=== PATIENT | male | born 1975 | race Caucasian/White ===

== ENCOUNTER 2024-12-16 21:16 | Emergency (ER) | payer OTHER, SELFPAY ==
[2024-12-16 21:24] VITALS: BP 136/80; PULSE 105; RESP 18; TEMP 37.1; O2SAT 100; BMI 23.5
--- NOTE | 2024-12-16 21:34 | ED_ITS ---
<Statement entered by Sera Xiong MD - 12/16/24 23:34> I was consulted by the SHAHNAZ, and we discussed the complexity of the problems being addressed. I approved the treatment and management plan for this patient's care in the emergency department, thus performing a substantive portion of the medical decision making. Sera Xiong MD, KRISTAL, FACEP Discharge Plan Disposition Patient Disposition: Home, Self-Care Condition: Good Prescriptions Prescriptions: New sulfamethoxazole-trimethoprim [Bactrim DS] 800-160 mg tablet 1 tab PO BID 10 Days Qty: 20 0RF Referrals Follow up/Referrals: Cesar Aguilar MD [Staff Physician, General Surgery] - See instructions Provider,Gerogiana, [Primary Care Provider, Medical] - See instructions Activity Restrictions/Add. Instructions Additional Instructions/Restrictions: I sent a prescription into your pharmacy. Please take until its gone. Have also referred you to general surgery for ongoing follow-up and management. Please call tomorrow to make your appointment. If you have any new or worsening signs or symptoms return to the ER as needed. Clinical Impressions Clinical Impression: Pilonidal abscess of cleft Instructions Patient Instructions: Pilonidal Cyst Print Language Print Language: Slovak Discharge ED Provider: Sera Xiong General Adult HPI General Chief complaint: Wound/Laceration Stated complaint: Boil near Tailbone Severe Pain Time Seen by Provider: 12/16/24 21:34 Mode of Arrival: Ambulatory Source of Information: Patient Description of Symptoms (Recalled from ER Triage Doc. by RN): Pt presents for evaluation of boil to his buttocks that started on History of Present Illness HPI narrative: Patient presents for evaluation of a boil in the cleft. Patient states the symptoms been there since Saturday. Is gotten worse and more painful. Has never had this before. He denies any fever chills hemoptysis hematochezia melena nausea vomiting diarrhea. Patient reports that it hurts to sit or lie flat. Related Data Previous Rx's ?Medication ?Instructions ?Recorded sulfamethoxazole 800 1 tab PO BID 10 days #20 tab s 12/16/24 mg-trimethoprim 160 mg tablet (Bactrim DS) Allergies Allergy/AdvReac Type Severity Reaction Status Date / Time No Known Allergies Allergy Verified 12/16/24 21:36 [facility] Disclaimer: The information contained in this section may have been updated after the patient was seen, as this information can be updated by other users. Social History Smoking Status: Current every day smoker alcohol intake: never current occupational status: employed Travel in the last 8 weeks?: None ROS Obtained: Yes Systems reviewed as appropriate & no additional complaints except as documented Physical Exam General General appearance: alert and in no apparent distress Respiratory Respiratory exam: Present normal lung sounds bilaterally Cardiovascular Cardiovascular exam: Present regular rate Neurological Exam Neurological exam: Present alert Medical Decision Making Medical Records Screening: Per USPSTF and CDC recommendations, given the prevalence of disease in our region, it is our hospital?s policy to screen for HIV and viral Hepatitis for all patients aged 18 and over and those with ongoing risk factors. Carlos Inquiry Pt receiving controlled substance: No Vital Signs: 12/16/24 21:24 Temperature 98.7 F Temperature Source Oral Pulse Rate [Right] 105 H Respiratory Rate 18 Blood Pressure [Right Arm] 136/80 Blood Pressure Mean [Right Arm] 98 Blood Pressure Source [Right Arm] Automatic Cuff Blood Pressure Position [Right Arm] Sitting 02 Sat by Pulse Oximetry 100 Oxygen Delivery Method Room Air Orders (Tests/Meds): ED MEDICATIONS Discontinued Medications Generic Name Dose Route Start Last Admin Trade Name Freq PRN Reason Stop Dose Admin Lidocaine/Epinephrine 10 ml 12/16/24 21:39 12/16/24 21:50 Lidocaine 1% W/Epi 1:100,000 20ml Vial SQ 12/16/24 21:40 10 ml ONCE ONE Administration Trimethoprim/Sulfamethoxazole 1 each 12/16/24 21:39 12/16/24 21:50 Sulfa/Trimethoprim 1 Tablet PO 12/16/24 21:40 1 each ONCE ONE Administration ORDERS Category Date Time Status Wound Culture and Gram Stain Stat Micro 12/16/24 21:52 Ordered Medical Decision Narrative: In summary patient is a 49-year-old male who presents to the emergency department for evaluation of pilonidal abscess. Patient is normotensive tachycardic on arrival with a heart rate of 105 but breathing 18 times a minute satting at 100% on room air upon arrival, afebrile at 98.7. Physical exam is remarkable for very hard indurated area at the top of the maria m cleft with e rythema that extends laterally. It is exquisitely painful to touch.. Differential diagnosis includes pilonidal abscess versus phlegmon. Initial workup will be conducted with wound culture and Gram stain. Initial interventions include p.o. Bactrim. After the area was adequately anesthetized with lidocaine with epinephrine an incision was made with a #11 blade. An immediate return of purulent material occurred. Pocket was approximately a centimeter and half deep and 3 cm and length. Wound was packed with quarter inch gauze and dry dressing was applied. Patient given wound care instructions referral to general surgery for ongoing management and care and referral to wound care as patient has no one to help him change his packing. Patient was given a prescription for Bactrim with first dose given here and prescription sent to his pharmacy. Procedures Abscess I/D Site: other ( cleft) Side (if applicable): left Local Anesthetic: lidocaine 1% and with epi Amount of anesthesia used (mL): 10 Technique: incised with #11 blade Amount of fluid expressed (mL): 5 Irrigation: No Packing used?: iodoform Critical Care Critical Care Time Critical Care Time: No
[2024-12-16] MEDS: LIDOCAINE 1% W/EPI 1:100,000 20ML VIAL 10 ML SQ (21:50)
[2024-12-16] MEDS: SULFA/TRIMETHOPRIM 1 TABLET 1 EACH PO (21:50)
--- OUTSIDE RECORDS SUMMARY | 2024-12-16 21:53 | XMS_ITS | Data Portability ---
Author Organization [facility] Address [address] [place] [id number] Care Team Providers Care Field Supervisor Seed Production Name Role Phone MILAGROS CANNON Primary Care Provider [phone] Assessment No assessment recorded. Plan of Treatment Reminders Order Date Submit Date Provider Last Modified By Organization Details Last Modified Time Details Appointments None recorded. Lab HbA1c (hemoglobin A1c), blood 2022 023 [email or web address] 2 [facility], [address] [place] [address] [address], [place], [address], 3 08:51:25 HbA1c (hemoglobin A1c), blood 2022 023 [email or web address] 2 [facility], [facility], [place], [address], 3 14:16:57 CBC w/ auto diff 2022 023 EDUIN Lynch, [address], [address], [place], [address], 3 07:14:04 CMP, serum or plasma 2022 023 EDUIN Lynch, [address], [address], [place], [address], 3 07:14:05 magnesium, serum or plasma 2022 023 EDUIN Lynch, [address], [address], [place], [address], 3 07:14:08 vitamin D, 25-hydroxy, total, serum 2022 023 [facility], [address], [address], [place], [address], 3 07:14:08 lipid panel, serum 2022 023 [facility], [address], [address], [place], [address], 3 07:14:06 glucose, fingerstick , blood 2022 023 [email or web address] 2 [facility], [address], [place], [address], 3 15:05:53 HbA1c (hemoglobin A1c), blood 2022 023 [email or web address] 2 [facility], [address], [place], [address], 3 11:53:47 CMP, serum or plasma 2022 023 [facility], [address], [address], [place], [address], 3 11:12:21 CBC w/ auto diff 2022 023 [facility], [address], [address], [place], [address], 3 11:12:19 magnesium, serum or plasma 2022 023 [facility], [address], [address], [place], [address], 3 11:12:28 microalbumi n, urine 2022 023 [facility], [address], [place], [address], 3 12:57:57 urinalysis, dipstick 2022 023 [facility], [address], [place], [address], 3 12:01:03 thyroid panel, serum 2022 023 [place] [facility], [address], [address], [place], [address], 3 11:12:23 vitamin D, 25-hydroxy, total, serum 2022 023 [place] [facility], [address], [address], [place], [address], 3 11:12:27 vitamin B12 + folate, serum or blood 2022 023 [place] [facility], [address], [address], [place], [address], 3 11:12:25 lipid panel, serum 2022 023 [place] [facility], [address], [address], [place], [address], 3 11:12:22 Referral physical therapist referral - Coccyx pain. 2022 023 [email or web address] 3 [facility], [address], [place], [address], 3 11:43:02 Procedures colonoscopy screening (PROC) 2022 023 [email or web address] 5 Jose Grove MD, [address], [address], [place], [address], 3 12:38:14 Surgeries None recorded. Imaging US, abdomen, complete - possible umbilical hernia/righ t sided abdominal pain 2022 023 [facility] ([facility] Sched[facility]), [address], [place], [address], 3 16:35:11 XR, sacrum + coccyx, 2 or more view 2022 023 [facility] ([facility]), [address], [place], [address], 3 09:30:08 Medication Orders Ozempic 0.25 mg or 0.5 mg (2 mg/1.5 mL) subcutaneou s pen injector 2022 023 [facility], [address] [place] [address], [address], 3 08:47:06 Chantix Starting Month Box 0.5 mg (11)-1 mg (42) tablets in dose pack 2022 023 [email or web address] 2 [facility], [address] [place] [address], [address], 3 11:14:37 metformin 1,000 mg tablet 2022 023 [email or web address] 2 [facility], [address] [place] [address], [address], 3 11:53:48 Ozempic 0.25 mg or 0.5 mg (2 mg/1.5 mL) subcutaneou s pen injector 2022 023 [facility], [address] [place], [address], 11:14:44 rosuvastati n 10 mg tablet 2022 023 EDUIN [facility], [address] [place], [address], 11:54:37 Patient TargetsNo targets recorded. Patient Instructions Encounter Date Encounter Id Patient Instructions Last Modified By Organization Details Last Modified Time 10/10/2022 [id number] smoking cessatio n counseling, greater than 3 minutes up to 10 minutes* Not available 10/17/2022 08:34:36 Patient needs to follow up in 1 month. Advised patient that I would call with lab results. Counseled patient on monitoring blood glucose at home. Bring log of blood sugars to next appt. [email or web address] Not available 10/10/2022 11:55:22 Reason for Referral Physical Therapist Referral for Pain in coccyx Coccyx pain. Referring Physician: Milagros Cannon, Infectious Disease, Encounter Date: 11/08/2022 Results Created Date Observation Date Name Description Value Unit Range Abnormal Flag Note LastModifiedBy Organization Detail LastModifiedTime 10/11/1910/11/2022 ALBUM IN/CR EATIN INE RATIO ,URIN E creatinine, urine 312.5 mg/dL not estab. Not Available [facility] ([facility]) [address] [place], [address], 10/11/2022 09:14:45 10/11/19 23 10/11/2022 ALBUM IN/CR EATIN INE RATIO ,URIN E albumin, urine 133.8 ug/mL not estab. Not Available [facility] ([facility]) [address] [facility], [place], [address], 10/11/2022 09:14:45 10/11/19 23 10/11/2022 ALBUM IN/CR EATIN INE RATIO ,URIN E alb/creat ratio 43 mg/g_ creat 0-29 above high normal Ana M l: 0 - 29 Moder ately incre ased: 30 - 300 Sever savanah incre ased: >300 Not Available [facility] ([facility]) [address] [place], [address], 10/11/2022 09:14:45 10/11/19 23 10/11/2022 CBC WITH DIFFE RENTI AL/PL ATELE T WBC 8.3 x10e3 /uL 3.4-10 .8 Not Available [facility] ([facility]) [address] [place], [address], 10/11/2022 11:12:19 10/11/1910/11/2022 CBC WITH DIFFE RENTI AL/PL ATELE T RBC 5.38 x10e6 /uL 4.14-5 .80 Not Available [facility] ([facility]) [address] [place], [address], 10/11/2022 11:12:19 10/11/19 23 10/11/2022 CBC WITH DIFFE RENTI AL/PL ATELE T hemoglobin 17.4 g/dL 13.0-1 7.7 Not Available [facility] ([facility]) [address] [place], [address], 10/11/2022 11:12:19 10/11/19 23 10/11/2022 CBC WITH DIFFE RENTI AL/PL ATELE T hematocrit 51.3 % 37.5-5 1.0 above high normal Not Available [facility] ([facility]) [address] [place], [address], 10/11/2022 11:12:19 10/11/19 23 10/11/2022 CBC WITH DIFFE RENTI AL/PL ATELE T MCV 95 fL 79-97 Not Available [facility] ([facility]) [address] [place], [address], 10/11/2022 11:12:19 10/11/19 23 10/11/2022 CBC WITH DIFFE RENTI AL/PL ATELE T MCH 32.3 pg 26.6-3 3.0 Not Available [facility] ([facility]) [address] [facility], [place], [address], 10/11/2022 11:12:19 10/11/19 23 10/11/2022 CBC WITH DIFFE RENTI AL/PL ATELE T MCHC 33.9 g/dL 31.5-3 5.7 Not Available [facility] ([facility]) [address] [facility], [place], [address], 10/11/2022 11:12:19 10/11/19 23 10/11/2022 CBC WITH DIFFE RENTI AL/PL ATELE T RDW 11.7 % 11.6-1 5.4 Not Available [facility] ([facility]) [address] [facility], [place], [address], 10/11/2022 11:12:19 10/11/19 23 10/11/2022 CBC WITH DIFFE RENTI AL/PL ATELE T platelets 324 x10e3 /uL 150-45 0 Not Available [facility] ([facility]) [address] [facility], [place], [address], 10/11/2022 11:12:19 10/11/19 23 10/11/2022 CBC WITH DIFFE RENTI AL/PL ATELE T neutrophils 63 % not estab. Not Available [facility] ([facility]) [address] [facility], [place], [address], 10/11/2022 11:12:19 10/11/19 23 10/11/2022 CBC WITH DIFFE RENTI AL/PL ATELE T lymphs 26 % not estab. Not Available [facility] ([facility]) [address] [facility], [place], [address], 10/11/2022 11:12:19 10/11/19 23 10/11/2022 CBC WITH DIFFE RENTI AL/PL ATELE T monocytes 8 % not estab. Not Available [facility] ([facility]) [address] [facility], [place], [address], 10/11/2022 11:12:19 10/11/19 23 10/11/2022 CBC WITH DIFFE RENTI AL/PL ATELE T eos 1 % not estab. Not Available [facility] ([facility]) [address] [facility], [place], [address], 10/11/2022 11:12:19 10/11/19 23 10/11/2022 CBC WITH DIFFE RENTI AL/PL ATELE T basos 1 % not estab. Not Available [facility] ([facility]) [address] [facility], [place], [address], 10/11/2022 11:12:19 10/11/19 23 10/11/2022 CBC WITH DIFFE RENTI AL/PL ATELE T immature cells PHYSICAL LABORATORY ASSISTANT Not Available [facility] ([facility]) [address] [place], [address], 10/11/2022 11:12:19 10/11/19 23 10/11/2022 CBC WITH DIFFE RENTI AL/PL ATELE T neutrophils (absolute) 5.3 x10e3 /uL 1.4-7. 0 Not Available [facility] ([facility]) [address] [place], [address], 10/11/2022 11:12:19 10/11/19 23 10/11/2022 CBC WITH DIFFE RENTI AL/PL ATELE T lymphs (absolute) 2.2 x10e3 /uL 0.7-3. 1 Not Available [facility] ([facility]) [address] [place], [address], 10/11/2022 11:12:19 10/11/19 23 10/11/2022 CBC WITH DIFFE RENTI AL/PL ATELE T monocytes(ab solute) 0.7 x10e3 /uL 0.1-0. 9 Not Available [facility] ([facility]) [address] [facility], [place], [address], 10/11/2022 11:12:19 10/11/19 23 10/11/2022 CBC WITH DIFFE RENTI AL/PL ATELE T eos (absolute) 0.1 x10e3 /uL 0.0-0. 4 Not Available [facility] ([facility]) [address] [facility], [place], [address], 10/11/2022 11:12:19 10/11/19 23 10/11/2022 CBC WITH DIFFE RENTI AL/PL ATELE T baso (absolute) 0.0 x10e3 /uL 0.0-0. 2 Not Available [facility] ([facility]) [address] [facility], [place], [address], 10/11/2022 11:12:19 10/11/19 23 10/11/2022 CBC WITH DIFFE RENTI AL/PL ATELE T immature granulocytes 1 % not estab. Not Available [facility] ([facility]) [address] [facility], [place], [address], 10/11/2022 11:12:19 10/11/19 23 10/11/2022 CBC WITH DIFFE RENTI AL/PL ATELE T immature grans (abs) 0.1 x10e3 /uL 0.0-0. 1 Not Available [facility] ([facility]) [address] [place], [address], 10/11/2022 11:12:19 10/11/19 23 10/11/2022 CBC WITH DIFFE RENTI AL/PL ATELE T NRBC PHYSICAL LABORATORY ASSISTANT Not Available [facility] ([facility]) [address] [facility], [place], [address], 10/11/2022 11:12:19 10/11/19 23 10/11/2022 CBC WITH DIFFE RENTI AL/PL ATELE T hematology comments: PHYSICAL LABORATORY ASSISTANT Not Available [facility] ([facility]) [address] [facility] [place], [address], 10/11/2022 11:12:19 10/11/19 23 10/11/2022 COMP. METAB OLIC PANEL (14) glucose 294 mg/dL 70-99 above high normal Not Available [facility] ([facility]) [address] [facility] [place], [address], 10/11/2022 11:12:21 10/11/19 23 10/11/2022 COMP. METAB OLIC PANEL (14) BUN 22 mg/dL 6-24 Not Available [facility] ([facility]) [address] [facility] [place], [address], 10/11/2022 11:12:21 10/11/19 23 10/11/2022 COMP. METAB OLIC PANEL (14) creatinine 0.84 mg/dL 0.76-1 .27 Not Available [facility] ([facility]) [address] [facility] [place], [address], 10/11/2022 11:12:21 10/11/19 23 10/11/2022 COMP. METAB OLIC PANEL (14) eGFR 110 mL/mi n/1.7 3 >59 Not Available [facility] ([facility]) [address] [place], [address], 10/11/2022 11:12:21 10/11/19 23 10/11/2022 COMP. METAB OLIC PANEL (14) BUN/creatini ne ratio 26 9-20 above high normal Not Available [facility] ([facility]) [address] [facility] [place], [address], 10/11/2022 11:12:21 10/11/19 23 10/11/2022 COMP. METAB OLIC PANEL (14) sodium 137 mmol/ L 134-14 4 Not Available [facility] ([facility]) [address] [place], [address], 10/11/2022 11:12:21 10/11/19 23 10/11/2022 COMP. METAB OLIC PANEL (14) potassium 5.0 mmol/ L 3.5-5. 2 Not Available [facility] ([facility]) [address] [facility], [place], [address], 10/11/2022 11:12:21 10/11/19 23 10/11/2022 COMP. METAB OLIC PANEL (14) chloride 97 mmol/ L 96-106 Not Available [facility] ([facility]) [address] [facility], [place], [address], 10/11/2022 11:12:21 10/11/19 23 10/11/2022 COMP. METAB OLIC PANEL (14) carbon dioxide, total 24 mmol/ L 20-29 Not Available [facility] ([facility]) [address] [facility], [place], [address], 10/11/2022 11:12:21 10/11/19 23 10/11/2022 COMP. METAB OLIC PANEL (14) calcium 10.1 mg/dL 8.7-10 .2 Not Available [facility] ([facility]) [address] [facility], [place], [address], 10/11/2022 11:12:21 10/11/19 23 10/11/2022 COMP. METAB OLIC PANEL (14) protein, total 7.5 g/dL 6.0-8. 5 Not Available [facility] ([facility]) [address] [facility], [place], [address], 10/11/2022 11:12:21 10/11/19 23 10/11/2022 COMP. METAB OLIC PANEL (14) albumin 4.4 g/dL 4.0-5. 0 Not Available [facility] ([facility]) [address] [facility], [place], [address], 10/11/2022 11:12:21 10/11/19 23 10/11/2022 COMP. METAB OLIC PANEL (14) globulin, total 3.1 g/dL 1.5-4. 5 Not Available [facility] ([facility]) [address] [place], [address], 10/11/2022 11:12:21 10/11/19 23 10/11/2022 COMP. METAB OLIC PANEL (14) A/G ratio 1.4 1.2-2. 2 Not Available [facility] ([facility]) [address] [place], [address], 10/11/2022 11:12:21 10/11/19 23 10/11/2022 COMP. METAB OLIC PANEL (14) bilirubin, total 0.5 mg/dL 0.0-1. 2 Not Available [facility] ([facility]) [address] [place], [address], 10/11/2022 11:12:21 10/11/19 23 10/11/2022 COMP. METAB OLIC PANEL (14) alkaline phosphatase 73 IU/L 44-121 Not Available [facility]) [address] [place], [address], 10/11/2022 11:12:21 10/11/19 23 10/11/2022 COMP. METAB OLIC PANEL (14) AST (SGOT) 33 IU/L 0-40 Not Available [facility] ([facility]) [address] [place], [address], 10/11/2022 11:12:21 10/11/19 23 10/11/2022 COMP. METAB OLIC PANEL (14) ALT (SGPT) 40 IU/L 0-44 Not Available [facility] ([facility]) [address] [place], [address], 10/11/2022 11:12:21 10/11/19 23 10/11/2022 LIPID PANEL cholesterol, total 270 mg/dL 100-19 9 above high normal Not Available [facility] ([facility]) [address] [facility] [place], [address], 10/11/2022 11:12:22 10/11/19 23 10/11/2022 LIPID PANEL triglyceride s 299 mg/dL 0-149 above high normal Not Available [facility] ([facility]) [address] [facility] [place], [address], 10/11/2022 11:12:22 10/11/19 23 10/11/2022 LIPID PANEL HDL cholesterol 32 mg/dL >39 below low normal Not Available [facility] ([facility]) [address] [facility] [place], [address], 10/11/2022 11:12:22 10/11/19 23 10/11/2022 LIPID PANEL VLDL cholesterol shaunna 58 mg/dL 5-40 above high normal Not Available [facility] ([facility]) [address] [place], [address], 10/11/2022 11:12:22 10/11/19 23 10/11/2022 LIPID PANEL LDL chol calc ([facility]) 180 mg/dL 0-99 above high normal Not Available [facility] ([facility]) [address] [place], [address], 10/11/2022 11:12:22 10/11/19 23 10/11/2022 LIPID PANEL comment: PHYSICAL LABORATORY ASSISTANT Not Available [facility] ([facility]) [address] [place], [address], 10/11/2022 11:12:22 10/11/19 23 10/11/2022 THYRO ID PROFI LE II TSH 1.030 uIU/m L 0.450- 4.500 Not Available [facility] ([facility]) [address] [place], [address], 10/11/2022 11:12:23 10/11/19 23 10/11/2022 THYRO ID PROFI LE II thyroxine (T4) 10.8 ug/dL 4.5-12 .0 Not Available [facility] ([facility]) [address] [place], [address], 10/11/2022 11:12:23 10/11/19 23 10/11/2022 THYRO ID PROFI LE II T3 uptake 27 % 24-39 Not Available [facility] ([facility]) [address] [facility], [place], [address], 10/11/2022 11:12:23 10/11/19 23 10/11/2022 THYRO ID PROFI LE II free thyroxine index 2.9 1.2-4. 9 Not Available [facility] ([facility]) [address] [facility], [place], [address], 10/11/2022 11:12:23 10/11/19 23 10/11/2022 THYRO ID PROFI LE II triiodothyro nine (T3) 148 NG/dL 71-180 Not Available [facility] ([facility]) [address] [place], [address], 10/11/2022 11:12:23 10/11/19 23 10/11/2022 VITAM IN B12 AND FOLAT E vitamin B12 747 pg/mL 232-12 45 Not Available [facility] ([facility]) [address] [place], [address], 10/11/2022 11:12:24 10/11/1910/11/2022 VITAM IN B12 AND FOLAT E folate (folic acid), serum >20.0 NG/mL >3.0 A serum folat e linda ntrat ion of less than 3.1 ng/mL is consi dered to repre sent clini shaunna defic iency . Not Available [facility] ([facility]) [address] [place], [address], 10/11/2022 11:12:24 10/11/1910/11/2022 HEMOG LOBIN A1C hemoglobin A1C 12.9 % 4.8-5. 6 above high normal Predi abete s: 5.7 - 6.4 Diabe melissa: >6.4 Glyce oni contr ol for adult s with diabe melissa: <7.0 Not Available [facility] ([facility]) [address] [facility], [place], [address], 10/11/2022 11:12:26 10/11/19 23 10/11/2022 VITAM IN D, 25-HY DROXY vitamin D, 25-hydroxy 23.0 NG/mL 30.0-1 00.0 below low normal Vitam in D defic iency has been defin ed by the Insti tute of Medic ine and an Endoc rine Socie ty pract ice guide line as a level of serum 25-OH vitam in D less than 20 ng/mL (1,2) . The Endoc rine Socie ty went on to furth er defin e vitam in D insuf ficie ncy as a level betwe en 21 and 29 ng/mL (2). 1. IOM (Inst itute of Medic ine). 2009. Dieta ry refer ence intjuan es for calci um and D. Louie burnett [place]: [facility] [employer] . 2. Maribell johnson [place], Nilsa shah [place], Dago off-F errrosemarie i YEAGER, et al. Evalu ation , treat ment, and preve ntion of vitam in D defic iency : an Endoc rine Socie ty clini shaunna pract ice guide line. JCEM. 2010; 96(7) :1911 -30. Not Available [facility] ([facility]) [address] [facility], [place], [address], 10/11/2022 11:12:27 10/11/19 23 10/11/2022 MAGNE SIUM magnesium 1.5 mg/dL 1.6-2. 3 below low normal Not Available [facility] ([facility]) [address] [facility], [place], [address], 10/11/2022 11:12:28 10/11/19 23 10/10/2022 urina lysis , dipst ick Leukocytes (reference range) negati ve Not Available [facility] - [address], [place], [address], 10/10/2022 11:35:48 10/11/19 23 10/10/2022 urina lysis , dipst ick Nitrite (reference range:) negati ve Not Available [facility] - [address], [place], [address], 10/10/2022 11:35:48 10/11/19 23 10/10/2022 urina lysis , dipst ick Urobilinogen (reference range) 0.2 Not Available [facility] - [address], [place], [address], 10/10/2022 11:35:48 10/11/19 23 10/10/2022 urina lysis , dipst ick Protein (reference range) 100 Not Available [facility] - [address], [place], [address], 10/10/2022 11:35:48 10/11/19 23 10/10/2022 urina lysis , dipst ick pH (reference range 5-8.5) 5.0 Not Available [facility] - [address], [place], [address], 10/10/2022 11:35:48 10/11/19 23 10/10/2022 urina lysis , dipst ick Blood (reference range:) negati ve Not Available [facility] - [address], [place], [address], 10/10/2022 11:35:48 10/11/19 23 10/10/2022 urina lysis , dipst ick Specific [place] (reference range) 1.030 Not Available [address], [place], [address], 10/10/2022 11:35:48 10/11/19 23 10/10/2022 urina lysis , dipst ick Ketone (reference range) modera te Not Available [address], [place], [address], 10/10/2022 11:35:48 10/11/19 23 10/10/2022 urina lysis , dipst ick Bilirubin (reference range) modera te Not Available [address], [place], [address], 10/10/2022 11:35:48 10/11/19 23 10/10/2022 urina lysis , dipst ick Glucose (reference range) 1000 Not Available [address], [place], [address], 10/10/2022 11:35:48 10/11/19 23 10/10/2022 urina lysis , dipst ick Color (reference range: yellow-brown ) Dark Yellow Not Available [address], [place], [address], 10/10/2022 11:35:48 10/11/19 23 10/10/2022 HbA1c (hemo globi n A1c), blood HbA1c 13.1 Not Available [address], [place], [address], 10/10/2022 11:16:31 11/09/19 23 11/08/2022 gluco se, finge rstic k, blood Blood Glucose: mg/dl 157 Not Available [address], [place], [address], 11/08/2022 14:40:07 01/09/20 23 01/09/2023 CBC WITH DIFFE RENTI AL/PL ATELE T WBC 8.0 x10e3 /uL 3.4-10 .8 Not Available [facility] ([facility]) [address] [facility] [place], [address], 01/10/2023 07:14:04 01/09/20 23 01/09/2023 CBC WITH DIFFE RENTI AL/PL ATELE T RBC 4.39 x10e6 /uL 4.14-5 .80 Not Available [facility] ([facility]) [address] [facility] [place], [address], 01/10/2023 07:14:04 01/09/20 23 01/09/2023 CBC WITH DIFFE RENTI AL/PL ATELE T hemoglobin 14.5 g/dL 13.0-1 7.7 Not Available [facility] ([facility]) [address] [facility] [place], [address], 01/10/2023 07:14:04 01/09/20 23 01/09/2023 CBC WITH DIFFE RENTI AL/PL ATELE T hematocrit 41.8 % 37.5-5 1.0 Not Available [facility] ([facility]) [address] [facility] [place], [address], 01/10/2023 07:14:04 01/09/20 23 01/09/2023 CBC WITH DIFFE RENTI AL/PL ATELE T MCV 95 fL 79-97 Not Available [facility] ([facility]) [address] [place], [address], 01/10/2023 07:14:04 01/09/20 23 01/09/2023 CBC WITH DIFFE RENTI AL/PL ATELE T MCH 33.0 pg 26.6-3 3.0 Not Available [facility] ([facility]) [address], [place], [address], 01/10/2023 07:14:04 01/09/20 23 01/09/2023 CBC WITH DIFFE RENTI AL/PL ATELE T MCHC 34.7 g/dL 31.5-3 5.7 Not Available [facility] ([facility]) [address] [facility] [place], [address], 01/10/2023 07:14:04 01/09/20 23 01/09/2023 CBC WITH DIFFE RENTI AL/PL ATELE T RDW 12.1 % 11.6-1 5.4 Not Available [facility] ([facility]) [address] [facility] [place], [address], 01/10/2023 07:14:04 01/09/20 23 01/09/2023 CBC WITH DIFFE RENTI AL/PL ATELE T platelets 273 x10e3 /uL 150-45 0 Not Available [facility] ([facility]) [address] [facility] [place], [address], 01/10/2023 07:14:04 01/09/20 23 01/09/2023 CBC WITH DIFFE RENTI AL/PL ATELE T neutrophils 63 % not estab. Not Available [facility] ([facility]) [address] [facility], [place], [address], 01/10/2023 07:14:04 01/09/20 23 01/09/2023 CBC WITH DIFFE RENTI AL/PL ATELE T lymphs 29 % not estab. Not Available [facility] ([facility]) [address] [facility], [place], [address], 01/10/2023 07:14:04 01/09/20 23 01/09/2023 CBC WITH DIFFE RENTI AL/PL ATELE T monocytes 7 % not estab. Not Available [facility] ([facility]) [address] [facility], [place], [address], 01/10/2023 07:14:04 01/09/20 23 01/09/2023 CBC WITH DIFFE RENTI AL/PL ATELE T eos 1 % not estab. Not Available [facility] ([facility]) [address] [place], [address], 01/10/2023 07:14:04 01/09/20 23 01/09/2023 CBC WITH DIFFE RENTI AL/PL ATELE T basos 0 % not estab. Not Available [facility] ([facility]) [address] [place], [address], 01/10/2023 07:14:04 01/09/20 23 01/09/2023 CBC WITH DIFFE RENTI AL/PL ATELE T immature cells PHYSICAL LABORATORY ASSISTANT Not Available [facility] ([facility]) [address] [place], [address], 01/10/2023 07:14:04 01/09/20 23 01/09/2023 CBC WITH DIFFE RENTI AL/PL ATELE T neutrophils (absolute) 5.0 x10e3 /uL 1.4-7. 0 Not Available [facility] ([facility]) [address] [place], [address], 01/10/2023 07:14:04 01/09/20 23 01/09/2023 CBC WITH DIFFE RENTI AL/PL ATELE T lymphs (absolute) 2.3 x10e3 /uL 0.7-3. 1 Not Available [facility] ([facility]) [address] [place], [address], 01/10/2023 07:14:04 01/09/20 23 01/09/2023 CBC WITH DIFFE RENTI AL/PL ATELE T monocytes(ab solute) 0.6 x10e3 /uL 0.1-0. 9 Not Available [facility] ([facility]) [address] [place], [address], 01/10/2023 07:14:04 01/09/20 23 01/09/2023 CBC WITH DIFFE RENTI AL/PL ATELE T eos (absolute) 0.1 x10e3 /uL 0.0-0. 4 Not Available [facility] ([facility]) [address] [facility], [place], [address], 01/10/2023 07:14:04 01/09/20 23 01/09/2023 CBC WITH DIFFE RENTI AL/PL ATELE T baso (absolute) 0.0 x10e3 /uL 0.0-0. 2 Not Available [facility] ([facility]) [address] [facility], [place], [address], 01/10/2023 07:14:04 01/09/20 23 01/09/2023 CBC WITH DIFFE RENTI AL/PL ATELE T immature granulocytes 0 % not estab. Not Available [facility] ([facility]) [address] [facility], [place], [address], 01/10/2023 07:14:04 01/09/2001/09/2023 CBC WITH DIFFE RENTI AL/PL ATELE T immature grans (abs) 0.0 x10e3 /uL 0.0-0. 1 Not Available [facility] ([facility]) [address] [place], [address], 01/10/2023 07:14:04 01/09/20 23 01/09/2023 CBC WITH DIFFE RENTI AL/PL ATELE T NRBC PHYSICAL LABORATORY ASSISTANT Not Available [facility] ([facility]) [address] [place], [address], 01/10/2023 07:14:04 01/09/20 23 01/09/2023 CBC WITH DIFFE RENTI AL/PL ATELE T hematology comments: PHYSICAL LABORATORY ASSISTANT Not Available [facility] ([facility]) [address] [place], [address], 01/10/2023 07:14:04 01/09/20 23 01/09/2023 COMP. METAB OLIC PANEL (14) glucose 111 mg/dL 70-99 above high normal Not Available [facility] ([facility]) [address] [place], [address], 01/10/2023 07:14:05 01/09/20 23 01/09/2023 COMP. METAB OLIC PANEL (14) BUN 16 mg/dL 6-24 Not Available [facility] ([facility]) [address] [place], [address], 01/10/2023 07:14:05 01/09/20 23 01/09/2023 COMP. METAB OLIC PANEL (14) creatinine 0.60 mg/dL 0.76-1 .27 below low normal Not Available [facility] ([facility]) [address] [place], [address], 01/10/2023 07:14:05 01/09/20 23 01/09/2023 COMP. METAB OLIC PANEL (14) eGFR 121 mL/mi n/1.7 3 >59 Not Available [facility] ([facility]) [address] [place], [address], 01/10/2023 07:14:05 01/09/20 23 01/09/2023 COMP. METAB OLIC PANEL (14) BUN/creatini ne ratio 27 9-20 above high normal Not Available [facility] ([facility]) [address] [place], [address], 01/10/2023 07:14:05 01/09/20 23 01/09/2023 COMP. METAB OLIC PANEL (14) sodium 140 mmol/ L 134-14 4 Not Available [facility] ([facility]) [address] [place], [address], 01/10/2023 07:14:05 01/09/20 23 01/09/2023 COMP. METAB OLIC PANEL (14) potassium 4.0 mmol/ L 3.5-5. 2 Not Available [facility] ([facility]) [address] [place], [address], 01/10/2023 07:14:05 01/09/20 23 01/09/2023 COMP. METAB OLIC PANEL (14) chloride 100 mmol/ L 96-106 Not Available [facility] ([facility]) [address] [place], [address], 01/10/2023 07:14:05 01/09/20 23 01/09/2023 COMP. METAB OLIC PANEL (14) carbon dioxide, total 23 mmol/ L 20- Not Available [facility] ([facility]) [address] [facility], [place], [address], 01/10/2023 07:14:05 01/09/20 23 01/09/2023 COMP. METAB OLIC PANEL (14) calcium 9.5 mg/dL 8.7-10 .2 Not Available [facility] ([facility]) [address] [place], [address], 01/10/2023 07:14:05 01/09/20 23 01/09/2023 COMP. METAB OLIC PANEL (14) protein, total 7.1 g/dL 6.0-8. 5 Not Available [facility] ([facility]) [address] [place], [address], 01/10/2023 07:14:05 01/09/20 23 01/09/2023 COMP. METAB OLIC PANEL (14) albumin 4.5 g/dL 4.0-5. 0 Eff ectiv e January 21, 2023 Album in refer ence inter luis will be beck ing to: Age Male Femal e 0 - 7 days 3.6 - 4.9 3.6 - 4.9 8 - 30 days 3.5 - 4.6 3.5 - 4.6 1 - 6 month s 3.7 - 4.8 3.7 - 4.8 7 month s - 2 years 4.0 - 5.0 4.0 - 5.0 3 - 5 years 4.1 - 5.0 4.1 - 5.0 6 - 12 years 4.2 - 5.0 4.2 - 5.0 13 - 30 years 4.3 - 5.2 4.0 - 5.0 31 - 50 years 4.1 - 5.1 3.9 - 4.9 51 - 60 years 3.8 - 4.9 3.8 - 4.9 61 - 70 years 3.9 - 4.9 3.9 - 4.9 71 - 80 years 3.8 - 4.8 3.8 - 4.8 81 - 89 years 3.7 - 4.7 3.7 - 4.7 90 - 199 years 3.6 - 4.6 3.6 - 4.6 Not Available [facility] ([facility]) [address] [place], [address], 01/10/2023 07:14:05 01/09/20 23 01/09/2023 COMP. METAB OLIC PANEL (14) globulin, total 2.6 g/dL 1.5-4. 5 Not Available [facility] ([facility]) [address] [place], [address], 01/10/2023 07:14:05 01/09/20 23 01/09/2023 COMP. METAB OLIC PANEL (14) A/G ratio 1.7 1.2-2. 2 Not Available [facility] ([facility]) [address] [place], [address], 01/10/2023 07:14:05 01/09/20 23 01/09/2023 COMP. METAB OLIC PANEL (14) bilirubin, total 0.4 mg/dL 0.0-1. 2 Not Available [facility] ([facility]) [address] [place], [address], 01/10/2023 07:14:05 01/09/20 23 01/09/2023 COMP. METAB OLIC PANEL (14) alkaline phosphatase 55 IU/L 44-121 Not Available [facility] ([facility]) [address] [facility] [place], [address], 01/10/2023 07:14:05 01/09/20 23 01/09/2023 COMP. METAB OLIC PANEL (14) AST (SGOT) 13 IU/L 0-40 Not Available [facility] ([facility]) [address] [facility] [place], [address], 01/10/2023 07:14:05 01/09/20 23 01/09/2023 COMP. METAB OLIC PANEL (14) ALT (SGPT) 14 IU/L 0-44 Not Available [facility] ([facility]) [address] [place], [address], 01/10/2023 07:14:05 01/09/20 23 01/09/2023 LIPID PANEL cholesterol, total 110 mg/dL 100-19 9 Not Available [facility] ([facility]) [address] [place], [address], 01/10/2023 07:14:06 01/09/20 23 01/09/2023 LIPID PANEL triglyceride s 93 mg/dL 0-149 Not Available [facility] ([facility]) [address] [place], [address], 01/10/2023 07:14:06 01/09/20 23 01/09/2023 LIPID PANEL HDL cholesterol 36 mg/dL >39 below low normal Not Available [facility] ([facility]) [address] [place], [address], 01/10/2023 07:14:06 01/09/20 23 01/09/2023 LIPID PANEL VLDL cholesterol shaunna 18 mg/dL 5-40 Not Available [facility] ([facility]) [address] [place], [address], 01/10/2023 07:14:06 01/09/20 23 01/09/2023 LIPID PANEL LDL chol calc ([facility]) 56 mg/dL 0-99 Not Available [facility] ([facility]) [address] [facility], [place], [address], 01/10/2023 07:14:06 01/09/20 23 01/09/2023 LIPID PANEL comment: PHYSICAL LABORATORY ASSISTANT Not Available [facility] ([facility]) [address] [facility], [place], [address], 01/10/2023 07:14:06 01/09/20 23 01/09/2023 HEMOG LOBIN A1C hemoglobin A1C 7.9 % 4.8-5. 6 above high normal Predi abete s: 5.7 - 6.4 Diabe melissa: >6.4 Glyce oni contr ol for adult s with diabe melissa: <7.0 Not Available [facility] ([facility]) [address] [facility], [place], [address], 01/10/2023 07:14:07 01/09/20 23 01/10/2023 VITAM IN D, 25-HY DROXY vitamin D, 25-hydroxy 61.2 NG/mL 30.0-1 00.0 Vitam in D defic iency has been defin ed by the Insti tute of Medic ine and an Endoc rine Socie ty pract ice guide line as a level of serum 25-OH vitam in D less than 20 ng/mL (1,2) . The Endoc rine Socie ty went on to furth er defin e vitam in D insuf ficie ncy as a level betwe en 21 and 29 ng/mL (2). 1. IOM (Inst itute of Medic ine). 2010. Dieta ry refer ence markus es for calci um and D. Louie burnett [place]: The [facility]io nal [facility] Press . 2. Maribell johnson [place], [place], Dago off-F errar i YEAGER, et al. Evalu ation , treat ment, and preve ntion of vitam in D defic iency : an Endoc rine Socie ty clini shaunna pract ice guide line. JCEM. 2010; 96(7) :1911 -30. Not Available [facility] ([facility]) [address] [facility], [place], [address], 01/10/2023 07:14:08 01/09/20 23 01/09/2023 MAGNE SIUM magnesium 1.6 mg/dL 1.6-2. 3 Not Available [facility] ([facility]) [address] [facility], [place], [address], 01/10/2023 07:14:08 01/09/20 23 01/08/2023 HbA1c (hemo globi n A1c), blood HbA1c 8.0 Not Available [facility] - [address], [place], [address], 01/08/2023 14:14:16 04/10/20 23 04/10/2023 HbA1c (hemo globi n A1c), blood HbA1c 7.3 Not Available [facility] - [address], [place], [address], 04/10/2023 08:34:17 12/08/19 23 12/06/2022 XR, sacru m + coccy x [facility] [address] [id number] Phone: Fax: Name: LIAM XIONG Exam Date: 023 : 977 Age 47 Gender : M Access ion: [id number] Physic rohit: Irena Michelle Facili ty: [facility] Facili ty HSV: Outpat ient Exam: SACRUM COCCYX Sacrum and coccyx Histor y: Sacroc occyge al pain Findin gs: There is mild narrow ing of the SI joints with vacuum phenom enon. There are no osteop hytes or erosio ns. Sacrum and coccyx otherw ise have a normal appear ance. Impres berta: SI joint degene rative change . Dictat ed By: LATONIA BANUELOS Transc ribed By: LATONIA BANUELOS Transc ribed On: 7:46 AM Electr onical ly signed by: LATONIA BANUELOS Thank you for referr LIAM Brian to [facility]. Legall y authen ticate d by TERRY LINCOLN 12-07 09:15: 03 CC'ed Logic: Orderi ng Provid er: HADLEY Mcgee CC Provid er: HADLEY Mcgee Attend ing Provid er: HADLEY Mcgee Referr ing Provid er: HADLEY Mcgee Admitt ing Provid er: HADLEY Mcgee [facility] [address] [place] [address], [address], 12/07/2022 11:54:18 12/08/19 23 12/06/2022 XR, sacru m + coccy x, 2 or more view No observ ation record ed. [facility] ([facility]) [address] [place] [address], [address], 12/07/2022 11:58:00 02/29/20 23 02/28/2023 [facility] [address] [place] [address] Phone: Fax: Name: LIAM XIONG Exam Date: : 977 Age 48 Gender : M Access ion: [id number] Physic rohit: Irena Michelle Facili ty: [facility] Facili ty HSV: Outpat ient Exam: ABDOME N US Abdomi nal ultras ound, comple te. HISTOR Y: Abdomi nal Pain. PROCED URE: Ultras ound images of the abdome n were obtain ed. FINDIN GS: . The liver is increa sed in echoge nicity . The gall bladde r is normal . The common duct is normal . The right kidney measur es 10 cm in length and is normal in echoge nicity withou t hydron ephros is. The left kidney measur es 10.5 cm in length and is normal in echoge nicity withou t hydron ephros is. Spleen is unrema rkable . The IVC and aorta are not well demons trated . IMPRES BERTA: Fatty infilt ration of the liver Films review ed , interp reted and dictat ed by Dr.Pop mcgee Transc ribed by Navid Bethea PA-C. Dictat ed By: SHAMA VELA Transc ribed By: Shama Vela Transc ribed On: 023 4:21 PM Electr onical ly signed by: SHAMA VELA 023 Thank you for referr LIAM Brian to [facility]. Legall y authen ticate d by POPE SHAMA Sharpe 02-28 16:21: 01 CC'ed Logic: Orderi ng Provid er: HADLEY Mcgee CC Provid er: HADLEY Mcgee Attend ing Provid er: HADLEY Mcgee Referr ing Provid er: HADLEY Mcgee Admitt ing Provid er: HADLEY Mcgee [id number] [facility] [address] [facility], [place], [address], 03/01/2023 08:36:07 02/29/20 23 02/28/2023 US, abdom en, compl ete No observ ation record ed. [facility] [address] [facility], [place], [address], 03/07/2023 08:34:35 Result Notes None recorded. Procedures Surgical History Date Name Laterality Status Provider Name and Address Organization Details Recorded Time 9 procedure on shoulder completed Doretha SPRING - NT [facility] [place] 03/20/2023 14:16:42 Imaging Results None recorded. Procedure Notes None recorded. Medical Equipment None Reported. Allergies No known drug allergies Medications Name Sig Start Date Stop Date Status Note LastModified by Organization Details LastModified Time magnesium oxide 400 mg (241.3 mg magnesium) tablet Take 1 tablet every day by oral route as directed for 90 days. 2022 active Not Available Not Available Not Avai lable metformin 1,000 mg tablet TAKE 1 TABLET BY MOUTH TWICE A DAY DIRECTED active Not Available Not Available No t Available lisinopril 10 mg tablet TAKE 1 TABLET BY MOUTH EVERY DAY 2023 active Not Available Not Available Not Avai lable nicotine 21 mg/24 hr daily transdermal patch APPLY 1 PATCH EVERY DAY BY TRANSDERM AL ROUTE DIRECTED active Not Available Not Available No t Available ibuprofen 600 mg tablet TAKE 1 TABLET BY MOUTH EVERY 6 HOURS NEEDED active Not Available Not Available No t Available methylpredn isolone 4 mg tablets in a dose pack TAKE 6 TABLETS ON DAY 1 DIRECTED ON PACKAGE AND DECREASE BY 1 TAB EACH DAY FOR A TOTAL OF 6 DAYS 10/09 completed Not Available Not Available Not Available metaxalone 800 mg tablet TAKE 1 TABLET BY MOUTH EVERY 6 HOURS NEEDED active Not Available Not Available No t Available rosuvastati n 10 mg tablet TAKE 1 TABLET BY MOUTH EVERY DAY DIRECTED active Not Available Not Available No t Available varenicline tartrate 0.5 mg (11)-1 mg (42) tablets in a dose pack Take by oral route for 28 days. 10/16 completed Not Available Not Available Not Available cholecalcif tomás (vitamin D3) 1,250 mcg (50,000 unit) capsule TAKE 1 CAPSULE BY MOUTH ONE TIME PER WEEK DIRECTED FOR 90 DAYS 2023 active Not Available Not Available Not Avai lable Ozempic 0.25 mg or 0.5 mg (2 mg/1.5 mL) subcutaneou s pen injector Inject 0.25 mg every week by subcutane ous route as directed for 30 days. 2022 active Not Available Not Available Not Avai lable magnesium 400 mg (as magnesium oxide) tablet TAKE 1 TABLET BY MOUTH EVERY DAY DIRECTED active Not Available Not Available No t Available Ozempic 0.25 mg or 0.5 mg (2 mg/3 mL) subcutaneou s pen injector INJECT 0.25 MG SUBCUTANE OUSLY WEEKLY DIRECTED active Not Available Not Available No t Available Vitals Date Recorded Body weight Body mass index (BMI) Body height Body temperature Oxygen saturation Oxygen saturation in Arterial blood by Pulse oximetry Heart rate Systolic blood pressure Diastolic blood pressure Provider Name and Address Organization Details Last Updated DateTime 3 873585. 94 g 36.6 kg/m2 182.88 cm 97 [degF] 96 % 96 % 103 /min 142 mm[Hg] 80 mm[Hg] CLAIRE WILL [facility] [place] 3 10:58:46 Date Recorded Body height Body mass index (BMI) Body weight Body temperature Oxygen saturation Oxygen saturation in Arterial blood by Pulse oximetry Heart rate Systolic blood pressure Diastolic blood pressure Provider Name and Address Organization Details Last Updated DateTime 3 182.88 cm 36.5 kg/m2 198971. 35 g 96.8 [degF] 95 % 95 % 89 /min 134 mm[Hg] 84 mm[Hg] [facility] WILL SPRING [facility] & [place] 3 14:33:54 Date Recorded Body height Body mass index (BMI) Body weight Body temperature Oxygen saturation Oxygen saturation in Arterial blood by Pulse oximetry Heart rate Systolic blood pressure Diastolic blood pressure Provider Name and Address Organization Details Last Updated DateTime 3 182.88 cm 33.9 kg/m2 030000. 09 g 98.1 [degF] 97 % 97 % 82 /min 120 mm[Hg] 80 mm[Hg] Aminta Harden [facility] [place] 3 13:57:12 Date Recorded Body height Body mass index (BMI) Body weight Body temperature Oxygen saturation Oxygen saturation in Arterial blood by Pulse oximetry Heart rate Systolic blood pressure Diastolic blood pressure Provider Name and Address Organization Details Last Updated DateTime 3 182.88 cm 33.5 kg/m2 921005. 32 g 97.7 [degF] 97 % 97 % 85 /min 114 mm[Hg] 66 mm[Hg] CLAIRE WILL SPRING [facility] [place] 3 11:13:56 Date Recorded Body height Body mass index (BMI) Body weight Body temperature Oxygen saturation Oxygen saturation in Arterial blood by Pulse oximetry Heart rate Systolic blood pressure Diastolic blood pressure Provider Name and Address Organization Details Last Updated DateTime 182.88 cm 32.4 kg/m2 539201. 58 g 97.1 [degF] 97 % 97 % 90 /min 142 mm[Hg] 70 mm[Hg] CLAIRE SPRING - LPNT [facility] [place] 08:19:13 Social History Question Answer Notes LastModified by Organizat ion Details LastModified Time Tobacco Smoking Status Current Every Day Smoker CLAIRE ramsey, CLEMENTINE COOL [facility] [place] 10/10/2022 10:53:09 Do You Have An Advance Directive? No Information not available 10/10/2022 Are You Blind Or Do You Have Difficulty Seeing? No Information not available 10/10/2022 What Was The Date Of Your Most Recent Tobacco Screening? 10/09/2022 Information not available 10/10/2022 At What Age Did You Start Smoking Tobacco? 17 [email or web address] Information not available 04/10/2023 Are You Passively Exposed To Smoke? Yes Information not available 10/10/2022 How Much Tobacco Do You Smoke? 1 PPD Information not available 10/10/2022 Sex: Unknown Functional Status Question Answer Note LastModified by Organizat ion Details LastModified Time Do you use any illicit or recreational drugs? No Information not available 10/10/2022 What is your level of alcohol consumption? None Information not available 10/10/2022 Do you or have you ever used smokeless tobacco? Never used smokeless tobacco Information not available 10/10/2022 What is your exercise level? Occasional Information not available 10/10/2022 Mental Status None recorded. Family History Relationship Description Onset Age of this Age Resolved Age Notes LastModified by Organization Details LastModified Time Father No current problems or disability [email or web address] Not available 11/13 12:35:59 Mother No current problems or disability [email or web address] Not available 11/13 12:35:59 Medical History Condition Response Diabetes Y Obesity Y Hypertension Y Immunizations Vaccine Type Date Status Note Provider Nam e and Address Organization Details Recorded Time COVID-19, mRNA, LNP-S, PF, 30 mcg/0.3 mL dose 03/10/2021 completed Opal ramsey CLEMENTINE - LPNT [facility] [place] 10/17/2022 12:28:36 COVID-19, mRNA, LNP-S, PF, 30 mcg/0.3 mL dose 03/31/2021 completed Opal ramsey, CLEMENTINE - LPNT [facility] [place] 10/17/2022 12:28:36 Past Encounters Encounter ID Performer Location Encounter Start Date Encounter Closed Date Diagnosis/Indication Diagnosis SNOMED-CT Code Diagnosis ICD10 Code Diagnosis Note [id number] Milagros Cordova in[address] [place] [address] 10/10/2022 10:49:33 10/10/2022 11:53:58 Type 2 diabetes mellitus 29171378 E11.65 Ozempic was still 800 after insurance. Will start with Metformin and reassess and if needed will add another medication if needed. Follow up in 1 month. Bring blood sugar log to clinic at that time. Hyperlipidemia 47531393 E78.5 Thyroid di sorder screening 914081753 Z13.29 Screening for malignant neoplasm of colon 185875265 Z12.11 Nicotine dependence 5629 4008 F17.200 Adult heal th examination 610102850 Z00.01 Counseled patient on annual eye exams and regular dental visits. Will call with lab results. Patient advised to follow up in 1 month. Diabetic p eripheral neuropathy 406324225 E11.40 Will start new diabetes medication . Will reassess. [id number] Milagros Cordova in, [address] [place] [address] 11/08/2022 14:28:07 11/08/2022 14:54:36 Type 2 diabetes mellitus 40954060 E11.65 Keep a blood glucose log. RTC in 2 months. Will recheck hgbA1c, lipid panel, and CBC, CMP. Patient agrees with treatment plan. Continue the metformin as prescribed . Pain in coccyx 19940909 M53.3 Advised patient to take ibuprofen before riding. Use an additional cushion on his bike.Ruthy loyola has cologuard at home. Advised to complete and send in to the lab. [id number] Milagros Cordova [address] [place] [address] 01/08/2023 13:52:38 01/08/2023 15:01:27 Type 2 diabetes mellitus 84969461 E11.65 Continue metformin as RX.Will check complete blood work today. Will call with results.A1 C was 13.1 and it is 8.0 today.Will consider adding Mounjaro after January 12 per new recommenda tions. Patient could not afford before.Fol low up in 3 months. Hyperlipidemia 00764923 E78.5 Patient is currently on rosuvastat in. Will call with lab results. [id number] Milagros Cordova [address] [place] [address] 02/05/2023 10:57:49 02/05/2023 11:31:17 Abdominal pain 56890499 R10.9 Tylenol/Ib uprofen PRN.Avoid any strenuous activity to worsen pain or condition. Was seen in ER December [address] Abd/Pelvis was unremarkab le.Will order U/S. Will call with ultrasound results. [id number] Milagros Cordova [address] [place] [address] 04/10/2023 08:14:43 04/10/2023 08:39:38 Type 2 diabetes mellitus 44338929 E11.65 A1C 7.3 on maximum continued Metformin therapy and dietary modificati ons.will add Ozempic to help reach A1c goals.Will see back in 1 month after starting Ozempic. Health Concerns Section Related Observation LastModified by Organization Detai ls LastModified Time None Recorded Concern Status LastModified by Organization Details LastModified Time None Recorded Advance Directives Directive N: Payers Insurance Date Sequence Insurance Name Policy Number Policy Zaman Covered Member ID Zaman Member ID Guarantor Name 05/22/2023 1 [facility] [id number] Liam Xiong [id number] Liam Xiong Notes Date Note Type Note Provider Name and Address Organization Details Recorded Time 10/10/2022 text/html patient presents to clinic to establish care. He was a patient of dr. ramos. He has not been since last year. He has not been on his diabetic medication. Smoking- he smokes 2 PPD. He reports at least 20-25 year history.he is interested in cessation.ETOH use- deniesIllicit drug use- denies Covid or flu vaccine- he received. He does not wear glasses or contacts. he has not been seen at the eye doctor in 10 years.He has not seen the dentist in over 2 years. History or family history of Cancer- he reports a maternal history of lung cancer. She also had a brain lesion. Exercise/diet habits- he reports a terrible diet. Changes in bowel habits-Constipation /diarrhea? He reports some neuropathy. Milagros Cannon APRN [address], [place], [address], [facility] [place] 10/12/2022 10:13:43 11/08/2022 text/html patient presents to clinic for follow up. He has been taking his metformin and tolerating it. He has not checked his blood sugars as directed. His blood glucose in the office today is noted. Patient states he feels better. Denies any new symptoms. Patient does reports some coccyx pain when he is riding his motorcycle. Denies any saddle anesthesia. Denies any sciatica. Denies any diarrhea or constipation. Denies any drainage, hematochezia, warmth. Denies any excess urge to defecate. Milagros Cannon APRN [address], [place], [address], [facility] & [place] 11/08/2022 15:48:57 01/08/2023 text/html patient presents to clinic for follow up on diabetes.He states he is feeling better. He was seen in the ER for abdominal pain 2 weeks ago. He states CT abdomen was negative. He is seeing the Chiropractor and it is helping with his back spasms. He denies any new symptoms. Milagros Cannon APRN [address], [place], [address], [facility] & [place] 01/08/2023 14:31:24 02/05/2023 text/html patient presents to clinic for right sided periumbilical abdominal pain. He rates it moderate. Denies any change in appetite. Denies any hematochezia/melena . Denies any nausea or vomiting. He denies any accident or ability to pinpoint when it happened. Symptoms started 2 weeks ago. Pain doesnt radiate. Skin is tender and he has some paresthesias. He denies any diarrhea or constipation. Denies any scrotal pain or swelling. Denies any fevers. Denies any chest pain or SOB. Milagros Cannon APRN [address], [place], [address], [place] - [facility] & [place] 02/05/2023 11:49:51 04/10/2023 text/html patient presents to clinic for 3 month follow up. He states he is a little stressed in this morning. He states his BP has been running good. He denies any headaches. Denies any chest pain. Milagros Cannon APRN [address], [place], [address], [place] - [facility] & [place] 04/11/2023 08:59:32
[2024-12-16 21:59] VITALS: BP 138/78; PULSE 78; RESP 18; TEMP 36.6; O2SAT 98
--- NOTE | 2024-12-18 14:24 | PC.NURSE ---
I discussed the pts prelim culture results with . No change needed to the pts treatment plan.
== END 2024-12-16 22:06 | disposition home or self-care (01) ==
LOC: ER 21:51
PROVIDERS: Emergency Provider Student in an Organized Health Care Education/Training Program
DX: L05.01 Pilonidal cyst with abscess (principal); F17.210 Nicotine dependence, cigarettes, uncomplicated
CPT/HCPCS: 10081; 87070; 87077; 87205; 99283; J2004

== ENCOUNTER 2024-12-23 09:35 | Outpatient (CLI) | payer OTHER, SELFPAY ==
[2024-12-23 10:19] LABS: Basophils # 0.1 K/mm3 (0-0.2); Basophils % 0.8 % (0.1-2.0); Eosinophils # 0.2 Kmm3 (0.0-0.4); Eosinophils % 3.5 % (0.1-12.0); Hematocrit 42.8 % (42.0-52.0); Hemoglobin 14.5 g/dL (14.1-18.0); Immature Granulocytes # 0.01 10^3uL; Immature Granulocytes % 0.2 %; Lymphocytes # 1.9 K/mm3 (0.7-4.5); Lymphocytes % 31.6 % (10-50); Mean Corpuscular HGB Conc 33.9 g/dL (31.8-35.4); Mean Corpuscular Hemoglobin 31.8 pg (27.0-31.2); Mean Corpuscular Volume 93.9 fl (80-94); Mean Platelet Volume 9.5 fl (7.4-10.4); Monocytes # 0.5 K/mm3 (0.1-1.0); Monocytes % 7.7 % (1.7-9.3); Neutrophils # 3.4 K/mm3 (1.8-7.8); Neutrophils % 56.2 % (37.0-80.0); Nucleated Red Blood Cells # 0 10^3/uL; Nucleated Red Blood Cells % 0 %; Platelet Count 319 K/mm3 (142-424); Red Blood Count 4.56 M/mm3 (4.60-6.20); Red Cell Distribution Width 12.7 % (11.5-17.5); Red Cell Distribution Width-SD 43.6 fL
[2024-12-23 10:37] LABS: Anion Gap 6.9 mEq/L (5-15); Blood Urea Nitrogen 10 mg/dl (9-20); Carbon Dioxide 29 mmol/L (22.0-30.0); Chloride 105 mmol/L (98-107); Estimated Glomerular Filt Rate 121 ml/min (>60); GFR (African American) 146 ML/MIN (>60); Glucose 144 mg/dl (74-100); Potassium 3.9 mmoL/L (3.5-5.1); Sodium 137 mmol/L (136-145)
--- NOTE | 2024-12-23 14:22 | ECG_ITS ---
APPROVED REPORT Exam: Resting ECG HR:65 bpm ECG Measurements Heart Rate 65 AXES OR 154 P 21 QRSd 88 QRS 37 QT 370 T 49 QTc 382 Conclusion SINUS RHYTHM LOW QRS VOLTAGE IN PRECORDIAL LEADS [QRS DEFLECTION < 1.0 mV IN CHEST LEADS] BORDERLINE ECG UNCONFIRMED REPORT Electronically signed by : Kvng Araya MD 12/24/2024 08:43:52
== END 2024-12-23 23:59 | disposition home or self-care (01) ==
LOC: PREOP 09:36
PROVIDERS: PCP Internal Medicine; Visit Provider Surgery
DX: Z01.810 Encounter for preprocedural cardiovascular examination (principal); L05.01 Pilonidal cyst with abscess; R94.31 Abnormal electrocardiogram [ECG] [EKG]
CPT/HCPCS: 80048; 85025; 93005

== ENCOUNTER 2024-12-31 07:59 | Day surgery (SDC) | payer OTHER, SELFPAY ==
[2024-12-23 14:15] VITALS: BMI 33.9
[2024-12-31] VITALS (9 sets, daily range): BP systolic 118–156; BP diastolic 62–99; PULSE 70–78; RESP 14–18; TEMP 36.1–36.3; O2SAT 95–97
[2024-12-31] MEDS: 0.9 % SODIUM CHLORIDE 1000ML 1,000 ML 25 ML IV (08:17)
[2024-12-31 08:32] LABS: POC Glucose,Bedside 157 (70-110)
--- NOTE | 2024-12-31 09:52 | P.PNANES_ITS ---
[facility] Disclaimer: The information contained in this section may have been updated after the patient was seen, as this information can be updated by other users. Medical History Diabetes Surgical History History of shoulder surgery Family History Other Family history of cancer Social History Smoking Status: Current every day smoker alcohol intake: never substance use type: denies use current occupational status: employed Travel in the last 8 weeks?: None [facility] Anesthesia Checklist Patient Identification Patient Identification: Verbal (Name & ) Structural Data Admitted From: Home Planned Operative Procedure/s: pilonidal cyst Consent for Planned Operative Procedure(s) Verified: Yes NPO Status Verified Time NPO: 00:00 Additional verifications Anesthesia Reactions: No Hx Blood Transfusions: No Blood Transfusion Reaction: No Airway Assessment Mallampati Score:: Class II C-Spine Mobility Assessed: Yes TMJ Mobility Assessed: Yes Dentition: Good Dentition Neurological Assessment Level of Consciousness: Awake, Alert and Appropriate Anesthesia Plan Anesthesia Risk discussed: Yes Anesthesia Plan: Verified ASA Class: II Anesthesia Type: General
[2024-12-31] MEDS: METRONIDAZ/SOD CHL 500 MG/100 ML PIGGYBACK 100 MG IV (10:55)
[2024-12-31] MEDS: LIDOCAINE 1% 20ML MDV 20 ML (11:04)
[2024-12-31] MEDS: CEFAZOLIN SODIUM 2 GM in 0.9 % SODIUM CHLORIDE 100 ML IV (11:05)
--- NOTE | 2024-12-31 11:17 | P.OP_ITS ---
Date of procedure: 12/31/24 Pre-op Diagnosis:: Complex pilonidal cyst with recent abscess Post-op Diagnosis:: Same Procedure performed:: Pilonidal cyst excision Surgeon:: Kenneth Bird MD TUNNEL ELASTIC OPERATOR CHAINSTITCH:: Wong Clements Anesthesia: local and LMA Estimated blood loss (mL): 10 Operative findings:: Complex pilonidal abscess with multiple overlying punctae and evidence of recent abscess Operative note:: After informed consent was obtained the patient was taken to the operating room and placed in the supine position. General anesthesia with laryngeal mask airway was achieved. He was transferred to a left lateral decubitus position. His buttock cleft region was prepped and draped in a sterile fashion. After infiltration with local anesthetic an incision was made circumferentially around overlying central punctae and left lateral inflammatory tissue margin. The excised tissue was passed off for pathologic evaluation. A small pocket of purulence was noted just underlying prior incision and drainage site. The entir e cavity was thoroughly irrigated. Electrocautery was utilized to achieve hemostasis. The wound was packed with Kerlix and dressings were applied. Condition: stable Disposition: PACU Specimens:: Pilonidal cyst Complications:: No immediate
--- NOTE | 2024-12-31 11:37 | P.PNANES_ITS ---
[facility] Anesthesia Record Part I Anesthesia Record I Intake, IV Amount: 300 Hydration: Adequate Estimated blood loss (mL): 5 Urine output (mL): 0 Blood Products used (#): none Blood Pressure: 152/93 SaO2: 97 Pulse Rate: 77 Airway Patency: Patent Respiratory Rate: 14 Temperature: 97.4 F Patient is:: Drowsy and Stable Stable to PACU at:: 11:30
[2024-12-31] MEDS: HYDROMORPHONE 2MG/ML SYRINGE 0.5 MG IV (11:50)
[2024-12-31 11:53] LABS: POC Glucose,Bedside 130 (70-110)
[2024-12-31] MEDS: MORPHINE 2MG/ML SYRINGE 2 MG IV (11:53)
[2024-12-31] MEDS: KETOROLAC 30MG/ML VIAL 30 MG IV (11:53)
--- NOTE | 2025-01-01 09:10 | EXP.ANES.II ---
[facility] Anesthesia Record Part II Anesthesia Record Part II Discharge Time: 12:21 Destination: Surgical Day Care (OP Surgery) PACU nurse assessment reviewed?: Yes Patient Condition:: Good Anesthesia Complications:: None Swallowing reflex intact?: Yes Airway Patency: Patent Cyanosis?: No Blood Pressure: 123/75 SaO2: 95 Respiratory Rate: 18 Pulse Rate: 73 Temperature: 97.0 F Mental Status: Alert & Oriented Pain level:: 0 Nausea and/or vomitting:: None Intake, IV Amount: 0 Hydration: Adequate
[2025-01-01 09:11] VITALS: BP 123/75; PULSE 73; RESP 18; TEMP 36.1; O2SAT 95
== END 2024-12-31 12:45 | disposition home or self-care (01) ==
PROVIDERS: PCP Internal Medicine; Visit Provider Surgery
PROC: (CPT 11770; principal; 2024-12-31 09:45)
DX: L05.01 Pilonidal cyst with abscess (principal); E11.9 Type 2 diabetes mellitus without complications; Z79.85 Long-term (current) use of injectable non-insulin antidiabetic drugs
CPT/HCPCS: 11770; 82962; 96374; J0690; J1171; J1836; J1885; J2003; J2250; J2270; J2704; J3010; J7030

== ENCOUNTER 2025-01-01 12:25 | Outpatient (CLI) | payer OTHER, SELFPAY ==
--- OUTSIDE RECORDS SUMMARY | 2025-01-01 12:28 | XMS_ITS | Patient Health Record ---
Author Organization [facility] Address [address] [address] [place] [address] Care Team Providers Care Early Childhood Assistant Name Role Phone None, None Primary Care Provider UnavailJose Das Unavailable [phone] Allergies No Known Allergies Reason For Referral No Information Medications Medication SIG (Take, Route, Fr equency, Duration) Notes Start Date End Date Status metFORMIN HCl 500 MG 1 tablet with a kristi l Orally Once a day Active Social History Tobacco Use: Social History Observation Description Date Details (start date - stop date) Current Smoker NA - NA Tobacco Control (Standard) Question Answer Notes Tobacco use: Current smoker AUDIT-C (Standard) Question Answer Notes Did you have a drink containing alcohol in the p ast year? No Points 0 Interpretation Negative Problems Problem Type SNOMED Code ICD Code Onset Dates Problem Status W/U Status Risk Notes Problem 977333263 Obesity (BMI 30-39.9) (E66.9) Active confirmed Problem 77295277 Acute tonsillitis, unspecified etiology (J03.90) Active confirmed Problem 6244073162133 Acute otitis media with effusion of both ears (H65.193) Active confirmed Problem 89779307 Rapid pulse (R00.0) Active confirmed Vital Signs Temperature 98.7 degrees Fahrenheit 01/30/2024 Respiratory Rate 18 /min 01/30/2024 Blood pressure diastolic 78 mm Hg 01/30/2024 Height 72 in 01/30/2024 Blood pressure systolic 118 mm Hg 01/30/2024 Weight 245 lbs 01/30/2024 BMI 33.22 kg/m2 01/30/2024 Encounters Encounter Location Date Provider Diagnosis [address] [place] [address] 01/30/2024 Jose Katherin Acute otitis media with effusion of both ears H65.193 ; Acute tonsillitis, unspecified etiology J03.90 ; Rapid pulse R00.0 and Obesity (BMI 30-39.9) E66.9 Assessments Encounter Date Diagnosis (ICD Code) Assessment Notes Treatment Notes Treatment Clinical Notes Section Notes 01/30/2024 Acute tonsillitis, unspecified etiology (ICD-10 - J03.90) Declined strep testing 01/30/2024 Acute otitis media with effusion of both ears (ICD-10 - H65.193) 01/30/2024 Rapid pulse (ICD-10 - R00.0) 01/30/2024 Obesity (BMI 30-39.9) (ICD-10 - E66.9) Plan Of Treatment No Information Insurance Providers Payer Name Payer Address Payer Phone Subscriber Number Group Number Insured Name Patient Relationship to Insured Coverage Start Date Coverage End Date [facility] [address] [address] [place] [phone] [id number] Liam Xiong Self - patient is the insured Medical (General) History Medical History History ICD Code Diabetes Surgical History Surgery Date(Month/Year) shoulder left Hospitalization History Reason Date(Month/Year) as above
--- OUTSIDE RECORDS SUMMARY | 2025-01-01 12:28 | XMS_ITS | Patient Health Record ---
Author Organization [facility] Address [address] [place] [address] Support Name Relationship Address Phone N/A, N/A Emergency Contact [address] [place] [address] Unavailable RHIANNON SEXTON Guarantor Unknown [phone] Reason For Referral No Information Immunizations Vaccine Route Administration Date Status Comme nts PFIZER Covid 19 1st Dose (0.3ml) 12yr & up IM Intramuscular 03/10/2021 Administered PFIZER Covid 19 2nd Dose (0.3ml) 12yr & up IM Intramuscular 03/31/2021 Administered Plan Of Treatment No Information Insurance Providers Payer Name Payer Address Payer Phone Subscriber Number Group Number Insured Name Patient Relationship to Insured Coverage Start Date Coverage End Date [facility] [address] [address] [place] [phone] [id number] RHIANNON SEXTON Self - patient is the insured
--- OUTSIDE RECORDS SUMMARY | 2025-01-01 12:28 | XMS_ITS | Data Portability ---
Author Organization [facility] ADMIN Address [address] [place] [id number] Care Team Providers Care Dog Walker Name Role Phone MILAGROS CANNON Primary Care Provider Assessment No assessment recorded. Plan of Treatment Reminders Order Date Submit Date Provider Last Modified By Organization Details Last Modified Time Details Appointments None recorded. Lab HbA1c (hemoglobin A1c), blood 2022 023 [email or web address] 2 [facility], [address] [place] [address] [address], [place], [address], 3 08:51:25 HbA1c (hemoglobin A1c), blood 2022 023 [email or web address] 2 [facility], [facility], [place], [address], 3 14:16:57 CBC w/ auto diff 2022 023 EDUIN Lynch, [address], [address], [place], [address], 3 07:14:04 CMP, serum or plasma 2022 023 EDUIN Lynch, [address], [address], [place], [address], 3 07:14:05 magnesium, serum or plasma 2022 023 EDUIN Lynch, [address], [address], [place], [address], 3 07:14:08 vitamin D, 25-hydroxy, total, serum 2022 023 EDUIN [facility], [address], [address], [place], [address], 3 07:14:08 lipid panel, serum 2022 023 EDUIN [facility], [address], [address], [place], [address], 3 07:14:06 glucose, fingerstick , blood 2022 023 [email or web address] 2 [facility], [address], [place], [address], 3 15:05:53 HbA1c (hemoglobin A1c), blood 2022 023 [email or web address] 2 [facility], [address], [place], [address], 3 11:53:47 CMP, serum or plasma 2022 023 EDUIN [facility], [address], [address], [place], [address], 3 11:12:21 CBC w/ auto diff 2022 023 EDUIN [facility], [address], [address], [place], [address], 3 11:12:19 magnesium, serum or plasma 2022 023 EDUIN [facility], [address], [address], [place], [address], 3 11:12:28 microalbumi n, urine 2022 023 [facility], [address], [place], [address], 3 12:57:57 urinalysis, dipstick 2022 023 [facility], [address], [place], [address], 3 12:01:03 thyroid panel, serum 2022 023 GUINDA [facility], [address], [address], [place], [address], 3 11:12:23 vitamin D, 25-hydroxy, total, serum 2022 023 GUINDA [facility], [address], [address], [place], [address], 3 11:12:27 vitamin B12 + folate, serum or blood 2022 023 GUINDA [facility], [address], [address], [place], [address], 3 11:12:25 lipid panel, serum 2022 023 GUINDA [facility], [address], [address], [place], [address], 3 11:12:22 Referral physical therapist referral - Coccyx pain. 2022 023 [email or web address] 3 [facility], [address], [place], [address], 3 11:43:02 Procedures colonoscopy screening (PROC) 2022 023 [email or web address] 5 Jose Grove MD, [address], [address], [place], [address], 3 12:38:14 Surgeries None recorded. Imaging US, abdomen, complete - possible umbilical hernia/righ t sided abdominal pain 2022 023 [facility] ([facility]), [address], [place], [address], 3 16:35:11 XR, sacrum + coccyx, 2 or more view 2022 023 [facility] ([facility]), [address], [place], [address], 3 09:30:08 Medication Orders Ozempic 0.25 mg or 0.5 mg (2 mg/1.5 mL) subcutaneou s pen injector 2022 023 [id number], [address] [place] [address], [address], 3 08:47:06 Chantix Starting Month Box 0.5 mg (11)-1 mg (42) tablets in dose pack 2022 023 [email or web address] 2 [facility], [address] [place] [address], [address], 3 11:14:37 metformin 1,000 mg tablet 2022 023 [email or web address] 2 [facility], [address] [place] [address], [address], 3 11:53:48 Ozempic 0.25 mg or 0.5 mg (2 mg/1.5 mL) subcutaneou s pen injector 2022 023 [facility], [address] [place], [address], 11:14:44 rosuvastati n 10 mg tablet 2022 023 EDUIN [facility], [address] [place], [address], 11:54:37 Patient TargetsNo targets recorded. Patient Instructions Encounter Date Encounter Id Patient Instructions Last Modified By Organization Details Last Modified Time 10/10/2022 [id number] smoking cessatio n counseling, greater than 3 minutes up to 10 minutes* Not available 10/17/2022 08:34:36 Patient needs to follow up in 1 month. Advised patient that I would call with lab results. Counseled patient on monitoring blood glucose at home. Bring log of blood sugars to next appt. [email or web address] Not available 10/10/2022 11:55:22 Reason for Referral Physical Therapist Referral for Pain in coccyx Coccyx pain. Referring Physician: Milagros Cannon, Infectious Disease, Encounter Date: 11/08/2022 Results Created Date Observation Date Name Description Value Unit Range Abnormal Flag Note LastModifiedBy Organization Detail LastModifiedTime 10/11/1910/11/2022 ALBUM IN/CR EATIN INE RATIO ,URIN E creatinine, urine 312.5 mg/dL not estab. Not Available [facility] ([facility]) [address] [place], [address], 10/11/2022 09:14:45 10/11/19 23 10/11/2022 ALBUM IN/CR EATIN INE RATIO ,URIN E albumin, urine 133.8 ug/mL not estab. Not Available [facility] ([facility]) [address] [facility], [place], [address], 10/11/2022 09:14:45 10/11/19 23 10/11/2022 ALBUM IN/CR EATIN INE RATIO ,URIN E alb/creat ratio 43 mg/g_ creat 0-29 above high normal Ana M l: 0 - 29 Moder ately incre ased: 30 - 300 Sever savanah incre ased: >300 Not Available [facility] ([facility]) [address] [place], [address], 10/11/2022 09:14:45 10/11/19 23 10/11/2022 CBC WITH DIFFE RENTI AL/PL ATELE T WBC 8.3 x10e3 /uL 3.4-10 .8 Not Available [facility] ([facility]) [address] [place], [address], 10/11/2022 11:12:19 10/11/1910/11/2022 CBC WITH DIFFE RENTI AL/PL ATELE T RBC 5.38 x10e6 /uL 4.14-5 .80 Not Available [facility] ([facility]) [address] [place], [address], 10/11/2022 11:12:19 10/11/19 23 10/11/2022 CBC WITH DIFFE RENTI AL/PL ATELE T hemoglobin 17.4 g/dL 13.0-1 7.7 Not Available [facility] ([facility]) [address] [place], [address], 10/11/2022 11:12:19 10/11/19 23 10/11/2022 CBC WITH DIFFE RENTI AL/PL ATELE T hematocrit 51.3 % 37.5-5 1.0 above high normal Not Available [facility] ([facility]) [address] [place], [address], 10/11/2022 11:12:19 10/11/19 23 10/11/2022 CBC WITH DIFFE RENTI AL/PL ATELE T MCV 95 fL 79-97 Not Available [facility] ([facility]) [address] [place], [address], 10/11/2022 11:12:19 10/11/19 23 10/11/2022 CBC WITH DIFFE RENTI AL/PL ATELE T MCH 32.3 pg 26.6-3 3.0 Not Available [facility] ([facility]) [address] [facility], [place], [address], 10/11/2022 11:12:19 10/11/19 23 10/11/2022 CBC WITH DIFFE RENTI AL/PL ATELE T MCHC 33.9 g/dL 31.5-3 5.7 Not Available [facility] ([facility]) [address] [facility], [place], [address], 10/11/2022 11:12:19 10/11/19 23 10/11/2022 CBC WITH DIFFE RENTI AL/PL ATELE T RDW 11.7 % 11.6-1 5.4 Not Available [facility] ([facility]) [address] [facility], [place], [address], 10/11/2022 11:12:19 10/11/19 23 10/11/2022 CBC WITH DIFFE RENTI AL/PL ATELE T platelets 324 x10e3 /uL 150-45 0 Not Available [facility] ([facility]) [address] [facility], [place], [address], 10/11/2022 11:12:19 10/11/19 23 10/11/2022 CBC WITH DIFFE RENTI AL/PL ATELE T neutrophils 63 % not estab. Not Available [facility] ([facility]) [address] [facility], [place], [address], 10/11/2022 11:12:19 10/11/19 23 10/11/2022 CBC WITH DIFFE RENTI AL/PL ATELE T lymphs 26 % not estab. Not Available [facility] ([facility]) [address] [facility], [place], [address], 10/11/2022 11:12:19 10/11/19 23 10/11/2022 CBC WITH DIFFE RENTI AL/PL ATELE T monocytes 8 % not estab. Not Available [facility] ([facility]) [address] [facility], [place], [address], 10/11/2022 11:12:19 10/11/19 23 10/11/2022 CBC WITH DIFFE RENTI AL/PL ATELE T eos 1 % not estab. Not Available [facility] ([facility]) [address] [facility], [place], [address], 10/11/2022 11:12:19 10/11/19 23 10/11/2022 CBC WITH DIFFE RENTI AL/PL ATELE T basos 1 % not estab. Not Available [facility] ([facility]) [address] [facility], [place], [address], 10/11/2022 11:12:19 10/11/19 23 10/11/2022 CBC WITH DIFFE RENTI AL/PL ATELE T immature cells [employer]OWNFIELD [employer] SPECIALIST Not Available [facility] ([facility]) [address] [place], [address], 10/11/2022 11:12:19 10/11/19 23 10/11/2022 CBC WITH DIFFE RENTI AL/PL ATELE T neutrophils (absolute) 5.3 x10e3 /uL 1.4-7. 0 Not Available [facility] ([facility]) [address] [place], [address], 10/11/2022 11:12:19 10/11/19 23 10/11/2022 CBC WITH DIFFE RENTI AL/PL ATELE T lymphs (absolute) 2.2 x10e3 /uL 0.7-3. 1 Not Available [facility] ([facility]) [address] [place], [address], 10/11/2022 11:12:19 10/11/19 23 10/11/2022 CBC WITH DIFFE RENTI AL/PL ATELE T monocytes(ab solute) 0.7 x10e3 /uL 0.1-0. 9 Not Available [facility] ([facility]) [address] [facility], [place], [address], 10/11/2022 11:12:19 10/11/19 23 10/11/2022 CBC WITH DIFFE RENTI AL/PL ATELE T eos (absolute) 0.1 x10e3 /uL 0.0-0. 4 Not Available [facility] ([facility]) [address] [facility], [place], [address], 10/11/2022 11:12:19 10/11/19 23 10/11/2022 CBC WITH DIFFE RENTI AL/PL ATELE T baso (absolute) 0.0 x10e3 /uL 0.0-0. 2 Not Available [facility] ([facility]) [address] [facility], [place], [address], 10/11/2022 11:12:19 10/11/19 23 10/11/2022 CBC WITH DIFFE RENTI AL/PL ATELE T immature granulocytes 1 % not estab. Not Available [facility] ([facility]) [address] [facility], [place], [address], 10/11/2022 11:12:19 10/11/19 23 10/11/2022 CBC WITH DIFFE RENTI AL/PL ATELE T immature grans (abs) 0.1 x10e3 /uL 0.0-0. 1 Not Available [facility] ([facility]) [address] [place], [address], 10/11/2022 11:12:19 10/11/19 23 10/11/2022 CBC WITH DIFFE RENTI AL/PL ATELE T NRBC [employer]EV[employer] SPECIALIST Not Available [facility] ([facility]) [address] [facility], [place], [address], 10/11/2022 11:12:19 10/11/19 23 10/11/2022 CBC WITH DIFFE RENTI AL/PL ATELE T hematology comments: BROWNFIELD REDEVELOP[employer] SPECIALIST Not Available [facility] ([facility]) [address] [place], [address], 10/11/2022 11:12:19 10/11/19 23 10/11/2022 COMP. METAB OLIC PANEL (14) glucose 294 mg/dL 70-99 above high normal Not Available [facility] ([facility]) [address] [place], [address], 10/11/2022 11:12:21 10/11/19 23 10/11/2022 COMP. METAB OLIC PANEL (14) BUN 22 mg/dL 6-24 Not Available [facility] ([facility]) [address] [place], [address], 10/11/2022 11:12:21 10/11/19 23 10/11/2022 COMP. METAB OLIC PANEL (14) creatinine 0.84 mg/dL 0.76-1 .27 Not Available [facility] ([facility]) [address] [place], [address], 10/11/2022 11:12:21 10/11/19 23 10/11/2022 COMP. METAB OLIC PANEL (14) eGFR 110 mL/mi n/1.7 3 >59 Not Available [facility] ([facility]) [address] [place], [address], 10/11/2022 11:12:21 10/11/19 23 10/11/2022 COMP. METAB OLIC PANEL (14) BUN/creatini ne ratio 26 9-20 above high normal Not Available [facility] ([facility]) [address] [place], [address], 10/11/2022 11:12:21 10/11/19 23 10/11/2022 COMP. METAB OLIC PANEL (14) sodium 137 mmol/ L 134-14 4 Not Available [facility] ([facility]) [address] [place], [address], 10/11/2022 11:12:21 10/11/19 23 10/11/2022 COMP. METAB OLIC PANEL (14) potassium 5.0 mmol/ L 3.5-5. 2 Not Available [facility] ([facility]) [address] [facility], [place], [address], 10/11/2022 11:12:21 10/11/19 23 10/11/2022 COMP. METAB OLIC PANEL (14) chloride 97 mmol/ L 96-106 Not Available [facility] ([facility]) [address] [facility], [place], [address], 10/11/2022 11:12:21 10/11/19 23 10/11/2022 COMP. METAB OLIC PANEL (14) carbon dioxide, total 24 mmol/ L 20-29 Not Available [facility] ([facility]) [address] [facility], [place], [address], 10/11/2022 11:12:21 10/11/19 23 10/11/2022 COMP. METAB OLIC PANEL (14) calcium 10.1 mg/dL 8.7-10 .2 Not Available [facility] ([facility]) [address] [facility], [place], [address], 10/11/2022 11:12:21 10/11/19 23 10/11/2022 COMP. METAB OLIC PANEL (14) protein, total 7.5 g/dL 6.0-8. 5 Not Available [facility] ([facility]) [address] [facility], [place], [address], 10/11/2022 11:12:21 10/11/19 23 10/11/2022 COMP. METAB OLIC PANEL (14) albumin 4.4 g/dL 4.0-5. 0 Not Available [facility] ([facility]) [address] [facility], [place], [address], 10/11/2022 11:12:21 10/11/19 23 10/11/2022 COMP. METAB OLIC PANEL (14) globulin, total 3.1 g/dL 1.5-4. 5 Not Available [facility] ([facility]) [address] [place], [address], 10/11/2022 11:12:21 10/11/19 23 10/11/2022 COMP. METAB OLIC PANEL (14) A/G ratio 1.4 1.2-2. 2 Not Available [facility] ([facility]) [address] [place], [address], 10/11/2022 11:12:21 10/11/19 23 10/11/2022 COMP. METAB OLIC PANEL (14) bilirubin, total 0.5 mg/dL 0.0-1. 2 Not Available [facility] ([facility]) [address] [place], [address], 10/11/2022 11:12:21 10/11/19 23 10/11/2022 COMP. METAB OLIC PANEL (14) alkaline phosphatase 73 IU/L 44-121 Not Available [facility]) [address] [place], [address], 10/11/2022 11:12:21 10/11/19 23 10/11/2022 COMP. METAB OLIC PANEL (14) AST (SGOT) 33 IU/L 0-40 Not Available [facility] ([facility]) [address] [place], [address], 10/11/2022 11:12:21 10/11/19 23 10/11/2022 COMP. METAB OLIC PANEL (14) ALT (SGPT) 40 IU/L 0-44 Not Available [facility] ([facility]) [address] [place], [address], 10/11/2022 11:12:21 10/11/19 23 10/11/2022 LIPID PANEL cholesterol, total 270 mg/dL 100-19 9 above high normal Not Available [facility] ([facility]) [address] [place], [address], 10/11/2022 11:12:22 10/11/19 23 10/11/2022 LIPID PANEL triglyceride s 299 mg/dL 0-149 above high normal Not Available [facility] ([facility]) [address] [place], [address], 10/11/2022 11:12:22 10/11/19 23 10/11/2022 LIPID PANEL HDL cholesterol 32 mg/dL >39 below low normal Not Available [facility] ([facility]) [address] [place], [address], 10/11/2022 11:12:22 10/11/19 23 10/11/2022 LIPID PANEL VLDL cholesterol shaunna 58 mg/dL 5-40 above high normal Not Available [facility] ([facility]) [address] [place], [address], 10/11/2022 11:12:22 10/11/19 23 10/11/2022 LIPID PANEL LDL chol calc ([facility]) 180 mg/dL 0-99 above high normal Not Available [facility] ([facility]) [address] [place], [address], 10/11/2022 11:12:22 10/11/19 23 10/11/2022 LIPID PANEL comment: BROWNFIELD [employer] SPECIALIST Not Available [facility] ([facility]) [address] [place], [address], 10/11/2022 11:12:22 10/11/19 23 10/11/2022 THYRO ID PROFI LE II TSH 1.030 uIU/m L 0.450- 4.500 Not Available [facility] ([facility]) [address] [place], [address], 10/11/2022 11:12:23 10/11/19 23 10/11/2022 THYRO ID PROFI LE II thyroxine (T4) 10.8 ug/dL 4.5-12 .0 Not Available [facility] ([facility]) [address] [place], [address], 10/11/2022 11:12:23 10/11/19 23 10/11/2022 THYRO ID PROFI LE II T3 uptake 27 % 24-39 Not Available [facility] ([facility]) [address] [facility], [place], [address], 10/11/2022 11:12:23 10/11/19 23 10/11/2022 THYRO ID PROFI LE II free thyroxine index 2.9 1.2-4. 9 Not Available [facility] ([facility]) [address] [facility], [place], [address], 10/11/2022 11:12:23 10/11/19 23 10/11/2022 THYRO ID PROFI LE II triiodothyro nine (T3) 148 NG/dL 71-180 Not Available [facility] ([facility]) [address] [place], [address], 10/11/2022 11:12:23 10/11/19 23 10/11/2022 VITAM IN B12 AND FOLAT E vitamin B12 747 pg/mL 232-12 45 Not Available [facility] ([facility]) [address] [place], [address], 10/11/2022 11:12:24 10/11/1910/11/2022 VITAM IN B12 AND FOLAT E folate (folic acid), serum >20.0 NG/mL >3.0 A serum folat e linda ntrat ion of less than 3.1 ng/mL is consi dered to repre sent clini shaunna defic iency . Not Available [facility] ([facility]) [address] [place], [address], 10/11/2022 11:12:24 10/11/1910/11/2022 HEMOG LOBIN A1C hemoglobin A1C 12.9 % 4.8-5. 6 above high normal Predi abete s: 5.7 - 6.4 Diabe melissa: >6.4 Glyce oni contr ol for adult s with diabe melissa: <7.0 Not Available [facility] ([facility]) [address] [facility], [place], [address], 10/11/2022 11:12:26 10/11/19 23 10/11/2022 VITAM IN [...] um and D. Louie burnett [place]: [facility] . 2. Maribell johnson MF, Nilsa shah [place], Dago off-F errrosemarie i YEAGER, et al. Evalu ation , treat ment, and preve ntion of vitam in D defic iency : an Endoc rine Socie ty clini shaunna pract ice guide line. JCEM. 2010; 96(7) :1911 -30. Not Available [facility] ([facility]) [address] [facility], [place], [address], 10/11/2022 11:12:27 10/11/19 23 10/11/2022 MAGNE SIUM magnesium 1.5 mg/dL 1.6-2. 3 below low normal Not Available [facility] ([facility]) [address] [facility], [place], [address], 10/11/2022 11:12:28 10/11/19 23 10/10/2022 urina lysis , dipst ick Leukocytes (reference range) negati ve Not Available [facility] - [address], [place], [address], 10/10/2022 11:35:48 10/11/19 23 10/10/2022 urina lysis , dipst ick Nitrite (reference range:) negati ve Not Available [facility] - [address], [place], [address], 10/10/2022 11:35:48 10/11/19 23 10/10/2022 urina lysis , dipst ick Urobilinogen (reference range) 0.2 Not Available [facility] - [address], [place], [address], 10/10/2022 11:35:48 10/11/19 23 10/10/2022 urina lysis , dipst ick Protein (reference range) 100 Not Available [facility] - [address], [place], [address], 10/10/2022 11:35:48 10/11/19 23 10/10/2022 urina lysis , dipst ick pH (reference range 5-8.5) 5.0 Not Available [facility] - [address], [place], [address], 10/10/2022 11:35:48 10/11/19 23 10/10/2022 urina lysis , dipst ick Blood (reference range:) negati ve Not Available [facility] - [address], [place], [address], 10/10/2022 11:35:48 10/11/19 23 10/10/2022 urina lysis , dipst ick Specific [place] (reference range) 1.030 Not Available [address], [place], [address], 10/10/2022 11:35:48 10/11/19 23 10/10/2022 urina lysis , dipst ick Ketone (reference range) modera te Not Available [address], [place], [address], 10/10/2022 11:35:48 10/11/19 23 10/10/2022 urina lysis , dipst ick Bilirubin (reference range) modera te Not Available [address], [place], [address], 10/10/2022 11:35:48 10/11/19 23 10/10/2022 urina lysis , dipst ick Glucose (reference range) 1000 Not Available [address], [place], [address], 10/10/2022 11:35:48 10/11/19 23 10/10/2022 urina lysis , dipst ick Color (reference range: yellow-brown ) Dark Yellow Not Available [address], [place], [address], 10/10/2022 11:35:48 10/11/19 23 10/10/2022 HbA1c (hemo globi n A1c), blood HbA1c 13.1 Not Available [address], [place], [address], 10/10/2022 11:16:31 11/09/19 23 11/08/2022 gluco se, finge rstic k, blood Blood Glucose: mg/dl 157 Not Available [address], [place], [address], 11/08/2022 14:40:07 01/09/20 23 01/09/2023 CBC WITH DIFFE RENTI AL/PL ATELE T WBC 8.0 x10e3 /uL 3.4-10 .8 Not Available [facility] ([facility]) [address] [facility], [place], [address], 01/10/2023 07:14:04 01/09/20 23 01/09/2023 CBC WITH DIFFE RENTI AL/PL ATELE T RBC 4.39 x10e6 /uL 4.14-5 .80 Not Available [facility] ([facility]) [address] [facility], [place], [address], 01/10/2023 07:14:04 01/09/20 23 01/09/2023 CBC WITH DIFFE RENTI AL/PL ATELE T hemoglobin 14.5 g/dL 13.0-1 7.7 Not Available [facility] ([facility]) [address] [facility], [place], [address], 01/10/2023 07:14:04 01/09/20 23 01/09/2023 CBC WITH DIFFE RENTI AL/PL ATELE T hematocrit 41.8 % 37.5-5 1.0 Not Available [facility] ([facility]) [address] [facility], [place], [address], 01/10/2023 07:14:04 01/09/20 23 01/09/2023 CBC WITH DIFFE RENTI AL/PL ATELE T MCV 95 fL 79-97 Not Available [facility] ([facility]) [address] [place], [address], 01/10/2023 07:14:04 01/09/20 23 01/09/2023 CBC WITH DIFFE RENTI AL/PL ATELE T MCH 33.0 pg 26.6-3 3.0 Not Available [facility] ([facility]) [address], [place], [address], 01/10/2023 07:14:04 01/09/20 23 01/09/2023 CBC WITH DIFFE RENTI AL/PL ATELE T MCHC 34.7 g/dL 31.5-3 5.7 Not Available [facility] ([facility]) [address] [facility], [place], [address], 01/10/2023 07:14:04 01/09/20 23 01/09/2023 CBC WITH DIFFE RENTI AL/PL ATELE T RDW 12.1 % 11.6-1 5.4 Not Available [facility] ([facility]) [address] [facility], [place], [address], 01/10/2023 07:14:04 01/09/20 23 01/09/2023 CBC WITH DIFFE RENTI AL/PL ATELE T platelets 273 x10e3 /uL 150-45 0 Not Available [facility] ([facility]) [address] [facility], [place], [address], 01/10/2023 07:14:04 01/09/20 23 01/09/2023 CBC WITH DIFFE RENTI AL/PL ATELE T neutrophils 63 % not estab. Not Available [facility] ([facility]) [address] [facility], [place], [address], 01/10/2023 07:14:04 01/09/20 23 01/09/2023 CBC WITH DIFFE RENTI AL/PL ATELE T lymphs 29 % not estab. Not Available [facility] ([facility]) [address] [facility], [place], [address], 01/10/2023 07:14:04 01/09/20 23 01/09/2023 CBC WITH DIFFE RENTI AL/PL ATELE T monocytes 7 % not estab. Not Available [facility] ([facility]) [address] [facility], [place], [address], 01/10/2023 07:14:04 01/09/20 23 01/09/2023 CBC WITH DIFFE RENTI AL/PL ATELE T eos 1 % not estab. Not Available [facility] ([facility]) [address] [place], [address], 01/10/2023 07:14:04 01/09/20 23 01/09/2023 CBC WITH DIFFE RENTI AL/PL ATELE T basos 0 % not estab. Not Available [facility] ([facility]) [address] [place], [address], 01/10/2023 07:14:04 01/09/20 23 01/09/2023 CBC WITH DIFFE RENTI AL/PL ATELE T immature cells [employer] Not Available [facility] ([facility]) [address] [place], [address], 01/10/2023 07:14:04 01/09/20 23 01/09/2023 CBC WITH DIFFE RENTI AL/PL ATELE T neutrophils (absolute) 5.0 x10e3 /uL 1.4-7. 0 Not Available [facility] ([facility]) [address] [place], [address], 01/10/2023 07:14:04 01/09/20 23 01/09/2023 CBC WITH DIFFE RENTI AL/PL ATELE T lymphs (absolute) 2.3 x10e3 /uL 0.7-3. 1 Not Available [facility] ([facility]) [address] [place], [address], 01/10/2023 07:14:04 01/09/20 23 01/09/2023 CBC WITH DIFFE RENTI AL/PL ATELE T monocytes(ab solute) 0.6 x10e3 /uL 0.1-0. 9 Not Available [facility] ([facility]) [address] [place], [address], 01/10/2023 07:14:04 01/09/20 23 01/09/2023 CBC WITH DIFFE RENTI AL/PL ATELE T eos (absolute) 0.1 x10e3 /uL 0.0-0. 4 Not Available [facility] ([facility]) [address] [facility], [place], [address], 01/10/2023 07:14:04 01/09/20 23 01/09/2023 CBC WITH DIFFE RENTI AL/PL ATELE T baso (absolute) 0.0 x10e3 /uL 0.0-0. 2 Not Available [facility] ([facility]) [address], [place], [address], 01/10/2023 07:14:04 01/09/20 23 01/09/2023 CBC WITH DIFFE RENTI AL/PL ATELE T immature granulocytes 0 % not estab. Not Available [facility] ([facility]) [address], [place], [address], 01/10/2023 07:14:04 01/09/2001/09/2023 CBC WITH DIFFE RENTI AL/PL ATELE T immature grans (abs) 0.0 x10e3 /uL 0.0-0. 1 Not Available [facility] ([facility]) [address] [place], [address], 01/10/2023 07:14:04 01/09/20 23 01/09/2023 CBC WITH DIFFE RENTI AL/PL ATELE T NRBC [employer]OWN[employer] SPECIALIST Not Available [facility] ([facility]) [address] [place], [address], 01/10/2023 07:14:04 01/09/20 23 01/09/2023 CBC WITH DIFFE RENTI AL/PL ATELE T hematology comments: BROWNFIELD REDEVELOPMENT SPECIALIST Not Available [facility] ([facility]) [address] [place], [address], 01/10/2023 07:14:04 01/09/20 23 01/09/2023 COMP. METAB OLIC PANEL (14) glucose 111 mg/dL 70-99 above high normal Not Available [facility] ([facility]) [address] [place], [address], 01/10/2023 07:14:05 01/09/20 23 01/09/2023 COMP. METAB OLIC PANEL (14) BUN 16 mg/dL 6-24 Not Available [facility] ([facility]) [address] [place], [address], 01/10/2023 07:14:05 01/09/20 23 01/09/2023 COMP. METAB OLIC PANEL (14) creatinine 0.60 mg/dL 0.76-1 .27 below low normal Not Available [facility] ([facility]) [address] [place], [address], 01/10/2023 07:14:05 01/09/20 23 01/09/2023 COMP. METAB OLIC PANEL (14) eGFR 121 mL/mi n/1.7 3 >59 Not Available [facility] ([facility]) [address] [place], [address], 01/10/2023 07:14:05 01/09/20 23 01/09/2023 COMP. METAB OLIC PANEL (14) BUN/creatini ne ratio 27 9-20 above high normal Not Available [facility] ([facility]) [address] [place], [address], 01/10/2023 07:14:05 01/09/20 23 01/09/2023 COMP. METAB OLIC PANEL (14) sodium 140 mmol/ L 134-14 4 Not Available [facility] ([facility]) [address] [place], [address], 01/10/2023 07:14:05 01/09/20 23 01/09/2023 COMP. METAB OLIC PANEL (14) potassium 4.0 mmol/ L 3.5-5. 2 Not Available [facility] ([facility]) [address] [place], [address], 01/10/2023 07:14:05 01/09/20 23 01/09/2023 COMP. METAB OLIC PANEL (14) chloride 100 mmol/ L 96-106 Not Available [facility] ([facility]) [address] [place], [address], 01/10/2023 07:14:05 01/09/20 23 01/09/2023 COMP. METAB OLIC PANEL (14) carbon dioxide, total 23 mmol/ L 20- Not Available [facility] ([facility]) [address] [facility], [place], [address], 01/10/2023 07:14:05 01/09/20 23 01/09/2023 COMP. METAB OLIC PANEL (14) calcium 9.5 mg/dL 8.7-10 .2 Not Available [facility] ([facility]) [address] [place], [address], 01/10/2023 07:14:05 01/09/20 23 01/09/2023 COMP. METAB OLIC PANEL (14) protein, total 7.1 g/dL 6.0-8. 5 Not Available [facility] ([facility]) [address] [place], [address], 01/10/2023 07:14:05 01/09/20 23 01/09/2023 COMP. METAB [...] 4.6 3.6 - 4.6 Not Available [facility] ([facility]) [address] [place], [address], 01/10/2023 07:14:05 01/09/20 23 01/09/2023 COMP. METAB OLIC PANEL (14) globulin, total 2.6 g/dL 1.5-4. 5 Not Available [facility] ([facility]) [address] [place], [address], 01/10/2023 07:14:05 01/09/20 23 01/09/2023 COMP. METAB OLIC PANEL (14) A/G ratio 1.7 1.2-2. 2 Not Available [facility] ([facility]) [address] [place], [address], 01/10/2023 07:14:05 01/09/20 23 01/09/2023 COMP. METAB OLIC PANEL (14) bilirubin, total 0.4 mg/dL 0.0-1. 2 Not Available [facility] ([facility]) [address] [place], [address], 01/10/2023 07:14:05 01/09/20 23 01/09/2023 COMP. METAB OLIC PANEL (14) alkaline phosphatase 55 IU/L 44-121 Not Available [facility]) [address] [place], [address], 01/10/2023 07:14:05 01/09/20 23 01/09/2023 COMP. METAB OLIC PANEL (14) AST (SGOT) 13 IU/L 0-40 Not Available [facility] ([facility]) [address] [place], [address], 01/10/2023 07:14:05 01/09/20 23 01/09/2023 COMP. METAB OLIC PANEL (14) ALT (SGPT) 14 IU/L 0-44 Not Available [facility] ([facility]) [address] [place], [address], 01/10/2023 07:14:05 01/09/20 23 01/09/2023 LIPID PANEL cholesterol, total 110 mg/dL 100-19 9 Not Available [facility] ([facility]) [address] [place], [address], 01/10/2023 07:14:06 01/09/20 23 01/09/2023 LIPID PANEL triglyceride s 93 mg/dL 0-149 Not Available [facility] ([facility]) [address] [place], [address], 01/10/2023 07:14:06 01/09/20 23 01/09/2023 LIPID PANEL HDL cholesterol 36 mg/dL >39 below low normal Not Available [facility] ([facility]) [address] [place], [address], 01/10/2023 07:14:06 01/09/20 23 01/09/2023 LIPID PANEL VLDL cholesterol shaunna 18 mg/dL 5-40 Not Available [facility] ([facility]) [address] [place], [address], 01/10/2023 07:14:06 01/09/20 23 01/09/2023 LIPID PANEL LDL chol calc ([facility]) 56 mg/dL 0-99 Not Available [facility]) [address], [place], [address], 01/10/2023 07:14:06 01/09/20 23 01/09/2023 LIPID PANEL comment: BROWNFIELD REDEV[employer]OP[employer] SPECIALIST Not Available [facility] ([facility]) [address], [place], [address], 01/10/2023 07:14:06 01/09/20 23 01/09/2023 HEMOG LOBIN A1C hemoglobin A1C 7.9 % 4.8-5. 6 above high normal Predi abete s: 5.7 - 6.4 Diabe melissa: >6.4 Glyce oni contr ol for adult s with diabe melissa: <7.0 Not Available [facility] ([facility]) [address], [place], [address], 01/10/2023 07:14:07 01/09/20 23 01/10/2023 VITAM IN [...] Louie burnett DC: [facility] . 2. Maribell johnson MF, [place], Dago off-F errar i YEAGER, et al. Evalu ation , treat ment, and preve ntion of vitam in D defic iency : an Endoc rine Socie ty clini shaunna pract ice guide line. JCEM. 2010; 96(7) :1911 -30. Not Available [facility] ([facility]) [address], [place], [address], 01/10/2023 07:14:08 01/09/20 23 01/09/2023 MAGNE SIUM magnesium 1.6 mg/dL 1.6-2. 3 Not Available [facility] ([facility]) [address], [place], [address], 01/10/2023 07:14:08 01/09/20 23 01/08/2023 HbA1c (hemo globi n A1c), blood HbA1c 8.0 Not Available [facility] - [address], [place], [address], 01/08/2023 14:14:16 04/10/20 23 04/10/2023 HbA1c (hemo globi n A1c), blood HbA1c 7.3 Not Available [facility] - [address], [place], [address], 04/10/2023 08:34:17 12/08/19 23 12/06/2022 XR, sacru m + coccy x [facility] [address] [id number] Phone: Fax: Name: LIAM XIONG Exam Date: 023 : [birth year] Age 47 Gender : M Access ion: [id number] Physic rohit: Irena Michelle Facili ty: [facility] Facili ty HSV: Outpat ient Exam: SACRUM [...] Thank you for referr LIAM Brian to [facility]. Legall y authen ticate d by TERRY LINCOLN 12-07 09:15: 03 CC'ed Logic: Orderi ng Provid er: HADLEY Mcgee CC Provid er: HADLEY Mcgee Attend ing Provid er: HADLEY Mcgee Referr ing Provid er: HADLEY Mcgee Admitt ing Provid er: HADLEY Mcgee [email or web address] [facility] - [facility] [address] [place] [address], [address], 12/07/2022 11:54:18 12/08/19 23 12/06/2022 XR, sacru m + coccy x, 2 or more view No observ ation record ed. [facility] ([facility]) [address] [place] [address], [address], 12/07/2022 11:58:00 02/29/20 23 02/28/2023 [facility] [address] [place] [address] Phone: Fax: Name: LIAM XIONG Exam Date: : [birth year] Age 48 Gender : M Access ion: [id number] Physic rohit: Irena Michelle Facili ty: [facility] Facili ty HSV: Outpat ient Exam: ABDOME [...] VELA 023 Thank you for referr LIAM Biran to [facility]. Legall y authen ticate d by POPE SHAMA Sharpe 02-28 16:21: 01 CC'ed Logic: Orderi ng Provid er: HADLEY Mcgee CC Provid er: HADLEY Mcgee Attend ing Provid er: HADLEY Mcgee Referr ing Provid er: HADLEY Mcgee Admitt ing Provid er: HADLEY Mcgee [email or web address] [facility] [address] [place], [address], 03/01/2023 08:36:07 02/29/20 23 02/28/2023 US, abdom en, compl ete No observ ation record ed. [facility] ([facility]) [address] [facility], [place], [address], 03/07/2023 08:34:35 Result Notes Documentation Provider Name and Address Organization Details Recorded Time Xr, Sacrum + Coccyx : [facility] [address] [place] [address] Name: LIAM XIONG Exam Date: 12/06/2022 : 1975 Age 47 Gender: M Physician: Milagros Cannon Facility: [facility] Facility HSV: Outpatient Exam: SACRUM COCCYX Sacrum and coccyx History: Sacrococcygeal pain Findings: There is mild narrowing of the SI joints with vacuum phenomenon. There are no osteophytes or erosions. Sacrum and coccyx otherwise have a normal appearance. Impression: SI joint degenerative change. Dictated By: LATONIA SALAZAR Transcribed By: LATONIA SALAZAR Transcribed On: 12/07/2022 7:46 AM Electronically signed by: LATONIA SALAZAR 12/07/2022 Thank you for referring DARSHAN LIAM to [facility]. Legally authenticated by MARIE LINCOLN 2022-12-07 09:15:03 CC'ed Logic: Ordering Provider: DAVIS LINARES CC Provider: DAVIS LINARES Attending Provider: DAVIS LINARES Referring Provider: DAVIS LINARES Admitting Provider: DAVIS Cannon APRN [address] [place], [address], [facility] & [place] 12/07/2022 11:54:18 Procedures Surgical History Date Name Laterality Status Provider Name and Address Organization Details Recorded Time 9 procedure on shoulder completed Doretha Saba [facility] & [place] 03/20/2023 14:16:42 Imaging Results None recorded. Procedure [...] Address Organization Details Last Updated DateTime 3 748432. 94 g 36.6 kg/m2 182.88 cm 97 [degF] 96 % 96 % 103 /min 142 mm[Hg] 80 mm[Hg] CLAIRE SOLIS [place] - [facility] - [place] & [place] 3 10:58:46 Date Recorded Body height Body mass index (BMI) Body weight Body temperature Oxygen saturation Oxygen saturation in Arterial blood by Pulse oximetry Heart rate Systolic blood pressure Diastolic blood pressure Provider Name and Address Organization Details Last Updated DateTime 3 182.88 cm 36.5 kg/m2 251512. 35 g 96.8 [degF] 95 % 95 % 89 /min 134 mm[Hg] 84 mm[Hg] CLAIRE COOL [facility] & [place] 3 14:33:54 Date Recorded Body height Body mass index (BMI) Body weight Body temperature Oxygen saturation Oxygen saturation in Arterial blood by Pulse oximetry Heart rate Systolic blood pressure Diastolic blood pressure Provider Name and Address Organization Details Last Updated DateTime 3 182.88 cm 33.9 kg/m2 053822. 09 g 98.1 [degF] 97 % 97 % 82 /min 120 mm[Hg] 80 mm[Hg] Aminta Harden CLEMENTINE COOL [facility] & [place] 3 13:57:12 Date Recorded Body height Body mass index (BMI) Body weight Body temperature Oxygen saturation Oxygen saturation in Arterial blood by Pulse oximetry Heart rate Systolic blood pressure Diastolic blood pressure Provider Name and Address Organization Details Last Updated DateTime 3 182.88 cm 33.5 kg/m2 666558. 32 g 97.7 [degF] 97 % 97 % 85 /min 114 mm[Hg] 66 mm[Hg] CLAIRE COOL [facility] & [place] 3 11:13:56 Date Recorded Body height Body mass index (BMI) Body weight Body temperature Oxygen saturation Oxygen saturation in Arterial blood by Pulse oximetry Heart rate Systolic blood pressure Diastolic blood pressure Provider Name and Address Organization Details Last Updated DateTime 3 182.88 cm 32.4 kg/m2 464933. 58 g 97.1 [degF] 97 % 97 % 90 /min 142 mm[Hg] 70 mm[Hg] CLAIRE COOL [facility] & [place] 3 08:19:13 Social History Question Answer Notes LastModified by Organizat ion Details LastModified Time Tobacco Smoking Status Current Every Day Smoker CLEMENTINE Combs [facility] & [place] 10/10/2022 10:53:09 Do You Have An Advance [...] 30 mcg/0.3 mL dose 03/10/2021 completed Opal ramsey, [place] - [facility] - [place] & [place] 10/17/2022 12:28:36 COVID-19, mRNA, LNP-S, PF, 30 mcg/0.3 mL dose 03/31/2021 completed Opal [place]sey, [place] - [facility] - [place] & [place] 10/17/2022 12:28:36 Past Encounters Encounter ID Performer Location Encounter Start Date Encounter Closed Date Diagnosis/Indication Diagnosis SNOMED-CT Code Diagnosis ICD10 Code Diagnosis Note [id number] Milagros JorgensenHernando in[address] [place] [address] 10/10/2022 10:49:33 10/10/2022 11:53:58 Type 2 diabetes mellitus 47003416 E11.65 Ozempic was still 800 after insurance. Will start with Metformin and reassess and if needed will add another medication if needed. Follow up in 1 month. Bring blood sugar log to clinic at that time. Hyperlipidemia 51572101 E78.5 Thyroid di sorder screening 721741853 Z13.29 Screening for malignant neoplasm of colon 243120835 Z12.11 Nicotine dependence 5629 4008 F17.200 Adult [facility] th examination 802185042 Z00.01 Counseled patient on annual eye exams and regular dental visits. Will call with lab results. Patient advised to follow up in 1 month. Diabetic p eripheral neuropathy 031208359 E11.40 Will start new diabetes medication . Will reassess. [id number] Milagros JorgensenHernando [address] [place] [address] 11/08/2022 14:28:07 11/08/2022 14:54:36 Type 2 diabetes mellitus 39974183 E11.65 Keep a blood glucose log. RTC in 2 months. Will recheck hgbA1c, lipid panel, and CBC, CMP. Patient agrees with treatment plan. Continue the metformin as prescribed . Pain in coccyx 76570732 M53.3 Advised patient to take ibuprofen before riding. Use an additional cushion on his bike.Ruthy nt has cologuard at home. Advised to complete and send in to the lab. [id number] Milagros JorgensenParamjitBradford in[address] [place] [address] 01/08/2023 13:52:38 01/08/2023 15:01:27 Type 2 diabetes mellitus 81438493 E11.65 Continue metformin as RX.Will check complete blood work today. Will call with results.A1 C was 13.1 and it is 8.0 today.Will consider adding Mounjaro after January 12 per new recommenda tions. Patient could not afford before.Fol low up in 3 months. Hyperlipidemia 66471992 E78.5 Patient is currently on rosuvastat in. Will call with lab results. [id number] Milagros Cordova [address] [place] [address] 02/05/2023 10:57:49 02/05/2023 11:31:17 Abdominal pain 77038492 R10.9 Tylenol/Ib uprofen PRN.Avoid any strenuous activity to worsen pain or condition. Was seen in ER December [address] Abd/Pelvis was unremarkab le.Will order U/S. Will call with ultrasound results. [id number] Milagros Cordova in, [address] [place] [address] 04/10/2023 08:14:43 04/10/2023 08:39:38 Type 2 diabetes mellitus 98909650 E11.65 A1C 7.3 on maximum continued Metformin [...] Zaman Member ID Guarantor Name 05/22/2023 1 [facility] [id number] Liam Xiong [id number] Liam Xiong Notes Date Note Type Note [...] neuropathy. Milagros Cannon APRN [address], [place], [address], [facility] & [place] 10/12/2022 10:13:43 11/08/2022 text/html patient presents to [...] defecate. Milagros Cannon APRN [address], [place], [address], [facility] & [place] 11/08/2022 15:48:57 01/08/2023 text/html patient presents to clinic for follow up on diabetes.He states he is feeling better. He was seen in the ER for abdominal pain 2 weeks [address] He [address] abdomen was negative. He is seeing the Chiropractor and it is helping with his back spasms. He denies any new symptoms. Milagros Cannon APRN [address], [place], [address], [facility] & [place] 01/08/2023 14:31:24 02/05/2023 text/html patient presents to [...] Denies any chest pain or SOB. Milagros Cannon, GAIL [address], [place], [address], [facility] & [place] 02/05/2023 11:49:51 04/10/2023 text/html patient presents to clinic for 3 month follow up. He states he is a little stressed in this morning. He states his BP has been running good. He denies any headaches. Denies any chest pain. Milagros Cannon APRN [address], [place], [address], [place] - [facility] & [place] 04/11/2023 08:59:32
== END 2025-01-01 12:45 | disposition home or self-care (01) ==
LOC: INF 12:27
PROVIDERS: Visit Provider Surgery
DX: L05.01 Pilonidal cyst with abscess (principal)
CPT/HCPCS: G0463

== ENCOUNTER 2025-01-02 16:55 | Outpatient (CLI) | payer OTHER, SELFPAY ==
--- OUTSIDE RECORDS SUMMARY | 2025-01-02 16:58 | XMS_ITS | Data Portability ---
Author Organization [facility] ADMIN Address [address] [place] [id number] Care Team Providers Care Head Of Ict Name Role Phone MILAGROS CANNON Primary Care Provider [phone] Assessment No assessment recorded. Plan of Treatment Reminders Order Date Submit Date Provider Last Modified By Organization Details Last Modified Time Details Appointments None recorded. Lab HbA1c (hemoglobin A1c), blood 2022 023 [email or web address] 2 [facility], [address] [place] [address] [address], [place], [address], 3 08:51:25 HbA1c (hemoglobin A1c), blood 2022 023 2 [facility], [facility], [place], [address], 3 14:16:57 CBC w/ auto diff 2022 023 EDUIN Lynch, [address], [address], [place], [address], 3 07:14:04 CMP, serum or plasma 2022 023 EDUIN Lynch, [address], [address], [place], [address], 3 07:14:05 magnesium, serum or plasma 2022 023 EDUIN Lynch, [address], [address], [place], [address], 3 07:14:08 vitamin D, 25-hydroxy, total, serum 2022 023 EDUIN [facility], [address], [address], [place], [address], 3 07:14:08 lipid panel, serum 2022 023 EDUIN [facility], [address], [address], [place], [address], 3 07:14:06 glucose, fingerstick , blood 2022 023 [email or web address] 2 [facility], [address], [place], [address], 3 15:05:53 HbA1c (hemoglobin A1c), blood 2022 023 2 [facility], [address], [place], [address], 3 11:53:47 CMP, serum or plasma 2022 023 EDUIN [facility], [address], [address], [place], [address], 3 11:12:21 CBC w/ auto diff 2022 023 EDUIN [facility], [address], [address], [place], [address], 3 11:12:19 magnesium, serum or plasma 2022 023 EDUIN [facility], [address], [address], [place], [address], 3 11:12:28 microalbumi n, urine 2022 023 [facility], [address], [place], [address], 3 12:57:57 urinalysis, dipstick 2022 023 [facility] [place], [address], [place], [address], 3 12:01:03 thyroid panel, serum 2022 023 FERNLEY [facility], [address], [address], [place], [address], 3 11:12:23 vitamin D, 25-hydroxy, total, serum 2022 023 FERNLEY [facility], [address], [address], [place], [address], 3 11:12:27 vitamin B12 + folate, serum or blood 2022 023 [facility], [address], [address], [place], [address], 3 11:12:25 lipid panel, serum 2022 023 [facility], [address], [address], [place], [address], 3 11:12:22 Referral physical therapist referral - Coccyx pain. 2022 023 [email or web address] 3 [facility], [address], [place], [address], 3 11:43:02 Procedures colonoscopy screening (PROC) 2022 023 [email or web address] 5 Jose Grove MD, [address], [address], [place], [address], 3 12:38:14 Surgeries None recorded. Imaging US, abdomen, complete - possible umbilical hernia/righ t sided abdominal pain 2022 023 [facility] (Centralized Scheduling), [address], [place], [address], 3 16:35:11 XR, sacrum + coccyx, 2 or more view 2022 023 [facility] ([facility] Sched[facility]), [address], [place], [address], 3 09:30:08 Medication Orders Ozempic 0.25 mg or 0.5 mg (2 mg/1.5 mL) subcutaneou s pen injector 2022 023 [facility], [address] [place] [address], [address], 3 08:47:06 Chantix Starting Month Box 0.5 mg (11)-1 mg (42) tablets in dose pack 2022 023 [email or web address] 2 [facility], [address] [place] [address], [address], 3 11:14:37 metformin 1,000 mg tablet 2022 023 [email or web address] 2 [facility], [address] [place] [address], [address], 3 11:53:48 Ozempic 0.25 mg or 0.5 mg (2 mg/1.5 mL) subcutaneou s pen injector 2022 023 [facility], [address] [place], [address], 11:14:44 rosuvastati n 10 mg tablet 2022 023 EDUIN [facility], [address] [place], [address], 11:54:37 Patient TargetsNo targets recorded. Patient Instructions Encounter Date Encounter Id Patient Instructions Last Modified By Organization Details Last Modified Time 10/10/2022 [id number] smoking cessatio n counseling, greater than 3 minutes up to 10 minutes* Not available 10/17/2022 08:34:36 Patient needs to follow up in 1 month. Advised patient that I would call with lab results. Counseled patient on monitoring blood glucose at home. Bring log of blood sugars to next appt. [email or web address] Not available 10/10/2022 11:55:22 Reason for Referral Physical Therapist Referral for Pain in coccyx Coccyx pain. Referring Physician: Milagros Cannon, Infectious Disease, Encounter Date: 11/08/2022 Results Created Date Observation Date Name Description Value Unit Range Abnormal Flag Note LastModifiedBy Organization Detail LastModifiedTime 10/11/1910/11/2022 ALBUM IN/CR EATIN INE RATIO ,URIN E creatinine, urine 312.5 mg/dL not estab. Not Available [facility] ([facility]) [address] [place], [address], 10/11/2022 09:14:45 10/11/19 23 10/11/2022 ALBUM IN/CR EATIN INE RATIO ,URIN E albumin, urine 133.8 ug/mL not estab. Not Available [facility] ([facility]) [address] [facility], [place], [address], 10/11/2022 09:14:45 10/11/19 23 10/11/2022 ALBUM IN/CR EATIN INE RATIO ,URIN E alb/creat ratio 43 mg/g_ creat 0-29 above high normal Ana M l: 0 - 29 Moder ately incre ased: 30 - 300 Sever savanah incre ased: >300 Not Available [facility] ([facility]) [address] [place], [address], 10/11/2022 09:14:45 10/11/19 23 10/11/2022 CBC WITH DIFFE RENTI AL/PL ATELE T WBC 8.3 x10e3 /uL 3.4-10 .8 Not Available [facility] ([facility]) [address] [place], [address], 10/11/2022 11:12:19 10/11/1910/11/2022 CBC WITH DIFFE RENTI AL/PL ATELE T RBC 5.38 x10e6 /uL 4.14-5 .80 Not Available [facility] ([facility]) [address] [place], [address], 10/11/2022 11:12:19 10/11/19 23 10/11/2022 CBC WITH DIFFE RENTI AL/PL ATELE T hemoglobin 17.4 g/dL 13.0-1 7.7 Not Available [facility] ([facility]) [address] [place], [address], 10/11/2022 11:12:19 10/11/19 23 10/11/2022 CBC WITH DIFFE RENTI AL/PL ATELE T hematocrit 51.3 % 37.5-5 1.0 above high normal Not Available [facility] ([facility]) [address] [place], [address], 10/11/2022 11:12:19 10/11/19 23 10/11/2022 CBC WITH DIFFE RENTI AL/PL ATELE T MCV 95 fL 79-97 Not Available [facility] ([facility]) [address] [place], [address], 10/11/2022 11:12:19 10/11/19 23 10/11/2022 CBC WITH DIFFE RENTI AL/PL ATELE T MCH 32.3 pg 26.6-3 3.0 Not Available [facility] ([facility]) [address] [facility], [place], [address], 10/11/2022 11:12:19 10/11/19 23 10/11/2022 CBC WITH DIFFE RENTI AL/PL ATELE T MCHC 33.9 g/dL 31.5-3 5.7 Not Available [facility] ([facility]) [address] [facility], [place], [address], 10/11/2022 11:12:19 10/11/19 23 10/11/2022 CBC WITH DIFFE RENTI AL/PL ATELE T RDW 11.7 % 11.6-1 5.4 Not Available [facility] ([facility]) [address] [facility], [place], [address], 10/11/2022 11:12:19 10/11/19 23 10/11/2022 CBC WITH DIFFE RENTI AL/PL ATELE T platelets 324 x10e3 /uL 150-45 0 Not Available [facility] ([facility]) [address] [facility], [place], [address], 10/11/2022 11:12:19 10/11/19 23 10/11/2022 CBC WITH DIFFE RENTI AL/PL ATELE T neutrophils 63 % not estab. Not Available [facility] ([facility]) [address] [facility], [place], [address], 10/11/2022 11:12:19 10/11/19 23 10/11/2022 CBC WITH DIFFE RENTI AL/PL ATELE T lymphs 26 % not estab. Not Available [facility] ([facility]) [address] [facility], [place], [address], 10/11/2022 11:12:19 10/11/19 23 10/11/2022 CBC WITH DIFFE RENTI AL/PL ATELE T monocytes 8 % not estab. Not Available [facility] ([facility]) [address] [facility], [place], [address], 10/11/2022 11:12:19 10/11/19 23 10/11/2022 CBC WITH DIFFE RENTI AL/PL ATELE T eos 1 % not estab. Not Available [facility] ([facility]) [address] [facility], [place], [address], 10/11/2022 11:12:19 10/11/19 23 10/11/2022 CBC WITH DIFFE RENTI AL/PL ATELE T basos 1 % not estab. Not Available [facility] ([facility]) [address] [facility], [place], [address], 10/11/2022 11:12:19 10/11/19 23 10/11/2022 CBC WITH DIFFE RENTI AL/PL ATELE T immature cells INTERFACE DESIGNER Not Available [facility] ([facility]) [address] [place], [address], 10/11/2022 11:12:19 10/11/19 23 10/11/2022 CBC WITH DIFFE RENTI AL/PL ATELE T neutrophils (absolute) 5.3 x10e3 /uL 1.4-7. 0 Not Available [facility] ([facility]) [address] [place], [address], 10/11/2022 11:12:19 10/11/19 23 10/11/2022 CBC WITH DIFFE RENTI AL/PL ATELE T lymphs (absolute) 2.2 x10e3 /uL 0.7-3. 1 Not Available [facility] ([facility]) [address] [place], [address], 10/11/2022 11:12:19 10/11/19 23 10/11/2022 CBC WITH DIFFE RENTI AL/PL ATELE T monocytes(ab solute) 0.7 x10e3 /uL 0.1-0. 9 Not Available [facility] ([facility]) [address] [facility], [place], [address], 10/11/2022 11:12:19 10/11/19 23 10/11/2022 CBC WITH DIFFE RENTI AL/PL ATELE T eos (absolute) 0.1 x10e3 /uL 0.0-0. 4 Not Available [facility] ([facility]) [address] [facility], [place], [address], 10/11/2022 11:12:19 10/11/19 23 10/11/2022 CBC WITH DIFFE RENTI AL/PL ATELE T baso (absolute) 0.0 x10e3 /uL 0.0-0. 2 Not Available [facility] ([facility]) [address] [facility], [place], [address], 10/11/2022 11:12:19 10/11/19 23 10/11/2022 CBC WITH DIFFE RENTI AL/PL ATELE T immature granulocytes 1 % not estab. Not Available [facility] ([facility]) [address] [facility], [place], [address], 10/11/2022 11:12:19 10/11/19 23 10/11/2022 CBC WITH DIFFE RENTI AL/PL ATELE T immature grans (abs) 0.1 x10e3 /uL 0.0-0. 1 Not Available [facility] ([facility]) [address] [place], [address], 10/11/2022 11:12:19 10/11/19 23 10/11/2022 CBC WITH DIFFE RENTI AL/PL ATELE T NRBC INTERFACE DESIGNER Not Available [facility] ([facility]) [address] [facility], [place], [address], 10/11/2022 11:12:19 10/11/19 23 10/11/2022 CBC WITH DIFFE RENTI AL/PL ATELE T hematology comments: INTERFACE DESIGNER Not Available [facility] ([facility]) [address] [place], [address], 10/11/2022 11:12:19 10/11/19 23 10/11/2022 COMP. METAB OLIC PANEL (14) glucose 294 mg/dL 70-99 above high normal Not Available [facility] ([facility]) [address] [place], [address], 10/11/2022 11:12:21 10/11/19 23 10/11/2022 COMP. METAB OLIC PANEL (14) BUN 22 mg/dL 6-24 Not Available [facility] ([facility]) [address] [place], [address], 10/11/2022 11:12:21 10/11/19 23 10/11/2022 COMP. METAB OLIC PANEL (14) creatinine 0.84 mg/dL 0.76-1 .27 Not Available [facility] ([facility]) [address] [place], [address], 10/11/2022 11:12:21 10/11/19 23 10/11/2022 COMP. METAB OLIC PANEL (14) eGFR 110 mL/mi n/1.7 3 >59 Not Available [facility] ([facility]) [address] [place], [address], 10/11/2022 11:12:21 10/11/19 23 10/11/2022 COMP. METAB OLIC PANEL (14) BUN/creatini ne ratio 26 9-20 above high normal Not Available [facility] ([facility]) [address] [place], [address], 10/11/2022 11:12:21 10/11/19 23 10/11/2022 COMP. METAB OLIC PANEL (14) sodium 137 mmol/ L 134-14 4 Not Available [facility] ([facility]) [address] [place], [address], 10/11/2022 11:12:21 10/11/19 23 10/11/2022 COMP. METAB OLIC PANEL (14) potassium 5.0 mmol/ L 3.5-5. 2 Not Available [facility] ([facility]) [address] [facility], [place], [address], 10/11/2022 11:12:21 10/11/19 23 10/11/2022 COMP. METAB OLIC PANEL (14) chloride 97 mmol/ L 96-106 Not Available [facility] ([facility]) [address] [facility], [place], [address], 10/11/2022 11:12:21 10/11/19 23 10/11/2022 COMP. METAB OLIC PANEL (14) carbon dioxide, total 24 mmol/ L 20-29 Not Available [facility] ([facility]) [address] [facility], [place], [address], 10/11/2022 11:12:21 10/11/19 23 10/11/2022 COMP. METAB OLIC PANEL (14) calcium 10.1 mg/dL 8.7-10 .2 Not Available [facility] ([facility]) [address] [facility], [place], [address], 10/11/2022 11:12:21 10/11/19 23 10/11/2022 COMP. METAB OLIC PANEL (14) protein, total 7.5 g/dL 6.0-8. 5 Not Available [facility] ([facility]) [address] [facility], [place], [address], 10/11/2022 11:12:21 10/11/19 23 10/11/2022 COMP. METAB OLIC PANEL (14) albumin 4.4 g/dL 4.0-5. 0 Not Available [facility] ([facility]) [address] [facility], [place], [address], 10/11/2022 11:12:21 10/11/19 23 10/11/2022 COMP. METAB OLIC PANEL (14) globulin, total 3.1 g/dL 1.5-4. 5 Not Available [facility] ([facility]) [address] [place], [address], 10/11/2022 11:12:21 10/11/19 23 10/11/2022 COMP. METAB OLIC PANEL (14) A/G ratio 1.4 1.2-2. 2 Not Available [facility] ([facility]) [address] [place], [address], 10/11/2022 11:12:21 10/11/19 23 10/11/2022 COMP. METAB OLIC PANEL (14) bilirubin, total 0.5 mg/dL 0.0-1. 2 Not Available [facility] ([facility]) [address] [place], [address], 10/11/2022 11:12:21 10/11/19 23 10/11/2022 COMP. METAB OLIC PANEL (14) alkaline phosphatase 73 IU/L 44-121 Not Available [facility]) [address] [place], [address], 10/11/2022 11:12:21 10/11/19 23 10/11/2022 COMP. METAB OLIC PANEL (14) AST (SGOT) 33 IU/L 0-40 Not Available [facility] ([facility]) [address] [place], [address], 10/11/2022 11:12:21 10/11/19 23 10/11/2022 COMP. METAB OLIC PANEL (14) ALT (SGPT) 40 IU/L 0-44 Not Available [facility] ([facility]) [address] [place], [address], 10/11/2022 11:12:21 10/11/19 23 10/11/2022 LIPID PANEL cholesterol, total 270 mg/dL 100-19 9 above high normal Not Available [facility] ([facility]) [address] [place], [address], 10/11/2022 11:12:22 10/11/19 23 10/11/2022 LIPID PANEL triglyceride s 299 mg/dL 0-149 above high normal Not Available [facility] ([facility]) [address] [place], [address], 10/11/2022 11:12:22 10/11/19 23 10/11/2022 LIPID PANEL HDL cholesterol 32 mg/dL >39 below low normal Not Available [facility] ([facility]) [address] [place], [address], 10/11/2022 11:12:22 10/11/19 23 10/11/2022 LIPID PANEL VLDL cholesterol shaunna 58 mg/dL 5-40 above high normal Not Available [facility] ([facility]) [address] [place], [address], 10/11/2022 11:12:22 10/11/19 23 10/11/2022 LIPID PANEL LDL chol calc ([facility]) 180 mg/dL 0-99 above high normal Not Available [facility] ([facility]) [address] [place], [address], 10/11/2022 11:12:22 10/11/19 23 10/11/2022 LIPID PANEL comment: INTERFACE DESIGNER Not Available [facility] ([facility]) [address] [place], [address], 10/11/2022 11:12:22 10/11/19 23 10/11/2022 THYRO ID PROFI LE II TSH 1.030 uIU/m L 0.450- 4.500 Not Available [facility] ([facility]) [address] [place], [address], 10/11/2022 11:12:23 10/11/19 23 10/11/2022 THYRO ID PROFI LE II thyroxine (T4) 10.8 ug/dL 4.5-12 .0 Not Available [facility] ([facility]) [address] [place], [address], 10/11/2022 11:12:23 10/11/19 23 10/11/2022 THYRO ID PROFI LE II T3 uptake 27 % 24-39 Not Available [facility] ([facility]) [address] [facility], [place], [address], 10/11/2022 11:12:23 10/11/19 23 10/11/2022 THYRO ID PROFI LE II free thyroxine index 2.9 1.2-4. 9 Not Available [facility] ([facility]) [address] [facility], [place], [address], 10/11/2022 11:12:23 10/11/19 23 10/11/2022 THYRO ID PROFI LE II triiodothyro nine (T3) 148 NG/dL 71-180 Not Available [facility] ([facility]) [address] [place], [address], 10/11/2022 11:12:23 10/11/19 23 10/11/2022 VITAM IN B12 AND FOLAT E vitamin B12 747 pg/mL 232-12 45 Not Available [facility] ([facility]) [address] [place], [address], 10/11/2022 11:12:24 10/11/1910/11/2022 VITAM IN B12 AND FOLAT E folate (folic acid), serum >20.0 NG/mL >3.0 A serum folat e linda ntrat ion of less than 3.1 ng/mL is consi dered to repre sent clini shaunna defic iency . Not Available [facility] ([facility]) [address] [place], [address], 10/11/2022 11:12:24 10/11/1910/11/2022 HEMOG LOBIN A1C hemoglobin A1C 12.9 % 4.8-5. 6 above high normal Predi abete s: 5.7 - 6.4 Diabe melissa: >6.4 Glyce oni contr ol for adult s with diabe melissa: <7.0 Not Available [facility] ([facility]) [address] [facility], [place], [address], 10/11/2022 11:12:26 10/11/19 23 10/11/2022 VITAM IN [...] um and D. Louie burnett [place]: [facility] . 2. Maribell johnson MF, Nilsa shah NC, Dago off-F errrosemarie i YEAGER, et al. Evalu ation , treat ment, and preve ntion of vitam in D defic iency : an Endoc rine Socie ty clini shaunna pract ice guide line. JCEM. 2010; 96(7) :1911 -30. Not Available [facility] ([facility]) [address] [facility], [place], [address], 10/11/2022 11:12:27 10/11/19 23 10/11/2022 MAGNE SIUM magnesium 1.5 mg/dL 1.6-2. 3 below low normal Not Available [facility] ([facility]) [address] [facility], [place], [address], 10/11/2022 11:12:28 10/11/19 23 10/10/2022 urina lysis , dipst ick Leukocytes (reference range) negati ve Not Available [facility] - [address], [place], [address], 10/10/2022 11:35:48 10/11/19 23 10/10/2022 urina lysis , dipst ick Nitrite (reference range:) negati ve Not Available [facility] - [address], [place], [address], 10/10/2022 11:35:48 10/11/19 23 10/10/2022 urina lysis , dipst ick Urobilinogen (reference range) 0.2 Not Available [facility] - [address], [place], [address], 10/10/2022 11:35:48 10/11/19 23 10/10/2022 urina lysis , dipst ick Protein (reference range) 100 Not Available [facility] - [address], [place], [address], 10/10/2022 11:35:48 10/11/19 23 10/10/2022 urina lysis , dipst ick pH (reference range 5-8.5) 5.0 Not Available [facility] - [address], [place], [address], 10/10/2022 11:35:48 10/11/19 23 10/10/2022 urina lysis , dipst ick Blood (reference range:) negati ve Not Available [facility] - [address], [place], [address], 10/10/2022 11:35:48 10/11/19 23 10/10/2022 urina lysis , dipst ick Specific Boyce (reference range) 1.030 Not Available [address], [place], [address], 10/10/2022 11:35:48 10/11/19 23 10/10/2022 urina lysis , dipst ick Ketone (reference range) modera te Not Available [address], [place], [address], 10/10/2022 11:35:48 10/11/19 23 10/10/2022 urina lysis , dipst ick Bilirubin (reference range) modera te Not Available [address], [place], [address], 10/10/2022 11:35:48 10/11/19 23 10/10/2022 urina lysis , dipst ick Glucose (reference range) 1000 Not Available [address], [place], [address], 10/10/2022 11:35:48 10/11/19 23 10/10/2022 urina lysis , dipst ick Color (reference range: yellow-brown ) Dark Yellow Not Available [address], [place], [address], 10/10/2022 11:35:48 10/11/19 23 10/10/2022 HbA1c (hemo globi n A1c), blood HbA1c 13.1 Not Available [address], [place], [address], 10/10/2022 11:16:31 11/09/19 23 11/08/2022 gluco se, finge rstic k, blood Blood Glucose: mg/dl 157 Not Available [address], [place], [address], 11/08/2022 14:40:07 01/09/20 23 01/09/2023 CBC WITH DIFFE RENTI AL/PL ATELE T WBC 8.0 x10e3 /uL 3.4-10 .8 Not Available [facility] ([facility]) [address] [facility], [place], [address], 01/10/2023 07:14:04 01/09/20 23 01/09/2023 CBC WITH DIFFE RENTI AL/PL ATELE T RBC 4.39 x10e6 /uL 4.14-5 .80 Not Available [facility] ([facility]) [address] [facility], [place], [address], 01/10/2023 07:14:04 01/09/20 23 01/09/2023 CBC WITH DIFFE RENTI AL/PL ATELE T hemoglobin 14.5 g/dL 13.0-1 7.7 Not Available [facility] ([facility]) [address] [facility], [place], [address], 01/10/2023 07:14:04 01/09/20 23 01/09/2023 CBC WITH DIFFE RENTI AL/PL ATELE T hematocrit 41.8 % 37.5-5 1.0 Not Available [facility] ([facility]) [address] [facility], [place], [address], 01/10/2023 07:14:04 01/09/20 23 01/09/2023 CBC WITH DIFFE RENTI AL/PL ATELE T MCV 95 fL 79-97 Not Available [facility] ([facility]) [address] [place], [address], 01/10/2023 07:14:04 01/09/20 23 01/09/2023 CBC WITH DIFFE RENTI AL/PL ATELE T MCH 33.0 pg 26.6-3 3.0 Not Available [facility] ([facility]) [address], [place], [address], 01/10/2023 07:14:04 01/09/20 23 01/09/2023 CBC WITH DIFFE RENTI AL/PL ATELE T MCHC 34.7 g/dL 31.5-3 5.7 Not Available [facility] ([facility]) [address] [facility], [place], [address], 01/10/2023 07:14:04 01/09/20 23 01/09/2023 CBC WITH DIFFE RENTI AL/PL ATELE T RDW 12.1 % 11.6-1 5.4 Not Available [facility] ([facility]) [address] [facility], [place], [address], 01/10/2023 07:14:04 01/09/20 23 01/09/2023 CBC WITH DIFFE RENTI AL/PL ATELE T platelets 273 x10e3 /uL 150-45 0 Not Available [facility] ([facility]) [address] [facility], [place], [address], 01/10/2023 07:14:04 01/09/20 23 01/09/2023 CBC WITH DIFFE RENTI AL/PL ATELE T neutrophils 63 % not estab. Not Available [facility] ([facility]) [address] [facility], [place], [address], 01/10/2023 07:14:04 01/09/20 23 01/09/2023 CBC WITH DIFFE RENTI AL/PL ATELE T lymphs 29 % not estab. Not Available [facility] ([facility]) [address] [facility], [place], [address], 01/10/2023 07:14:04 01/09/20 23 01/09/2023 CBC WITH DIFFE RENTI AL/PL ATELE T monocytes 7 % not estab. Not Available [facility] ([facility]) [address] [facility], [place], [address], 01/10/2023 07:14:04 01/09/20 23 01/09/2023 CBC WITH DIFFE RENTI AL/PL ATELE T eos 1 % not estab. Not Available [facility] ([facility]) [address] [place], [address], 01/10/2023 07:14:04 01/09/20 23 01/09/2023 CBC WITH DIFFE RENTI AL/PL ATELE T basos 0 % not estab. Not Available [facility] ([facility]) [address] [place], [address], 01/10/2023 07:14:04 01/09/20 23 01/09/2023 CBC WITH DIFFE RENTI AL/PL ATELE T immature cells INTERFACE DES[employer]ER Not Available [facility] ([facility]) [address] [place], [address], 01/10/2023 07:14:04 01/09/20 23 01/09/2023 CBC WITH DIFFE RENTI AL/PL ATELE T neutrophils (absolute) 5.0 x10e3 /uL 1.4-7. 0 Not Available [facility] ([facility]) [address] [place], [address], 01/10/2023 07:14:04 01/09/20 23 01/09/2023 CBC WITH DIFFE RENTI AL/PL ATELE T lymphs (absolute) 2.3 x10e3 /uL 0.7-3. 1 Not Available [facility] ([facility]) [address] [place], [address], 01/10/2023 07:14:04 01/09/20 23 01/09/2023 CBC WITH DIFFE RENTI AL/PL ATELE T monocytes(ab solute) 0.6 x10e3 /uL 0.1-0. 9 Not Available [facility] ([facility]) [address] [place], [address], 01/10/2023 07:14:04 01/09/20 23 01/09/2023 CBC WITH DIFFE RENTI AL/PL ATELE T eos (absolute) 0.1 x10e3 /uL 0.0-0. 4 Not Available [facility] ([facility]) [address], [place], [address], 01/10/2023 07:14:04 01/09/20 23 01/09/2023 CBC WITH DIFFE RENTI AL/PL ATELE T baso (absolute) 0.0 x10e3 /uL 0.0-0. 2 Not Available [facility] ([facility]) [address] [facility], [place], [address], 01/10/2023 07:14:04 01/09/20 23 01/09/2023 CBC WITH DIFFE RENTI AL/PL ATELE T immature granulocytes 0 % not estab. Not Available [facility] ([facility]) [address] [facility], [place], [address], 01/10/2023 07:14:04 01/09/2001/09/2023 CBC WITH DIFFE RENTI AL/PL ATELE T immature grans (abs) 0.0 x10e3 /uL 0.0-0. 1 Not Available [facility] ([facility]) [address] [place], [address], 01/10/2023 07:14:04 01/09/20 23 01/09/2023 CBC WITH DIFFE RENTI AL/PL ATELE T NRBC INTERFACE DESIGNER Not Available [facility] ([facility]) [address] [place], [address], 01/10/2023 07:14:04 01/09/20 23 01/09/2023 CBC WITH DIFFE RENTI AL/PL ATELE T hematology comments: INTERFACE DESIGNER Not Available [facility] ([facility]) [address] [place], [address], 01/10/2023 07:14:04 01/09/20 23 01/09/2023 COMP. METAB OLIC PANEL (14) glucose 111 mg/dL 70-99 above high normal Not Available [facility] ([facility]) [address] [place], [address], 01/10/2023 07:14:05 01/09/20 23 01/09/2023 COMP. METAB OLIC PANEL (14) BUN 16 mg/dL 6-24 Not Available [facility] ([facility]) [address] [place], [address], 01/10/2023 07:14:05 01/09/20 23 01/09/2023 COMP. METAB OLIC PANEL (14) creatinine 0.60 mg/dL 0.76-1 .27 below low normal Not Available [facility] ([facility]) [address] [place], [address], 01/10/2023 07:14:05 01/09/20 23 01/09/2023 COMP. METAB OLIC PANEL (14) eGFR 121 mL/mi n/1.7 3 >59 Not Available [facility] ([facility]) [address] [place], [address], 01/10/2023 07:14:05 01/09/20 23 01/09/2023 COMP. METAB OLIC PANEL (14) BUN/creatini ne ratio 27 9-20 above high normal Not Available [facility] ([facility]) [address] [place], [address], 01/10/2023 07:14:05 01/09/20 23 01/09/2023 COMP. METAB OLIC PANEL (14) sodium 140 mmol/ L 134-14 4 Not Available [facility] ([facility]) [address] [place], [address], 01/10/2023 07:14:05 01/09/20 23 01/09/2023 COMP. METAB OLIC PANEL (14) potassium 4.0 mmol/ L 3.5-5. 2 Not Available [facility] ([facility]) [address] [place], [address], 01/10/2023 07:14:05 01/09/20 23 01/09/2023 COMP. METAB OLIC PANEL (14) chloride 100 mmol/ L 96-106 Not Available [facility] ([facility]) [address] [place], [address], 01/10/2023 07:14:05 01/09/20 23 01/09/2023 COMP. METAB OLIC PANEL (14) carbon dioxide, total 23 mmol/ L 20- Not Available [facility] ([facility]) [address] [facility], [place], [address], 01/10/2023 07:14:05 01/09/20 23 01/09/2023 COMP. METAB OLIC PANEL (14) calcium 9.5 mg/dL 8.7-10 .2 Not Available [facility] ([facility]) [address] [place], [address], 01/10/2023 07:14:05 01/09/20 23 01/09/2023 COMP. METAB OLIC PANEL (14) protein, total 7.1 g/dL 6.0-8. 5 Not Available [facility] ([facility]) [address] [place], [address], 01/10/2023 07:14:05 01/09/20 23 01/09/2023 COMP. METAB [...] 4.6 3.6 - 4.6 Not Available [facility] ([facility]) [address] [place], [address], 01/10/2023 07:14:05 01/09/20 23 01/09/2023 COMP. METAB OLIC PANEL (14) globulin, total 2.6 g/dL 1.5-4. 5 Not Available [facility] ([facility]) [address] [place], [address], 01/10/2023 07:14:05 01/09/20 23 01/09/2023 COMP. METAB OLIC PANEL (14) A/G ratio 1.7 1.2-2. 2 Not Available [facility] ([facility]) [address] [place], [address], 01/10/2023 07:14:05 01/09/20 23 01/09/2023 COMP. METAB OLIC PANEL (14) bilirubin, total 0.4 mg/dL 0.0-1. 2 Not Available [facility] ([facility]) [address] [place], [address], 01/10/2023 07:14:05 01/09/20 23 01/09/2023 COMP. METAB OLIC PANEL (14) alkaline phosphatase 55 IU/L 44-121 Not Available [facility] ([facility]) [address] [place], [address], 01/10/2023 07:14:05 01/09/20 23 01/09/2023 COMP. METAB OLIC PANEL (14) AST (SGOT) 13 IU/L 0-40 Not Available [facility] ([facility]) [address] [place], [address], 01/10/2023 07:14:05 01/09/20 23 01/09/2023 COMP. METAB OLIC PANEL (14) ALT (SGPT) 14 IU/L 0-44 Not Available [facility] ([facility]) [address] [place], [address], 01/10/2023 07:14:05 01/09/20 23 01/09/2023 LIPID PANEL cholesterol, total 110 mg/dL 100-19 9 Not Available [facility] ([facility]) [address] [place], [address], 01/10/2023 07:14:06 01/09/20 23 01/09/2023 LIPID PANEL triglyceride s 93 mg/dL 0-149 Not Available [facility] ([facility]) [address] [place], [address], 01/10/2023 07:14:06 01/09/20 23 01/09/2023 LIPID PANEL HDL cholesterol 36 mg/dL >39 below low normal Not Available [facility] ([facility]) [address] [place], [address], 01/10/2023 07:14:06 01/09/20 23 01/09/2023 LIPID PANEL VLDL cholesterol shaunna 18 mg/dL 5-40 Not Available [facility] ([facility]) [address] [place], [address], 01/10/2023 07:14:06 01/09/20 23 01/09/2023 LIPID PANEL LDL chol calc ([facility]) 56 mg/dL 0-99 Not Available [facility] ([facility]) [address] [facility], [place], [address], 01/10/2023 07:14:06 01/09/20 23 01/09/2023 LIPID PANEL comment: INTERFACE DESIGNER Not Available [facility] ([facility]) [address] [facility], [place], [address], 01/10/2023 07:14:06 01/09/20 23 01/09/2023 HEMOG LOBIN A1C hemoglobin A1C 7.9 % 4.8-5. 6 above high normal Predi abete s: 5.7 - 6.4 Diabe melissa: >6.4 Glyce oni contr ol for adult s with diabe melissa: <7.0 Not Available [facility] ([facility]) [address] [facility], [place], [address], 01/10/2023 07:14:07 01/09/20 23 01/10/2023 VITAM IN [...] Louie burnett [place]: The [facility] Press . 2. Maribell johnson MF, [place], Dago off-F errar i YEAGER, et al. Evalu ation , treat ment, and preve ntion of vitam in D defic iency : an Endoc rine Socie ty clini shaunna pract ice guide line. JCEM. 2010; 96(7) :1911 -30. Not Available [facility] ([facility]) [address] [facility], [place], [address], 01/10/2023 07:14:08 01/09/20 23 01/09/2023 MAGNE SIUM magnesium 1.6 mg/dL 1.6-2. 3 Not Available [facility] ([facility]) [address] [facility], [place], [address], 01/10/2023 07:14:08 01/09/20 23 01/08/2023 HbA1c (hemo globi n A1c), blood HbA1c 8.0 Not Available [facility] - [address], [place], [address], 01/08/2023 14:14:16 04/10/20 23 04/10/2023 HbA1c (hemo globi n A1c), blood HbA1c 7.3 Not Available [facility] - [address], [place], [address], 04/10/2023 08:34:17 12/08/19 23 12/06/2022 XR, sacru m + coccy x [facility] [address] [id number] Phone: Fax: Name: LIAM XIONG Exam Date: 023 : [birth year] Age 47 Gender : M Access ion: [id number] Physic rohit: Irena Michelle Facili ty: [facility] Facili ty HSV: Outpat ient Exam: [...] Thank you for referr LIAM Brian to [facility]. Legall y authen ticate d by TERRY LINCOLN 12-07 09:15: 03 CC'ed Logic: Orderi ng Provid er: HADLEY Mcgee CC Provid er: HADLEY Mcgee Attend ing Provid er: HADLEY Mcgee Referr ing Provid er: HADLEY Mcgee Admitt ing Provid er: HADLEY Mcgee [email or web address] [facility] [address] [place] [address], [address], 12/07/2022 11:54:18 12/08/19 23 12/06/2022 XR, sacru m + coccy x, 2 or more view No observ ation record ed. [facility] ([facility]) [address] [place] [address], [address], 12/07/2022 11:58:00 02/29/20 23 02/28/2023 [facility] [address] [place] [address] Phone: Fax: Name: LIAM XIONG Exam Date: : [birth year] Age 48 Gender : M Access ion: [id number] Physic rohit: Irena Michelle Facili ty: [facility] Facili ty HSV: Outpat ient Exam: [...] Thank you for referr LIAM Brian to [facility]. Legall y authen ticate d by POPE SHAMA Sharpe 02-28 16:21: 01 CC'ed Logic: Orderi ng Provid er: HADLEY Mcgee CC Provid er: HADLEY Mcgee Attend ing Provid er: HADLEY Mcgee Referr ing Provid er: HADLEY Mcgee Admitt ing Provid er: HADLEY Mcgee [email or web address] [facility] [address] [place], [address], 03/01/2023 08:36:07 02/29/20 23 02/28/2023 US, abdom en, compl ete No observ ation record ed. [facility] ([facility]) [address] [facility], [place], [address], 03/07/2023 08:34:35 Result Notes Documentation Provider Name and Address Organization Details Recorded Time Xr, Sacrum + Coccyx : [facility] [address] [place] [address] Name: LIAM XIONG Exam Date: 12/06/2022 : 1975 Age 47 Gender: M Physician: Milagros Cannon Facility: [facility] Facility HSV: Outpatient Exam: SACRUM COCCYX Sacrum [...] Thank you for referring DARSHAN LIAM to [facility]. Legally authenticated by MARIE LINCOLN 2022-12-07 09:15:03 CC'ed Logic: Ordering Provider: DAVIS LINARES CC Provider: DAVIS LINARES Attending Provider: DAVIS LINARES Referring Provider: DAVIS LINARES Admitting Provider: DAVIS Cannon APRN [address] [place], [address], [facility] & [place] 12/07/2022 11:54:18 Procedures Surgical History Date Name Laterality Status Provider Name and Address Organization Details Recorded Time 9 procedure on shoulder completed Doretha Saba [facility] & [place] 03/20/2023 14:16:42 Imaging Results None recorded. Procedure [...] Address Organization Details Last Updated DateTime 3 464516. 94 g 36.6 kg/m2 182.88 cm 97 [degF] 96 % 96 % 103 /min 142 mm[Hg] 80 mm[Hg] CLAIRE SOLIS [place] - [facility] - [place] & [place] 3 10:58:46 Date Recorded Body height Body mass index (BMI) Body weight Body temperature Oxygen saturation Oxygen saturation in Arterial blood by Pulse oximetry Heart rate Systolic blood pressure Diastolic blood pressure Provider Name and Address Organization Details Last Updated DateTime 3 182.88 cm 36.5 kg/m2 510884. 35 g 96.8 [degF] 95 % 95 % 89 /min 134 mm[Hg] 84 mm[Hg] CLAIRE COOL [facility] & [place] 3 14:33:54 Date Recorded Body height Body mass index (BMI) Body weight Body temperature Oxygen saturation Oxygen saturation in Arterial blood by Pulse oximetry Heart rate Systolic blood pressure Diastolic blood pressure Provider Name and Address Organization Details Last Updated DateTime 3 182.88 cm 33.9 kg/m2 018372. 09 g 98.1 [degF] 97 % 97 % 82 /min 120 mm[Hg] 80 mm[Hg] Aminta Harden CLEMENTINE COOL [facility] & [place] 3 13:57:12 Date Recorded Body height Body mass index (BMI) Body weight Body temperature Oxygen saturation Oxygen saturation in Arterial blood by Pulse oximetry Heart rate Systolic blood pressure Diastolic blood pressure Provider Name and Address Organization Details Last Updated DateTime 3 182.88 cm 33.5 kg/m2 069684. 32 g 97.7 [degF] 97 % 97 % 85 /min 114 mm[Hg] 66 mm[Hg] CLAIRE COOL [facility] & [place] 3 11:13:56 Date Recorded Body height Body mass index (BMI) Body weight Body temperature Oxygen saturation Oxygen saturation in Arterial blood by Pulse oximetry Heart rate Systolic blood pressure Diastolic blood pressure Provider Name and Address Organization Details Last Updated DateTime 3 182.88 cm 32.4 kg/m2 658378. 58 g 97.1 [degF] 97 % 97 % 90 /min 142 mm[Hg] 70 mm[Hg] CLAIRE COOL [facility] & [place] 3 08:19:13 Social History Question Answer Notes LastModified by Organizat ion Details LastModified Time Tobacco Smoking Status Current Every Day Smoker CLEMENTINE Combs [facility] & [place] 10/10/2022 10:53:09 Do You Have An Advance [...] completed Opal ramsey, [place] - [facility] - [place] & [place] 10/17/2022 12:28:36 COVID-19, mRNA, LNP-S, PF, 30 mcg/0.3 mL dose 03/31/2021 completed Opal ramsey, [place] - [facility] - [place] & [place] 10/17/2022 12:28:36 Past Encounters Encounter ID Performer Location Encounter Start Date Encounter Closed Date Diagnosis/Indication Diagnosis SNOMED-CT Code Diagnosis ICD10 Code Diagnosis Note [id number] Milagros JorgensenHernando [address] [place] [address] 10/10/2022 10:49:33 10/10/2022 11:53:58 Type 2 diabetes mellitus 31044124 E11.65 Ozempic was still 800 after insurance. Will start with Metformin and reassess and if needed will add another medication if needed. Follow up in 1 month. Bring blood sugar log to clinic at that time. Hyperlipidemia 24631843 E78.5 Thyroid di sorder screening 232745301 Z13.29 Screening for malignant neoplasm of colon 321559963 Z12.11 Nicotine dependence 5629 4008 F17.200 Adult [facility] th examination 655733052 Z00.01 Counseled patient on annual eye exams and regular dental visits. Will call with lab results. Patient advised to follow up in 1 month. Diabetic p eripheral neuropathy 395317039 E11.40 Will start new diabetes medication . Will reassess. [id number] Milagros JorgensenHernando [address] [place] [address] 11/08/2022 14:28:07 11/08/2022 14:54:36 Type 2 diabetes mellitus 19160719 E11.65 Keep a blood glucose log. RTC in 2 months. Will recheck hgbA1c, lipid panel, and CBC, CMP. Patient agrees with treatment plan. Continue the metformin as prescribed . Pain in coccyx 36216683 M53.3 Advised patient to take ibuprofen before riding. Use an additional cushion on his bike.Ruthy nt has cologuard at home. Advised to complete and send in to the lab. [id number] Milagros JorgensenParamjitFluker [address] [place] [address] 01/08/2023 13:52:38 01/08/2023 15:01:27 Type 2 diabetes mellitus 23003002 E11.65 Continue metformin as RX.Will check complete blood work today. Will call with results.A1 C was 13.1 and it is 8.0 today.Will consider adding Mounjaro after January 12 per new recommenda tions. Patient could not afford before.Fol low up in 3 months. Hyperlipidemia 95300821 E78.5 Patient is currently on rosuvastat in. Will call with lab results. [id number] Milagros Cordova [address] [place] [address] 02/05/2023 10:57:49 02/05/2023 11:31:17 Abdominal pain 44823707 R10.9 Tylenol/Ib uprofen PRN.Avoid any strenuous activity to worsen pain or condition. Was seen in ER December [address] Abd/Pelvis was unremarkab le.Will order U/S. Will call with ultrasound results. [id number] Milagros Cordova in, [address] [place] [address] 04/10/2023 08:14:43 04/10/2023 08:39:38 Type 2 diabetes mellitus 17905287 E11.65 A1C 7.3 on maximum continued Metformin [...] Zaman Member ID Guarantor Name 05/22/2023 1 [facility] [id number] Liam Xiong [id number] Liam Xiong Notes Date Note Type Note [...] neuropathy. Milagros Cannon APRN [address], [place], [address], [facility] & [place] 10/12/2022 10:13:43 11/08/2022 text/html patient presents to [...] defecate. Milagros Cannon APRN [address], [place], [address], [facility] & [place] 11/08/2022 15:48:57 01/08/2023 text/html patient presents to clinic for follow up on diabetes.He states he is feeling better. He was seen in the ER for abdominal pain 2 weeks ago[address] He states [address] abdomen was negative. He is seeing the Chiropractor and it is helping with his back spasms. He denies any new symptoms. Milagros Cannon APRN [address], [place], [address], [facility] & [place] 01/08/2023 14:31:24 02/05/2023 text/html patient presents to [...] SOB. Milagros Cannon, GAIL [address], [place], [address], [facility] & [place] 02/05/2023 11:49:51 04/10/2023 text/html patient presents to clinic for 3 month follow up. He states he is a little stressed in this morning. He states his BP has been running good. He denies any headaches. Denies any chest pain. Milagros Cannon APRN [address], [place], [address], [place] - [facility] & [place] 04/11/2023 08:59:32
--- OUTSIDE RECORDS SUMMARY | 2025-01-02 16:58 | XMS_ITS | Patient Health Record ---
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 Name Role Phone None, None Primary Care Provider UnavailJose Das Unavailable [phone] Allergies No Known Allergies Reason For Referral [...] Problem Status W/U Status Risk Notes Problem 461524491 Obesity (BMI 30-39.9) (E66.9) Active confirmed Problem 30665650 Acute tonsillitis, unspecified etiology (J03.90) Active confirmed Problem 9854672884681 Acute otitis media with effusion of both ears (H65.193) Active confirmed Problem 36017559 Rapid pulse (R00.0) Active confirmed Vital Signs Temperature 98.7 degrees Fahrenheit 01/30/2024 Respiratory Rate 18 /min 01/30/2024 Blood pressure diastolic 78 mm Hg 01/30/2024 Height 72 in 01/30/2024 Blood pressure systolic 118 mm Hg 01/30/2024 Weight 245 lbs 01/30/2024 BMI 33.22 kg/m2 01/30/2024 Encounters Encounter Location Date Provider Diagnosis [address] [place] [address] 01/30/2024 Jose Katherin Acute otitis media with [...] Insured Coverage Start Date Coverage End Date [facility] [address] [address] [place] [phone] [id number] Liam Xiong Self - patient is the insured Medical (General) History Medical History History ICD Code Diabetes Surgical History Surgery Date(Month/Year) shoulder left Hospitalization History Reason Date(Month/Year) as above
--- OUTSIDE RECORDS SUMMARY | 2025-01-02 16:58 | XMS_ITS | Patient Health Record ---
Author Organization [facility] Address [address] [place] [address] Support Name Relationship Address Phone N/A, N/A Emergency Contact [address] [place] [address] Unavailable RHIANNON SEXTON Guarantor Unknown [phone] Reason For Referral No Information Immunizations Vaccine [...] Insured Coverage Start Date Coverage End Date [facility] [address] [address] [place] [address] [id number] RHIANNON SEXTON Self - patient is the insured
== END 2025-01-02 17:00 | disposition home or self-care (01) ==
LOC: INF 16:56
PROVIDERS: Visit Provider Surgery
DX: L05.01 Pilonidal cyst with abscess (principal)
CPT/HCPCS: G0463

== ENCOUNTER 2025-01-04 13:39 | Outpatient (RCR) | payer OTHER, SELFPAY | END 2025-01-04 14:00 | disposition home or self-care (01) | LOC: INF 13:39 | PROVIDERS: Visit Provider Surgery | DX: L05.01 Pilonidal cyst with abscess (principal) | CPT/HCPCS: G0463 ==

== ENCOUNTER 2025-01-05 15:15 | Outpatient (RCR) | payer OTHER, SELFPAY | END 2025-01-05 15:31 | LOC: INF 15:15 | PROVIDERS: Visit Provider Surgery | DX: L05.01 Pilonidal cyst with abscess (principal) | CPT/HCPCS: G0463 ==

== ENCOUNTER 2025-01-07 15:18 | Outpatient (CLI) | payer OTHER, SELFPAY ==
--- OUTSIDE RECORDS SUMMARY | 2025-01-07 15:22 | XMS_ITS | Data Portability ---
Author Organization [facility] & TRAVON Horta ADMIN Address [address] [place] [id number] Care Team Providers Care Model Maker Name Role Phone MILAGROS CANNON Primary Care Provider [phone] Assessment No assessment recorded. Plan of Treatment Reminders Order Date Submit Date Provider Last Modified By Organization Details Last Modified Time Details Appointments None recorded. Lab HbA1c (hemoglobin A1c), blood 2022 023 [email or web address], [place], [address], 3 08:51:25 HbA1c (hemoglobin A1c), blood 2022 023 [email or web address] 2 [facility]ly [facility], [address] [place] [address] [address], [place], [address], 3 14:16:57 CBC w/ auto diff 2022 023 [facility], [address], [address], [place], [address], 3 07:14:04 CMP, serum or plasma 2022 023 [facility], [address], [address], [place], [address], 3 07:14:05 magnesium, serum or plasma 2022 023 [facility], [address], [address], [place], [address], 3 07:14:08 vitamin D, 25-hydroxy, total, serum 2022 023 [facility], [address], [address], [place], [address], 3 07:14:08 lipid panel, serum 2022 023 [facility], [address], [address], [place], [address], 3 07:14:06 glucose, fingerstick , blood 2022 023 [email or web address] 2 [facility], [address], [place], [address], 3 15:05:53 HbA1c (hemoglobin A1c), blood 2022 023 [email or web address] 2 [facility], [address], [place], [address], 3 11:53:47 CMP, serum or plasma 2022 023 [facility], [address], [address], [place], [address], 3 11:12:21 CBC w/ auto diff 2022 023 [facility], [address], [address], [place], [address], 3 11:12:19 magnesium, serum or plasma 2022 023 [facility], [address], [address], [place], [address], 3 11:12:28 microalbumi n, urine 2022 023 [facility], [address], [place], [address], 3 12:57:57 urinalysis, dipstick 2022 023 [facility], [address], [place], [address], 3 12:01:03 thyroid panel, serum 2022 023 [facility], [address], [address], [place], [address], 3 11:12:23 vitamin D, 25-hydroxy, total, serum 2022 023 [facility], [address], [address], [place], [address], 3 11:12:27 vitamin B12 + folate, serum or blood 2022 023 [facility], [address], [address], [place], [address], 3 11:12:25 lipid panel, serum 2022 023 [facility], [address], [address], [place], [address], 3 11:12:22 Referral physical therapist referral - Coccyx pain. 2022 023 [email or web address] 3 [facility], [address], [place], [address], 3 11:43:02 Procedures colonoscopy screening (PROC) 2022 023 [email or web address] 5 Jose Grove MD, [address], [address], [place], [address], 3 12:38:14 Surgeries None recorded. Imaging US, abdomen, complete - possible umbilical hernia/righ t sided abdominal pain 2022 023 [facility] (Centralized Scheduling), [address], [place], [address], 3 16:35:11 XR, sacrum + coccyx, 2 or more view 2022 023 [facility] (Centralized Scheduling), [address], [place], [address], 3 09:30:08 Medication Orders Ozempic 0.25 mg or 0.5 mg (2 mg/1.5 mL) subcutaneou s pen injector 2022 023 [facility]armacy #[id number], [address] [place] [address], [address], 3 08:47:06 Chantix Starting Month Box 0.5 mg (11)-1 mg (42) tablets in dose pack 2022 023 2 [facility]/Pharmacy #2332, [address] [place] [address], [address], 3 11:14:37 metformin 1,000 mg tablet 2022 023 [email or web address] 2 [facility]/Pharmacy #2332, [address] [place], [address], 3 11:53:48 Ozempic 0.25 mg or 0.5 mg (2 mg/1.5 mL) subcutaneou s pen injector 2022 023 [facility]/Pharmacy #2332, [address] [place], [address], 11:14:44 rosuvastati n 10 mg tablet 2022 023 [facility]/Pharmacy #2332, [address] [place], [address], 11:54:37 Patient TargetsNo targets recorded. Patient Instructions Encounter Date Encounter Id Patient Instructions Last Modified By Organization Details Last Modified Time 10/10/2022 [id number] smoking cessatio n counseling, greater than 3 minutes up to 10 minutes* Not available 10/17/2022 08:34:36 Patient needs to follow up in 1 month. Advised patient that I would call with lab results. Counseled patient on monitoring blood glucose at home. Bring log of blood sugars to next appt. [email or web address] Not available 10/10/2022 11:55:22 Reason for Referral Physical Therapist Referral for Pain in coccyx Coccyx pain. Referring Physician: Milagros Cannon, Infectious Disease, Encounter Date: 11/08/2022 Results Created Date Observation Date Name Description Value Unit Range Abnormal Flag Note LastModifiedBy Organization Detail LastModifiedTime 10/11/19 23 10/11/2022 ALBUM IN/CR EATIN INE RATIO ,URIN E creatinine, urine 312.5 mg/dL not estab. Not Available [facility] ([facility]) [address] [place], [address], 10/11/2022 09:14:45 10/11/19 23 10/11/2022 ALBUM IN/CR EATIN INE RATIO ,URIN E albumin, urine 133.8 ug/mL not estab. Not Available [facility] ([facility]) [address] [facility], [place], [address], 10/11/2022 09:14:45 10/11/19 23 10/11/2022 ALBUM IN/CR EATIN INE RATIO ,URIN E alb/creat ratio 43 mg/g_ creat 0-29 above high normal Ana M l: 0 - 29 Moder ately incre ased: 30 - 300 Sever savanah incre ased: >300 Not Available [facility] ([facility]) [address] [place], [address], 10/11/2022 09:14:45 10/11/19 23 10/11/2022 CBC WITH DIFFE RENTI AL/PL ATELE T WBC 8.3 x10e3 /uL 3.4-10 .8 Not Available [facility] ([facility]) [address] [place], [address], 10/11/2022 11:12:19 10/11/1910/11/2022 CBC WITH DIFFE RENTI AL/PL ATELE T RBC 5.38 x10e6 /uL 4.14-5 .80 Not Available [facility] ([facility]) [address] [place], [address], 10/11/2022 11:12:19 10/11/19 23 10/11/2022 CBC WITH DIFFE RENTI AL/PL ATELE T hemoglobin 17.4 g/dL 13.0-1 7.7 Not Available [facility] ([facility]) [address] [place], [address], 10/11/2022 11:12:19 10/11/1910/11/2022 CBC WITH DIFFE RENTI AL/PL ATELE T hematocrit 51.3 % 37.5-5 1.0 above high normal Not Available [facility] ([facility]) [address] [place], [address], 10/11/2022 11:12:19 10/11/1910/11/2022 CBC WITH DIFFE RENTI AL/PL ATELE T MCV 95 fL 79-97 Not Available [facility] ([facility]) [address] [place], [address], 10/11/2022 11:12:19 10/11/19 23 10/11/2022 CBC WITH DIFFE RENTI AL/PL ATELE T MCH 32.3 pg 26.6-3 3.0 Not Available [facility] ([facility]) [address] [facility], [place], [address], 10/11/2022 11:12:19 10/11/19 23 10/11/2022 CBC WITH DIFFE RENTI AL/PL ATELE T MCHC 33.9 g/dL 31.5-3 5.7 Not Available [facility] ([facility]) [address] [facility], [place], [address], 10/11/2022 11:12:19 10/11/19 23 10/11/2022 CBC WITH DIFFE RENTI AL/PL ATELE T RDW 11.7 % 11.6-1 5.4 Not Available [facility] ([facility]) [address] [facility], [place], [address], 10/11/2022 11:12:19 10/11/19 23 10/11/2022 CBC WITH DIFFE RENTI AL/PL ATELE T platelets 324 x10e3 /uL 150-45 0 Not Available [facility] ([facility]) [address] [facility], [place], [address], 10/11/2022 11:12:19 10/11/19 23 10/11/2022 CBC WITH DIFFE RENTI AL/PL ATELE T neutrophils 63 % not estab. Not Available [facility] ([facility]) [address] [facility], [place], [address], 10/11/2022 11:12:19 10/11/19 23 10/11/2022 CBC WITH DIFFE RENTI AL/PL ATELE T lymphs 26 % not estab. Not Available [facility] ([facility]) [address] [place], [address], 10/11/2022 11:12:19 10/11/19 23 10/11/2022 CBC WITH DIFFE RENTI AL/PL ATELE T monocytes 8 % not estab. Not Available [facility] ([facility]) [address] [place], [address], 10/11/2022 11:12:19 10/11/19 23 10/11/2022 CBC WITH DIFFE RENTI AL/PL ATELE T eos 1 % not estab. Not Available [facility] ([facility]) [address] [facility], [place], [address], 10/11/2022 11:12:19 10/11/19 23 10/11/2022 CBC WITH DIFFE RENTI AL/PL ATELE T basos 1 % not estab. 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 0 Not Available [facility] ([facility]) [address] [place], [address], 10/11/2022 11:12:19 10/11/19 23 10/11/2022 CBC WITH DIFFE RENTI AL/PL ATELE T lymphs (absolute) 2.2 x10e3 /uL 0.7-3. 1 Not Available [facility] ([facility]) [address] [place], [address], 10/11/2022 11:12:19 10/11/19 23 10/11/2022 CBC WITH DIFFE RENTI AL/PL ATELE T monocytes(ab solute) 0.7 x10e3 /uL 0.1-0. 9 Not Available [facility] ([facility]) [address] [facility], [place], [address], 10/11/2022 11:12:19 10/11/19 23 10/11/2022 CBC WITH DIFFE RENTI AL/PL ATELE T eos (absolute) 0.1 x10e3 /uL 0.0-0. 4 Not Available [facility] ([facility]) [address] [facility], [place], [address], 10/11/2022 11:12:19 10/11/19 23 10/11/2022 CBC WITH DIFFE RENTI AL/PL ATELE T baso (absolute) 0.0 x10e3 /uL 0.0-0. 2 Not Available [facility] ([facility]) [address] [facility], [place], [address], 10/11/2022 11:12:19 10/11/19 23 10/11/2022 CBC WITH DIFFE RENTI AL/PL ATELE T immature granulocytes 1 % not estab. Not Available [facility] ([facility]) [address] [facility], [place], [address], 10/11/2022 11:12:19 10/11/19 23 10/11/2022 CBC WITH DIFFE RENTI AL/PL ATELE T immature grans (abs) 0.1 x10e3 /uL 0.0-0. 1 Not Available [facility] ([facility]) [address] [facility], [place], [address], 10/11/2022 11:12:19 10/11/19 23 10/11/2022 CBC WITH DIFFE RENTI AL/PL ATELE T NRBC 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 WORKER Not Available [facility] ([facility]) [address] [facility], [place], [address], 10/11/2022 11:12:19 10/11/19 23 10/11/2022 CBC WITH DIFFE RENTI AL/PL ATELE T hematology comments: 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 WORKER Not Available [facility] ([facility]) [address] [facility] [place], [address], 10/11/2022 11:12:19 10/11/19 23 10/11/2022 COMP. METAB OLIC PANEL (14) glucose 294 mg/dL 70-99 above high normal Not Available [facility] ([facility]) [address] [facility] [place], [address], 10/11/2022 11:12:21 10/11/19 23 10/11/2022 COMP. METAB OLIC PANEL (14) BUN 22 mg/dL 6-24 Not Available [facility] ([facility]) [address] [facility] [place], [address], 10/11/2022 11:12:21 10/11/19 23 10/11/2022 COMP. METAB OLIC PANEL (14) creatinine 0.84 mg/dL 0.76-1 .27 Not Available [facility] ([facility]) [address] [facility] [place], [address], 10/11/2022 11:12:21 10/11/19 23 10/11/2022 COMP. METAB OLIC PANEL (14) eGFR 110 mL/mi n/1.7 3 >59 Not Available [facility] ([facility]) [address] [facility] [place], [address], 10/11/2022 11:12:21 10/11/19 23 10/11/2022 COMP. METAB OLIC PANEL (14) BUN/creatini ne ratio 26 9-20 above high normal Not Available [facility] ([facility]) [address] [facility] [place], [address], 10/11/2022 11:12:21 10/11/19 23 10/11/2022 COMP. METAB OLIC PANEL (14) sodium 137 mmol/ L 134-14 4 Not Available [facility] ([facility]) [address] [facility] [place], [address], 10/11/2022 11:12:21 10/11/19 23 10/11/2022 COMP. METAB OLIC PANEL (14) potassium 5.0 mmol/ L 3.5-5. 2 Not Available [facility] ([facility]) [address] [facility], [place], [address], 10/11/2022 11:12:21 10/11/19 23 10/11/2022 COMP. METAB OLIC PANEL (14) chloride 97 mmol/ L 96-106 Not Available [facility] ([facility]) [address] [facility], [place], [address], 10/11/2022 11:12:21 10/11/19 23 10/11/2022 COMP. METAB OLIC PANEL (14) carbon dioxide, total 24 mmol/ L 20- Not Available [facility] ([facility]) [address] [facility] [place], [address], 10/11/2022 11:12:21 10/11/19 23 10/11/2022 COMP. METAB OLIC PANEL (14) calcium 10.1 mg/dL 8.7-10 .2 Not Available [facility] ([facility]) [address] [facility], [place], [address], 10/11/2022 11:12:21 10/11/19 23 10/11/2022 COMP. METAB OLIC PANEL (14) protein, total 7.5 g/dL 6.0-8. 5 Not Available [facility] ([facility]) [address] [facility] [place], [address], 10/11/2022 11:12:21 10/11/19 23 10/11/2022 COMP. METAB OLIC PANEL (14) albumin 4.4 g/dL 4.0-5. 0 Not Available [facility] ([facility]) [address] [facility] [place], [address], 10/11/2022 11:12:21 10/11/19 23 10/11/2022 COMP. METAB OLIC PANEL (14) globulin, total 3.1 g/dL 1.5-4. 5 Not Available [facility] ([facility]) [address] [facility] [place], [address], 10/11/2022 11:12:21 10/11/19 23 10/11/2022 COMP. METAB OLIC PANEL (14) A/G ratio 1.4 1.2-2. 2 Not Available [facility] ([facility]) [address] [facility], [place], [address], 10/11/2022 11:12:21 10/11/19 23 10/11/2022 COMP. METAB OLIC PANEL (14) bilirubin, total 0.5 mg/dL 0.0-1. 2 Not Available [facility] ([facility]) [address] [facility] [place], [address], 10/11/2022 11:12:21 10/11/19 23 10/11/2022 COMP. METAB OLIC PANEL (14) alkaline phosphatase 73 IU/L 44-121 Not Available [facility]) [address] [facility], [place], [address], 10/11/2022 11:12:21 10/11/19 23 10/11/2022 COMP. METAB OLIC PANEL (14) AST (SGOT) 33 IU/L 0-40 Not Available [facility] ([facility]) [address] [facility], [place], [address], 10/11/2022 11:12:21 10/11/19 23 10/11/2022 COMP. METAB OLIC PANEL (14) ALT (SGPT) 40 IU/L 0-44 Not Available [facility] ([facility]) [address] [facility] [place], [address], 10/11/2022 11:12:21 10/11/19 23 10/11/2022 LIPID PANEL cholesterol, total 270 mg/dL 100-19 9 above high normal Not Available [facility] ([facility]) [address] [facility] [place], [address], 10/11/2022 11:12:22 10/11/19 23 10/11/2022 LIPID PANEL triglyceride s 299 mg/dL 0-149 above high normal Not Available [facility] ([facility]) [address] [facility] [place], [address], 10/11/2022 11:12:22 10/11/19 23 10/11/2022 LIPID PANEL HDL cholesterol 32 mg/dL >39 below low normal Not Available [facility] ([facility]) [address] [facility] [place], [address], 10/11/2022 11:12:22 10/11/19 23 10/11/2022 LIPID PANEL VLDL cholesterol shaunna 58 mg/dL 5-40 above high normal Not Available [facility] ([facility]) [address] [place], [address], 10/11/2022 11:12:22 10/11/19 23 10/11/2022 LIPID PANEL LDL chol calc ([facility]) 180 mg/dL 0-99 above high normal Not Available [facility] ([facility]) [address] [facility] [place], [address], 10/11/2022 11:12:22 10/11/19 23 10/11/2022 LIPID PANEL comment: 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 WORKER Not Available [facility] ([facility]) [address] [place], [address], 10/11/2022 11:12:22 10/11/19 23 10/11/2022 THYRO ID PROFI LE II TSH 1.030 uIU/m L 0.450- 4.500 Not Available [facility] ([facility]) [address] [place], [address], 10/11/2022 11:12:23 10/11/19 23 10/11/2022 THYRO ID PROFI LE II thyroxine (T4) 10.8 ug/dL 4.5-12 .0 Not Available [facility] ([facility]) [address] [facility], [place], [address], 10/11/2022 11:12:23 10/11/19 23 10/11/2022 THYRO ID PROFI LE II T3 uptake 27 % 24-39 Not Available [facility] ([facility]) [address] [facility], [place], [address], 10/11/2022 11:12:23 10/11/19 23 10/11/2022 THYRO ID PROFI LE II free thyroxine index 2.9 1.2-4. 9 Not Available [facility] ([facility]) [address] [facility], [place], [address], 10/11/2022 11:12:23 10/11/19 23 10/11/2022 THYRO ID PROFI LE II triiodothyro nine (T3) 148 NG/dL 71-180 Not Available [facility] ([facility]) [address] [facility], [place], [address], 10/11/2022 11:12:23 10/11/19 23 10/11/2022 VITAM IN B12 AND FOLAT E vitamin B12 747 pg/mL 232-12 45 Not Available [facility] ([facility]) [address] [place], [address], 10/11/2022 11:12:24 10/11/1910/11/2022 VITAM IN B12 AND FOLAT E folate (folic acid), serum >20.0 NG/mL >3.0 A serum folat e linda ntrat ion of less than 3.1 ng/mL is consi dered to repre sent clini shaunna defic iency . Not Available [facility] ([facility]) [address] [facility], [place], [address], 10/11/2022 11:12:24 10/11/1910/11/2022 HEMOG LOBIN A1C hemoglobin A1C 12.9 % 4.8-5. 6 above high normal Predi abete s: 5.7 - 6.4 Diabe melissa: >6.4 Glyce oni contr ol for adult s with diabe melissa: <7.0 Not Available [facility] ([facility]) [address] [facility], [place], [address], 10/11/2022 11:12:26 10/11/19 23 10/11/2022 VITAM IN [...] um and D. Louie burnett [place]: [facility] Press . 2. Maribell johnson MF, Nilsa shah [place], Dago off-F errar i YEAGER, et al. Evalu ation , treat ment, and preve ntion of vitam in D defic iency : an Endoc rine Socie ty clini shaunna pract ice guide line. JCEM. 2010; 96(7) :1911 -30. Not Available [facility] ([facility]) [address] [facility], [place], [address], 10/11/2022 11:12:27 10/11/19 23 10/11/2022 MAGNE SIUM magnesium 1.5 mg/dL 1.6-2. 3 below low normal Not Available [facility] ([facility]) [address] [facility], [place], [address], 10/11/2022 11:12:28 10/11/19 23 10/10/2022 urina lysis , dipst ick Leukocytes (reference range) negati ve Not Available [facility] - [address], [place], [address], 10/10/2022 11:35:48 10/11/19 23 10/10/2022 urina lysis , dipst ick Nitrite (reference range:) negati ve Not Available [address], [place], [address], 10/10/2022 11:35:48 10/11/19 23 10/10/2022 urina lysis , dipst ick Urobilinogen (reference range) 0.2 Not Available [address], [place], [address], 10/10/2022 11:35:48 10/11/19 23 10/10/2022 urina lysis , dipst ick Protein (reference range) 100 Not Available [address], [place], [address], 10/10/2022 11:35:48 10/11/19 23 10/10/2022 urina lysis , dipst ick pH (reference range 5-8.5) 5.0 Not Available [address], [place], [address], 10/10/2022 11:35:48 10/11/19 23 10/10/2022 urina lysis , dipst ick Blood (reference range:) negati ve Not Available [address], [place], [address], 10/10/2022 11:35:48 10/11/19 23 10/10/2022 urina lysis , dipst ick Specific [place] (reference range) 1.030 Not Available [address], [place], [address], 10/10/2022 11:35:48 10/11/19 23 10/10/2022 urina lysis , dipst ick Ketone (reference range) modera te Not Available [address], [place], [address], 10/10/2022 11:35:48 10/11/19 23 10/10/2022 urina lysis , dipst ick Bilirubin (reference range) modera te Not Available [address], [place], [address], 10/10/2022 11:35:48 10/11/19 23 10/10/2022 urina lysis , dipst ick Glucose (reference range) 1000 Not Available [address], [place], [address], 10/10/2022 11:35:48 10/11/19 23 10/10/2022 urina lysis , dipst ick Color (reference range: yellow-brown ) Dark Yellow Not Available [address], [place], [address], 10/10/2022 11:35:48 10/11/19 23 10/10/2022 HbA1c (hemo globi n A1c), blood HbA1c 13.1 Not Available [address], [place], [address], 10/10/2022 11:16:31 11/09/19 23 11/08/2022 gluco se, finge rstic k, blood Blood Glucose: mg/dl 157 Not Available [facility] [address], [place], [address], 11/08/2022 14:40:07 01/09/20 23 01/09/2023 CBC WITH DIFFE RENTI AL/PL ATELE T WBC 8.0 x10e3 /uL 3.4-10 .8 Not Available [facility] ([facility]) [address] [facility], [place], [address], 01/10/2023 07:14:04 01/09/20 23 01/09/2023 CBC WITH DIFFE RENTI AL/PL ATELE T RBC 4.39 x10e6 /uL 4.14-5 .80 Not Available [facility] ([facility]) [address] [place], [address], 01/10/2023 07:14:04 01/09/20 23 01/09/2023 CBC WITH DIFFE RENTI AL/PL ATELE T hemoglobin 14.5 g/dL 13.0-1 7.7 Not Available [facility] ([facility]) [address] [place], [address], 01/10/2023 07:14:04 01/09/20 23 01/09/2023 CBC WITH DIFFE RENTI AL/PL ATELE T hematocrit 41.8 % 37.5-5 1.0 Not Available [facility] ([facility]) [address] [place], [address], 01/10/2023 07:14:04 01/09/20 23 01/09/2023 CBC WITH DIFFE RENTI AL/PL ATELE T MCV 95 fL 79-97 Not Available [facility] ([facility]) [address] [place], [address], 01/10/2023 07:14:04 01/09/20 23 01/09/2023 CBC WITH DIFFE RENTI AL/PL ATELE T MCH 33.0 pg 26.6-3 3.0 Not Available [facility] ([facility]) [address] [facility], [place], [address], 01/10/2023 07:14:04 01/09/20 23 01/09/2023 CBC WITH DIFFE RENTI AL/PL ATELE T MCHC 34.7 g/dL 31.5-3 5.7 Not Available [facility] ([facility]) [address] [facility], [place], [address], 01/10/2023 07:14:04 01/09/20 23 01/09/2023 CBC WITH DIFFE RENTI AL/PL ATELE T RDW 12.1 % 11.6-1 5.4 Not Available [facility] ([facility]) [address] [facility], [place], [address], 01/10/2023 07:14:04 01/09/20 23 01/09/2023 CBC WITH DIFFE RENTI AL/PL ATELE T platelets 273 x10e3 /uL 150-45 0 Not Available [facility] ([facility]) [address] [facility], [place], [address], 01/10/2023 07:14:04 01/09/20 23 01/09/2023 CBC WITH DIFFE RENTI AL/PL ATELE T neutrophils 63 % not estab. Not Available [facility] ([facility]) [address] [place], [address], 01/10/2023 07:14:04 01/09/20 23 01/09/2023 CBC WITH DIFFE RENTI AL/PL ATELE T lymphs 29 % not estab. Not Available [facility] ([facility]) [address] [place], [address], 01/10/2023 07:14:04 01/09/20 23 01/09/2023 CBC WITH DIFFE RENTI AL/PL ATELE T monocytes 7 % not estab. Not Available [facility] ([facility]) [address] [place], [address], 01/10/2023 07:14:04 01/09/20 23 01/09/2023 CBC WITH DIFFE RENTI AL/PL ATELE T eos 1 % not estab. Not Available [facility] ([facility]) [address] [facility], [place], [address], 01/10/2023 07:14:04 01/09/20 23 01/09/2023 CBC WITH DIFFE RENTI AL/PL ATELE T basos 0 % not estab. Not Available [facility] ([facility]) [address] [place], [address], 01/10/2023 07:14:04 01/09/20 23 01/09/2023 CBC WITH DIFFE RENTI AL/PL ATELE T immature cells 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 Not Available [facility] ([facility]) [address] [place], [address], 01/10/2023 07:14:04 01/09/20 23 01/09/2023 CBC WITH DIFFE RENTI AL/PL ATELE T neutrophils (absolute) 5.0 x10e3 /uL 1.4-7. 0 Not Available [facility] ([facility]) [address] [place], [address], 01/10/2023 07:14:04 01/09/20 23 01/09/2023 CBC WITH DIFFE RENTI AL/PL ATELE T lymphs (absolute) 2.3 x10e3 /uL 0.7-3. 1 Not Available [facility] ([facility]) [address] [place], [address], 01/10/2023 07:14:04 01/09/20 23 01/09/2023 CBC WITH DIFFE RENTI AL/PL ATELE T monocytes(ab solute) 0.6 x10e3 /uL 0.1-0. 9 Not Available [facility] ([facility]) [address] [place], [address], 01/10/2023 07:14:04 01/09/20 23 01/09/2023 CBC WITH DIFFE RENTI AL/PL ATELE T eos (absolute) 0.1 x10e3 /uL 0.0-0. 4 Not Available [facility] ([facility]) [address], [place], [address], 01/10/2023 07:14:04 01/09/20 23 01/09/2023 CBC WITH DIFFE RENTI AL/PL ATELE T baso (absolute) 0.0 x10e3 /uL 0.0-0. 2 Not Available [facility] ([facility]) [address], [place], [address], 01/10/2023 07:14:04 01/09/20 23 01/09/2023 CBC WITH DIFFE RENTI AL/PL ATELE T immature granulocytes 0 % not estab. Not Available [facility] ([facility]) [address], [place], [address], 01/10/2023 07:14:04 01/09/20 23 01/09/2023 CBC WITH DIFFE RENTI AL/PL ATELE T immature grans (abs) 0.0 x10e3 /uL 0.0-0. 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 METAB OLIC PANEL (14) glucose 111 mg/dL 70-99 above high normal Not Available [facility] ([facility]) [address] [place], [address], 01/10/2023 07:14:05 01/09/20 23 01/09/2023 COMP. METAB OLIC PANEL (14) BUN 16 mg/dL 6-24 Not Available [facility] ([facility]) [address] [place], [address], 01/10/2023 07:14:05 01/09/20 23 01/09/2023 COMP. METAB OLIC PANEL (14) creatinine 0.60 mg/dL 0.76-1 .27 below low normal Not Available [facility] ([facility]) [address] [place], [address], 01/10/2023 07:14:05 01/09/20 23 01/09/2023 COMP. METAB OLIC PANEL (14) eGFR 121 mL/mi n/1.7 3 >59 Not Available [facility] ([facility]) [address] [place], [address], 01/10/2023 07:14:05 01/09/20 23 01/09/2023 COMP. METAB OLIC PANEL (14) BUN/creatini ne ratio 27 9-20 above high normal Not Available [facility] ([facility]) [address] [place], [address], 01/10/2023 07:14:05 01/09/20 23 01/09/2023 COMP. METAB OLIC PANEL (14) sodium 140 mmol/ L 134-14 4 Not Available [facility] ([facility]) [address] [place], [address], 01/10/2023 07:14:05 01/09/20 23 01/09/2023 COMP. METAB OLIC PANEL (14) potassium 4.0 mmol/ L 3.5-5. 2 Not Available [facility] ([facility]) [address] [place], [address], 01/10/2023 07:14:05 01/09/20 23 01/09/2023 COMP. METAB OLIC PANEL (14) chloride 100 mmol/ L 96-106 Not Available [facility] ([facility]) [address] [place], [address], 01/10/2023 07:14:05 01/09/20 23 01/09/2023 COMP. METAB OLIC PANEL (14) carbon dioxide, total 23 mmol/ L 20-29 Not Available [facility] ([facility]) [address] [place], [address], 01/10/2023 07:14:05 01/09/20 23 01/09/2023 COMP. METAB OLIC PANEL (14) calcium 9.5 mg/dL 8.7-10 .2 Not Available [facility] ([facility]) [address] [place], [address], 01/10/2023 07:14:05 01/09/20 23 01/09/2023 COMP. METAB OLIC PANEL (14) protein, total 7.1 g/dL 6.0-8. 5 Not Available [facility] ([facility]) [address] [place], [address], 01/10/2023 07:14:05 01/09/20 23 01/09/2023 COMP. METAB [...] 3.6 - 4.6 Not Available [facility] ([facility]) [address] [place], [address], 01/10/2023 07:14:05 01/09/20 23 01/09/2023 COMP. METAB OLIC PANEL (14) globulin, total 2.6 g/dL 1.5-4. 5 Not Available [facility] ([facility]) [address] [place], [address], 01/10/2023 07:14:05 01/09/20 23 01/09/2023 COMP. METAB OLIC PANEL (14) A/G ratio 1.7 1.2-2. 2 Not Available [facility] ([facility]) [address] [place], [address], 01/10/2023 07:14:05 01/09/20 23 01/09/2023 COMP. METAB OLIC PANEL (14) bilirubin, total 0.4 mg/dL 0.0-1. 2 Not Available [facility] ([facility]) [address] [place], [address], 01/10/2023 07:14:05 01/09/20 23 01/09/2023 COMP. METAB OLIC PANEL (14) alkaline phosphatase 55 IU/L 44-121 Not Available [facility] ([facility]) [address] [place], [address], 01/10/2023 07:14:05 01/09/20 23 01/09/2023 COMP. METAB OLIC PANEL (14) AST (SGOT) 13 IU/L 0-40 Not Available [facility] ([facility]) [address] [place], [address], 01/10/2023 07:14:05 01/09/20 23 01/09/2023 COMP. METAB OLIC PANEL (14) ALT (SGPT) 14 IU/L 0-44 Not Available [facility] ([facility]) [address] [facility] [place], [address], 01/10/2023 07:14:05 01/09/20 23 01/09/2023 LIPID PANEL cholesterol, total 110 mg/dL 100-19 9 Not Available [facility] ([facility]) [address] [facility] [place], [address], 01/10/2023 07:14:06 01/09/20 23 01/09/2023 LIPID PANEL triglyceride s 93 mg/dL 0-149 Not Available [facility] ([facility]) [address] [facility] [place], [address], 01/10/2023 07:14:06 01/09/20 23 01/09/2023 LIPID PANEL HDL cholesterol 36 mg/dL >39 below low normal Not Available [facility] ([facility]) [address] [facility] [place], [address], 01/10/2023 07:14:06 01/09/20 23 01/09/2023 LIPID PANEL VLDL cholesterol shaunna 18 mg/dL 5-40 Not Available [facility] ([facility]) [address] [facility] [place], [address], 01/10/2023 07:14:06 01/09/20 23 01/09/2023 LIPID PANEL LDL chol calc ([facility]) 56 mg/dL 0-99 Not Available [facility] ([facility]) [address] [facility], [place], [address], 01/10/2023 07:14:06 01/09/20 23 01/09/2023 LIPID 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 6 above high normal Predi abete s: 5.7 - 6.4 Diabe melissa: >6.4 Glyce oni contr ol for adult s with diabe melissa: <7.0 Not Available [facility] ([facility]) [address] [facility], [place], [address], 01/10/2023 07:14:07 01/09/20 23 01/10/2023 VITAM IN [...] Louie burnett DC: The Natio nal [facility] Press . 2. Maribell johnson MF, Nilsa shah NC, Dago off-F errar i YEAGER, et al. Evalu ation , treat ment, and preve ntion of vitam in D defic iency : an Endoc rine Socie ty clini shaunna pract ice guide line. JCEM. 2010; 96(7) :1911 -30. Not Available [facility] ([facility]) [address] [facility], [place], [address], 01/10/2023 07:14:08 01/09/20 23 01/09/2023 MAGNE SIUM magnesium 1.6 mg/dL 1.6-2. 3 Not Available [facility] ([facility]) [address] [facility], [place], [address], 01/10/2023 07:14:08 01/09/20 23 01/08/2023 HbA1c (hemo globi n A1c), blood HbA1c 8.0 Not Available [address], [place], [address], 01/08/2023 14:14:16 04/10/20 23 04/10/2023 HbA1c (hemo globi n A1c), blood HbA1c 7.3 Not Available [facility] [address], [place], [address], 04/10/2023 08:34:17 12/08/19 23 12/06/2022 XR, sacru m + coccy x [facility] [address] [place] [address] Phone: Fax: Name: LIAM XIONG Exam Date: 023 : [birth year] Age 47 Gender : M Access ion: [id number] Physic rohit: Ronen Michelle ty: [facility] Brendon ty HSV: Outpat ient Exam: SACRUM COCCYX [...] by: LATONIA BANUELOS Thank you for referr ing BAN XIONGSON to [facility]. Legall y authen ticate d by TERRY LINCOLN 12-07 09:15: 03 CC'ed Logic: Orderi ng Provid er: HADLEY MONCADA E CC Provid er: HADLEY Mcgee Attend ing Provid er: HADLEY Mcgee Referr ing Provid er: HADLEY Mcgee Admitt ing Provid er: HADLEY Mcgee [email or web address] [facility] [address] [place], [address], 12/07/2022 11:54:18 12/08/19 23 12/06/2022 XR, sacru m + coccy x, 2 or more view No observ ation record ed. [facility] ([facility]) [address] [place], [address], 12/07/2022 11:58:00 02/29/20 23 02/28/2023 [facility] [address] [place] [address] Phone: Fax: Name: LIAM XIONG Exam Date: : [birth year] Age 48 Gender : M Access ion: [id number] Physic rohit: Irena Michelle Facili ty: [facility] Facili ty HSV: Outpat ient Exam: ABDOME N US Abdomi nal ultras ound, comple te. HISTOR Y: Abdomi nal Pain. PROCED URE: Ultras ound images of the abdome n were obtain ed. MARILEE GS: . The liver is increa sed [...] Thank you for referr LIAM Brian to [facility]. Legall y authen ticate d by POPE SHAMA Sharpe 02-28 16:21: 01 CC'ed Logic: Orderi ng Provid er: HADLEY Mcgee CC Provid er: HADLEY Mcgee Attend ing Provid er: HADLEY Mcgee Referr ing Provid er: HADLEY Mcgee Admitt ing Provid er: HADLEY Mcgee [email or web address] [facility] [address] [facility], [place], [address], 03/01/2023 08:36:07 02/29/20 23 02/28/2023 US, abdom en, compl ete No observ ation record ed. [facility] ([facility] [address] [facility], [place], [address], 03/07/2023 08:34:35 Result Notes Documentation Provider Name and Address Organization Details Recorded Time Xr, Sacrum + Coccyx : [facility] [address] [place] [address] Name: LIAM XIONG Exam Date: 12/06/2022 : 1975 Age 47 Gender: M Physician: Milagros Cannon Facility: [facility] Facility HSV: Outpatient Exam: SACRUM [...] Thank you for referring DARSHAN LIAM to [facility]. Legally authenticated by MARIE LINCOLN 2022-12-07 09:15:03 CC'ed Logic: Ordering Provider: DAVIS LINARES CC Provider: DAVIS LINARES Attending Provider: DAVIS LINARES Referring Provider: DAVIS LINARES Admitting Provider: DAVIS Cannon APRN [address] [place], [address], [facility] & [place] 12/07/2022 11:54:18 Procedures Surgical History Date Name Laterality Status Provider Name and Address Organization Details Recorded Time 9 procedure on shoulder completed Doretha Smython [facility] & [place] 03/20/2023 14:16:42 Imaging Results None recorded. Procedure [...] Address Organization Details Last Updated DateTime 3 172131. 94 g 36.6 kg/m2 182.88 cm 97 [degF] 96 % 96 % 103 /min 142 mm[Hg] 80 mm[Hg] CLAIRE SOLIS [place] - [facility] - [place] & [place] 3 10:58:46 Date Recorded Body height Body mass index (BMI) Body weight Body temperature Oxygen saturation Oxygen saturation in Arterial blood by Pulse oximetry Heart rate Systolic blood pressure Diastolic blood pressure Provider Name and Address Organization Details Last Updated DateTime 3 182.88 cm 36.5 kg/m2 289674. 35 g 96.8 [degF] 95 % 95 % 89 /min 134 mm[Hg] 84 mm[Hg] CLAIRE COOL [facility] & [place] 3 14:33:54 Date Recorded Body height Body mass index (BMI) Body weight Body temperature Oxygen saturation Oxygen saturation in Arterial blood by Pulse oximetry Heart rate Systolic blood pressure Diastolic blood pressure Provider Name and Address Organization Details Last Updated DateTime 3 182.88 cm 33.9 kg/m2 441764. 09 g 98.1 [degF] 97 % 97 % 82 /min 120 mm[Hg] 80 mm[Hg] Aminta Harden CLEMENTINE COOL [facility] & [place] 3 13:57:12 Date Recorded Body height Body mass index (BMI) Body weight Body temperature Oxygen saturation Oxygen saturation in Arterial blood by Pulse oximetry Heart rate Systolic blood pressure Diastolic blood pressure Provider Name and Address Organization Details Last Updated DateTime 3 182.88 cm 33.5 kg/m2 214505. 32 g 97.7 [degF] 97 % 97 % 85 /min 114 mm[Hg] 66 mm[Hg] CLAIRE COOL [facility] & [place] 3 11:13:56 Date Recorded Body height Body mass index (BMI) Body weight Body temperature Oxygen saturation Oxygen saturation in Arterial blood by Pulse oximetry Heart rate Systolic blood pressure Diastolic blood pressure Provider Name and Address Organization Details Last Updated DateTime 3 182.88 cm 32.4 kg/m2 253521. 58 g 97.1 [degF] 97 % 97 % 90 /min 142 mm[Hg] 70 mm[Hg] CLAIRE COOL [facility] & [place] 3 08:19:13 Social History Question Answer Notes LastModified by Organizat ion Details LastModified Time Tobacco Smoking Status Current Every Day Smoker CLEMENTINE Combs [facility] & [place] 10/10/2022 10:53:09 Do You Have An Advance [...] available 11/13 12:35:59 Medical History Condition Response Obesity Y Diabetes Y Hypertension Y Immunizations Vaccine Type Date Status Note Provider Nam e and Address Organization Details Recorded Time COVID-19, mRNA, LNP-S, PF, 30 mcg/0.3 mL dose 03/10/2021 completed Opal ramsey [place] - [facility] - [place] & [place] 10/17/2022 12:28:36 COVID-19, mRNA, LNP-S, PF, 30 mcg/0.3 mL dose 03/31/2021 completed Opal ramsey, [place] - [facility] - [place] & [place] 10/17/2022 12:28:36 Past Encounters Encounter ID Performer Location Encounter Start Date Encounter Closed Date Diagnosis/Indication Diagnosis SNOMED-CT Code Diagnosis ICD10 Code Diagnosis Note [id number] Milagros JorgensenParamjitKwabena [address] [place] [address] 10/10/2022 10:49:33 10/10/2022 11:53:58 Type 2 diabetes mellitus 38134405 E11.65 Ozempic was still 800 after insurance. Will start with Metformin and reassess and if needed will add another medication if needed. Follow up in 1 month. Bring blood sugar log to clinic at that time. Hyperlipidemia 99632629 E78.5 Thyroid di sorder screening 596509132 Z13.29 Screening for malignant neoplasm of colon 068566940 Z12.11 Nicotine dependence 5629 4008 F17.200 Adult [facility] th examination 564186327 Z00.01 Counseled patient on annual eye exams and regular dental visits. Will call with lab results. Patient advised to follow up in 1 month. Diabetic p eripheral neuropathy 134410529 E11.40 Will start new diabetes medication . Will reassess. [id number] Milagros JorgensenHernando [address] [place] [address] 11/08/2022 14:28:07 11/08/2022 14:54:36 Type 2 diabetes mellitus 00228951 E11.65 Keep a blood glucose log. RTC in 2 months. Will recheck hgbA1c, lipid panel, and CBC, CMP. Patient agrees with treatment plan. Continue the metformin as prescribed . Pain in coccyx 38415997 M53.3 Advised patient to take ibuprofen before riding. Use an additional cushion on his bike.Ruthy loyola has cologuard at home. Advised to complete and send in to the lab. [id number] Milagros Cordova [address] [place] [address] 01/08/2023 13:52:38 01/08/2023 15:01:27 Type 2 diabetes mellitus 12728573 E11.65 Continue metformin as RX.Will check complete blood work today. Will call with results.A1 C was 13.1 and it is 8.0 today.Will consider adding Mounjaro after January 12 per new recommenda tions. Patient could not afford before.Fol low up in 3 months. Hyperlipidemia 73086714 E78.5 Patient is currently on rosuvastat in. Will call with lab results. [id number] Milagros JorgensenHernando in[address] [place] [address] 02/05/2023 10:57:49 02/05/2023 11:31:17 Abdominal pain 73185959 R10.9 Tylenol/Ib uprofen PRN.Avoid any strenuous activity to worsen pain or condition. Was seen in ER December [address] Abd/Pelvis was unremarkab le.Will order U/S. Will call with ultrasound results. [id number] Milagros JorgensenParamjitKwabena in, [address] [place] [address] 04/10/2023 08:14:43 04/10/2023 08:39:38 Type 2 diabetes mellitus 55695071 E11.65 A1C 7.3 on maximum continued Metformin [...] Zaman Member ID Guarantor Name 05/22/2023 1 [facility] [id number] Liam Xiong [id number] Liam Xiong Notes Date Note Type Note [...] neuropathy. Milagros Cannon APRN [address], [place], [address], [facility] - [facility] & [place] 10/12/2022 10:13:43 11/08/2022 text/html patient presents to [...] defecate. Milagros Cannon APRN [address], [place], [address], [facility] - [facility] & [place] 11/08/2022 15:48:57 01/08/2023 text/html patient presents to clinic for follow up on diabetes.He states he is feeling better. He was seen in the ER for abdominal pain 2 weeks ago[address] He states CT abdomen was negative. He is seeing the Chiropractor and it is helping with his back spasms. He denies any new symptoms. Milagros Cannon APRN [address], [place], [address], [facility] - [facility] & [place] 01/08/2023 14:31:24 02/05/2023 text/html patient presents to [...] SOB. Milagros Cannon APRN [address], [place], [address], [facility] & [place] 02/05/2023 11:49:51 04/10/2023 text/html patient presents to clinic for 3 month follow up. He states he is a little stressed in this morning. He states his BP has been running good. He denies any headaches. Denies any chest pain. Milagros Cannon APRN [address], [place], [address], [facility] - [facility] & [place] 04/11/2023 08:59:32
--- OUTSIDE RECORDS SUMMARY | 2025-01-07 15:22 | XMS_ITS | Patient Health Record ---
Author Organization [facility] Address [address] [place] [address] Care Team Providers Care Tenter Feeder Name Role Phone None, None Primary Care Provider UnavailJose Das Unavailable [phone] Allergies No Known Allergies Reason For Referral [...] Problem Status W/U Status Risk Notes Problem 280621845 Obesity (BMI 30-39.9) (E66.9) Active confirmed Problem 84979037 Acute tonsillitis, unspecified etiology (J03.90) Active confirmed Problem 7036721416533 Acute otitis media with effusion of both ears (H65.193) Active confirmed Problem 54668091 Rapid pulse (R00.0) Active confirmed Vital Signs Temperature 98.7 degrees Fahrenheit 01/30/2024 Respiratory Rate 18 /min 01/30/2024 Blood pressure diastolic 78 mm Hg 01/30/2024 Height 72 in 01/30/2024 Blood pressure systolic 118 mm Hg 01/30/2024 Weight 245 lbs 01/30/2024 BMI 33.22 kg/m2 01/30/2024 Encounters Encounter Location Date Provider Diagnosis [address] [place] [address] 01/30/2024 Jose Katherin Acute otitis media with [...] Insured Coverage Start Date Coverage End Date [facility] [address] [address] [place] [phone] [id number] Liam Xiong Self - patient is the insured Medical (General) History Medical History History ICD Code Diabetes Surgical History Surgery Date(Month/Year) shoulder left Hospitalization History Reason Date(Month/Year) as above
--- OUTSIDE RECORDS SUMMARY | 2025-01-07 15:22 | XMS_ITS | Patient Health Record ---
Author Organization [facility] Address [address] [place] [address] Support Name Relationship Address Phone N/A, N/A Emergency Contact [address] [place] [address] Unavailable RHIANNON SEXTON Guarantor Unknown [phone] Reason For Referral No Information Immunizations Vaccine [...] Insured Coverage Start Date Coverage End Date [facility] [address] [address] [place] [address] [id number] RHIANNON SEXTON Self - patient is the insured
== END 2025-01-07 15:27 | disposition home or self-care (01) ==
LOC: INF 15:20
PROVIDERS: Visit Provider Surgery
DX: L05.01 Pilonidal cyst with abscess (principal)
CPT/HCPCS: G0463

== ENCOUNTER 2025-01-08 14:25 | Outpatient (CLI) | payer OTHER, SELFPAY ==
--- OUTSIDE RECORDS SUMMARY | 2025-01-08 14:27 | XMS_ITS | Patient Health Record ---
Author Organization [facility] Address [address] [place] [address] Care Team Providers Care Web Machine Tender Name Role Phone None, None Primary Care Provider UnavailJose Das Unavailable [phone] Allergies No Known Allergies Reason For Referral [...] Problem Status W/U Status Risk Notes Problem 490213391 Obesity (BMI 30-39.9) (E66.9) Active confirmed Problem 29257058 Acute tonsillitis, unspecified etiology (J03.90) Active confirmed Problem 1865033412217 Acute otitis media with effusion of both ears (H65.193) Active confirmed Problem 44005307 Rapid pulse (R00.0) Active confirmed Vital Signs Temperature 98.7 degrees Fahrenheit 01/30/2024 Respiratory Rate 18 /min 01/30/2024 Blood pressure diastolic 78 mm Hg 01/30/2024 Height 72 in 01/30/2024 Blood pressure systolic 118 mm Hg 01/30/2024 Weight 245 lbs 01/30/2024 BMI 33.22 kg/m2 01/30/2024 Encounters Encounter Location Date Provider Diagnosis [address] [place] [address] 01/30/2024 Jose Katherin Acute otitis media with [...] Insured Coverage Start Date Coverage End Date [facility] [address] [address] [place] [id number] Liam Xiong Self - patient is the insured Medical (General) History Medical History History ICD Code Diabetes Surgical History Surgery Date(Month/Year) shoulder left Hospitalization History Reason Date(Month/Year) as above
--- OUTSIDE RECORDS SUMMARY | 2025-01-08 14:27 | XMS_ITS | Patient Health Record ---
Author Organization [facility] Address [address] [place] [address] Support Name Relationship Address Phone N/A, N/A Emergency Contact [address] [place] [address] Unavailable RHIANNON SEXTON Guarantor Unknown [phone] Reason For Referral No Information Immunizations Vaccine [...] Insured Coverage Start Date Coverage End Date [facility] [address] [address] [place] [address] [id number] RHIANNON SEXTON Self - patient is the insured
== END 2025-01-08 14:46 | disposition home or self-care (01) ==
LOC: INF 14:26
PROVIDERS: Visit Provider Surgery
DX: L05.01 Pilonidal cyst with abscess (principal)
CPT/HCPCS: G0463

== ENCOUNTER 2025-01-10 16:02 | Outpatient (CLI) | payer OTHER, SELFPAY ==
--- OUTSIDE RECORDS SUMMARY | 2025-01-10 16:07 | XMS_ITS | Patient Health Record ---
Author Organization [facility] Address [address] [place] [address] Support Name Relationship Address Phone N/A, N/A Emergency Contact [address] [place] [address] Unavailable RHIANNON SEXTON Guarantor Unknown [phone] Reason For Referral No Information Immunizations Vaccine [...] Insured Coverage Start Date Coverage End Date [facility] [address] [address] [place] [address] [phone] [id number] RHIANNON SEXTON Self - patient is the insured
--- OUTSIDE RECORDS SUMMARY | 2025-01-10 16:07 | XMS_ITS | Patient Health Record ---
Author Organization [facility] Address [address] [place] [address] Care Team Providers Care Collection Systems Foreman Name Role Phone None, None Primary Care Provider UnavailJose Das Unavailable [phone] Allergies No Known Allergies Reason For Referral [...] Problem Status W/U Status Risk Notes Problem 598485511 Obesity (BMI 30-39.9) (E66.9) Active confirmed Problem 94540341 Acute tonsillitis, unspecified etiology (J03.90) Active confirmed Problem 1526803082013 Acute otitis media with effusion of both ears (H65.193) Active confirmed Problem 14639716 Rapid pulse (R00.0) Active confirmed Vital Signs Temperature 98.7 degrees Fahrenheit 01/30/2024 Respiratory Rate 18 /min 01/30/2024 Blood pressure diastolic 78 mm Hg 01/30/2024 Height 72 in 01/30/2024 Blood pressure systolic 118 mm Hg 01/30/2024 Weight 245 lbs 01/30/2024 BMI 33.22 kg/m2 01/30/2024 Encounters Encounter Location Date Provider Diagnosis [address] [place] [address] 01/30/2024 Jose Katherin Acute otitis media with [...] Insured Coverage Start Date Coverage End Date [facility] [address] [address] [place] [phone] [id number] Liam Xiong Self - patient is the insured Medical (General) History Medical History History ICD Code Diabetes Surgical History Surgery Date(Month/Year) shoulder left Hospitalization History Reason Date(Month/Year) as above
--- OUTSIDE RECORDS SUMMARY | 2025-01-10 16:07 | XMS_ITS | Data Portability ---
Author Organization [facility] & TRAVON Horta ADMIN Address [address] [place] [id number] Care Team Providers Care Hadoop Developer Name Role Phone MILAGROS CANNON Primary Care Provider [phone] Assessment No assessment recorded. Plan of Treatment Reminders Order Date Submit Date Provider Last Modified By Organization Details Last Modified Time Details Appointments None recorded. Lab HbA1c (hemoglobin A1c), blood 2022 [email or web address], [place], [address], 3 08:51:25 HbA1c (hemoglobin A1c), blood 2022 023 2 [facility]ly [facility], [address] [place] [address] [address], [place], [address], 3 14:16:57 CBC w/ auto diff 2022 023 THER[facility]A [facility], [address], [address], [place], [address], 3 07:14:04 CMP, serum or plasma 2022 023 EDUIN [facility], [address], [address], [place], [address], 3 07:14:05 magnesium, serum or plasma 2022 023 EDUIN [facility], [address], [address], [place], [address], 3 07:14:08 vitamin D, 25-hydroxy, total, serum 2022 023 EDUIN [facility], [address], [address], [place], [address], 3 07:14:08 lipid panel, serum 2022 023 EDUIN [facility], [address], [address], [place], [address], 3 07:14:06 glucose, fingerstick , blood 2022 023 [email or web address] 2 [facility], [address], [place], [address], 3 15:05:53 HbA1c (hemoglobin A1c), blood 2022 023 2 [facility], [address], [place], [address], 3 11:53:47 CMP, serum or plasma 2022 023 EDUIN [facility], [address], [address], [place], [address], 3 11:12:21 CBC w/ auto diff 2022 023 EDUIN [facility], [address], [address], [place], [address], 3 11:12:19 magnesium, serum or plasma 2022 023 EDUIN [facility], [address], [address], [place], [address], 3 11:12:28 microalbumi n, urine 2022 023 [facility], [address], [place], [address], 3 12:57:57 urinalysis, dipstick 2022 023 [facility], [address], [place], [address], 3 12:01:03 thyroid panel, serum 2022 023 THERESA [facility], [address], [address], [place], [address], 3 11:12:23 vitamin D, 25-hydroxy, total, serum 2022 023 THERESA [facility], [address], [address], [place], [address], 3 11:12:27 vitamin B12 + folate, serum or blood 2022 023 THERESA [facility], [address], [address], [place], [address], 3 11:12:25 lipid panel, serum 2022 023 THERESA [facility], [address], [address], [place], [address], 3 11:12:22 Referral physical therapist referral - Coccyx pain. 2022 023 [email or web address] 3 [facility], [address], [place], [address], 3 11:43:02 Procedures colonoscopy screening (PROC) 2022 023 [email or web address] 5 Jose Grove MD, [address], [address], [place], [address], 3 12:38:14 Surgeries None recorded. Imaging US, abdomen, complete - possible umbilical hernia/righ t sided abdominal pain 2022 023 [facility] (Centralized Scheduling), [address], [place], [address], 3 16:35:11 XR, sacrum + coccyx, 2 or more view 2022 023 [facility] (Centralized Scheduling), [address], [place], [address], 3 09:30:08 Medication Orders Ozempic 0.25 mg or 0.5 mg (2 mg/1.5 mL) subcutaneou s pen injector 2022 023 [facility] #[id number], [address] [place] [address], [address], 3 08:47:06 Chantix Starting Month Box 0.5 mg (11)-1 mg (42) tablets in dose pack 2022 023 [email or web address] 2 [facility]acy #2332, [address] [place] [address], [address], 3 11:14:37 metformin 1,000 mg tablet 2022 023 [email or web address] 2 [facility] #2332, [address] [place], [address], 3 11:53:48 Ozempic 0.25 mg or 0.5 mg (2 mg/1.5 mL) subcutaneou s pen injector 2022 023 [facility]acy #2332, [address] [place], [address], 11:14:44 rosuvastati n 10 mg tablet 2022 023 [facility]2332, [address] [place], [address], 11:54:37 Patient TargetsNo targets recorded. Patient Instructions Encounter Date Encounter Id Patient Instructions Last Modified By Organization Details Last Modified Time 10/10/2022 [id number] smoking cessatio n counseling, greater than 3 minutes up to 10 minutes* Not available 10/17/2022 08:34:36 Patient needs to follow up in 1 month. Advised patient that I would call with lab results. Counseled patient on monitoring blood glucose at home. Bring log of blood sugars to next appt. [email or web address] Not available 10/10/2022 11:55:22 Reason for Referral Physical Therapist Referral for Pain in coccyx Coccyx pain. Referring Physician: Milagros Cannon, Infectious Disease, Encounter Date: 11/08/2022 Results Created Date Observation Date Name Description Value Unit Range Abnormal Flag Note LastModifiedBy Organization Detail LastModifiedTime 10/11/19 23 10/11/2022 ALBUM IN/CR EATIN INE RATIO ,URIN E creatinine, urine 312.5 mg/dL not estab. Not Available [facility] ([facility]) [address] [place], [address], 10/11/2022 09:14:45 10/11/19 23 10/11/2022 ALBUM IN/CR EATIN INE RATIO ,URIN E albumin, urine 133.8 ug/mL not estab. Not Available [facility] ([facility]) [address] [facility], [place], [address], 10/11/2022 09:14:45 10/11/19 23 10/11/2022 ALBUM IN/CR EATIN INE RATIO ,URIN E alb/creat ratio 43 mg/g_ creat 0-29 above high normal Ana M l: 0 - 29 Moder ately incre ased: 30 - 300 Sever savanah incre ased: >300 Not Available [facility] ([facility]) [address] [place], [address], 10/11/2022 09:14:45 10/11/19 23 10/11/2022 CBC WITH DIFFE RENTI AL/PL ATELE T WBC 8.3 x10e3 /uL 3.4-10 .8 Not Available [facility] ([facility]) [address] [place], [address], 10/11/2022 11:12:19 10/11/1910/11/2022 CBC WITH DIFFE RENTI AL/PL ATELE T RBC 5.38 x10e6 /uL 4.14-5 .80 Not Available [facility] ([facility]) [address] [place], [address], 10/11/2022 11:12:19 10/11/19 23 10/11/2022 CBC WITH DIFFE RENTI AL/PL ATELE T hemoglobin 17.4 g/dL 13.0-1 7.7 Not Available [facility] ([facility]) [address] [place], [address], 10/11/2022 11:12:19 10/11/1910/11/2022 CBC WITH DIFFE RENTI AL/PL ATELE T hematocrit 51.3 % 37.5-5 1.0 above high normal Not Available [facility] ([facility]) [address] [place], [address], 10/11/2022 11:12:19 10/11/1910/11/2022 CBC WITH DIFFE RENTI AL/PL ATELE T MCV 95 fL 79-97 Not Available [facility] ([facility]) [address] [place], [address], 10/11/2022 11:12:19 10/11/19 23 10/11/2022 CBC WITH DIFFE RENTI AL/PL ATELE T MCH 32.3 pg 26.6-3 3.0 Not Available [facility] ([facility]) [address] [facility], [place], [address], 10/11/2022 11:12:19 10/11/19 23 10/11/2022 CBC WITH DIFFE RENTI AL/PL ATELE T MCHC 33.9 g/dL 31.5-3 5.7 Not Available [facility] ([facility]) [address] [facility], [place], [address], 10/11/2022 11:12:19 10/11/19 23 10/11/2022 CBC WITH DIFFE RENTI AL/PL ATELE T RDW 11.7 % 11.6-1 5.4 Not Available [facility] ([facility]) [address] [facility], [place], [address], 10/11/2022 11:12:19 10/11/19 23 10/11/2022 CBC WITH DIFFE RENTI AL/PL ATELE T platelets 324 x10e3 /uL 150-45 0 Not Available [facility] ([facility]) [address] [facility], [place], [address], 10/11/2022 11:12:19 10/11/19 23 10/11/2022 CBC WITH DIFFE RENTI AL/PL ATELE T neutrophils 63 % not estab. Not Available [facility] ([facility]) [address] [facility], [place], [address], 10/11/2022 11:12:19 10/11/19 23 10/11/2022 CBC WITH DIFFE RENTI AL/PL ATELE T lymphs 26 % not estab. Not Available [facility] ([facility]) [address] [place], [address], 10/11/2022 11:12:19 10/11/19 23 10/11/2022 CBC WITH DIFFE RENTI AL/PL ATELE T monocytes 8 % not estab. Not Available [facility] ([facility]) [address] [place], [address], 10/11/2022 11:12:19 10/11/19 23 10/11/2022 CBC WITH DIFFE RENTI AL/PL ATELE T eos 1 % not estab. Not Available [facility] ([facility]) [address] [facility], [place], [address], 10/11/2022 11:12:19 10/11/19 23 10/11/2022 CBC WITH DIFFE RENTI AL/PL ATELE T basos 1 % not estab. Not Available [facility] ([facility]) [address] [facility], [place], [address], 10/11/2022 11:12:19 10/11/19 23 10/11/2022 CBC WITH DIFFE RENTI AL/PL ATELE T immature cells SCCM ADMINISTRATOR Not Available [facility] ([facility]) [address] [place], [address], 10/11/2022 11:12:19 10/11/19 23 10/11/2022 CBC WITH DIFFE RENTI AL/PL ATELE T neutrophils (absolute) 5.3 x10e3 /uL 1.4-7. 0 Not Available [facility] ([facility]) [address] [place], [address], 10/11/2022 11:12:19 10/11/19 23 10/11/2022 CBC WITH DIFFE RENTI AL/PL ATELE T lymphs (absolute) 2.2 x10e3 /uL 0.7-3. 1 Not Available [facility] ([facility]) [address] [place], [address], 10/11/2022 11:12:19 10/11/19 23 10/11/2022 CBC WITH DIFFE RENTI AL/PL ATELE T monocytes(ab solute) 0.7 x10e3 /uL 0.1-0. 9 Not Available [facility] ([facility]) [address] [facility], [place], [address], 10/11/2022 11:12:19 10/11/19 23 10/11/2022 CBC WITH DIFFE RENTI AL/PL ATELE T eos (absolute) 0.1 x10e3 /uL 0.0-0. 4 Not Available [facility] ([facility]) [address] [facility], [place], [address], 10/11/2022 11:12:19 10/11/19 23 10/11/2022 CBC WITH DIFFE RENTI AL/PL ATELE T baso (absolute) 0.0 x10e3 /uL 0.0-0. 2 Not Available [facility] ([facility]) [address] [facility], [place], [address], 10/11/2022 11:12:19 10/11/19 23 10/11/2022 CBC WITH DIFFE RENTI AL/PL ATELE T immature granulocytes 1 % not estab. Not Available [facility] ([facility]) [address] [facility], [place], [address], 10/11/2022 11:12:19 10/11/19 23 10/11/2022 CBC WITH DIFFE RENTI AL/PL ATELE T immature grans (abs) 0.1 x10e3 /uL 0.0-0. 1 Not Available [facility] ([facility]) [address] [facility], [place], [address], 10/11/2022 11:12:19 10/11/19 23 10/11/2022 CBC WITH DIFFE RENTI AL/PL ATELE T NRBC SCCM ADMINISTRATOR Not Available [facility] ([facility]) [address] [facility], [place], [address], 10/11/2022 11:12:19 10/11/19 23 10/11/2022 CBC WITH DIFFE RENTI AL/PL ATELE T hematology comments: SCCM ADMINISTRATOR Not Available [facility] ([facility]) [address] [place], [address], 10/11/2022 11:12:19 10/11/19 23 10/11/2022 COMP. METAB OLIC PANEL (14) glucose 294 mg/dL 70-99 above high normal Not Available [facility] ([facility]) [address] [place], [address], 10/11/2022 11:12:21 10/11/19 23 10/11/2022 COMP. METAB OLIC PANEL (14) BUN 22 mg/dL 6-24 Not Available [facility] ([facility]) [address] [place], [address], 10/11/2022 11:12:21 10/11/19 23 10/11/2022 COMP. METAB OLIC PANEL (14) creatinine 0.84 mg/dL 0.76-1 .27 Not Available [facility] ([facility]) [address] [place], [address], 10/11/2022 11:12:21 10/11/19 23 10/11/2022 COMP. METAB OLIC PANEL (14) eGFR 110 mL/mi n/1.7 3 >59 Not Available [facility] ([facility]) [address] [place], [address], 10/11/2022 11:12:21 10/11/19 23 10/11/2022 COMP. METAB OLIC PANEL (14) BUN/creatini ne ratio 26 9-20 above high normal Not Available [facility] ([facility]) [address] [place], [address], 10/11/2022 11:12:21 10/11/19 23 10/11/2022 COMP. METAB OLIC PANEL (14) sodium 137 mmol/ L 134-14 4 Not Available [facility] ([facility]) [address] [place], [address], 10/11/2022 11:12:21 10/11/19 23 10/11/2022 COMP. METAB OLIC PANEL (14) potassium 5.0 mmol/ L 3.5-5. 2 Not Available [facility] ([facility]) [address] [facility], [place], [address], 10/11/2022 11:12:21 10/11/19 23 10/11/2022 COMP. METAB OLIC PANEL (14) chloride 97 mmol/ L 96-106 Not Available [facility] ([facility]) [address] [facility], [place], [address], 10/11/2022 11:12:21 10/11/19 23 10/11/2022 COMP. METAB OLIC PANEL (14) carbon dioxide, total 24 mmol/ L 20- Not Available [facility] ([facility]) [address] [place], [address], 10/11/2022 11:12:21 10/11/19 23 10/11/2022 COMP. METAB OLIC PANEL (14) calcium 10.1 mg/dL 8.7-10 .2 Not Available [facility] ([facility]) [address] [facility], [place], [address], 10/11/2022 11:12:21 10/11/19 23 10/11/2022 COMP. METAB OLIC PANEL (14) protein, total 7.5 g/dL 6.0-8. 5 Not Available [facility] ([facility]) [address] [place], [address], 10/11/2022 11:12:21 10/11/19 23 10/11/2022 COMP. METAB OLIC PANEL (14) albumin 4.4 g/dL 4.0-5. 0 Not Available [facility] ([facility]) [address] [place], [address], 10/11/2022 11:12:21 10/11/19 23 10/11/2022 COMP. METAB OLIC PANEL (14) globulin, total 3.1 g/dL 1.5-4. 5 Not Available [facility] ([facility]) [address] [place], [address], 10/11/2022 11:12:21 10/11/19 23 10/11/2022 COMP. METAB OLIC PANEL (14) A/G ratio 1.4 1.2-2. 2 Not Available [facility] ([facility]) [address] [facility], [place], [address], 10/11/2022 11:12:21 10/11/19 23 10/11/2022 COMP. METAB OLIC PANEL (14) bilirubin, total 0.5 mg/dL 0.0-1. 2 Not Available [facility] ([facility]) [address] [place], [address], 10/11/2022 11:12:21 10/11/19 23 10/11/2022 COMP. METAB OLIC PANEL (14) alkaline phosphatase 73 IU/L 44-121 Not Available [facility]) [address] [facility], [place], [address], 10/11/2022 11:12:21 10/11/19 23 10/11/2022 COMP. METAB OLIC PANEL (14) AST (SGOT) 33 IU/L 0-40 Not Available [facility] ([facility]) [address] [facility], [place], [address], 10/11/2022 11:12:21 10/11/19 23 10/11/2022 COMP. METAB OLIC PANEL (14) ALT (SGPT) 40 IU/L 0-44 Not Available [facility] ([facility]) [address] [place], [address], 10/11/2022 11:12:21 10/11/19 23 10/11/2022 LIPID PANEL cholesterol, total 270 mg/dL 100-19 9 above high normal Not Available [facility] ([facility]) [address] [place], [address], 10/11/2022 11:12:22 10/11/19 23 10/11/2022 LIPID PANEL triglyceride s 299 mg/dL 0-149 above high normal Not Available [facility] ([facility]) [address] [place], [address], 10/11/2022 11:12:22 10/11/19 23 10/11/2022 LIPID PANEL HDL cholesterol 32 mg/dL >39 below low normal Not Available [facility] ([facility]) [address] [place], [address], 10/11/2022 11:12:22 10/11/19 23 10/11/2022 LIPID PANEL VLDL cholesterol shaunna 58 mg/dL 5-40 above high normal Not Available [facility] ([facility]) [address] [place], [address], 10/11/2022 11:12:22 10/11/19 23 10/11/2022 LIPID PANEL LDL chol calc ([facility]) 180 mg/dL 0-99 above high normal Not Available [facility] ([facility]) [address] [place], [address], 10/11/2022 11:12:22 10/11/19 23 10/11/2022 LIPID PANEL comment: SCCM ADMINISTRATOR Not Available [facility] ([facility]) [address] [place], [address], 10/11/2022 11:12:22 10/11/19 23 10/11/2022 THYRO ID PROFI LE II TSH 1.030 uIU/m L 0.450- 4.500 Not Available [facility] ([facility]) [address] [place], [address], 10/11/2022 11:12:23 10/11/19 23 10/11/2022 THYRO ID PROFI LE II thyroxine (T4) 10.8 ug/dL 4.5-12 .0 Not Available [facility] ([facility]) [address] [facility], [place], [address], 10/11/2022 11:12:23 10/11/19 23 10/11/2022 THYRO ID PROFI LE II T3 uptake 27 % 24-39 Not Available [facility] ([facility]) [address] [facility], [place], [address], 10/11/2022 11:12:23 10/11/19 23 10/11/2022 THYRO ID PROFI LE II free thyroxine index 2.9 1.2-4. 9 Not Available [facility] ([facility]) [address] [facility], [place], [address], 10/11/2022 11:12:23 10/11/19 23 10/11/2022 THYRO ID PROFI LE II triiodothyro nine (T3) 148 NG/dL 71-180 Not Available [facility] ([facility]) [address] [facility], [place], [address], 10/11/2022 11:12:23 10/11/19 23 10/11/2022 VITAM IN B12 AND FOLAT E vitamin B12 747 pg/mL 232-12 45 Not Available [facility] ([facility]) [address] [place], [address], 10/11/2022 11:12:24 10/11/1910/11/2022 VITAM IN B12 AND FOLAT E folate (folic acid), serum >20.0 NG/mL >3.0 A serum folat e linda ntrat ion of less than 3.1 ng/mL is consi dered to repre sent clini shaunna defic iency . Not Available [facility] ([facility]) [address] [facility], [place], [address], 10/11/2022 11:12:24 10/11/1910/11/2022 HEMOG LOBIN A1C hemoglobin A1C 12.9 % 4.8-5. 6 above high normal Predi abete s: 5.7 - 6.4 Diabe melissa: >6.4 Glyce oin contr ol for adult s with diabe melissa: <7.0 Not Available [facility] ([facility]) [address] [facility], [place], [address], 10/11/2022 11:12:26 10/11/19 23 10/11/2022 VITAM IN [...] um and D. Louie burnett [place]: [facility] . 2. Maribell johnson MF, Nilsa shah [place], Dago off-F errar i YEAEGR, et al. Evalu ation , treat ment, and preve ntion of vitam in D defic iency : an Endoc rine Socie ty clini shaunna pract ice guide line. JCEM. 2010; 96(7) :1911 -30. Not Available [facility] ([facility]) [address] [facility], [place], [address], 10/11/2022 11:12:27 10/11/19 23 10/11/2022 MAGNE SIUM magnesium 1.5 mg/dL 1.6-2. 3 below low normal Not Available [facility] ([facility]) [address] [facility], [place], [address], 10/11/2022 11:12:28 10/11/19 23 10/10/2022 urina lysis , dipst ick Leukocytes (reference range) negati ve Not Available [facility] - [address], [place], [address], 10/10/2022 11:35:48 10/11/19 23 10/10/2022 urina lysis , dipst ick Nitrite (reference range:) negati ve Not Available [address], [place], [address], 10/10/2022 11:35:48 10/11/19 23 10/10/2022 urina lysis , dipst ick Urobilinogen (reference range) 0.2 Not Available [address], [place], [address], 10/10/2022 11:35:48 10/11/19 23 10/10/2022 urina lysis , dipst ick Protein (reference range) 100 Not Available [address], [place], [address], 10/10/2022 11:35:48 10/11/19 23 10/10/2022 urina lysis , dipst ick pH (reference range 5-8.5) 5.0 Not Available [address], [place], [address], 10/10/2022 11:35:48 10/11/19 23 10/10/2022 urina lysis , dipst ick Blood (reference range:) negati ve Not Available [address], [place], [address], 10/10/2022 11:35:48 10/11/19 23 10/10/2022 urina lysis , dipst ick Specific [place] (reference range) 1.030 Not Available [address], [place], [address], 10/10/2022 11:35:48 10/11/19 23 10/10/2022 urina lysis , dipst ick Ketone (reference range) modera te Not Available [address], [place], [address], 10/10/2022 11:35:48 10/11/19 23 10/10/2022 urina lysis , dipst ick Bilirubin (reference range) modera te Not Available [address], [place], [address], 10/10/2022 11:35:48 10/11/19 23 10/10/2022 urina lysis , dipst ick Glucose (reference range) 1000 Not Available [address], [place], [address], 10/10/2022 11:35:48 10/11/19 23 10/10/2022 urina lysis , dipst ick Color (reference range: yellow-brown ) Dark Yellow Not Available [address], [place], [address], 10/10/2022 11:35:48 10/11/19 23 10/10/2022 HbA1c (hemo globi n A1c), blood HbA1c 13.1 Not Available [address], [place], [address], 10/10/2022 11:16:31 11/09/19 23 11/08/2022 gluco se, finge rstic k, blood Blood Glucose: mg/dl 157 Not Available [facility] [address], [place], [address], 11/08/2022 14:40:07 01/09/20 23 01/09/2023 CBC WITH DIFFE RENTI AL/PL ATELE T WBC 8.0 x10e3 /uL 3.4-10 .8 Not Available [facility] ([facility]) [address] [facility], [place], [address], 01/10/2023 07:14:04 01/09/20 23 01/09/2023 CBC WITH DIFFE RENTI AL/PL ATELE T RBC 4.39 x10e6 /uL 4.14-5 .80 Not Available [facility] ([facility]) [address] [place], [address], 01/10/2023 07:14:04 01/09/20 23 01/09/2023 CBC WITH DIFFE RENTI AL/PL ATELE T hemoglobin 14.5 g/dL 13.0-1 7.7 Not Available [facility] ([facility]) [address] [place], [address], 01/10/2023 07:14:04 01/09/20 23 01/09/2023 CBC WITH DIFFE RENTI AL/PL ATELE T hematocrit 41.8 % 37.5-5 1.0 Not Available [facility] ([facility]) [address] [place], [address], 01/10/2023 07:14:04 01/09/20 23 01/09/2023 CBC WITH DIFFE RENTI AL/PL ATELE T MCV 95 fL 79-97 Not Available [facility] ([facility]) [address] [place], [address], 01/10/2023 07:14:04 01/09/20 23 01/09/2023 CBC WITH DIFFE RENTI AL/PL ATELE T MCH 33.0 pg 26.6-3 3.0 Not Available [facility] ([facility]) [address] [facility], [place], [address], 01/10/2023 07:14:04 01/09/20 23 01/09/2023 CBC WITH DIFFE RENTI AL/PL ATELE T MCHC 34.7 g/dL 31.5-3 5.7 Not Available [facility] ([facility]) [address] [facility], [place], [address], 01/10/2023 07:14:04 01/09/20 23 01/09/2023 CBC WITH DIFFE RENTI AL/PL ATELE T RDW 12.1 % 11.6-1 5.4 Not Available [facility] ([facility]) [address] [facility], [place], [address], 01/10/2023 07:14:04 01/09/20 23 01/09/2023 CBC WITH DIFFE RENTI AL/PL ATELE T platelets 273 x10e3 /uL 150-45 0 Not Available [facility] ([facility]) [address] [facility], [place], [address], 01/10/2023 07:14:04 01/09/20 23 01/09/2023 CBC WITH DIFFE RENTI AL/PL ATELE T neutrophils 63 % not estab. Not Available [facility] ([facility]) [address] [place], [address], 01/10/2023 07:14:04 01/09/20 23 01/09/2023 CBC WITH DIFFE RENTI AL/PL ATELE T lymphs 29 % not estab. Not Available [facility] ([facility]) [address] [place], [address], 01/10/2023 07:14:04 01/09/20 23 01/09/2023 CBC WITH DIFFE RENTI AL/PL ATELE T monocytes 7 % not estab. Not Available [facility] ([facility]) [address] [place], [address], 01/10/2023 07:14:04 01/09/20 23 01/09/2023 CBC WITH DIFFE RENTI AL/PL ATELE T eos 1 % not estab. Not Available [facility] ([facility]) [address] [facility], [place], [address], 01/10/2023 07:14:04 01/09/20 23 01/09/2023 CBC WITH DIFFE RENTI AL/PL ATELE T basos 0 % not estab. Not Available [facility] ([facility]) [address] [place], [address], 01/10/2023 07:14:04 01/09/20 23 01/09/2023 CBC WITH DIFFE RENTI AL/PL ATELE T immature cells [employer]RATOR Not Available [facility] ([facility]) [address] [place], [address], 01/10/2023 07:14:04 01/09/20 23 01/09/2023 CBC WITH DIFFE RENTI AL/PL ATELE T neutrophils (absolute) 5.0 x10e3 /uL 1.4-7. 0 Not Available [facility] ([facility]) [address] [place], [address], 01/10/2023 07:14:04 01/09/20 23 01/09/2023 CBC WITH DIFFE RENTI AL/PL ATELE T lymphs (absolute) 2.3 x10e3 /uL 0.7-3. 1 Not Available [facility] ([facility]) [address] [place], [address], 01/10/2023 07:14:04 01/09/20 23 01/09/2023 CBC WITH DIFFE RENTI AL/PL ATELE T monocytes(ab solute) 0.6 x10e3 /uL 0.1-0. 9 Not Available [facility] ([facility]) [address] [place], [address], 01/10/2023 07:14:04 01/09/20 23 01/09/2023 CBC WITH DIFFE RENTI AL/PL ATELE T eos (absolute) 0.1 x10e3 /uL 0.0-0. 4 Not Available [facility] ([facility]) [address], [place], [address], 01/10/2023 07:14:04 01/09/20 23 01/09/2023 CBC WITH DIFFE RENTI AL/PL ATELE T baso (absolute) 0.0 x10e3 /uL 0.0-0. 2 Not Available [facility] ([facility]) [address], [place], [address], 01/10/2023 07:14:04 01/09/20 23 01/09/2023 CBC WITH DIFFE RENTI AL/PL ATELE T immature granulocytes 0 % not estab. Not Available [facility] ([facility]) [address], [place], [address], 01/10/2023 07:14:04 01/09/20 23 01/09/2023 CBC WITH DIFFE RENTI AL/PL ATELE T immature grans (abs) 0.0 x10e3 /uL 0.0-0. 1 Not Available [facility] ([facility]) [address] [facility], [place], [address], 01/10/2023 07:14:04 01/09/2001/09/2023 CBC WITH DIFFE RENTI AL/PL ATELE T NRBC SCCM ADMINISTRATOR Not Available [facility] ([facility]) [address] [facility], [place], [address], 01/10/2023 07:14:04 01/09/2001/09/2023 CBC WITH DIFFE RENTI AL/PL ATELE T hematology comments: SCCM ADMINISTRATOR Not Available [facility] ([facility]) [address] [facility], [place], [address], 01/10/2023 07:14:04 01/09/20 23 01/09/2023 COMP. METAB OLIC PANEL (14) glucose 111 mg/dL 70-99 above high normal Not Available [facility] ([facility]) [address] [place], [address], 01/10/2023 07:14:05 01/09/20 23 01/09/2023 COMP. METAB OLIC PANEL (14) BUN 16 mg/dL 6-24 Not Available [facility] ([facility]) [address] [place], [address], 01/10/2023 07:14:05 01/09/20 23 01/09/2023 COMP. METAB OLIC PANEL (14) creatinine 0.60 mg/dL 0.76-1 .27 below low normal Not Available [facility] ([facility]) [address] [place], [address], 01/10/2023 07:14:05 01/09/20 23 01/09/2023 COMP. METAB OLIC PANEL (14) eGFR 121 mL/mi n/1.7 3 >59 Not Available [facility] ([facility]) [address] [place], [address], 01/10/2023 07:14:05 01/09/20 23 01/09/2023 COMP. METAB OLIC PANEL (14) BUN/creatini ne ratio 27 9-20 above high normal Not Available [facility] ([facility]) [address] [place], [address], 01/10/2023 07:14:05 01/09/20 23 01/09/2023 COMP. METAB OLIC PANEL (14) sodium 140 mmol/ L 134-14 4 Not Available [facility] ([facility]) [address] [place], [address], 01/10/2023 07:14:05 01/09/20 23 01/09/2023 COMP. METAB OLIC PANEL (14) potassium 4.0 mmol/ L 3.5-5. 2 Not Available [facility] ([facility]) [address] [place], [address], 01/10/2023 07:14:05 01/09/20 23 01/09/2023 COMP. METAB OLIC PANEL (14) chloride 100 mmol/ L 96-106 Not Available [facility] ([facility]) [address] [place], [address], 01/10/2023 07:14:05 01/09/20 23 01/09/2023 COMP. METAB OLIC PANEL (14) carbon dioxide, total 23 mmol/ L 20-29 Not Available [facility] ([facility]) [address] [place], [address], 01/10/2023 07:14:05 01/09/20 23 01/09/2023 COMP. METAB OLIC PANEL (14) calcium 9.5 mg/dL 8.7-10 .2 Not Available [facility] ([facility]) [address] [place], [address], 01/10/2023 07:14:05 01/09/20 23 01/09/2023 COMP. METAB OLIC PANEL (14) protein, total 7.1 g/dL 6.0-8. 5 Not Available [facility] ([facility]) [address] [place], [address], 01/10/2023 07:14:05 01/09/20 23 01/09/2023 COMP. METAB [...] 4.6 3.6 - 4.6 Not Available [facility] ([facility]) [address] [place], [address], 01/10/2023 07:14:05 01/09/20 23 01/09/2023 COMP. METAB OLIC PANEL (14) globulin, total 2.6 g/dL 1.5-4. 5 Not Available [facility] ([facility]) [address] [place], [address], 01/10/2023 07:14:05 01/09/20 23 01/09/2023 COMP. METAB OLIC PANEL (14) A/G ratio 1.7 1.2-2. 2 Not Available [facility] ([facility]) [address] [place], [address], 01/10/2023 07:14:05 01/09/20 23 01/09/2023 COMP. METAB OLIC PANEL (14) bilirubin, total 0.4 mg/dL 0.0-1. 2 Not Available [facility] ([facility]) [address] [place], [address], 01/10/2023 07:14:05 01/09/20 23 01/09/2023 COMP. METAB OLIC PANEL (14) alkaline phosphatase 55 IU/L 44-121 Not Available [facility] ([facility]) [address] [place], [address], 01/10/2023 07:14:05 01/09/20 23 01/09/2023 COMP. METAB OLIC PANEL (14) AST (SGOT) 13 IU/L 0-40 Not Available [facility] ([facility]) [address] [place], [address], 01/10/2023 07:14:05 01/09/20 23 01/09/2023 COMP. METAB OLIC PANEL (14) ALT (SGPT) 14 IU/L 0-44 Not Available [facility] ([facility]) [address] [place], [address], 01/10/2023 07:14:05 01/09/20 23 01/09/2023 LIPID PANEL cholesterol, total 110 mg/dL 100-19 9 Not Available [facility] ([facility]) [address] [place], [address], 01/10/2023 07:14:06 01/09/20 23 01/09/2023 LIPID PANEL triglyceride s 93 mg/dL 0-149 Not Available [facility] ([facility]) [address] [place], [address], 01/10/2023 07:14:06 01/09/20 23 01/09/2023 LIPID PANEL HDL cholesterol 36 mg/dL >39 below low normal Not Available [facility] ([facility]) [address] [place], [address], 01/10/2023 07:14:06 01/09/20 23 01/09/2023 LIPID PANEL VLDL cholesterol shaunna 18 mg/dL 5-40 Not Available [facility] ([facility]) [address] [place], [address], 01/10/2023 07:14:06 01/09/20 23 01/09/2023 LIPID PANEL LDL chol calc ([facility]) 56 mg/dL 0-99 Not Available [facility] ([facility]) [address] [facility], [place], [address], 01/10/2023 07:14:06 01/09/20 23 01/09/2023 LIPID PANEL comment: SCCM ADMINISTRATOR Not Available [facility] ([facility]) [address] [facility], [place], [address], 01/10/2023 07:14:06 01/09/20 23 01/09/2023 HEMOG LOBIN A1C hemoglobin A1C 7.9 % 4.8-5. 6 above high normal Predi abete s: 5.7 - 6.4 Diabe melissa: >6.4 Glyce oni contr ol for adult s with diabe melissa: <7.0 Not Available [facility] ([facility]) [address] [facility], [place], [address], 01/10/2023 07:14:07 01/09/20 23 01/10/2023 VITAM IN [...] Louie burnett [place]: The [facility] . 2. Maribell johnson MF, Nilsa shah [place], Dago off-F errar i YEAGER, et al. Evalu ation , treat ment, and preve ntion of vitam in D defic iency : an Endoc rine Socie ty clini shaunna pract ice guide line. JCEM. 2010; 96(7) :1911 -30. Not Available [facility] ([facility]) [address] [facility], [place], [address], 01/10/2023 07:14:08 01/09/20 23 01/09/2023 MAGNE SIUM magnesium 1.6 mg/dL 1.6-2. 3 Not Available [facility] ([facility]) [address] [facility], [place], [address], 01/10/2023 07:14:08 01/09/20 23 01/08/2023 HbA1c (hemo globi n A1c), blood HbA1c 8.0 Not Available [address], [place], [address], 01/08/2023 14:14:16 04/10/20 23 04/10/2023 HbA1c (hemo globi n A1c), blood HbA1c 7.3 Not Available [facility] [address], [place], [address], 04/10/2023 08:34:17 12/08/19 23 12/06/2022 XR, sacru m + coccy x [facility] [address] [place] [address] Phone: Fax: Name: LIAM XIONG Exam Date: 023 : [birth year] Age 47 Gender : M Access ion: [id number] Physic rohit: Ronen Michelle ty: [facility] Brendon ty HSV: Outpat ient Exam: SACRUM [...] you for referr ing BAN XIONGSON to [facility]. Legall y authen ticate d by TERRY LINCOLN 12-07 09:15: 03 CC'ed Logic: Orderi ng Provid er: HADLEY MONCADA E CC Provid er: HADLEY Mcgee Attend ing Provid er: HADLEY Mcgee Referr ing Provid er: HADLEY Mcgee Admitt ing Provid er: HADLEY Mcgee [id number] [facility] [address] [place], [address], 12/07/2022 11:54:18 12/08/19 23 12/06/2022 XR, sacru m + coccy x, 2 or more view No observ ation record ed. [facility] ([facility]) [address] [place], [address], 12/07/2022 11:58:00 02/29/20 23 02/28/2023 [facility] [address] [place] [address] Phone: Fax: Name: LIAM XIONG Exam Date: : [birth year] Age 48 Gender : M Access ion: [id number] Physic rohit: Irena Michelle Facili ty: [facility] Facili ty HSV: Outpat ient Exam: [...] Thank you for referr LIAM Brian to [facility]. Legall y authen ticate d by POPE SHAMA Sharpe 02-28 16:21: 01 CC'ed Logic: Orderi ng Provid er: HADLEY Mcgee CC Provid er: HADLEY Mcgee Attend ing Provid er: HADLEY Mcgee Referr ing Provid er: HADLEY Mcgee Admitt ing Provid er: HADLEY Mcgee [id number] [facility] [address] [facility], [place], [address], 03/01/2023 08:36:07 02/29/20 23 02/28/2023 US, abdom en, compl ete No observ ation record ed. [facility] [address] [facility], [place], [address], 03/07/2023 08:34:35 Result Notes Documentation Provider Name and Address Organization Details Recorded Time Xr, Sacrum + Coccyx : [facility] [address] [place] [address] Name: LIAM XIONG Exam Date: 12/06/2022 : 1975 Age 47 Gender: M Physician: Milagros Cannon Facility: [facility] Facility HSV: Outpatient Exam: SACRUM COCCYX [...] Thank you for referring DARSHAN LIAM to [facility]. Legally authenticated by MARIE LINCOLN 2022-12-07 09:15:03 CC'ed Logic: Ordering Provider: DAVIS LINARES CC Provider: DAVIS LINARES Attending Provider: DAVIS LINARES Referring Provider: DAVIS LINARES Admitting Provider: DAVIS Cannon APRN [address] [place], [address], [facility] & [place] 12/07/2022 11:54:18 Procedures Surgical History Date Name Laterality Status Provider Name and Address Organization Details Recorded Time 9 procedure on shoulder completed Doretha Smython [facility] & [place] 03/20/2023 14:16:42 Imaging Results None recorded. Procedure [...] Address Organization Details Last Updated DateTime 3 721701. 94 g 36.6 kg/m2 182.88 cm 97 [degF] 96 % 96 % 103 /min 142 mm[Hg] 80 mm[Hg] CLAIRE SOLIS [place] - [facility] - [place] & [place] 3 10:58:46 Date Recorded Body height Body mass index (BMI) Body weight Body temperature Oxygen saturation Oxygen saturation in Arterial blood by Pulse oximetry Heart rate Systolic blood pressure Diastolic blood pressure Provider Name and Address Organization Details Last Updated DateTime 3 182.88 cm 36.5 kg/m2 112262. 35 g 96.8 [degF] 95 % 95 % 89 /min 134 mm[Hg] 84 mm[Hg] CLAIRE COOL [facility] & [place] 3 14:33:54 Date Recorded Body height Body mass index (BMI) Body weight Body temperature Oxygen saturation Oxygen saturation in Arterial blood by Pulse oximetry Heart rate Systolic blood pressure Diastolic blood pressure Provider Name and Address Organization Details Last Updated DateTime 3 182.88 cm 33.9 kg/m2 790567. 09 g 98.1 [degF] 97 % 97 % 82 /min 120 mm[Hg] 80 mm[Hg] Aminta Harden CLEMENTINE COOL [facility] & [place] 3 13:57:12 Date Recorded Body height Body mass index (BMI) Body weight Body temperature Oxygen saturation Oxygen saturation in Arterial blood by Pulse oximetry Heart rate Systolic blood pressure Diastolic blood pressure Provider Name and Address Organization Details Last Updated DateTime 3 182.88 cm 33.5 kg/m2 718774. 32 g 97.7 [degF] 97 % 97 % 85 /min 114 mm[Hg] 66 mm[Hg] CLAIRE COOL [facility] & [place] 3 11:13:56 Date Recorded Body height Body mass index (BMI) Body weight Body temperature Oxygen saturation Oxygen saturation in Arterial blood by Pulse oximetry Heart rate Systolic blood pressure Diastolic blood pressure Provider Name and Address Organization Details Last Updated DateTime 3 182.88 cm 32.4 kg/m2 655622. 58 g 97.1 [degF] 97 % 97 % 90 /min 142 mm[Hg] 70 mm[Hg] CLAIRE COOL [facility] & [place] 3 08:19:13 Social History Question Answer Notes LastModified by Organizat ion Details LastModified Time Tobacco Smoking Status Current Every Day Smoker CLEMENTINE Combs [facility] & [place] 10/10/2022 10:53:09 Do You [...] completed Opal ramsey [place] - [facility] - [place] & [place] 10/17/2022 12:28:36 COVID-19, mRNA, LNP-S, PF, 30 mcg/0.3 mL dose 03/31/2021 completed Opal ramsey, [place] - [facility] - [place] & [place] 10/17/2022 12:28:36 Past Encounters Encounter ID Performer Location Encounter Start Date Encounter Closed Date Diagnosis/Indication Diagnosis SNOMED-CT Code Diagnosis ICD10 Code Diagnosis Note [id number] Milagros JorgensenParamjitKwabena [address] [place] [address] 10/10/2022 10:49:33 10/10/2022 11:53:58 Type 2 diabetes mellitus 61118768 E11.65 Ozempic was still 800 after insurance. Will start with Metformin and reassess and if needed will add another medication if needed. Follow up in 1 month. Bring blood sugar log to clinic at that time. Hyperlipidemia 52911099 E78.5 Thyroid di sorder screening 526526284 Z13.29 Screening for malignant neoplasm of colon 168977216 Z12.11 Nicotine dependence 5629 4008 F17.200 Adult the [facility] th examination 114537422 Z00.01 Counseled patient on annual eye exams and regular dental visits. Will call with lab results. Patient advised to follow up in 1 month. Diabetic p eripheral neuropathy 627712634 E11.40 Will start new diabetes medication . Will reassess. [id number] Milagros JorgensenHernando [address] [place] [address] 11/08/2022 14:28:07 11/08/2022 14:54:36 Type 2 diabetes mellitus 32438767 E11.65 Keep a blood glucose log. RTC in 2 months. Will recheck hgbA1c, lipid panel, and CBC, CMP. Patient agrees with treatment plan. Continue the metformin as prescribed . Pain in coccyx 23554625 M53.3 Advised patient to take ibuprofen before riding. Use an additional cushion on his bike.Ruthy loyola has cologuard at home. Advised to complete and send in to the lab. [id number] Milagros Cordova [address] [place] [address] 01/08/2023 13:52:38 01/08/2023 15:01:27 Type 2 diabetes mellitus 15836093 E11.65 Continue metformin as RX.Will check complete blood work today. Will call with results.A1 C was 13.1 and it is 8.0 today.Will consider adding Mounjaro after January 12 per new recommenda tions. Patient could not afford before.Fol low up in 3 months. Hyperlipidemia 24009010 E78.5 Patient is currently on rosuvastat in. Will call with lab results. [id number] Milagros JorgensenHernando [address] [place] [address] 02/05/2023 10:57:49 02/05/2023 11:31:17 Abdominal pain 52595723 R10.9 Tylenol/Ib uprofen PRN.Avoid any strenuous activity to worsen pain or condition. Was seen in ER December [address] Abd/Pelvis was unremarkab le.Will order U/S. Will call with ultrasound results. [id number] Milagros JorgensenParamjitKwabena in, [address] [place] [address] 04/10/2023 08:14:43 04/10/2023 08:39:38 Type 2 diabetes mellitus 59519769 E11.65 A1C 7.3 on maximum continued Metformin [...] Zaman Member ID Guarantor Name 05/22/2023 1 [facility] [id number] Liam Xiong [id number] Liam Xiong Notes Date Note Type Note [...] neuropathy. Milagros Cannon APRN [address], [place], [address], [facility] - [facility] & [place] 10/12/2022 10:13:43 11/08/2022 text/html patient presents to [...] defecate. Milagros Cannon APRN [address], [place], [address], [facility] - [facility] & [place] 11/08/2022 15:48:57 01/08/2023 text/html patient presents to clinic for follow up on diabetes.He states he is feeling better. He was seen in the ER for abdominal pain 2 weeks [address] He [address] abdomen was negative. He is seeing the Chiropractor and it is helping with his back spasms. He denies any new symptoms. Milagros Cannon APRN [address], [place], [address], [facility] - [facility] & [place] 01/08/2023 14:31:24 02/05/2023 text/html patient presents to [...] SOB. Milagros Cannon APRN [address], [place], [address], [facility] & [place] 02/05/2023 11:49:51 04/10/2023 text/html patient presents to clinic for 3 month follow up. He states he is a little stressed in this morning. He states his BP has been running good. He denies any headaches. Denies any chest pain. Milagros Cannon APRN [address], [place], [address], [facility] - [facility] & [place] 04/11/2023 08:59:32
== END 2025-01-10 23:59 | disposition home or self-care (01) ==
LOC: INF 16:05
PROVIDERS: PCP Internal Medicine; Visit Provider Surgery
DX: L05.01 Pilonidal cyst with abscess (principal)
CPT/HCPCS: G0463

== ENCOUNTER 2025-01-11 15:15 | Outpatient (CLI) | payer OTHER, SELFPAY ==
--- OUTSIDE RECORDS SUMMARY | 2025-01-11 15:20 | XMS_ITS | Patient Health Record ---
Author Organization [facility] Address [address] [place] [address] Care Team Providers Care Certified Mortician Name Role Phone None, None Primary Care Provider UnavailJose Das Unavailable [phone] Allergies No Known Allergies Reason For Referral [...] Problem Status W/U Status Risk Notes Problem 146933515 Obesity (BMI 30-39.9) (E66.9) Active confirmed Problem 03665682 Acute tonsillitis, unspecified etiology (J03.90) Active confirmed Problem 4320281913602 Acute otitis media with effusion of both ears (H65.193) Active confirmed Problem 29661309 Rapid pulse (R00.0) Active confirmed Vital Signs Temperature 98.7 degrees Fahrenheit 01/30/2024 Respiratory Rate 18 /min 01/30/2024 Blood pressure diastolic 78 mm Hg 01/30/2024 Height 72 in 01/30/2024 Blood pressure systolic 118 mm Hg 01/30/2024 Weight 245 lbs 01/30/2024 BMI 33.22 kg/m2 01/30/2024 Encounters Encounter Location Date Provider Diagnosis [address] [place] [address] 01/30/2024 Jose Katherin Acute otitis media with [...] Insured Coverage Start Date Coverage End Date [facility] [address] [address] [place] [phone] [id number] Liam Xiong Self - patient is the insured Medical (General) History Medical History History ICD Code Diabetes Surgical History Surgery Date(Month/Year) shoulder left Hospitalization History Reason Date(Month/Year) as above
--- OUTSIDE RECORDS SUMMARY | 2025-01-11 15:20 | XMS_ITS | Patient Health Record ---
Author Organization [facility] Address [address] [place] [address] Support Name Relationship Address Phone N/A, N/A Emergency Contact [address] [place] [address] Unavailable RHIANNON SEXTON Guarantor Unknown [phone] Reason For Referral No Information Immunizations Vaccine [...] Insured Coverage Start Date Coverage End Date [facility] [address] [address] [place] [address] [id number] RHIANNON SEXTON Self - patient is the insured
== END 2025-01-11 15:29 | disposition home or self-care (01) ==
LOC: INF 15:17
PROVIDERS: Visit Provider Surgery
DX: L05.01 Pilonidal cyst with abscess (principal)
CPT/HCPCS: G0463

== ENCOUNTER 2025-01-12 15:11 | Outpatient (RCR) | payer OTHER, SELFPAY | END 2025-01-12 15:15 | disposition home or self-care (01) | LOC: INF 15:11 | PROVIDERS: Visit Provider Surgery | DX: L05.01 Pilonidal cyst with abscess (principal) | CPT/HCPCS: G0463 ==

== ENCOUNTER 2025-01-13 15:29 | Outpatient (CLI) | payer OTHER, SELFPAY ==
--- OUTSIDE RECORDS SUMMARY | 2025-01-13 15:32 | XMS_ITS | Data Portability ---
Author Organization [facility] & TRAVON Horta ADMIN Address [address] [place] [id number] Care Team Providers Care Medical Imaging Director Name Role Phone MILAGROS CANNON Primary Care Provider [phone] Assessment No assessment recorded. Plan of Treatment Reminders Order Date Submit Date Provider Last Modified By Organization Details Last Modified Time Details Appointments None recorded. Lab HbA1c (hemoglobin A1c), blood 2022 [email or web address], [place], [address], 3 08:51:25 HbA1c (hemoglobin A1c), blood 2022 023 [email or web address] 2 [facility], [address] [place] [address] [address], [place], [address], 3 14:16:57 CBC w/ auto diff 2022 023 GLEN BURNIE [facility], [address], [address], [place], [address], 3 07:14:04 CMP, serum or plasma 2022 023 EDUIN [facility], [address], [address], [place], [address], 3 07:14:05 magnesium, serum or plasma 2022 023 EDUIN [facility], [address], [address], [place], [address], 3 07:14:08 vitamin D, 25-hydroxy, total, serum 2022 023 EDUIN [facility], [address], [address], [place], [address], 3 07:14:08 lipid panel, serum 2022 023 EDUIN [facility], [address], [address], [place], [address], 3 07:14:06 glucose, fingerstick , blood 2022 023 [email or web address] 2 [facility], [address], [place], [address], 3 15:05:53 HbA1c (hemoglobin A1c), blood 2022 023 [email or web address] 2 [facility], [address], [place], [address], 3 11:53:47 CMP, serum or plasma 2022 023 EDUIN [facility], [address], [address], [place], [address], 3 11:12:21 CBC w/ auto diff 2022 023 EDUIN [facility], [address], [address], [place], [address], 3 11:12:19 magnesium, serum or plasma 2022 023 EDUIN [facility], [address], [address], [place], [address], 3 11:12:28 microalbumi n, urine 2022 023 [facility], [address], [place], [address], 3 12:57:57 urinalysis, dipstick 2022 023 [facility], [address], [place], [address], 3 12:01:03 thyroid panel, serum 2022 023 GLEN BURNIE [facility], [address], [address], [place], [address], 3 11:12:23 vitamin D, 25-hydroxy, total, serum 2022 023 GLEN BURNIE [facility], [address], [address], [place], [address], 3 11:12:27 vitamin B12 + folate, serum or blood 2022 023 GLEN BURNIE [facility], [address], [address], [place], [address], 3 11:12:25 lipid panel, serum 2022 023 GLEN BURNIE [facility], [address], [address], [place], [address], 3 11:12:22 Referral physical therapist referral - Coccyx pain. 2022 023 [email or web address] 3 [facility], [address], [place], [address], 3 11:43:02 Procedures colonoscopy screening (PROC) 2022 023 [email or web address] 5 Jose Grove MD, [address], [address], [place], [address], 3 12:38:14 Surgeries None recorded. Imaging US, abdomen, complete - possible umbilical hernia/righ t sided abdominal pain 2022 023 [facility] (Central[facility] Sched[facility]), [address], [place], [address], 3 16:35:11 XR, sacrum + coccyx, 2 or more view 2022 023 [facility] ([facility] Sched[facility]), [address], [place], [address], 3 09:30:08 Medication Orders Ozempic 0.25 mg or 0.5 mg (2 mg/1.5 mL) subcutaneou s pen injector 2022 023 [facility][id number], [address] [place] [address], [address], 3 08:47:06 Chantix Starting Month Box 0.5 mg (11)-1 mg (42) tablets in dose pack 2022 023 [email or web address] 2 [facility]/Ph[facility]acy #[id number], [address] [place] [address], [address], 3 11:14:37 metformin 1,000 mg tablet 2022 023 2 [facility]acy #2332, [address] [place], [address], 3 11:53:48 Ozempic 0.25 mg or 0.5 mg (2 mg/1.5 mL) subcutaneou s pen injector 2022 023 [facility]acy #2332, [address] [place], [address], 11:14:44 rosuvastati n 10 mg tablet 2022 023 [facility]acy #2332, [address] [place], [address], 11:54:37 Patient TargetsNo targets recorded. Patient Instructions Encounter Date Encounter Id Patient Instructions Last Modified By Organization Details Last Modified Time 10/10/2022 [id number] smoking cessatio n counseling, greater than 3 minutes up to 10 minutes* Not available 10/17/2022 08:34:36 Patient needs to follow up in 1 month. Advised patient that I would call with lab results. Counseled patient on monitoring blood glucose at home. Bring log of blood sugars to next appt. [email or web address] Not available 10/10/2022 11:55:22 Reason for Referral Physical Therapist Referral for Pain in coccyx Coccyx pain. Referring Physician: Milagros Cannon, Infectious Disease, Encounter Date: 11/08/2022 Results Created Date Observation Date Name Description Value Unit Range Abnormal Flag Note LastModifiedBy Organization Detail LastModifiedTime 10/11/19 23 10/11/2022 ALBUM IN/CR EATIN INE RATIO ,URIN E creatinine, urine 312.5 mg/dL not estab. Not Available [facility] ([facility]) [address] [place], [address], 10/11/2022 09:14:45 10/11/19 23 10/11/2022 ALBUM IN/CR EATIN INE RATIO ,URIN E albumin, urine 133.8 ug/mL not estab. Not Available [facility] ([facility]) [address] [facility], [place], [address], 10/11/2022 09:14:45 10/11/19 23 10/11/2022 ALBUM IN/CR EATIN INE RATIO ,URIN E alb/creat ratio 43 mg/g_ creat 0-29 above high normal Ana M l: 0 - 29 Moder ately incre ased: 30 - 300 Sever savanah incre ased: >300 Not Available [facility] ([facility]) [address] [place], [address], 10/11/2022 09:14:45 10/11/19 23 10/11/2022 CBC WITH DIFFE RENTI AL/PL ATELE T WBC 8.3 x10e3 /uL 3.4-10 .8 Not Available [facility] ([facility]) [address] [place], [address], 10/11/2022 11:12:19 10/11/1910/11/2022 CBC WITH DIFFE RENTI AL/PL ATELE T RBC 5.38 x10e6 /uL 4.14-5 .80 Not Available [facility] ([facility]) [address] [place], [address], 10/11/2022 11:12:19 10/11/19 23 10/11/2022 CBC WITH DIFFE RENTI AL/PL ATELE T hemoglobin 17.4 g/dL 13.0-1 7.7 Not Available [facility] ([facility]) [address] [place], [address], 10/11/2022 11:12:19 10/11/1910/11/2022 CBC WITH DIFFE RENTI AL/PL ATELE T hematocrit 51.3 % 37.5-5 1.0 above high normal Not Available [facility] ([facility]) [address] [place], [address], 10/11/2022 11:12:19 10/11/1910/11/2022 CBC WITH DIFFE RENTI AL/PL ATELE T MCV 95 fL 79-97 Not Available [facility] ([facility]) [address] [place], [address], 10/11/2022 11:12:19 10/11/19 23 10/11/2022 CBC WITH DIFFE RENTI AL/PL ATELE T MCH 32.3 pg 26.6-3 3.0 Not Available [facility] ([facility]) [address] [facility], [place], [address], 10/11/2022 11:12:19 10/11/19 23 10/11/2022 CBC WITH DIFFE RENTI AL/PL ATELE T MCHC 33.9 g/dL 31.5-3 5.7 Not Available [facility] ([facility]) [address] [facility], [place], [address], 10/11/2022 11:12:19 10/11/19 23 10/11/2022 CBC WITH DIFFE RENTI AL/PL ATELE T RDW 11.7 % 11.6-1 5.4 Not Available [facility] ([facility]) [address] [facility], [place], [address], 10/11/2022 11:12:19 10/11/19 23 10/11/2022 CBC WITH DIFFE RENTI AL/PL ATELE T platelets 324 x10e3 /uL 150-45 0 Not Available [facility] ([facility]) [address] [facility], [place], [address], 10/11/2022 11:12:19 10/11/19 23 10/11/2022 CBC WITH DIFFE RENTI AL/PL ATELE T neutrophils 63 % not estab. Not Available [facility] ([facility]) [address] [facility], [place], [address], 10/11/2022 11:12:19 10/11/19 23 10/11/2022 CBC WITH DIFFE RENTI AL/PL ATELE T lymphs 26 % not estab. Not Available [facility] ([facility]) [address] [place], [address], 10/11/2022 11:12:19 10/11/19 23 10/11/2022 CBC WITH DIFFE RENTI AL/PL ATELE T monocytes 8 % not estab. Not Available [facility] ([facility]) [address] [place], [address], 10/11/2022 11:12:19 10/11/19 23 10/11/2022 CBC WITH DIFFE RENTI AL/PL ATELE T eos 1 % not estab. Not Available [facility] ([facility]) [address] [facility], [place], [address], 10/11/2022 11:12:19 10/11/19 23 10/11/2022 CBC WITH DIFFE RENTI AL/PL ATELE T basos 1 % not estab. Not Available [facility] ([facility]) [address] [facility], [place], [address], 10/11/2022 11:12:19 10/11/19 23 10/11/2022 CBC WITH DIFFE RENTI AL/PL ATELE T immature cells HONEY EXTRACTOR Not Available [facility] ([facility]) [address] [place], [address], 10/11/2022 11:12:19 10/11/19 23 10/11/2022 CBC WITH DIFFE RENTI AL/PL ATELE T neutrophils (absolute) 5.3 x10e3 /uL 1.4-7. 0 Not Available [facility] ([facility]) [address] [place], [address], 10/11/2022 11:12:19 10/11/19 23 10/11/2022 CBC WITH DIFFE RENTI AL/PL ATELE T lymphs (absolute) 2.2 x10e3 /uL 0.7-3. 1 Not Available [facility] ([facility]) [address] [place], [address], 10/11/2022 11:12:19 10/11/19 23 10/11/2022 CBC WITH DIFFE RENTI AL/PL ATELE T monocytes(ab solute) 0.7 x10e3 /uL 0.1-0. 9 Not Available [facility] ([facility]) [address] [facility], [place], [address], 10/11/2022 11:12:19 10/11/19 23 10/11/2022 CBC WITH DIFFE RENTI AL/PL ATELE T eos (absolute) 0.1 x10e3 /uL 0.0-0. 4 Not Available [facility] ([facility]) [address] [facility], [place], [address], 10/11/2022 11:12:19 10/11/19 23 10/11/2022 CBC WITH DIFFE RENTI AL/PL ATELE T baso (absolute) 0.0 x10e3 /uL 0.0-0. 2 Not Available [facility] ([facility]) [address] [facility], [place], [address], 10/11/2022 11:12:19 10/11/19 23 10/11/2022 CBC WITH DIFFE RENTI AL/PL ATELE T immature granulocytes 1 % not estab. Not Available [facility] ([facility]) [address] [facility], [place], [address], 10/11/2022 11:12:19 10/11/19 23 10/11/2022 CBC WITH DIFFE RENTI AL/PL ATELE T immature grans (abs) 0.1 x10e3 /uL 0.0-0. 1 Not Available [facility] ([facility]) [address] [facility], [place], [address], 10/11/2022 11:12:19 10/11/19 23 10/11/2022 CBC WITH DIFFE RENTI AL/PL ATELE T NRBC HONEY EXTRACTOR Not Available [facility] ([facility]) [address] [facility], [place], [address], 10/11/2022 11:12:19 10/11/19 23 10/11/2022 CBC WITH DIFFE RENTI AL/PL ATELE T hematology comments: HONEY EXTRACTOR Not Available [facility] ([facility]) [address] [facility] [place], [address], 10/11/2022 11:12:19 10/11/19 23 10/11/2022 COMP. METAB OLIC PANEL (14) glucose 294 mg/dL 70-99 above high normal Not Available [facility] ([facility]) [address] [facility] [place], [address], 10/11/2022 11:12:21 10/11/19 23 10/11/2022 COMP. METAB OLIC PANEL (14) BUN 22 mg/dL 6-24 Not Available [facility] ([facility]) [address] [facility] [place], [address], 10/11/2022 11:12:21 10/11/19 23 10/11/2022 COMP. METAB OLIC PANEL (14) creatinine 0.84 mg/dL 0.76-1 .27 Not Available [facility] ([facility]) [address] [facility] [place], [address], 10/11/2022 11:12:21 10/11/19 23 10/11/2022 COMP. METAB OLIC PANEL (14) eGFR 110 mL/mi n/1.7 3 >59 Not Available [facility] ([facility]) [address] [facility] [place], [address], 10/11/2022 11:12:21 10/11/19 23 10/11/2022 COMP. METAB OLIC PANEL (14) BUN/creatini ne ratio 26 9-20 above high normal Not Available [facility] ([facility]) [address] [facility] [place], [address], 10/11/2022 11:12:21 10/11/19 23 10/11/2022 COMP. METAB OLIC PANEL (14) sodium 137 mmol/ L 134-14 4 Not Available [facility] ([facility]) [address] [facility] [place], [address], 10/11/2022 11:12:21 10/11/19 23 10/11/2022 COMP. METAB OLIC PANEL (14) potassium 5.0 mmol/ L 3.5-5. 2 Not Available [facility] ([facility]) [address] [facility], [place], [address], 10/11/2022 11:12:21 10/11/19 23 10/11/2022 COMP. METAB OLIC PANEL (14) chloride 97 mmol/ L 96-106 Not Available [facility] ([facility]) [address] [facility], [place], [address], 10/11/2022 11:12:21 10/11/19 23 10/11/2022 COMP. METAB OLIC PANEL (14) carbon dioxide, total 24 mmol/ L 20- Not Available [facility] ([facility]) [address] [facility] [place], [address], 10/11/2022 11:12:21 10/11/19 23 10/11/2022 COMP. METAB OLIC PANEL (14) calcium 10.1 mg/dL 8.7-10 .2 Not Available [facility] ([facility]) [address] [facility], [place], [address], 10/11/2022 11:12:21 10/11/19 23 10/11/2022 COMP. METAB OLIC PANEL (14) protein, total 7.5 g/dL 6.0-8. 5 Not Available [facility] ([facility]) [address] [facility] [place], [address], 10/11/2022 11:12:21 10/11/19 23 10/11/2022 COMP. METAB OLIC PANEL (14) albumin 4.4 g/dL 4.0-5. 0 Not Available [facility] ([facility]) [address] [facility] [place], [address], 10/11/2022 11:12:21 10/11/19 23 10/11/2022 COMP. METAB OLIC PANEL (14) globulin, total 3.1 g/dL 1.5-4. 5 Not Available [facility] ([facility]) [address] [facility] [place], [address], 10/11/2022 11:12:21 10/11/19 23 10/11/2022 COMP. METAB OLIC PANEL (14) A/G ratio 1.4 1.2-2. 2 Not Available [facility] ([facility]) [address] [facility], [place], [address], 10/11/2022 11:12:21 10/11/19 23 10/11/2022 COMP. METAB OLIC PANEL (14) bilirubin, total 0.5 mg/dL 0.0-1. 2 Not Available [facility] ([facility]) [address] [facility] [place], [address], 10/11/2022 11:12:21 10/11/19 23 10/11/2022 COMP. METAB OLIC PANEL (14) alkaline phosphatase 73 IU/L 44-121 Not Available [facility]) [address] [facility], [place], [address], 10/11/2022 11:12:21 10/11/19 23 10/11/2022 COMP. METAB OLIC PANEL (14) AST (SGOT) 33 IU/L 0-40 Not Available [facility] ([facility]) [address] [facility], [place], [address], 10/11/2022 11:12:21 10/11/19 23 10/11/2022 COMP. METAB OLIC PANEL (14) ALT (SGPT) 40 IU/L 0-44 Not Available [facility] ([facility]) [address] [facility] [place], [address], 10/11/2022 11:12:21 10/11/19 23 10/11/2022 LIPID PANEL cholesterol, total 270 mg/dL 100-19 9 above high normal Not Available [facility] ([facility]) [address] [facility] [place], [address], 10/11/2022 11:12:22 10/11/19 23 10/11/2022 LIPID PANEL triglyceride s 299 mg/dL 0-149 above high normal Not Available [facility] ([facility]) [address] [facility] [place], [address], 10/11/2022 11:12:22 10/11/19 23 10/11/2022 LIPID PANEL HDL cholesterol 32 mg/dL >39 below low normal Not Available [facility] ([facility]) [address] [facility] [place], [address], 10/11/2022 11:12:22 10/11/19 23 10/11/2022 LIPID PANEL VLDL cholesterol shaunna 58 mg/dL 5-40 above high normal Not Available [facility] ([facility]) [address] [place], [address], 10/11/2022 11:12:22 10/11/19 23 10/11/2022 LIPID PANEL LDL chol calc ([facility]) 180 mg/dL 0-99 above high normal Not Available [facility] ([facility]) [address] [facility] [place], [address], 10/11/2022 11:12:22 10/11/19 23 10/11/2022 LIPID PANEL comment: HONEY EXTRACTOR Not Available [facility] ([facility]) [address] [place], [address], 10/11/2022 11:12:22 10/11/19 23 10/11/2022 THYRO ID PROFI LE II TSH 1.030 uIU/m L 0.450- 4.500 Not Available [facility] ([facility]) [address] [place], [address], 10/11/2022 11:12:23 10/11/19 23 10/11/2022 THYRO ID PROFI LE II thyroxine (T4) 10.8 ug/dL 4.5-12 .0 Not Available [facility] ([facility]) [address] [facility], [place], [address], 10/11/2022 11:12:23 10/11/19 23 10/11/2022 THYRO ID PROFI LE II T3 uptake 27 % 24-39 Not Available [facility] ([facility]) [address] [facility], [place], [address], 10/11/2022 11:12:23 10/11/19 23 10/11/2022 THYRO ID PROFI LE II free thyroxine index 2.9 1.2-4. 9 Not Available [facility] ([facility]) [address] [facility], [place], [address], 10/11/2022 11:12:23 10/11/19 23 10/11/2022 THYRO ID PROFI LE II triiodothyro nine (T3) 148 NG/dL 71-180 Not Available [facility] ([facility]) [address] [facility], [place], [address], 10/11/2022 11:12:23 10/11/19 23 10/11/2022 VITAM IN B12 AND FOLAT E vitamin B12 747 pg/mL 232-12 45 Not Available [facility] ([facility]) [address] [place], [address], 10/11/2022 11:12:24 10/11/1910/11/2022 VITAM IN B12 AND FOLAT E folate (folic acid), serum >20.0 NG/mL >3.0 A serum folat e linda ntrat ion of less than 3.1 ng/mL is consi dered to repre sent clini shaunna defic iency . Not Available [facility] ([facility]) [address] [facility], [place], [address], 10/11/2022 11:12:24 10/11/1910/11/2022 HEMOG LOBIN A1C hemoglobin A1C 12.9 % 4.8-5. 6 above high normal Predi abete s: 5.7 - 6.4 Diabe melissa: >6.4 Glyce oni contr ol for adult s with diabe melissa: <7.0 Not Available [facility] ([facility]) [address] [facility], [place], [address], 10/11/2022 11:12:26 10/11/19 23 10/11/2022 VITAM IN [...] um and D. Louie burnett [place]: [facility] . 2. Maribell johnson MF, Nilsa shah [place], Dago off-F errar i YEAGER, et al. Evalu ation , treat ment, and preve ntion of vitam in D defic iency : an Endoc rine Socie ty clini shaunna pract ice guide line. JCEM. 2010; 96(7) :1911 -30. Not Available [facility] ([facility]) [address] [facility], [place], [address], 10/11/2022 11:12:27 10/11/19 23 10/11/2022 MAGNE SIUM magnesium 1.5 mg/dL 1.6-2. 3 below low normal Not Available [facility] ([facility]) [address] [facility], [place], [address], 10/11/2022 11:12:28 10/11/19 23 10/10/2022 urina lysis , dipst ick Leukocytes (reference range) negati ve Not Available [facility] - [address], [place], [address], 10/10/2022 11:35:48 10/11/19 23 10/10/2022 urina lysis , dipst ick Nitrite (reference range:) negati ve Not Available [address], [place], [address], 10/10/2022 11:35:48 10/11/19 23 10/10/2022 urina lysis , dipst ick Urobilinogen (reference range) 0.2 Not Available [address], [place], [address], 10/10/2022 11:35:48 10/11/19 23 10/10/2022 urina lysis , dipst ick Protein (reference range) 100 Not Available [address], [place], [address], 10/10/2022 11:35:48 10/11/19 23 10/10/2022 urina lysis , dipst ick pH (reference range 5-8.5) 5.0 Not Available [address], [place], [address], 10/10/2022 11:35:48 10/11/19 23 10/10/2022 urina lysis , dipst ick Blood (reference range:) negati ve Not Available [address], [place], [address], 10/10/2022 11:35:48 10/11/19 23 10/10/2022 urina lysis , dipst ick Specific [place] (reference range) 1.030 Not Available [address], [place], [address], 10/10/2022 11:35:48 10/11/19 23 10/10/2022 urina lysis , dipst ick Ketone (reference range) modera te Not Available [address], [place], [address], 10/10/2022 11:35:48 10/11/19 23 10/10/2022 urina lysis , dipst ick Bilirubin (reference range) modera te Not Available [address], [place], [address], 10/10/2022 11:35:48 10/11/19 23 10/10/2022 urina lysis , dipst ick Glucose (reference range) 1000 Not Available [address], [place], [address], 10/10/2022 11:35:48 10/11/19 23 10/10/2022 urina lysis , dipst ick Color (reference range: yellow-brown ) Dark Yellow Not Available [address], [place], [address], 10/10/2022 11:35:48 10/11/19 23 10/10/2022 HbA1c (hemo globi n A1c), blood HbA1c 13.1 Not Available [address], [place], [address], 10/10/2022 11:16:31 11/09/19 23 11/08/2022 gluco se, finge rstic k, blood Blood Glucose: mg/dl [address] [facility] [address], [place], [address], 11/08/2022 14:40:07 01/09/20 23 01/09/2023 CBC WITH DIFFE RENTI AL/PL ATELE T WBC 8.0 x10e3 /uL 3.4-10 .8 Not Available [facility] ([facility]) [address] [facility], [place], [address], 01/10/2023 07:14:04 01/09/20 23 01/09/2023 CBC WITH DIFFE RENTI AL/PL ATELE T RBC 4.39 x10e6 /uL 4.14-5 .80 Not Available [facility] ([facility]) [address] [place], [address], 01/10/2023 07:14:04 01/09/20 23 01/09/2023 CBC WITH DIFFE RENTI AL/PL ATELE T hemoglobin 14.5 g/dL 13.0-1 7.7 Not Available [facility] ([facility]) [address] [place], [address], 01/10/2023 07:14:04 01/09/20 23 01/09/2023 CBC WITH DIFFE RENTI AL/PL ATELE T hematocrit 41.8 % 37.5-5 1.0 Not Available [facility] ([facility]) [address] [place], [address], 01/10/2023 07:14:04 01/09/20 23 01/09/2023 CBC WITH DIFFE RENTI AL/PL ATELE T MCV 95 fL 79-97 Not Available [facility] ([facility]) [address] [place], [address], 01/10/2023 07:14:04 01/09/20 23 01/09/2023 CBC WITH DIFFE RENTI AL/PL ATELE T MCH 33.0 pg 26.6-3 3.0 Not Available [facility] ([facility]) [address] [facility], [place], [address], 01/10/2023 07:14:04 01/09/20 23 01/09/2023 CBC WITH DIFFE RENTI AL/PL ATELE T MCHC 34.7 g/dL 31.5-3 5.7 Not Available [facility] ([facility]) [address] [facility], [place], [address], 01/10/2023 07:14:04 01/09/20 23 01/09/2023 CBC WITH DIFFE RENTI AL/PL ATELE T RDW 12.1 % 11.6-1 5.4 Not Available [facility] ([facility]) [address] [facility], [place], [address], 01/10/2023 07:14:04 01/09/20 23 01/09/2023 CBC WITH DIFFE RENTI AL/PL ATELE T platelets 273 x10e3 /uL 150-45 0 Not Available [facility] ([facility]) [address] [facility], [place], [address], 01/10/2023 07:14:04 01/09/20 23 01/09/2023 CBC WITH DIFFE RENTI AL/PL ATELE T neutrophils 63 % not estab. Not Available [facility] ([facility]) [address] [place], [address], 01/10/2023 07:14:04 01/09/20 23 01/09/2023 CBC WITH DIFFE RENTI AL/PL ATELE T lymphs 29 % not estab. Not Available [facility] ([facility]) [address] [place], [address], 01/10/2023 07:14:04 01/09/20 23 01/09/2023 CBC WITH DIFFE RENTI AL/PL ATELE T monocytes 7 % not estab. Not Available [facility] ([facility]) [address] [place], [address], 01/10/2023 07:14:04 01/09/20 23 01/09/2023 CBC WITH DIFFE RENTI AL/PL ATELE T eos 1 % not estab. Not Available [facility] ([facility]) [address] [facility], [place], [address], 01/10/2023 07:14:04 01/09/20 23 01/09/2023 CBC WITH DIFFE RENTI AL/PL ATELE T basos 0 % not estab. Not Available [facility] ([facility]) [address] [place], [address], 01/10/2023 07:14:04 01/09/20 23 01/09/2023 CBC WITH DIFFE RENTI AL/PL ATELE T immature cells [employer] Not Available [facility] ([facility]) [address] [place], [address], 01/10/2023 07:14:04 01/09/20 23 01/09/2023 CBC WITH DIFFE RENTI AL/PL ATELE T neutrophils (absolute) 5.0 x10e3 /uL 1.4-7. 0 Not Available [facility] ([facility]) [address] [place], [address], 01/10/2023 07:14:04 01/09/20 23 01/09/2023 CBC WITH DIFFE RENTI AL/PL ATELE T lymphs (absolute) 2.3 x10e3 /uL 0.7-3. 1 Not Available [facility] ([facility]) [address] [place], [address], 01/10/2023 07:14:04 01/09/20 23 01/09/2023 CBC WITH DIFFE RENTI AL/PL ATELE T monocytes(ab solute) 0.6 x10e3 /uL 0.1-0. 9 Not Available [facility] ([facility]) [address] [place], [address], 01/10/2023 07:14:04 01/09/20 23 01/09/2023 CBC WITH DIFFE RENTI AL/PL ATELE T eos (absolute) 0.1 x10e3 /uL 0.0-0. 4 Not Available [facility] ([facility]) [address], [place], [address], 01/10/2023 07:14:04 01/09/20 23 01/09/2023 CBC WITH DIFFE RENTI AL/PL ATELE T baso (absolute) 0.0 x10e3 /uL 0.0-0. 2 Not Available [facility] ([facility]) [address], [place], [address], 01/10/2023 07:14:04 01/09/20 23 01/09/2023 CBC WITH DIFFE RENTI AL/PL ATELE T immature granulocytes 0 % not estab. Not Available [facility] ([facility]) [address], [place], [address], 01/10/2023 07:14:04 01/09/20 23 01/09/2023 CBC WITH DIFFE RENTI AL/PL ATELE T immature grans (abs) 0.0 x10e3 /uL 0.0-0. 1 Not Available [facility] ([facility]) [address] [facility], [place], [address], 01/10/2023 07:14:04 01/09/2001/09/2023 CBC WITH DIFFE RENTI AL/PL ATELE T NRBC HONEY EXTRACTOR Not Available [facility] ([facility]) [address] [facility], [place], [address], 01/10/2023 07:14:04 01/09/2001/09/2023 CBC WITH DIFFE RENTI AL/PL ATELE T hematology comments: HONEY EXTRACTOR Not Available [facility] ([facility]) [address] [facility], [place], [address], 01/10/2023 07:14:04 01/09/20 23 01/09/2023 COMP. METAB OLIC PANEL (14) glucose 111 mg/dL 70-99 above high normal Not Available [facility] ([facility]) [address] [place], [address], 01/10/2023 07:14:05 01/09/20 23 01/09/2023 COMP. METAB OLIC PANEL (14) BUN 16 mg/dL 6-24 Not Available [facility] ([facility]) [address] [place], [address], 01/10/2023 07:14:05 01/09/20 23 01/09/2023 COMP. METAB OLIC PANEL (14) creatinine 0.60 mg/dL 0.76-1 .27 below low normal Not Available [facility] ([facility]) [address] [place], [address], 01/10/2023 07:14:05 01/09/20 23 01/09/2023 COMP. METAB OLIC PANEL (14) eGFR 121 mL/mi n/1.7 3 >59 Not Available [facility] ([facility]) [address] [place], [address], 01/10/2023 07:14:05 01/09/20 23 01/09/2023 COMP. METAB OLIC PANEL (14) BUN/creatini ne ratio 27 9-20 above high normal Not Available [facility] ([facility]) [address] [place], [address], 01/10/2023 07:14:05 01/09/20 23 01/09/2023 COMP. METAB OLIC PANEL (14) sodium 140 mmol/ L 134-14 4 Not Available [facility] ([facility]) [address] [place], [address], 01/10/2023 07:14:05 01/09/20 23 01/09/2023 COMP. METAB OLIC PANEL (14) potassium 4.0 mmol/ L 3.5-5. 2 Not Available [facility] ([facility]) [address] [place], [address], 01/10/2023 07:14:05 01/09/20 23 01/09/2023 COMP. METAB OLIC PANEL (14) chloride 100 mmol/ L 96-106 Not Available [facility] ([facility]) [address] [place], [address], 01/10/2023 07:14:05 01/09/20 23 01/09/2023 COMP. METAB OLIC PANEL (14) carbon dioxide, total 23 mmol/ L 20-29 Not Available [facility] ([facility]) [address] [place], [address], 01/10/2023 07:14:05 01/09/20 23 01/09/2023 COMP. METAB OLIC PANEL (14) calcium 9.5 mg/dL 8.7-10 .2 Not Available [facility] ([facility]) [address] [place], [address], 01/10/2023 07:14:05 01/09/20 23 01/09/2023 COMP. METAB OLIC PANEL (14) protein, total 7.1 g/dL 6.0-8. 5 Not Available [facility] ([facility]) [address] [place], [address], 01/10/2023 07:14:05 01/09/20 23 01/09/2023 COMP. METAB [...] 4.6 3.6 - 4.6 Not Available [facility] ([facility]) [address] [place], [address], 01/10/2023 07:14:05 01/09/20 23 01/09/2023 COMP. METAB OLIC PANEL (14) globulin, total 2.6 g/dL 1.5-4. 5 Not Available [facility] ([facility]) [address] [place], [address], 01/10/2023 07:14:05 01/09/20 23 01/09/2023 COMP. METAB OLIC PANEL (14) A/G ratio 1.7 1.2-2. 2 Not Available [facility] ([facility]) [address] [place], [address], 01/10/2023 07:14:05 01/09/20 23 01/09/2023 COMP. METAB OLIC PANEL (14) bilirubin, total 0.4 mg/dL 0.0-1. 2 Not Available [facility] ([facility]) [address] [place], [address], 01/10/2023 07:14:05 01/09/20 23 01/09/2023 COMP. METAB OLIC PANEL (14) alkaline phosphatase 55 IU/L 44-121 Not Available [facility] ([facility]) [address] [place], [address], 01/10/2023 07:14:05 01/09/20 23 01/09/2023 COMP. METAB OLIC PANEL (14) AST (SGOT) 13 IU/L 0-40 Not Available [facility] ([facility]) [address] [place], [address], 01/10/2023 07:14:05 01/09/20 23 01/09/2023 COMP. METAB OLIC PANEL (14) ALT (SGPT) 14 IU/L 0-44 Not Available [facility] ([facility]) [address] [facility] [place], [address], 01/10/2023 07:14:05 01/09/20 23 01/09/2023 LIPID PANEL cholesterol, total 110 mg/dL 100-19 9 Not Available [facility] ([facility]) [address] [facility] [place], [address], 01/10/2023 07:14:06 01/09/20 23 01/09/2023 LIPID PANEL triglyceride s 93 mg/dL 0-149 Not Available [facility] ([facility]) [address] [facility] [place], [address], 01/10/2023 07:14:06 01/09/20 23 01/09/2023 LIPID PANEL HDL cholesterol 36 mg/dL >39 below low normal Not Available [facility] ([facility]) [address] [facility] [place], [address], 01/10/2023 07:14:06 01/09/20 23 01/09/2023 LIPID PANEL VLDL cholesterol shaunna 18 mg/dL 5-40 Not Available [facility] ([facility]) [address] [facility] [place], [address], 01/10/2023 07:14:06 01/09/20 23 01/09/2023 LIPID PANEL LDL chol calc ([facility]) 56 mg/dL 0-99 Not Available [facility] ([facility]) [address] [facility], [place], [address], 01/10/2023 07:14:06 01/09/20 23 01/09/2023 LIPID PANEL comment: HONEY EXTRACTOR Not Available [facility] ([facility]) [address] [facility], [place], [address], 01/10/2023 07:14:06 01/09/20 23 01/09/2023 HEMOG LOBIN A1C hemoglobin A1C 7.9 % 4.8-5. 6 above high normal Predi abete s: 5.7 - 6.4 Diabe melissa: >6.4 Glyce oni contr ol for adult s with diabe melissa: <7.0 Not Available [facility] ([facility]) [address] [facility], [place], [address], 01/10/2023 07:14:07 01/09/20 23 01/10/2023 VITAM IN [...] Louie burnett [place]: [facility] Press . 2. Maribell johnson MF, Nilsa shah [place], Dago off-F errar i YEAGER, et al. Evalu ation , treat ment, and preve ntion of vitam in D defic iency : an Endoc rine Socie ty clini shaunna pract ice guide line. JCEM. 2010; 96(7) :1911 -30. Not Available [facility] ([facility]) [address] [facility], [place], [address], 01/10/2023 07:14:08 01/09/20 23 01/09/2023 MAGNE SIUM magnesium 1.6 mg/dL 1.6-2. 3 Not Available [facility] ([facility]) [address] [facility], [place], [address], 01/10/2023 07:14:08 01/09/20 23 01/08/2023 HbA1c (hemo globi n A1c), blood HbA1c 8.0 Not Available [address], [place], [address], 01/08/2023 14:14:16 04/10/20 23 04/10/2023 HbA1c (hemo globi n A1c), blood HbA1c 7.3 Not Available [facility] [address], [place], [address], 04/10/2023 08:34:17 12/08/19 23 12/06/2022 XR, sacru m + coccy x [facility] [address] [place] [address] Phone: Fax: Name: LIAM XIONG Exam Date: 023 : [birth year] Age 47 Gender : M Access ion: [id number] Physic rohit: Ronen Michelle ty: [facility] Brendon ty HSV: Outpat ient Exam: [...] you for referr ing BAN XIONGSON to [facility]. Legall y authen ticate d by TERRY LINCOLN 12-07 09:15: 03 CC'ed Logic: Orderi ng Provid er: HADLEY MONCADA E CC Provid er: HADLEY Mcgee Attend ing Provid er: HADLEY Mcgee Referr ing Provid er: HADLEY Mcgee Admitt ing Provid er: HADLEY Mcgee [id number] [facility] [address] [place], [address], 12/07/2022 11:54:18 12/08/19 23 12/06/2022 XR, sacru m + coccy x, 2 or more view No observ ation record ed. [facility] ([facility]) [address] [place], [address], 12/07/2022 11:58:00 02/29/20 23 02/28/2023 [facility] [address] [place] [address] Phone: Fax: Name: LIAM XIONG Exam Date: : [birth year] Age 48 Gender : M Access ion: [id number] Physic rohit: Irena Michelle Facili ty: [facility] Facili ty HSV: Outpat ient Exam: [...] Thank you for referr LIAM Brian to [facility]. Legall y authen ticate d by POPE SHAMA Sharpe 02-28 16:21: 01 CC'ed Logic: Orderi ng Provid er: HADLEY Mcgee CC Provid er: HADLEY Mcgee Attend ing Provid er: HADLEY Mcgee Referr ing Provid er: HADLEY Mcgee Admitt ing Provid er: HADLEY Mcgee [id number] [facility] [address] [facility], [place], [address], 03/01/2023 08:36:07 02/29/20 23 02/28/2023 US, abdom en, compl ete No observ ation record ed. [facility] [address] [facility], [place], [address], 03/07/2023 08:34:35 Result Notes Documentation Provider Name and Address Organization Details Recorded Time Xr, Sacrum + Coccyx : [facility] [address] [place] [address] Name: LIAM XIONG Exam Date: 12/06/2022 : 1975 Age 47 Gender: M Physician: Milagros Cannon Facility: [facility] Facility HSV: Outpatient Exam: SACRUM COCCYX [...] Thank you for referring DARSHAN LIAM to [facility]. Legally authenticated by MARIE LINCOLN 2022-12-07 09:15:03 CC'ed Logic: Ordering Provider: DAVIS LINARES CC Provider: DAVIS LINARES Attending Provider: DAVIS LINARES Referring Provider: DAVIS LINARES Admitting Provider: DAVIS Cannon APRN [address] [place], [address], [facility] & [place] 12/07/2022 11:54:18 Procedures Surgical History Date Name Laterality Status Provider Name and Address Organization Details Recorded Time 9 procedure on shoulder completed Doretha Smython [facility] & [place] 03/20/2023 14:16:42 Imaging Results None recorded. Procedure [...] Address Organization Details Last Updated DateTime 3 884223. 94 g 36.6 kg/m2 182.88 cm 97 [degF] 96 % 96 % 103 /min 142 mm[Hg] 80 mm[Hg] CLAIRE SOLIS [place] - [facility] - [place] & [place] 3 10:58:46 Date Recorded Body height Body mass index (BMI) Body weight Body temperature Oxygen saturation Oxygen saturation in Arterial blood by Pulse oximetry Heart rate Systolic blood pressure Diastolic blood pressure Provider Name and Address Organization Details Last Updated DateTime 3 182.88 cm 36.5 kg/m2 131912. 35 g 96.8 [degF] 95 % 95 % 89 /min 134 mm[Hg] 84 mm[Hg] CLAIRE COOL [facility] & [place] 3 14:33:54 Date Recorded Body height Body mass index (BMI) Body weight Body temperature Oxygen saturation Oxygen saturation in Arterial blood by Pulse oximetry Heart rate Systolic blood pressure Diastolic blood pressure Provider Name and Address Organization Details Last Updated DateTime 3 182.88 cm 33.9 kg/m2 299882. 09 g 98.1 [degF] 97 % 97 % 82 /min 120 mm[Hg] 80 mm[Hg] Aminta Harden CLEMENTINE COOL [facility] & [place] 3 13:57:12 Date Recorded Body height Body mass index (BMI) Body weight Body temperature Oxygen saturation Oxygen saturation in Arterial blood by Pulse oximetry Heart rate Systolic blood pressure Diastolic blood pressure Provider Name and Address Organization Details Last Updated DateTime 3 182.88 cm 33.5 kg/m2 928827. 32 g 97.7 [degF] 97 % 97 % 85 /min 114 mm[Hg] 66 mm[Hg] CLAIRE COOL [facility] & [place] 3 11:13:56 Date Recorded Body height Body mass index (BMI) Body weight Body temperature Oxygen saturation Oxygen saturation in Arterial blood by Pulse oximetry Heart rate Systolic blood pressure Diastolic blood pressure Provider Name and Address Organization Details Last Updated DateTime 3 182.88 cm 32.4 kg/m2 820977. 58 g 97.1 [degF] 97 % 97 % 90 /min 142 mm[Hg] 70 mm[Hg] CLAIRE COOL [facility] & [place] 3 08:19:13 Social History Question Answer Notes LastModified by Organizat ion Details LastModified Time Tobacco Smoking Status Current Every Day Smoker CLEMENTINE Combs [facility] & [place] 10/10/2022 10:53:09 Do You [...] completed Opal ramsey [place] [facility] [place] & [place] 10/17/2022 12:28:36 COVID-19, mRNA, LNP-S, PF, 30 mcg/0.3 mL dose 03/31/2021 completed Opal ramsey, [place] - [facility] - [place] & [place] 10/17/2022 12:28:36 Past Encounters Encounter ID Performer Location Encounter Start Date Encounter Closed Date Diagnosis/Indication Diagnosis SNOMED-CT Code Diagnosis ICD10 Code Diagnosis Note [id number] Milagros JorgensenParamjitKwabena [address] [place] [address] 10/10/2022 10:49:33 10/10/2022 11:53:58 Type 2 diabetes mellitus 99162326 E11.65 Ozempic was still 800 after insurance. Will start with Metformin and reassess and if needed will add another medication if needed. Follow up in 1 month. Bring blood sugar log to clinic at that time. Hyperlipidemia 27083933 E78.5 Thyroid di sorder screening 856412754 Z13.29 Screening for malignant neoplasm of colon 713087535 Z12.11 Nicotine dependence 5629 4008 F17.200 Adult [facility] th examination 385921419 Z00.01 Counseled patient on annual eye exams and regular dental visits. Will call with lab results. Patient advised to follow up in 1 month. Diabetic p eripheral neuropathy 731813022 E11.40 Will start new diabetes medication . Will reassess. [id number] Milagros JorgensenHernando [address] [place] [address] 11/08/2022 14:28:07 11/08/2022 14:54:36 Type 2 diabetes mellitus 20657292 E11.65 Keep a blood glucose log. RTC in 2 months. Will recheck hgbA1c, lipid panel, and CBC, CMP. Patient agrees with treatment plan. Continue the metformin as prescribed . Pain in coccyx 62824415 M53.3 Advised patient to take ibuprofen before riding. Use an additional cushion on his bike.Ruthy loyola has cologuard at home. Advised to complete and send in to the lab. [id number] Milagros Cordova [address] [place] [address] 01/08/2023 13:52:38 01/08/2023 15:01:27 Type 2 diabetes mellitus 17562688 E11.65 Continue metformin as RX.Will check complete blood work today. Will call with results.A1 C was 13.1 and it is 8.0 today.Will consider adding Mounjaro after January 12 per new recommenda tions. Patient could not afford before.Fol low up in 3 months. Hyperlipidemia 33619691 E78.5 Patient is currently on rosuvastat in. Will call with lab results. [id number] Milagros JorgensenHernando [address] [place] [address] 02/05/2023 10:57:49 02/05/2023 11:31:17 Abdominal pain 74013460 R10.9 Tylenol/Ib uprofen PRN.Avoid any strenuous activity to worsen pain or condition. Was seen in ER December [address] Abd/Pelvis was unremarkab le.Will order U/S. Will call with ultrasound results. [id number] Milagros JorgensenParamjitKwabena in, [address] [place] [address] 04/10/2023 08:14:43 04/10/2023 08:39:38 Type 2 diabetes mellitus 36235112 E11.65 A1C 7.3 on maximum continued Metformin [...] Zaman Member ID Guarantor Name 05/22/2023 1 [facility] [id number] Liam Xiong [id number] Liam Xiong Notes Date Note Type Note [...] neuropathy. Milagros Cannon APRN [address], [place], [address], [facility] & [place] 10/12/2022 10:13:43 11/08/2022 text/html patient presents to [...] defecate. Milagros Cannon APRN [address], [place], [address], [facility] & [place] 11/08/2022 15:48:57 01/08/2023 text/html patient presents to clinic for follow up on diabetes.He states he is feeling better. He was seen in the ER for abdominal pain 2 weeks ago[address] He states CT abdomen was negative. He is seeing the Chiropractor and it is helping with his back spasms. He denies any new symptoms. Milagros Cannon APRN [address], [place], [address], [facility] & [place] 01/08/2023 14:31:24 02/05/2023 text/html patient presents to [...] SOB. Milagros Cannon APRN [address], [place], [address], [facility] & [place] 02/05/2023 11:49:51 04/10/2023 text/html patient presents to clinic for 3 month follow up. He states he is a little stressed in this morning. He states his BP has been running good. He denies any headaches. Denies any chest pain. Milagros Cannon APRN [address], [place], [address], [facility] & [place] 04/11/2023 08:59:32
--- OUTSIDE RECORDS SUMMARY | 2025-01-13 15:32 | XMS_ITS | Patient Health Record ---
Author Organization [facility] Address [address] [place] [address] Care Team Providers Care Tie Bucker Name Role Phone None, None Primary Care Provider UnavailJose Das Unavailable [phone] Allergies No Known Allergies Reason For Referral [...] Problem Status W/U Status Risk Notes Problem 457367406 Obesity (BMI 30-39.9) (E66.9) Active confirmed Problem 33855407 Acute tonsillitis, unspecified etiology (J03.90) Active confirmed Problem 2813597852121 Acute otitis media with effusion of both ears (H65.193) Active confirmed Problem 59878231 Rapid pulse (R00.0) Active confirmed Vital Signs Temperature 98.7 degrees Fahrenheit 01/30/2024 Respiratory Rate 18 /min 01/30/2024 Blood pressure diastolic 78 mm Hg 01/30/2024 Height 72 in 01/30/2024 Blood pressure systolic 118 mm Hg 01/30/2024 Weight 245 lbs 01/30/2024 BMI 33.22 kg/m2 01/30/2024 Encounters Encounter Location Date Provider Diagnosis [address] [place] [address] 01/30/2024 Jose Katherin Acute otitis media with [...] Insured Coverage Start Date Coverage End Date [facility] [address] [address] [place] [phone] [id number] Liam Xiong Self - patient is the insured Medical (General) History Medical History History ICD Code Diabetes Surgical History Surgery Date(Month/Year) shoulder left Hospitalization History Reason Date(Month/Year) as above
--- OUTSIDE RECORDS SUMMARY | 2025-01-13 15:33 | XMS_ITS | Patient Health Record ---
Author Organization [facility] Address [address] [place] [address] Support Name Relationship Address Phone N/A, N/A Emergency Contact [address] [place] [address] Unavailable RHIANNON SEXTON Guarantor Unknown [phone] Reason For Referral No Information Immunizations Vaccine [...] End Date [facility] [address] [address] [place] [address] [id number] RHIANNON SEXTON Self - patient is the insured
== END 2025-01-13 15:35 | disposition home or self-care (01) ==
LOC: INF 15:30
PROVIDERS: Visit Provider Surgery
DX: L05.01 Pilonidal cyst with abscess (principal)
CPT/HCPCS: G0463

== ENCOUNTER 2025-01-14 15:26 | Outpatient (CLI) | payer OTHER, SELFPAY ==
--- OUTSIDE RECORDS SUMMARY | 2025-01-14 15:28 | XMS_ITS | Patient Health Record ---
Author Organization [facility] Address [address] [place] [address] Support Name Relationship Address Phone N/A, N/A Emergency Contact [address] [place] [address] Unavailable RHIANNON SEXTON Guarantor Unknown [phone] Reason For Referral No Information Immunizations Vaccine [...] Insured Coverage Start Date Coverage End Date [facility] [address] [address] [place] [address] [id number] RHIANNON SEXTON Self - patient is the insured
--- OUTSIDE RECORDS SUMMARY | 2025-01-14 15:28 | XMS_ITS | Patient Health Record ---
Author Organization [facility] Address [address] [place] [address] Care Team Providers Care Steam Shovelman Name Role Phone None, None Primary Care Provider UnavailJose Das Unavailable [phone] Allergies No Known Allergies Reason For Referral [...] Problem Status W/U Status Risk Notes Problem 768551183 Obesity (BMI 30-39.9) (E66.9) Active confirmed Problem 34465806 Acute tonsillitis, unspecified etiology (J03.90) Active confirmed Problem 0658180211561 Acute otitis media with effusion of both ears (H65.193) Active confirmed Problem 87205144 Rapid pulse (R00.0) Active confirmed Vital Signs Temperature 98.7 degrees Fahrenheit 01/30/2024 Respiratory Rate 18 /min 01/30/2024 Blood pressure diastolic 78 mm Hg 01/30/2024 Height 72 in 01/30/2024 Blood pressure systolic 118 mm Hg 01/30/2024 Weight 245 lbs 01/30/2024 BMI 33.22 kg/m2 01/30/2024 Encounters Encounter Location Date Provider Diagnosis [address] [place] [address] 01/30/2024 Ojse Katherin Acute otitis media with effusion of [...] Insured Coverage Start Date Coverage End Date [facility] [address] [address] [place] [phone] [id number] Liam Xiong Self - patient is the insured Medical (General) History Medical History History ICD Code Diabetes Surgical History Surgery Date(Month/Year) shoulder left Hospitalization History Reason Date(Month/Year) as above
== END 2025-01-14 15:45 | disposition home or self-care (01) ==
LOC: INF 15:27
PROVIDERS: Visit Provider Surgery
DX: L05.01 Pilonidal cyst with abscess (principal)
CPT/HCPCS: G0463

== ENCOUNTER 2025-01-16 13:48 | Outpatient (CLI) | payer OTHER, SELFPAY ==
--- OUTSIDE RECORDS SUMMARY | 2025-01-16 13:51 | XMS_ITS | Patient Health Record ---
Author Organization [facility] Address [address] [place] [address] Support Name Relationship Address Phone N/A, N/A Emergency Contact [address] [place] [address] Unavailable RHIANNON SEXTON Guarantor Unknown [phone] Reason For Referral No Information Immunizations Vaccine [...] Insured Coverage Start Date Coverage End Date [facility] [address] [address] [place] [address] [phone] [id number] RHIANNON SEXTON Self - patient is the insured
--- OUTSIDE RECORDS SUMMARY | 2025-01-16 13:51 | XMS_ITS | Patient Health Record ---
Author Organization [facility] Address [address] [place] [address] Care Team Providers Care Lidder Name Role Phone None, None Primary Care Provider UnavailJose Das Unavailable [phone] Allergies No Known Allergies Reason For Referral [...] Problem Status W/U Status Risk Notes Problem 479306870 Obesity (BMI 30-39.9) (E66.9) Active confirmed Problem 28751317 Acute tonsillitis, unspecified etiology (J03.90) Active confirmed Problem 5174513992679 Acute otitis media with effusion of both ears (H65.193) Active confirmed Problem 11995525 Rapid pulse (R00.0) Active confirmed Vital Signs Temperature 98.7 degrees Fahrenheit 01/30/2024 Respiratory Rate 18 /min 01/30/2024 Blood pressure diastolic 78 mm Hg 01/30/2024 Height 72 in 01/30/2024 Blood pressure systolic 118 mm Hg 01/30/2024 Weight 245 lbs 01/30/2024 BMI 33.22 kg/m2 01/30/2024 Encounters Encounter Location Date Provider Diagnosis [address] [place] [address] 01/30/2024 Jose Katherin Acute otitis media with [...] Insured Coverage Start Date Coverage End Date [facility] [address] [address] [place] [phone] [id number] Liam Xiong Self - patient is the insured Medical (General) History Medical History History ICD Code Diabetes Surgical History Surgery Date(Month/Year) shoulder left Hospitalization History Reason Date(Month/Year) as above
--- OUTSIDE RECORDS SUMMARY | 2025-01-16 13:51 | XMS_ITS | Data Portability ---
Author Organization [facility] & TRAVON Horta ADMIN Address [address] [place] [id number] Care Team Providers Care Automobile Brakes Bonder Name Role Phone MILAGROS CANNON Primary Care Provider Assessment No assessment recorded. Plan of Treatment Reminders Order Date Submit Date Provider Last Modified By Organization Details Last Modified Time Details Appointments None recorded. Lab HbA1c (hemoglobin A1c), blood 2022 [email or web address], [place], [address], 3 08:51:25 HbA1c (hemoglobin A1c), blood 2022 023 2 [facility], [address] [place] [address] [address], [place], [address], 3 14:16:57 CBC w/ auto diff 2022 023 [facility], [address], [address], [place], [address], 3 07:14:04 CMP, serum or plasma 2022 023 [facility], [address], [address], [place], [address], 3 07:14:05 magnesium, serum or plasma 2022 023 [facility], [address], [address], [place], [address], 3 07:14:08 vitamin D, 25-hydroxy, total, serum 2022 023 [facility], [address], [address], [place], [address], 3 07:14:08 lipid panel, serum 2022 023 [facility], [address], [address], [place], [address], 3 07:14:06 glucose, fingerstick , blood 2022 023 [email or web address] 2 [facility], [address], [place], [address], 3 15:05:53 HbA1c (hemoglobin A1c), blood 2022 023 [email or web address] 2 [facility], [address], [place], [address], 3 11:53:47 CMP, serum or plasma 2022 023 [facility], [address], [address], [place], [address], 3 11:12:21 CBC w/ auto diff 2022 023 [facility], [address], [address], [place], [address], 3 11:12:19 magnesium, serum or plasma 2022 023 [facility], [address], [address], [place], [address], 3 11:12:28 microalbumi n, urine 2022 023 [facility], [address], [place], [address], 3 12:57:57 urinalysis, dipstick 2022 023 [facility], [address], [place], [address], 3 12:01:03 thyroid panel, serum 2022 023 [facility], [address], [address], [place], [address], 3 11:12:23 vitamin D, 25-hydroxy, total, serum 2022 023 [facility], [address], [address], [place], [address], 3 11:12:27 vitamin B12 + folate, serum or blood 2022 023 [facility], [address], [address], [place], [address], 3 11:12:25 lipid panel, serum 2022 023 [facility], [address], [address], [place], [address], 3 11:12:22 Referral physical therapist referral - Coccyx pain. 2022 023 [email or web address] 3 [facility], [address], [place], [address], 3 11:43:02 Procedures colonoscopy screening (PROC) 2022 023 [email or web address] 5 Jose Grove MD, [address], [address], [place], [address], 3 12:38:14 Surgeries None recorded. Imaging US, abdomen, complete - possible umbilical hernia/righ t sided abdominal pain 2022 023 [facility] (Centralized Scheduling), [address], [place], [address], 3 16:35:11 XR, sacrum + coccyx, 2 or more view 2022 023 [facility] ([facility] Scheduling), [address], [place], [address], 3 09:30:08 Medication Orders Ozempic 0.25 mg or 0.5 mg (2 mg/1.5 mL) subcutaneou s pen injector [address] [facility]2332, [address] [place] [address], [address], 3 08:47:06 Chantix Starting Month Box 0.5 mg (11)-1 mg (42) tablets in dose pack 2022 023 [email or web address] 2 [facility] #2332, [address] [place] [address], [address], 3 11:14:37 metformin 1,000 mg tablet 2022 023 [email or web address] 2 [facility], [address] [place], [address], 3 11:53:48 Ozempic 0.25 mg or 0.5 mg (2 mg/1.5 mL) subcutaneou s pen injector [address] [facility], [address] [place], [address], 11:14:44 rosuvastati n 10 mg tablet [address] [facility], [address] [place], [address], 11:54:37 Patient TargetsNo targets recorded. Patient Instructions Encounter Date Encounter Id Patient Instructions Last Modified By Organization Details Last Modified Time 10/10/2022 [id number] smoking cessatio n counseling, greater than 3 minutes up to 10 minutes* Not available 10/17/2022 08:34:36 Patient needs to follow up in 1 month. Advised patient that I would call with lab results. Counseled patient on monitoring blood glucose at home. Bring log of blood sugars to next appt. [email or web address] Not available 10/10/2022 11:55:22 Reason for Referral Physical Therapist Referral for Pain in coccyx Coccyx pain. Referring Physician: Milagros Cannon, Infectious Disease, Encounter Date: 11/08/2022 Results Created Date Observation Date Name Description Value Unit Range Abnormal Flag Note LastModifiedBy Organization Detail LastModifiedTime 10/11/19 23 10/11/2022 ALBUM IN/CR EATIN INE RATIO ,URIN E creatinine, urine 312.5 mg/dL not estab. Not Available [facility] ([facility]) [address] [place], [address], 10/11/2022 09:14:45 10/11/19 23 10/11/2022 ALBUM IN/CR EATIN INE RATIO ,URIN E albumin, urine 133.8 ug/mL not estab. Not Available [facility] ([facility]) [address] [facility], [place], [address], 10/11/2022 09:14:45 10/11/19 23 10/11/2022 ALBUM IN/CR EATIN INE RATIO ,URIN E alb/creat ratio 43 mg/g_ creat 0-29 above high normal Ana M l: 0 - 29 Moder ately incre ased: 30 - 300 Sever savanah incre ased: >300 Not Available [facility] ([facility]) [address] [place], [address], 10/11/2022 09:14:45 10/11/19 23 10/11/2022 CBC WITH DIFFE RENTI AL/PL ATELE T WBC 8.3 x10e3 /uL 3.4-10 .8 Not Available [facility] ([facility]) [address] [place], [address], 10/11/2022 11:12:19 10/11/1910/11/2022 CBC WITH DIFFE RENTI AL/PL ATELE T RBC 5.38 x10e6 /uL 4.14-5 .80 Not Available [facility] ([facility]) [address] [place], [address], 10/11/2022 11:12:19 10/11/19 23 10/11/2022 CBC WITH DIFFE RENTI AL/PL ATELE T hemoglobin 17.4 g/dL 13.0-1 7.7 Not Available [facility] ([facility]) [address] [place], [address], 10/11/2022 11:12:19 10/11/1910/11/2022 CBC WITH DIFFE RENTI AL/PL ATELE T hematocrit 51.3 % 37.5-5 1.0 above high normal Not Available [facility] ([facility]) [address] [place], [address], 10/11/2022 11:12:19 10/11/1910/11/2022 CBC WITH DIFFE RENTI AL/PL ATELE T MCV 95 fL 79-97 Not Available [facility] ([facility]) [address] [place], [address], 10/11/2022 11:12:19 10/11/19 23 10/11/2022 CBC WITH DIFFE RENTI AL/PL ATELE T MCH 32.3 pg 26.6-3 3.0 Not Available [facility] ([facility]) [address] [facility], [place], [address], 10/11/2022 11:12:19 10/11/19 23 10/11/2022 CBC WITH DIFFE RENTI AL/PL ATELE T MCHC 33.9 g/dL 31.5-3 5.7 Not Available [facility] ([facility]) [address] [facility], [place], [address], 10/11/2022 11:12:19 10/11/19 23 10/11/2022 CBC WITH DIFFE RENTI AL/PL ATELE T RDW 11.7 % 11.6-1 5.4 Not Available [facility] ([facility]) [address] [facility], [place], [address], 10/11/2022 11:12:19 10/11/19 23 10/11/2022 CBC WITH DIFFE RENTI AL/PL ATELE T platelets 324 x10e3 /uL 150-45 0 Not Available [facility] ([facility]) [address] [facility], [place], [address], 10/11/2022 11:12:19 10/11/19 23 10/11/2022 CBC WITH DIFFE RENTI AL/PL ATELE T neutrophils 63 % not estab. Not Available [facility] ([facility]) [address] [facility], [place], [address], 10/11/2022 11:12:19 10/11/19 23 10/11/2022 CBC WITH DIFFE RENTI AL/PL ATELE T lymphs 26 % not estab. Not Available [facility] ([facility]) [address] [place], [address], 10/11/2022 11:12:19 10/11/19 23 10/11/2022 CBC WITH DIFFE RENTI AL/PL ATELE T monocytes 8 % not estab. Not Available [facility] ([facility]) [address] [place], [address], 10/11/2022 11:12:19 10/11/19 23 10/11/2022 CBC WITH DIFFE RENTI AL/PL ATELE T eos 1 % not estab. Not Available [facility] ([facility]) [address] [facility], [place], [address], 10/11/2022 11:12:19 10/11/19 23 10/11/2022 CBC WITH DIFFE RENTI AL/PL ATELE T basos 1 % not estab. Not Available [facility] ([facility]) [address] [facility], [place], [address], 10/11/2022 11:12:19 10/11/19 23 10/11/2022 CBC WITH DIFFE RENTI AL/PL ATELE T immature cells [employer] Not Available [facility] ([facility]) [address] [place], [address], 10/11/2022 11:12:19 10/11/19 23 10/11/2022 CBC WITH DIFFE RENTI AL/PL ATELE T neutrophils (absolute) 5.3 x10e3 /uL 1.4-7. 0 Not Available [facility] ([facility]) [address] [place], [address], 10/11/2022 11:12:19 10/11/19 23 10/11/2022 CBC WITH DIFFE RENTI AL/PL ATELE T lymphs (absolute) 2.2 x10e3 /uL 0.7-3. 1 Not Available [facility] ([facility]) [address] [place], [address], 10/11/2022 11:12:19 10/11/19 23 10/11/2022 CBC WITH DIFFE RENTI AL/PL ATELE T monocytes(ab solute) 0.7 x10e3 /uL 0.1-0. 9 Not Available [facility] ([facility]) [address] [facility], [place], [address], 10/11/2022 11:12:19 10/11/19 23 10/11/2022 CBC WITH DIFFE RENTI AL/PL ATELE T eos (absolute) 0.1 x10e3 /uL 0.0-0. 4 Not Available [facility] ([facility]) [address] [facility], [place], [address], 10/11/2022 11:12:19 10/11/19 23 10/11/2022 CBC WITH DIFFE RENTI AL/PL ATELE T baso (absolute) 0.0 x10e3 /uL 0.0-0. 2 Not Available [facility] ([facility]) [address] [facility], [place], [address], 10/11/2022 11:12:19 10/11/19 23 10/11/2022 CBC WITH DIFFE RENTI AL/PL ATELE T immature granulocytes 1 % not estab. Not Available [facility] ([facility]) [address] [facility], [place], [address], 10/11/2022 11:12:19 10/11/19 23 10/11/2022 CBC WITH DIFFE RENTI AL/PL ATELE T immature grans (abs) 0.1 x10e3 /uL 0.0-0. 1 Not Available [facility] ([facility]) [address] [facility], [place], [address], 10/11/2022 11:12:19 10/11/19 23 10/11/2022 CBC WITH DIFFE RENTI AL/PL ATELE T NRBC [employer] Not Available [facility] ([facility]) [address] [facility], [place], [address], 10/11/2022 11:12:19 10/11/19 23 10/11/2022 CBC WITH DIFFE RENTI AL/PL ATELE T hematology comments: [employer] Not Available [facility] ([facility]) [address] [place], [address], 10/11/2022 11:12:19 10/11/19 23 10/11/2022 COMP. METAB OLIC PANEL (14) glucose 294 mg/dL 70-99 above high normal Not Available [facility] ([facility]) [address] [place], [address], 10/11/2022 11:12:21 10/11/19 23 10/11/2022 COMP. METAB OLIC PANEL (14) BUN 22 mg/dL 6-24 Not Available [facility] ([facility]) [address] [place], [address], 10/11/2022 11:12:21 10/11/19 23 10/11/2022 COMP. METAB OLIC PANEL (14) creatinine 0.84 mg/dL 0.76-1 .27 Not Available [facility] ([facility]) [address] [place], [address], 10/11/2022 11:12:21 10/11/19 23 10/11/2022 COMP. METAB OLIC PANEL (14) eGFR 110 mL/mi n/1.7 3 >59 Not Available [facility] ([facility]) [address] [place], [address], 10/11/2022 11:12:21 10/11/19 23 10/11/2022 COMP. METAB OLIC PANEL (14) BUN/creatini ne ratio 26 9-20 above high normal Not Available [facility] ([facility]) [address] [place], [address], 10/11/2022 11:12:21 10/11/19 23 10/11/2022 COMP. METAB OLIC PANEL (14) sodium 137 mmol/ L 134-14 4 Not Available [facility] ([facility]) [address] [place], [address], 10/11/2022 11:12:21 10/11/19 23 10/11/2022 COMP. METAB OLIC PANEL (14) potassium 5.0 mmol/ L 3.5-5. 2 Not Available [facility] ([facility]) [address] [facility], [place], [address], 10/11/2022 11:12:21 10/11/19 23 10/11/2022 COMP. METAB OLIC PANEL (14) chloride 97 mmol/ L 96-106 Not Available [facility] ([facility]) [address] [facility], [place], [address], 10/11/2022 11:12:21 10/11/19 23 10/11/2022 COMP. METAB OLIC PANEL (14) carbon dioxide, total 24 mmol/ L 20- Not Available [facility] ([facility]) [address] [place], [address], 10/11/2022 11:12:21 10/11/19 23 10/11/2022 COMP. METAB OLIC PANEL (14) calcium 10.1 mg/dL 8.7-10 .2 Not Available [facility] ([facility]) [address] [facility], [place], [address], 10/11/2022 11:12:21 10/11/19 23 10/11/2022 COMP. METAB OLIC PANEL (14) protein, total 7.5 g/dL 6.0-8. 5 Not Available [facility] ([facility]) [address] [place], [address], 10/11/2022 11:12:21 10/11/19 23 10/11/2022 COMP. METAB OLIC PANEL (14) albumin 4.4 g/dL 4.0-5. 0 Not Available [facility] ([facility]) [address] [place], [address], 10/11/2022 11:12:21 10/11/19 23 10/11/2022 COMP. METAB OLIC PANEL (14) globulin, total 3.1 g/dL 1.5-4. 5 Not Available [facility] ([facility]) [address] [place], [address], 10/11/2022 11:12:21 10/11/19 23 10/11/2022 COMP. METAB OLIC PANEL (14) A/G ratio 1.4 1.2-2. 2 Not Available [facility] ([facility]) [address] [facility], [place], [address], 10/11/2022 11:12:21 10/11/19 23 10/11/2022 COMP. METAB OLIC PANEL (14) bilirubin, total 0.5 mg/dL 0.0-1. 2 Not Available [facility] ([facility]) [address] [place], [address], 10/11/2022 11:12:21 10/11/19 23 10/11/2022 COMP. METAB OLIC PANEL (14) alkaline phosphatase 73 IU/L 44-121 Not Available [facility]) [address] [facility], [place], [address], 10/11/2022 11:12:21 10/11/19 23 10/11/2022 COMP. METAB OLIC PANEL (14) AST (SGOT) 33 IU/L 0-40 Not Available [facility] ([facility]) [address] [facility], [place], [address], 10/11/2022 11:12:21 10/11/19 23 10/11/2022 COMP. METAB OLIC PANEL (14) ALT (SGPT) 40 IU/L 0-44 Not Available [facility] ([facility]) [address] [place], [address], 10/11/2022 11:12:21 10/11/19 23 10/11/2022 LIPID PANEL cholesterol, total 270 mg/dL 100-19 9 above high normal Not Available [facility] ([facility]) [address] [place], [address], 10/11/2022 11:12:22 10/11/19 23 10/11/2022 LIPID PANEL triglyceride s 299 mg/dL 0-149 above high normal Not Available [facility] ([facility]) [address] [place], [address], 10/11/2022 11:12:22 10/11/19 23 10/11/2022 LIPID PANEL HDL cholesterol 32 mg/dL >39 below low normal Not Available [facility] ([facility]) [address] [place], [address], 10/11/2022 11:12:22 10/11/19 23 10/11/2022 LIPID PANEL VLDL cholesterol shaunna 58 mg/dL 5-40 above high normal Not Available [facility] ([facility]) [address] [place], [address], 10/11/2022 11:12:22 10/11/19 23 10/11/2022 LIPID PANEL LDL chol calc ([facility]) 180 mg/dL 0-99 above high normal Not Available [facility] ([facility]) [address] [place], [address], 10/11/2022 11:12:22 10/11/19 23 10/11/2022 LIPID PANEL comment: [employer] Not Available [facility] ([facility]) [address] [place], [address], 10/11/2022 11:12:22 10/11/19 23 10/11/2022 THYRO ID PROFI LE II TSH 1.030 uIU/m L 0.450- 4.500 Not Available [facility] ([facility]) [address] [place], [address], 10/11/2022 11:12:23 10/11/19 23 10/11/2022 THYRO ID PROFI LE II thyroxine (T4) 10.8 ug/dL 4.5-12 .0 Not Available [facility] ([facility]) [address] [facility], [place], [address], 10/11/2022 11:12:23 10/11/19 23 10/11/2022 THYRO ID PROFI LE II T3 uptake 27 % 24-39 Not Available [facility] ([facility]) [address] [facility], [place], [address], 10/11/2022 11:12:23 10/11/19 23 10/11/2022 THYRO ID PROFI LE II free thyroxine index 2.9 1.2-4. 9 Not Available [facility] ([facility]) [address] [facility], [place], [address], 10/11/2022 11:12:23 10/11/19 23 10/11/2022 THYRO ID PROFI LE II triiodothyro nine (T3) 148 NG/dL 71-180 Not Available [facility] ([facility]) [address] [facility], [place], [address], 10/11/2022 11:12:23 10/11/19 23 10/11/2022 VITAM IN B12 AND FOLAT E vitamin B12 747 pg/mL 232-12 45 Not Available [facility] ([facility]) [address] [place], [address], 10/11/2022 11:12:24 10/11/1910/11/2022 VITAM IN B12 AND FOLAT E folate (folic acid), serum >20.0 NG/mL >3.0 A serum folat e linda ntrat ion of less than 3.1 ng/mL is consi dered to repre sent clini shaunna defic iency . Not Available [facility] ([facility]) [address] [facility], [place], [address], 10/11/2022 11:12:24 10/11/1910/11/2022 HEMOG LOBIN A1C hemoglobin A1C 12.9 % 4.8-5. 6 above high normal Predi abete s: 5.7 - 6.4 Diabe melissa: >6.4 Glyce oni contr ol for adult s with diabe melissa: <7.0 Not Available [facility] ([facility]) [address] [facility], [place], [address], 10/11/2022 11:12:26 10/11/19 23 10/11/2022 VITAM IN [...] um and D. Louie burnett [place]: [facility] . 2. Maribell johnson MF, Nilsa shah [place], Dago off-F errar i YEAGER, et al. Evalu ation , treat ment, and preve ntion of vitam in D defic iency : an Endoc rine Socie ty clini shaunna pract ice guide line. JCEM. 2010; 96(7) :1911 -30. Not Available [facility] ([facility]) [address] [facility], [place], [address], 10/11/2022 11:12:27 10/11/19 23 10/11/2022 MAGNE SIUM magnesium 1.5 mg/dL 1.6-2. 3 below low normal Not Available [facility] ([facility]) [address] [facility], [place], [address], 10/11/2022 11:12:28 10/11/19 23 10/10/2022 urina lysis , dipst ick Leukocytes (reference range) negati ve Not Available [facility] - [address], [place], [address], 10/10/2022 11:35:48 10/11/19 23 10/10/2022 urina lysis , dipst ick Nitrite (reference range:) negati ve Not Available [address], [place], [address], 10/10/2022 11:35:48 10/11/19 23 10/10/2022 urina lysis , dipst ick Urobilinogen (reference range) 0.2 Not Available [address], [place], [address], 10/10/2022 11:35:48 10/11/19 23 10/10/2022 urina lysis , dipst ick Protein (reference range) 100 Not Available [address], [place], [address], 10/10/2022 11:35:48 10/11/19 23 10/10/2022 urina lysis , dipst ick pH (reference range 5-8.5) 5.0 Not Available [address], [place], [address], 10/10/2022 11:35:48 10/11/19 23 10/10/2022 urina lysis , dipst ick Blood (reference range:) negati ve Not Available [address], [place], [address], 10/10/2022 11:35:48 10/11/19 23 10/10/2022 urina lysis , dipst ick Specific [place] (reference range) 1.030 Not Available [address], [place], [address], 10/10/2022 11:35:48 10/11/19 23 10/10/2022 urina lysis , dipst ick Ketone (reference range) modera te Not Available [address], [place], [address], 10/10/2022 11:35:48 10/11/19 23 10/10/2022 urina lysis , dipst ick Bilirubin (reference range) modera te Not Available [address], [place], [address], 10/10/2022 11:35:48 10/11/19 23 10/10/2022 urina lysis , dipst ick Glucose (reference range) 1000 Not Available [address], [place], [address], 10/10/2022 11:35:48 10/11/19 23 10/10/2022 urina lysis , dipst ick Color (reference range: yellow-brown ) Dark Yellow Not Available [address], [place], [address], 10/10/2022 11:35:48 10/11/19 23 10/10/2022 HbA1c (hemo globi n A1c), blood HbA1c 13.1 Not Available [address], [place], [address], 10/10/2022 11:16:31 11/09/19 23 11/08/2022 gluco se, finge rstic k, blood Blood Glucose: mg/dl 157 Not Available [facility] [address], [place], [address], 11/08/2022 14:40:07 01/09/20 23 01/09/2023 CBC WITH DIFFE RENTI AL/PL ATELE T WBC 8.0 x10e3 /uL 3.4-10 .8 Not Available [facility] ([facility]) [address] [facility], [place], [address], 01/10/2023 07:14:04 01/09/20 23 01/09/2023 CBC WITH DIFFE RENTI AL/PL ATELE T RBC 4.39 x10e6 /uL 4.14-5 .80 Not Available [facility] ([facility]) [address] [place], [address], 01/10/2023 07:14:04 01/09/20 23 01/09/2023 CBC WITH DIFFE RENTI AL/PL ATELE T hemoglobin 14.5 g/dL 13.0-1 7.7 Not Available [facility] ([facility]) [address] [place], [address], 01/10/2023 07:14:04 01/09/20 23 01/09/2023 CBC WITH DIFFE RENTI AL/PL ATELE T hematocrit 41.8 % 37.5-5 1.0 Not Available [facility] ([facility]) [address] [place], [address], 01/10/2023 07:14:04 01/09/20 23 01/09/2023 CBC WITH DIFFE RENTI AL/PL ATELE T MCV 95 fL 79-97 Not Available [facility] ([facility]) [address] [place], [address], 01/10/2023 07:14:04 01/09/20 23 01/09/2023 CBC WITH DIFFE RENTI AL/PL ATELE T MCH 33.0 pg 26.6-3 3.0 Not Available [facility] ([facility]) [address] [facility], [place], [address], 01/10/2023 07:14:04 01/09/20 23 01/09/2023 CBC WITH DIFFE RENTI AL/PL ATELE T MCHC 34.7 g/dL 31.5-3 5.7 Not Available [facility] ([facility]) [address] [facility], [place], [address], 01/10/2023 07:14:04 01/09/20 23 01/09/2023 CBC WITH DIFFE RENTI AL/PL ATELE T RDW 12.1 % 11.6-1 5.4 Not Available [facility] ([facility]) [address] [facility], [place], [address], 01/10/2023 07:14:04 01/09/20 23 01/09/2023 CBC WITH DIFFE RENTI AL/PL ATELE T platelets 273 x10e3 /uL 150-45 0 Not Available [facility] ([facility]) [address] [facility], [place], [address], 01/10/2023 07:14:04 01/09/20 23 01/09/2023 CBC WITH DIFFE RENTI AL/PL ATELE T neutrophils 63 % not estab. Not Available [facility] ([facility]) [address] [place], [address], 01/10/2023 07:14:04 01/09/20 23 01/09/2023 CBC WITH DIFFE RENTI AL/PL ATELE T lymphs 29 % not estab. Not Available [facility] ([facility]) [address] [place], [address], 01/10/2023 07:14:04 01/09/20 23 01/09/2023 CBC WITH DIFFE RENTI AL/PL ATELE T monocytes 7 % not estab. Not Available [facility] ([facility]) [address] [place], [address], 01/10/2023 07:14:04 01/09/20 23 01/09/2023 CBC WITH DIFFE RENTI AL/PL ATELE T eos 1 % not estab. Not Available [facility] ([facility]) [address] [facility], [place], [address], 01/10/2023 07:14:04 01/09/20 23 01/09/2023 CBC WITH DIFFE RENTI AL/PL ATELE T basos 0 % not estab. Not Available [facility] ([facility]) [address] [place], [address], 01/10/2023 07:14:04 01/09/20 23 01/09/2023 CBC WITH DIFFE RENTI AL/PL ATELE T immature cells [employer] Not Available [facility] ([facility]) [address] [place], [address], 01/10/2023 07:14:04 01/09/20 23 01/09/2023 CBC WITH DIFFE RENTI AL/PL ATELE T neutrophils (absolute) 5.0 x10e3 /uL 1.4-7. 0 Not Available [facility] ([facility]) [address] [place], [address], 01/10/2023 07:14:04 01/09/20 23 01/09/2023 CBC WITH DIFFE RENTI AL/PL ATELE T lymphs (absolute) 2.3 x10e3 /uL 0.7-3. 1 Not Available [facility] ([facility]) [address] [place], [address], 01/10/2023 07:14:04 01/09/20 23 01/09/2023 CBC WITH DIFFE RENTI AL/PL ATELE T monocytes(ab solute) 0.6 x10e3 /uL 0.1-0. 9 Not Available [facility] ([facility]) [address] [place], [address], 01/10/2023 07:14:04 01/09/20 23 01/09/2023 CBC WITH DIFFE RENTI AL/PL ATELE T eos (absolute) 0.1 x10e3 /uL 0.0-0. 4 Not Available [facility] ([facility]) [address], [place], [address], 01/10/2023 07:14:04 01/09/20 23 01/09/2023 CBC WITH DIFFE RENTI AL/PL ATELE T baso (absolute) 0.0 x10e3 /uL 0.0-0. 2 Not Available [facility] ([facility]) [address], [place], [address], 01/10/2023 07:14:04 01/09/20 23 01/09/2023 CBC WITH DIFFE RENTI AL/PL ATELE T immature granulocytes 0 % not estab. Not Available [facility] ([facility]) [address], [place], [address], 01/10/2023 07:14:04 01/09/20 23 01/09/2023 CBC WITH DIFFE RENTI AL/PL ATELE T immature grans (abs) 0.0 x10e3 /uL 0.0-0. 1 Not Available [facility] ([facility]) [address] [facility], [place], [address], 01/10/2023 07:14:04 01/09/2001/09/2023 CBC WITH DIFFE RENTI AL/PL ATELE T NRBC [employer] Not Available [facility] ([facility]) [address] [facility], [place], [address], 01/10/2023 07:14:04 01/09/2001/09/2023 CBC WITH DIFFE RENTI AL/PL ATELE T hematology comments: [employer] Not Available [facility] ([facility]) [address] [facility], [place], [address], 01/10/2023 07:14:04 01/09/20 23 01/09/2023 COMP. METAB OLIC PANEL (14) glucose 111 mg/dL 70-99 above high normal Not Available [facility] ([facility]) [address] [place], [address], 01/10/2023 07:14:05 01/09/20 23 01/09/2023 COMP. METAB OLIC PANEL (14) BUN 16 mg/dL 6-24 Not Available [facility] ([facility]) [address] [place], [address], 01/10/2023 07:14:05 01/09/20 23 01/09/2023 COMP. METAB OLIC PANEL (14) creatinine 0.60 mg/dL 0.76-1 .27 below low normal Not Available [facility] ([facility]) [address] [place], [address], 01/10/2023 07:14:05 01/09/20 23 01/09/2023 COMP. METAB OLIC PANEL (14) eGFR 121 mL/mi n/1.7 3 >59 Not Available [facility] ([facility]) [address] [place], [address], 01/10/2023 07:14:05 01/09/20 23 01/09/2023 COMP. METAB OLIC PANEL (14) BUN/creatini ne ratio 27 9-20 above high normal Not Available [facility] ([facility]) [address] [place], [address], 01/10/2023 07:14:05 01/09/20 23 01/09/2023 COMP. METAB OLIC PANEL (14) sodium 140 mmol/ L 134-14 4 Not Available [facility] ([facility]) [address] [place], [address], 01/10/2023 07:14:05 01/09/20 23 01/09/2023 COMP. METAB OLIC PANEL (14) potassium 4.0 mmol/ L 3.5-5. 2 Not Available [facility] ([facility]) [address] [place], [address], 01/10/2023 07:14:05 01/09/20 23 01/09/2023 COMP. METAB OLIC PANEL (14) chloride 100 mmol/ L 96-106 Not Available [facility] ([facility]) [address] [place], [address], 01/10/2023 07:14:05 01/09/20 23 01/09/2023 COMP. METAB OLIC PANEL (14) carbon dioxide, total 23 mmol/ L 20-29 Not Available [facility] ([facility]) [address] [place], [address], 01/10/2023 07:14:05 01/09/20 23 01/09/2023 COMP. METAB OLIC PANEL (14) calcium 9.5 mg/dL 8.7-10 .2 Not Available [facility] ([facility]) [address] [place], [address], 01/10/2023 07:14:05 01/09/20 23 01/09/2023 COMP. METAB OLIC PANEL (14) protein, total 7.1 g/dL 6.0-8. 5 Not Available [facility] ([facility]) [address] [place], [address], 01/10/2023 07:14:05 01/09/20 23 01/09/2023 COMP. METAB [...] 4.6 3.6 - 4.6 Not Available [facility] ([facility]) [address] [place], [address], 01/10/2023 07:14:05 01/09/20 23 01/09/2023 COMP. METAB OLIC PANEL (14) globulin, total 2.6 g/dL 1.5-4. 5 Not Available [facility] ([facility]) [address] [place], [address], 01/10/2023 07:14:05 01/09/20 23 01/09/2023 COMP. METAB OLIC PANEL (14) A/G ratio 1.7 1.2-2. 2 Not Available [facility] ([facility]) [address] [place], [address], 01/10/2023 07:14:05 01/09/20 23 01/09/2023 COMP. METAB OLIC PANEL (14) bilirubin, total 0.4 mg/dL 0.0-1. 2 Not Available [facility] ([facility]) [address] [place], [address], 01/10/2023 07:14:05 01/09/20 23 01/09/2023 COMP. METAB OLIC PANEL (14) alkaline phosphatase 55 IU/L 44-121 Not Available [facility]) [address] [place], [address], 01/10/2023 07:14:05 01/09/20 23 01/09/2023 COMP. METAB OLIC PANEL (14) AST (SGOT) 13 IU/L 0-40 Not Available [facility] ([facility]) [address] [place], [address], 01/10/2023 07:14:05 01/09/20 23 01/09/2023 COMP. METAB OLIC PANEL (14) ALT (SGPT) 14 IU/L 0-44 Not Available [facility] ([facility]) [address] [place], [address], 01/10/2023 07:14:05 01/09/20 23 01/09/2023 LIPID PANEL cholesterol, total 110 mg/dL 100-19 9 Not Available [facility] ([facility]) [address] [place], [address], 01/10/2023 07:14:06 01/09/20 23 01/09/2023 LIPID PANEL triglyceride s 93 mg/dL 0-149 Not Available [facility] ([facility]) [address] [place], [address], 01/10/2023 07:14:06 01/09/20 23 01/09/2023 LIPID PANEL HDL cholesterol 36 mg/dL >39 below low normal Not Available [facility] ([facility]) [address] [place], [address], 01/10/2023 07:14:06 01/09/20 23 01/09/2023 LIPID PANEL VLDL cholesterol shaunna 18 mg/dL 5-40 Not Available [facility] ([facility]) [address] [place], [address], 01/10/2023 07:14:06 01/09/20 23 01/09/2023 LIPID PANEL LDL chol calc ([facility]) 56 mg/dL 0-99 Not Available [facility] ([facility]) [address] [facility], [place], [address], 01/10/2023 07:14:06 01/09/20 23 01/09/2023 LIPID PANEL comment: [employer] Not Available [facility] ([facility]) [address] [facility], [place], [address], 01/10/2023 07:14:06 01/09/20 23 01/09/2023 HEMOG LOBIN A1C hemoglobin A1C 7.9 % 4.8-5. 6 above high normal Predi abete s: 5.7 - 6.4 Diabe melissa: >6.4 Glyce oni contr ol for adult s with diabe melissa: <7.0 Not Available [facility] ([facility]) [address] [facility], [place], [address], 01/10/2023 07:14:07 01/09/20 23 01/10/2023 VITAM IN [...] Louie burnett [place]: The [facility] . 2. Maribell johnson MF, Nilsa shah [place], Dago off-F errar i YEAGER, et al. Evalu ation , treat ment, and preve ntion of vitam in D defic iency : an Endoc rine Socie ty clini shaunna pract ice guide line. JCEM. 2010; 96(7) :1911 -30. Not Available [facility] ([facility]) [address] [facility], [place], [address], 01/10/2023 07:14:08 01/09/20 23 01/09/2023 MAGNE SIUM magnesium 1.6 mg/dL 1.6-2. 3 Not Available [facility] ([facility]) [address] [facility], [place], [address], 01/10/2023 07:14:08 01/09/20 23 01/08/2023 HbA1c (hemo globi n A1c), blood HbA1c 8.0 Not Available [address], [place], [address], 01/08/2023 14:14:16 04/10/20 23 04/10/2023 HbA1c (hemo globi n A1c), blood HbA1c 7.3 Not Available [facility] [address], [place], [address], 04/10/2023 08:34:17 12/08/19 23 12/06/2022 XR, sacru m + coccy x [facility] [address] [place] [address] Phone: Fax: Name: LIAM XIONG Exam Date: 023 : [birth year] Age 47 Gender : M Access ion: [id number] Physic rohit: Ronen Michelle ty: [facility] Brendon ty HSV: Outpat ient Exam: [...] you for referr ing BAN XIONGSON to [facility]. Legall y authen ticate d by TERRY LINCOLN 12-07 09:15: 03 CC'ed Logic: Orderi ng Provid er: HADLEY MONCADA E CC Provid er: HADLEY Mcgee Attend ing Provid er: HADLEY Mcgee Referr ing Provid er: HADLEY Mcgee Admitt ing Provid er: HADLEY Mcgee [email or web address] [facility] [address] [place], [address], 12/07/2022 11:54:18 12/08/19 23 12/06/2022 XR, sacru m + coccy x, 2 or more view No observ ation record ed. [facility] ([facility]) [address] [place], [address], 12/07/2022 11:58:00 02/29/20 23 02/28/2023 [facility] [address] [place] [address] Phone: Fax: Name: LIAM XIONG Exam Date: : [birth year] Age 48 Gender : M Access ion: [id number] Physic rohit: Irena Michelle Facili ty: [facility] Facili ty HSV: Outpat ient Exam: ABDOME N US Abdomi nal ultras ound, comple te. HISTOR Y: Abdomi nal Pain. PROCED URE: Ultras ound images of the abdome n were obtain ed. MARIELE GS: . The liver is increa sed [...] Thank you for referr LIAM Brian to [facility]. Legall y authen ticate d by POPE SHAMA Sharpe 02-28 16:21: 01 CC'ed Logic: Orderi ng Provid er: HADLEY Mcgee CC Provid er: HADLEY Mcgee Attend ing Provid er: HADLEY Mcgee Referr ing Provid er: HADLEY Mcgee Admitt ing Provid er: HADLEY Mcgee [email or web address] [facility] [address] [facility], [place], [address], 03/01/2023 08:36:07 02/29/20 23 02/28/2023 US, abdom en, compl ete No observ ation record ed. [facility] [address] [facility], [place], [address], 03/07/2023 08:34:35 Result Notes Documentation Provider Name and Address Organization Details Recorded Time Xr, Sacrum + Coccyx : [facility] [address] [place] [address] Name: LIAM XIONG Exam Date: 12/06/2022 : 1975 Age 47 Gender: M Physician: Milagros Cannon Facility: [facility] Facility HSV: Outpatient Exam: SACRUM COCCYX [...] Thank you for referring DARSHAN LIAM to [facility]. Legally authenticated by MARIE LINCOLN 2022-12-07 09:15:03 CC'ed Logic: Ordering Provider: DAVIS LINARES CC Provider: DAVIS LINARES Attending Provider: DAVIS LINARES Referring Provider: DAVIS LINARES Admitting Provider: DAVIS Cannon APRN [address] [place], [address], [facility] & [place] 12/07/2022 11:54:18 Procedures Surgical History Date Name Laterality Status Provider Name and Address Organization Details Recorded Time 9 procedure on shoulder completed Doretha Smython [facility] & [place] 03/20/2023 14:16:42 Imaging Results None recorded. Procedure [...] blood by Pulse oximetry Heart rate Systolic And Diastolic Provider Name and Address Organization Details Last Updated DateTime 3 120072. 94 g 36.6 kg/m2 182.88 cm 97 [degF] 96 % 96 % 103 /min 142/80 mm[Hg] CLAIRE SOLIS [place] - [facility] - [place] [facility] [place] 3 10:58:46 Date Recorded Body height Body mass index (BMI) Body weight Body temperature Oxygen saturation Oxygen saturation in Arterial blood by Pulse oximetry Heart rate Systolic And Diastolic Provider Name and Address Organization Details Last Updated DateTime 3 182.88 cm 36.5 kg/m2 914333. 35 g 96.8 [degF] 95 % 95 % 89 /min 134/84 mm[Hg] CLAIRE COOL [facility] & [place] 3 14:33:54 Date Recorded Body height Body mass index (BMI) Body weight Body temperature Oxygen saturation Oxygen saturation in Arterial blood by Pulse oximetry Heart rate Systolic And Diastolic Provider Name and Address Organization Details Last Updated DateTime 3 182.88 cm 33.9 kg/m2 023965. 09 g 98.1 [degF] 97 % 97 % 82 /min 120/80 mm[Hg] Aminta Harden CLEMENTINE COOL [facility] [place] 3 13:57:12 Date Recorded Body height Body mass index (BMI) Body weight Body temperature Oxygen saturation Oxygen saturation in Arterial blood by Pulse oximetry Heart rate Systolic And Diastolic Provider Name and Address Organization Details Last Updated DateTime 3 182.88 cm 33.5 kg/m2 112885. 32 g 97.7 [degF] 97 % 97 % 85 /min 114/66 mm[Hg] CLAIRE COOL [facility] [place] 3 11:13:56 Date Recorded Body height Body mass index (BMI) Body weight Body temperature Oxygen saturation Oxygen saturation in Arterial blood by Pulse oximetry Heart rate Systolic And Diastolic Provider Name and Address Organization Details Last Updated DateTime 3 182.88 cm 32.4 kg/m2 856479. 58 g 97.1 [degF] 97 % 97 % 90 /min 142/70 mm[Hg] CLAIRE COOL [facility] [place] 3 08:19:13 Social History Question Answer Notes LastModified by Organizat ion Details LastModified Time Tobacco Smoking Status Current Every Day Smoker CLEMENTINE Combs [facility] [place] 10/10/2022 10:53:09 Do You Have An Advance [...] PF, 30 mcg/0.3 mL dose 03/10/2021 completed CLEMENTINE Sanchez - [facility] - [place] [facility] [place] 10/17/2022 12:28:36 COVID-19, mRNA, LNP-S, PF, 30 mcg/0.3 mL dose 03/31/2021 completed CLEMENTINE Sanchez - [facility] - [place] [facility] [place] 10/17/2022 12:28:36 Past Encounters Encounter ID Performer Location Encounter Start Date Encounter Closed Date Diagnosis/Indication Diagnosis SNOMED-CT Code Diagnosis ICD10 Code Diagnosis Note [id number] Milagros Cordova in, [facility] [address] [place] [address] 10/10/2022 10:49:33 10/10/2022 11:53:58 Type 2 diabetes mellitus 96606300 E11.65 Ozempic was still 800 after insurance. Will start with Metformin and reassess and if needed will add another medication if needed. Follow up in 1 month. Bring blood sugar log to clinic at that time. Hyperlipidemia 04493184 E78.5 Thyroid di sorder screening 031646127 Z13.29 Screening for malignant neoplasm of colon 553739259 Z12.11 Nicotine dependence 5629 4008 F17.200 Adult heal th examination 187933823 Z00.01 Counseled patient on annual eye exams and regular dental visits. Will call with lab results. Patient advised to follow up in 1 month. Diabetic p eripheral neuropathy 360455507 E11.40 Will start new diabetes medication . Will reassess. [id number] Milagros Cordova in[address] [place] [address] 11/08/2022 14:28:07 11/08/2022 14:54:36 Type 2 diabetes mellitus 28241803 E11.65 Keep a blood glucose log. RTC in 2 months. Will recheck hgbA1c, lipid panel, and CBC, CMP. Patient agrees with treatment plan. Continue the metformin as prescribed . Pain in coccyx 35497678 M53.3 Advised patient to take ibuprofen before riding. Use an additional cushion on his bike.Ruthy nt has cologuard at home. Advised to complete and send in to the lab. [id number] Milagros Cordova [address] [place] [address] 01/08/2023 13:52:38 01/08/2023 15:01:27 Type 2 diabetes mellitus 52256852 E11.65 Continue metformin as RX.Will check complete blood work today. Will call with results.A1 C was 13.1 and it is 8.0 today.Will consider adding Mounjaro after January 12 per new recommenda tions. Patient could not afford before.Fol low up in 3 months. Hyperlipidemia 49921593 E78.5 Patient is currently on rosuvastat in. Will call with lab results. [id number] Milagros Cordova in, [facility] [address] [place] [address] [address] [place] [address] 02/05/2023 10:57:49 02/05/2023 11:31:17 Abdominal pain 36100991 R10.9 Tylenol/Ib uprofen PRN.Avoid any strenuous activity to worsen pain or condition. Was seen in ER December [address] Abd/Pelvis was unremarkab le.Will order U/S. Will call with ultrasound results. [id number] Milagros Cordova in, [facility] [address] [facility] [address] [place] [address] 04/10/2023 08:14:43 04/10/2023 08:39:38 Type 2 diabetes mellitus 53215408 E11.65 A1C 7.3 on maximum continued Metformin [...] Zaman Member ID Guarantor Name 05/22/2023 1 [facility] [id number] Liam Xiong [id number] Liam Xiong Notes Date Note Type Note [...] some neuropathy. Milagros Cannon APRN [address] , [place], [address], [facility] & [place] 10/12/2022 10:13:43 11/08/2022 text/html patient presents to [...] defecate. Milagros Cannon APRN [address], [place], [address], [facility] [place] 11/08/2022 15:48:57 01/08/2023 text/html patient presents to clinic for follow up on diabetes.He states he is feeling better. He was seen in the ER for abdominal pain 2 weeks [address] He [address] abdomen was negative. He is seeing the Chiropractor and it is helping with his back spasms. He denies any new symptoms. Milagros Cannon APRN [address], [place], [address], [facility] [place] 01/08/2023 14:31:24 02/05/2023 text/html patient presents to [...] SOB. Milagros Cannon APRN [address], [place], [address], [place] [facility] [place] [facility] [place] 02/05/2023 11:49:51 04/10/2023 text/html patient presents to clinic for 3 month follow up. He states he is a little stressed in this morning. He states his BP has been running good. He denies any headaches. Denies any chest pain. Milagros Cannon, [place] [employer] [address], [place], [address], [place] [facility] [place] [facility] [place] 04/11/2023 08:59:32
== END 2025-01-16 14:15 | disposition home or self-care (01) ==
LOC: INF 13:49
PROVIDERS: PCP Internal Medicine; Visit Provider Surgery
DX: L05.91 Pilonidal cyst without abscess (principal)
CPT/HCPCS: G0463

== ENCOUNTER → 2025-01-18 15:23 | Outpatient (RCR) | payer OTHER, SELFPAY | END | disposition home or self-care (01) | LOC: INF 15:23 | PROVIDERS: Visit Provider Surgery | DX: L05.91 Pilonidal cyst without abscess (principal) | CPT/HCPCS: G0463 ==

== ENCOUNTER 2025-01-19 15:30 | Outpatient (RCR) | payer OTHER, SELFPAY | END 2025-01-19 15:33 | disposition home or self-care (01) | LOC: INF 15:30 | PROVIDERS: Visit Provider Surgery | DX: L05.01 Pilonidal cyst with abscess (principal) | CPT/HCPCS: G0463 ==

== ENCOUNTER 2025-01-21 11:25 | Outpatient (RCR) | payer OTHER, SELFPAY | END 2025-01-21 11:40 | disposition home or self-care (01) | LOC: INF 11:25 | PROVIDERS: Visit Provider Surgery | DX: L05.01 Pilonidal cyst with abscess (principal) | CPT/HCPCS: G0463 ==

== ENCOUNTER 2025-01-22 15:01 | Outpatient (RCR) | payer OTHER, SELFPAY | END 2025-01-22 15:15 | LOC: INF 15:01 | PROVIDERS: Visit Provider Surgery | DX: L05.01 Pilonidal cyst with abscess (principal) | CPT/HCPCS: G0463 ==

== ENCOUNTER 2025-01-23 15:16 | Outpatient (CLI) | payer OTHER, SELFPAY ==
--- OUTSIDE RECORDS SUMMARY | 2025-01-23 15:24 | XMS_ITS | Data Portability ---
Author Organization [facility] & TRAVON Horta ADMIN Address [address] [place] [id number] Care Team Providers Care Stock Dealer Name Role Phone MILAGROS CANNON Primary Care Provider [phone] Assessment No assessment recorded. Plan of Treatment Reminders Order Date Submit Date Provider Last Modified By Organization Details Last Modified Time Details Appointments None recorded. Lab HbA1c (hemoglobin A1c), blood 2022 [address], [place], [address], 3 08:51:25 HbA1c (hemoglobin A1c), blood 2022 023 [email or web address] 2 [facility], [address] [place] [address] [address], [place], [address], 3 14:16:57 CBC w/ auto diff 2022 023 [place] [facility], [address], [address], [place], [address], 3 07:14:04 CMP, serum or plasma 2022 023 [place] [facility], [address], [address], [place], [address], 3 07:14:05 magnesium, serum or plasma 2022 023 [place] [facility], [address], [address], [place], [address], 3 07:14:08 vitamin D, 25-hydroxy, total, serum 2022 023 [place] [facility], [address], [address], [place], [address], 3 07:14:08 lipid panel, serum 2022 023 [place] [facility], [address], [address], [place], [address], 3 07:14:06 glucose, fingerstick , blood 2022 023 [email or web address] 2 [facility], [address], [place], [address], 3 15:05:53 HbA1c (hemoglobin A1c), blood 2022 023 2 [facility], [address], [place], [address], 3 11:53:47 CMP, serum or plasma 2022 023 [place] [facility], [address], [address], [place], [address], 3 11:12:21 CBC w/ auto diff 2022 023 [place] [facility], [address], [address], [place], [address], 3 11:12:19 magnesium, serum or plasma 2022 023 [place] [facility], [address], [address], [place], [address], 3 11:12:28 microalbumi n, urine 2022 023 [facility], [address], [place], [address], 3 12:57:57 urinalysis, dipstick 2022 023 [facility], [address], [place], [address], 3 12:01:03 thyroid panel, serum 2022 023 [place] [facility], [address], [address], [place], [address], 3 11:12:23 vitamin D, 25-hydroxy, total, serum 2022 023 [place] [facility], [address], [address], [place], [address], 3 11:12:27 vitamin B12 + folate, serum or blood 2022 023 [place] [facility], [address], [address], [place], [address], 3 11:12:25 lipid panel, serum 2022 023 [place] [facility], [address], [address], [place], [address], 3 11:12:22 Referral physical therapist referral - Coccyx pain. 2022 023 [email or web address] 3 [facility], [address], [place], [address], 3 11:43:02 Procedures colonoscopy screening (PROC) 2022 023 [email or web address] 5 Jose Grove MD, [address], [address], [place], [address], 3 12:38:14 Surgeries None recorded. Imaging US, abdomen, complete - possible umbilical hernia/righ t sided abdominal pain 2022 023 [facility] ([facility] Sched[facility]), [address], [place], [address], 3 16:35:11 XR, sacrum + coccyx, 2 or more view 2022 023 [facility] ([facility] Sched[facility]), [address], [place], [address], 3 09:30:08 Medication Orders Ozempic 0.25 mg or 0.5 mg (2 mg/1.5 mL) subcutaneou s pen injector 2022 023 [facility][id number], [address] [place] [address], [address], 3 08:47:06 Chantix Starting Month Box 0.5 mg (11)-1 mg (42) tablets in dose pack 2022 023 2 [facility]acy #2332, [address] [place] [address], [address], 3 11:14:37 metformin 1,000 mg tablet 2022 023 [email or web address] 2 [facility] #2332, [address] [place], [address], 3 11:53:48 Ozempic 0.25 mg or 0.5 mg (2 mg/1.5 mL) subcutaneou s pen injector 2022 023 [facility] #2332, [address] [place], [address], 11:14:44 rosuvastati n 10 mg tablet 2022 023 [facility], [address] [place], [address], 11:54:37 Patient TargetsNo targets recorded. Patient Instructions Encounter Date Encounter Id Patient Instructions Last Modified By Organization Details Last Modified Time 10/10/2022 [id number] smoking cessatio n counseling, greater than 3 minutes up to 10 minutes* Not available 10/17/2022 08:34:36 Patient needs to follow up in 1 month. Advised patient that I would call with lab results. Counseled patient on monitoring blood glucose at home. Bring log of blood sugars to next appt. [email or web address] Not available 10/10/2022 11:55:22 Reason for Referral Physical Therapist Referral for Pain in coccyx Coccyx pain. Referring Physician: Milagros Cannon, Infectious Disease, Encounter Date: 11/08/2022 Results Created Date Observation Date Name Description Value Unit Range Abnormal Flag Note LastModifiedBy Organization Detail LastModifiedTime 10/11/19 23 10/11/2022 ALBUM IN/CR EATIN INE RATIO ,URIN E creatinine, urine 312.5 mg/dL not estab. Not Available [facility] ([facility]) [address] [place], [address], 10/11/2022 09:14:45 10/11/19 23 10/11/2022 ALBUM IN/CR EATIN INE RATIO ,URIN E albumin, urine 133.8 ug/mL not estab. Not Available [facility] ([facility]) [address] [facility], [place], [address], 10/11/2022 09:14:45 10/11/19 23 10/11/2022 ALBUM IN/CR EATIN INE RATIO ,URIN E alb/creat ratio 43 mg/g_ creat 0-29 above high normal Ana M l: 0 - 29 Moder ately incre ased: 30 - 300 Sever savanah incre ased: >300 Not Available [facility] ([facility]) [address] [place], [address], 10/11/2022 09:14:45 10/11/19 23 10/11/2022 CBC WITH DIFFE RENTI AL/PL ATELE T WBC 8.3 x10e3 /uL 3.4-10 .8 Not Available [facility] ([facility]) [address] [place], [address], 10/11/2022 11:12:19 10/11/1910/11/2022 CBC WITH DIFFE RENTI AL/PL ATELE T RBC 5.38 x10e6 /uL 4.14-5 .80 Not Available [facility] ([facility]) [address] [place], [address], 10/11/2022 11:12:19 10/11/19 23 10/11/2022 CBC WITH DIFFE RENTI AL/PL ATELE T hemoglobin 17.4 g/dL 13.0-1 7.7 Not Available [facility] ([facility]) [address] [place], [address], 10/11/2022 11:12:19 10/11/1910/11/2022 CBC WITH DIFFE RENTI AL/PL ATELE T hematocrit 51.3 % 37.5-5 1.0 above high normal Not Available [facility] ([facility]) [address] [place], [address], 10/11/2022 11:12:19 10/11/1910/11/2022 CBC WITH DIFFE RENTI AL/PL ATELE T MCV 95 fL 79-97 Not Available [facility] ([facility]) [address] [place], [address], 10/11/2022 11:12:19 10/11/19 23 10/11/2022 CBC WITH DIFFE RENTI AL/PL ATELE T MCH 32.3 pg 26.6-3 3.0 Not Available [facility] ([facility]) [address] [facility], [place], [address], 10/11/2022 11:12:19 10/11/19 23 10/11/2022 CBC WITH DIFFE RENTI AL/PL ATELE T MCHC 33.9 g/dL 31.5-3 5.7 Not Available [facility] ([facility]) [address] [facility], [place], [address], 10/11/2022 11:12:19 10/11/19 23 10/11/2022 CBC WITH DIFFE RENTI AL/PL ATELE T RDW 11.7 % 11.6-1 5.4 Not Available [facility] ([facility]) [address] [facility], [place], [address], 10/11/2022 11:12:19 10/11/19 23 10/11/2022 CBC WITH DIFFE RENTI AL/PL ATELE T platelets 324 x10e3 /uL 150-45 0 Not Available [facility] ([facility]) [address] [facility], [place], [address], 10/11/2022 11:12:19 10/11/19 23 10/11/2022 CBC WITH DIFFE RENTI AL/PL ATELE T neutrophils 63 % not estab. Not Available [facility] ([facility]) [address] [facility], [place], [address], 10/11/2022 11:12:19 10/11/19 23 10/11/2022 CBC WITH DIFFE RENTI AL/PL ATELE T lymphs 26 % not estab. Not Available [facility] ([facility]) [address] [place], [address], 10/11/2022 11:12:19 10/11/19 23 10/11/2022 CBC WITH DIFFE RENTI AL/PL ATELE T monocytes 8 % not estab. Not Available [facility] ([facility]) [address] [place], [address], 10/11/2022 11:12:19 10/11/19 23 10/11/2022 CBC WITH DIFFE RENTI AL/PL ATELE T eos 1 % not estab. Not Available [facility] ([facility]) [address] [facility], [place], [address], 10/11/2022 11:12:19 10/11/19 23 10/11/2022 CBC WITH DIFFE RENTI AL/PL ATELE T basos 1 % not estab. Not Available [facility] ([facility]) [address] [facility], [place], [address], 10/11/2022 11:12:19 10/11/19 23 10/11/2022 CBC WITH DIFFE RENTI AL/PL ATELE T immature cells CENTRIFUGAL STATION OPERATOR Not Available [facility] ([facility]) [address] [place], [address], 10/11/2022 11:12:19 10/11/19 23 10/11/2022 CBC WITH DIFFE RENTI AL/PL ATELE T neutrophils (absolute) 5.3 x10e3 /uL 1.4-7. 0 Not Available [facility] ([facility]) [address] [place], [address], 10/11/2022 11:12:19 10/11/19 23 10/11/2022 CBC WITH DIFFE RENTI AL/PL ATELE T lymphs (absolute) 2.2 x10e3 /uL 0.7-3. 1 Not Available [facility] ([facility]) [address] [place], [address], 10/11/2022 11:12:19 10/11/19 23 10/11/2022 CBC WITH DIFFE RENTI AL/PL ATELE T monocytes(ab solute) 0.7 x10e3 /uL 0.1-0. 9 Not Available [facility] ([facility]) [address] [facility], [place], [address], 10/11/2022 11:12:19 10/11/19 23 10/11/2022 CBC WITH DIFFE RENTI AL/PL ATELE T eos (absolute) 0.1 x10e3 /uL 0.0-0. 4 Not Available [facility] ([facility]) [address] [facility], [place], [address], 10/11/2022 11:12:19 10/11/19 23 10/11/2022 CBC WITH DIFFE RENTI AL/PL ATELE T baso (absolute) 0.0 x10e3 /uL 0.0-0. 2 Not Available [facility] ([facility]) [address] [facility], [place], [address], 10/11/2022 11:12:19 10/11/19 23 10/11/2022 CBC WITH DIFFE RENTI AL/PL ATELE T immature granulocytes 1 % not estab. Not Available [facility] ([facility]) [address] [facility], [place], [address], 10/11/2022 11:12:19 10/11/19 23 10/11/2022 CBC WITH DIFFE RENTI AL/PL ATELE T immature grans (abs) 0.1 x10e3 /uL 0.0-0. 1 Not Available [facility] ([facility]) [address] [facility], [place], [address], 10/11/2022 11:12:19 10/11/19 23 10/11/2022 CBC WITH DIFFE RENTI AL/PL ATELE T NRBC CENTRIFUGAL STATION OPERATOR Not Available [facility] ([facility]) [address] [facility], [place], [address], 10/11/2022 11:12:19 10/11/19 23 10/11/2022 CBC WITH DIFFE RENTI AL/PL ATELE T hematology comments: CENTRIFUGAL STATION OPERATOR Not Available [facility] ([facility]) [address] [facility] [place], [address], 10/11/2022 11:12:19 10/11/19 23 10/11/2022 COMP. METAB OLIC PANEL (14) glucose 294 mg/dL 70-99 above high normal Not Available [facility] ([facility]) [address] [facility] [place], [address], 10/11/2022 11:12:21 10/11/19 23 10/11/2022 COMP. METAB OLIC PANEL (14) BUN 22 mg/dL 6-24 Not Available [facility] ([facility]) [address] [facility] [place], [address], 10/11/2022 11:12:21 10/11/19 23 10/11/2022 COMP. METAB OLIC PANEL (14) creatinine 0.84 mg/dL 0.76-1 .27 Not Available [facility] ([facility]) [address] [facility] [place], [address], 10/11/2022 11:12:21 10/11/19 23 10/11/2022 COMP. METAB OLIC PANEL (14) eGFR 110 mL/mi n/1.7 3 >59 Not Available [facility] ([facility]) [address] [facility] [place], [address], 10/11/2022 11:12:21 10/11/19 23 10/11/2022 COMP. METAB OLIC PANEL (14) BUN/creatini ne ratio 26 9-20 above high normal Not Available [facility] ([facility]) [address] [facility] [place], [address], 10/11/2022 11:12:21 10/11/19 23 10/11/2022 COMP. METAB OLIC PANEL (14) sodium 137 mmol/ L 134-14 4 Not Available [facility] ([facility]) [address] [facility] [place], [address], 10/11/2022 11:12:21 10/11/19 23 10/11/2022 COMP. METAB OLIC PANEL (14) potassium 5.0 mmol/ L 3.5-5. 2 Not Available [facility] ([facility]) [address] [facility], [place], [address], 10/11/2022 11:12:21 10/11/19 23 10/11/2022 COMP. METAB OLIC PANEL (14) chloride 97 mmol/ L 96-106 Not Available [facility] ([facility]) [address] [facility], [place], [address], 10/11/2022 11:12:21 10/11/19 23 10/11/2022 COMP. METAB OLIC PANEL (14) carbon dioxide, total 24 mmol/ L 20- Not Available [facility] ([facility]) [address] [facility] [place], [address], 10/11/2022 11:12:21 10/11/19 23 10/11/2022 COMP. METAB OLIC PANEL (14) calcium 10.1 mg/dL 8.7-10 .2 Not Available [facility] ([facility]) [address] [facility], [place], [address], 10/11/2022 11:12:21 10/11/19 23 10/11/2022 COMP. METAB OLIC PANEL (14) protein, total 7.5 g/dL 6.0-8. 5 Not Available [facility] ([facility]) [address] [facility] [place], [address], 10/11/2022 11:12:21 10/11/19 23 10/11/2022 COMP. METAB OLIC PANEL (14) albumin 4.4 g/dL 4.0-5. 0 Not Available [facility] ([facility]) [address] [facility] [place], [address], 10/11/2022 11:12:21 10/11/19 23 10/11/2022 COMP. METAB OLIC PANEL (14) globulin, total 3.1 g/dL 1.5-4. 5 Not Available [facility] ([facility]) [address] [facility] [place], [address], 10/11/2022 11:12:21 10/11/19 23 10/11/2022 COMP. METAB OLIC PANEL (14) A/G ratio 1.4 1.2-2. 2 Not Available [facility] ([facility]) [address] [facility], [place], [address], 10/11/2022 11:12:21 10/11/19 23 10/11/2022 COMP. METAB OLIC PANEL (14) bilirubin, total 0.5 mg/dL 0.0-1. 2 Not Available [facility] ([facility]) [address] [facility] [place], [address], 10/11/2022 11:12:21 10/11/19 23 10/11/2022 COMP. METAB OLIC PANEL (14) alkaline phosphatase 73 IU/L 44-121 Not Available [facility]) [address] [facility], [place], [address], 10/11/2022 11:12:21 10/11/19 23 10/11/2022 COMP. METAB OLIC PANEL (14) AST (SGOT) 33 IU/L 0-40 Not Available [facility] ([facility]) [address] [facility], [place], [address], 10/11/2022 11:12:21 10/11/19 23 10/11/2022 COMP. METAB OLIC PANEL (14) ALT (SGPT) 40 IU/L 0-44 Not Available [facility] ([facility]) [address] [facility] [place], [address], 10/11/2022 11:12:21 10/11/19 23 10/11/2022 LIPID PANEL cholesterol, total 270 mg/dL 100-19 9 above high normal Not Available [facility] ([facility]) [address] [facility] [place], [address], 10/11/2022 11:12:22 10/11/19 23 10/11/2022 LIPID PANEL triglyceride s 299 mg/dL 0-149 above high normal Not Available [facility] ([facility]) [address] [facility] [place], [address], 10/11/2022 11:12:22 10/11/19 23 10/11/2022 LIPID PANEL HDL cholesterol 32 mg/dL >39 below low normal Not Available [facility] ([facility]) [address] [facility] [place], [address], 10/11/2022 11:12:22 10/11/19 23 10/11/2022 LIPID PANEL VLDL cholesterol shaunna 58 mg/dL 5-40 above high normal Not Available [facility] ([facility]) [address] [place], [address], 10/11/2022 11:12:22 10/11/19 23 10/11/2022 LIPID PANEL LDL chol calc ([facility]) 180 mg/dL 0-99 above high normal Not Available [facility] ([facility]) [address] [facility] [place], [address], 10/11/2022 11:12:22 10/11/19 23 10/11/2022 LIPID PANEL comment: CENTRIFUGAL STATION OPERATOR Not Available [facility] ([facility]) [address] [place], [address], 10/11/2022 11:12:22 10/11/19 23 10/11/2022 THYRO ID PROFI LE II TSH 1.030 uIU/m L 0.450- 4.500 Not Available [facility] ([facility]) [address] [place], [address], 10/11/2022 11:12:23 10/11/19 23 10/11/2022 THYRO ID PROFI LE II thyroxine (T4) 10.8 ug/dL 4.5-12 .0 Not Available [facility] ([facility]) [address] [facility], [place], [address], 10/11/2022 11:12:23 10/11/19 23 10/11/2022 THYRO ID PROFI LE II T3 uptake 27 % 24-39 Not Available [facility] ([facility]) [address] [facility], [place], [address], 10/11/2022 11:12:23 10/11/19 23 10/11/2022 THYRO ID PROFI LE II free thyroxine index 2.9 1.2-4. 9 Not Available [facility] ([facility]) [address] [facility], [place], [address], 10/11/2022 11:12:23 10/11/19 23 10/11/2022 THYRO ID PROFI LE II triiodothyro nine (T3) 148 NG/dL 71-180 Not Available [facility] ([facility]) [address] [facility], [place], [address], 10/11/2022 11:12:23 10/11/19 23 10/11/2022 VITAM IN B12 AND FOLAT E vitamin B12 747 pg/mL 232-12 45 Not Available [facility] ([facility]) [address] [place], [address], 10/11/2022 11:12:24 10/11/1910/11/2022 VITAM IN B12 AND FOLAT E folate (folic acid), serum >20.0 NG/mL >3.0 A serum folat e linda ntrat ion of less than 3.1 ng/mL is consi dered to repre sent clini shaunna defic iency . Not Available [facility] ([facility]) [address] [facility], [place], [address], 10/11/2022 11:12:24 10/11/1910/11/2022 HEMOG LOBIN A1C hemoglobin A1C 12.9 % 4.8-5. 6 above high normal Predi abete s: 5.7 - 6.4 Diabe melissa: >6.4 Glyce oni contr ol for adult s with diabe melissa: <7.0 Not Available [facility] ([facility]) [address] [facility], [place], [address], 10/11/2022 11:12:26 10/11/19 23 10/11/2022 VITAM IN [...] um and D. Louie burnett [place]: The [facility] . 2. Maribell johnson MF, Nilsa shah [place], Dago off-F errar i YEAGER, et al. Evalu ation , treat ment, and preve ntion of vitam in D defic iency : an Endoc rine Socie ty clini shaunna pract ice guide line. JCEM. 2010; 96(7) :1911 -30. Not Available [facility] ([facility]) [address] [facility], [place], [address], 10/11/2022 11:12:27 10/11/19 23 10/11/2022 MAGNE SIUM magnesium 1.5 mg/dL 1.6-2. 3 below low normal Not Available [facility] ([facility]) [address] [facility], [place], [address], 10/11/2022 11:12:28 10/11/19 23 10/10/2022 urina lysis , dipst ick Leukocytes (reference range) negati ve Not Available [facility] - [address], [place], [address], 10/10/2022 11:35:48 10/11/19 23 10/10/2022 urina lysis , dipst ick Nitrite (reference range:) negati ve Not Available [address], [place], [address], 10/10/2022 11:35:48 10/11/19 23 10/10/2022 urina lysis , dipst ick Urobilinogen (reference range) 0.2 Not Available [address], [place], [address], 10/10/2022 11:35:48 10/11/19 23 10/10/2022 urina lysis , dipst ick Protein (reference range) 100 Not Available [address], [place], [address], 10/10/2022 11:35:48 10/11/19 23 10/10/2022 urina lysis , dipst ick pH (reference range 5-8.5) 5.0 Not Available [address], [place], [address], 10/10/2022 11:35:48 10/11/19 23 10/10/2022 urina lysis , dipst ick Blood (reference range:) negati ve Not Available [address], [place], [address], 10/10/2022 11:35:48 10/11/19 23 10/10/2022 urina lysis , dipst ick Specific [place] (reference range) 1.030 Not Available [address], [place], [address], 10/10/2022 11:35:48 10/11/19 23 10/10/2022 urina lysis , dipst ick Ketone (reference range) modera te Not Available [address], [place], [address], 10/10/2022 11:35:48 10/11/19 23 10/10/2022 urina lysis , dipst ick Bilirubin (reference range) modera te Not Available [address], [place], [address], 10/10/2022 11:35:48 10/11/19 23 10/10/2022 urina lysis , dipst ick Glucose (reference range) 1000 Not Available [address], [place], [address], 10/10/2022 11:35:48 10/11/19 23 10/10/2022 urina lysis , dipst ick Color (reference range: yellow-brown ) Dark Yellow Not Available [address], [place], [address], 10/10/2022 11:35:48 10/11/19 23 10/10/2022 HbA1c (hemo globi n A1c), blood HbA1c 13.1 Not Available [address], [place], [address], 10/10/2022 11:16:31 11/09/19 23 11/08/2022 gluco se, finge rstic k, blood Blood Glucose: mg/dl 157 Not Available [facility] [address], [place], [address], 11/08/2022 14:40:07 01/09/20 23 01/09/2023 CBC WITH DIFFE RENTI AL/PL ATELE T WBC 8.0 x10e3 /uL 3.4-10 .8 Not Available [facility] ([facility]) [address] [facility], [place], [address], 01/10/2023 07:14:04 01/09/20 23 01/09/2023 CBC WITH DIFFE RENTI AL/PL ATELE T RBC 4.39 x10e6 /uL 4.14-5 .80 Not Available [facility] ([facility]) [address] [place], [address], 01/10/2023 07:14:04 01/09/20 23 01/09/2023 CBC WITH DIFFE RENTI AL/PL ATELE T hemoglobin 14.5 g/dL 13.0-1 7.7 Not Available [facility] ([facility]) [address] [place], [address], 01/10/2023 07:14:04 01/09/20 23 01/09/2023 CBC WITH DIFFE RENTI AL/PL ATELE T hematocrit 41.8 % 37.5-5 1.0 Not Available [facility] ([facility]) [address] [place], [address], 01/10/2023 07:14:04 01/09/20 23 01/09/2023 CBC WITH DIFFE RENTI AL/PL ATELE T MCV 95 fL 79-97 Not Available [facility] ([facility]) [address] [place], [address], 01/10/2023 07:14:04 01/09/20 23 01/09/2023 CBC WITH DIFFE RENTI AL/PL ATELE T MCH 33.0 pg 26.6-3 3.0 Not Available [facility] ([facility]) [address] [facility], [place], [address], 01/10/2023 07:14:04 01/09/20 23 01/09/2023 CBC WITH DIFFE RENTI AL/PL ATELE T MCHC 34.7 g/dL 31.5-3 5.7 Not Available [facility] ([facility]) [address] [facility], [place], [address], 01/10/2023 07:14:04 01/09/20 23 01/09/2023 CBC WITH DIFFE RENTI AL/PL ATELE T RDW 12.1 % 11.6-1 5.4 Not Available [facility] ([facility]) [address] [facility], [place], [address], 01/10/2023 07:14:04 01/09/20 23 01/09/2023 CBC WITH DIFFE RENTI AL/PL ATELE T platelets 273 x10e3 /uL 150-45 0 Not Available [facility] ([facility]) [address] [facility], [place], [address], 01/10/2023 07:14:04 01/09/20 23 01/09/2023 CBC WITH DIFFE RENTI AL/PL ATELE T neutrophils 63 % not estab. Not Available [facility] ([facility]) [address] [place], [address], 01/10/2023 07:14:04 01/09/20 23 01/09/2023 CBC WITH DIFFE RENTI AL/PL ATELE T lymphs 29 % not estab. Not Available [facility] ([facility]) [address] [place], [address], 01/10/2023 07:14:04 01/09/20 23 01/09/2023 CBC WITH DIFFE RENTI AL/PL ATELE T monocytes 7 % not estab. Not Available [facility] ([facility]) [address] [place], [address], 01/10/2023 07:14:04 01/09/20 23 01/09/2023 CBC WITH DIFFE RENTI AL/PL ATELE T eos 1 % not estab. Not Available [facility] ([facility]) [address] [facility], [place], [address], 01/10/2023 07:14:04 01/09/20 23 01/09/2023 CBC WITH DIFFE RENTI AL/PL ATELE T basos 0 % not estab. Not Available [facility] ([facility]) [address] [place], [address], 01/10/2023 07:14:04 01/09/20 23 01/09/2023 CBC WITH DIFFE RENTI AL/PL ATELE T immature cells CENTRIFUGAL STATION OPERATOR Not Available [facility] ([facility]) [address] [place], [address], 01/10/2023 07:14:04 01/09/20 23 01/09/2023 CBC WITH DIFFE RENTI AL/PL ATELE T neutrophils (absolute) 5.0 x10e3 /uL 1.4-7. 0 Not Available [facility] ([facility]) [address] [place], [address], 01/10/2023 07:14:04 01/09/20 23 01/09/2023 CBC WITH DIFFE RENTI AL/PL ATELE T lymphs (absolute) 2.3 x10e3 /uL 0.7-3. 1 Not Available [facility] ([facility]) [address] [place], [address], 01/10/2023 07:14:04 01/09/20 23 01/09/2023 CBC WITH DIFFE RENTI AL/PL ATELE T monocytes(ab solute) 0.6 x10e3 /uL 0.1-0. 9 Not Available [facility] ([facility]) [address] [place], [address], 01/10/2023 07:14:04 01/09/20 23 01/09/2023 CBC WITH DIFFE RENTI AL/PL ATELE T eos (absolute) 0.1 x10e3 /uL 0.0-0. 4 Not Available [facility] ([facility]) [address], [place], [address], 01/10/2023 07:14:04 01/09/20 23 01/09/2023 CBC WITH DIFFE RENTI AL/PL ATELE T baso (absolute) 0.0 x10e3 /uL 0.0-0. 2 Not Available [facility] ([facility]) [address], [place], [address], 01/10/2023 07:14:04 01/09/20 23 01/09/2023 CBC WITH DIFFE RENTI AL/PL ATELE T immature granulocytes 0 % not estab. Not Available [facility] ([facility]) [address], [place], [address], 01/10/2023 07:14:04 01/09/20 23 01/09/2023 CBC WITH DIFFE RENTI AL/PL ATELE T immature grans (abs) 0.0 x10e3 /uL 0.0-0. 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 METAB OLIC PANEL (14) glucose 111 mg/dL 70-99 above high normal Not Available [facility] ([facility]) [address] [place], [address], 01/10/2023 07:14:05 01/09/20 23 01/09/2023 COMP. METAB OLIC PANEL (14) BUN 16 mg/dL 6-24 Not Available [facility] ([facility]) [address] [place], [address], 01/10/2023 07:14:05 01/09/20 23 01/09/2023 COMP. METAB OLIC PANEL (14) creatinine 0.60 mg/dL 0.76-1 .27 below low normal Not Available [facility] ([facility]) [address] [place], [address], 01/10/2023 07:14:05 01/09/20 23 01/09/2023 COMP. METAB OLIC PANEL (14) eGFR 121 mL/mi n/1.7 3 >59 Not Available [facility] ([facility]) [address] [place], [address], 01/10/2023 07:14:05 01/09/20 23 01/09/2023 COMP. METAB OLIC PANEL (14) BUN/creatini ne ratio 27 9-20 above high normal Not Available [facility] ([facility]) [address] [place], [address], 01/10/2023 07:14:05 01/09/20 23 01/09/2023 COMP. METAB OLIC PANEL (14) sodium 140 mmol/ L 134-14 4 Not Available [facility] ([facility]) [address] [place], [address], 01/10/2023 07:14:05 01/09/20 23 01/09/2023 COMP. METAB OLIC PANEL (14) potassium 4.0 mmol/ L 3.5-5. 2 Not Available [facility] ([facility]) [address] [place], [address], 01/10/2023 07:14:05 01/09/20 23 01/09/2023 COMP. METAB OLIC PANEL (14) chloride 100 mmol/ L 96-106 Not Available [facility] ([facility]) [address] [place], [address], 01/10/2023 07:14:05 01/09/20 23 01/09/2023 COMP. METAB OLIC PANEL (14) carbon dioxide, total 23 mmol/ L 20-29 Not Available [facility] ([facility]) [address] [place], [address], 01/10/2023 07:14:05 01/09/20 23 01/09/2023 COMP. METAB OLIC PANEL (14) calcium 9.5 mg/dL 8.7-10 .2 Not Available [facility] ([facility]) [address] [place], [address], 01/10/2023 07:14:05 01/09/20 23 01/09/2023 COMP. METAB OLIC PANEL (14) protein, total 7.1 g/dL 6.0-8. 5 Not Available [facility] ([facility]) [address] [place], [address], 01/10/2023 07:14:05 01/09/20 23 01/09/2023 COMP. METAB [...] - 4.6 Not Available [facility] ([facility]) [address] [place], [address], 01/10/2023 07:14:05 01/09/20 23 01/09/2023 COMP. METAB OLIC PANEL (14) globulin, total 2.6 g/dL 1.5-4. 5 Not Available [facility] ([facility]) [address] [place], [address], 01/10/2023 07:14:05 01/09/20 23 01/09/2023 COMP. METAB OLIC PANEL (14) A/G ratio 1.7 1.2-2. 2 Not Available [facility] ([facility]) [address] [place], [address], 01/10/2023 07:14:05 01/09/20 23 01/09/2023 COMP. METAB OLIC PANEL (14) bilirubin, total 0.4 mg/dL 0.0-1. 2 Not Available [facility] ([facility]) [address] [place], [address], 01/10/2023 07:14:05 01/09/20 23 01/09/2023 COMP. METAB OLIC PANEL (14) alkaline phosphatase 55 IU/L 44-121 Not Available [facility] ([facility]) [address] [place], [address], 01/10/2023 07:14:05 01/09/20 23 01/09/2023 COMP. METAB OLIC PANEL (14) AST (SGOT) 13 IU/L 0-40 Not Available [facility] ([facility]) [address] [place], [address], 01/10/2023 07:14:05 01/09/20 23 01/09/2023 COMP. METAB OLIC PANEL (14) ALT (SGPT) 14 IU/L 0-44 Not Available [facility] ([facility]) [address] [facility] [place], [address], 01/10/2023 07:14:05 01/09/20 23 01/09/2023 LIPID PANEL cholesterol, total 110 mg/dL 100-19 9 Not Available [facility] ([facility]) [address] [facility] [place], [address], 01/10/2023 07:14:06 01/09/20 23 01/09/2023 LIPID PANEL triglyceride s 93 mg/dL 0-149 Not Available [facility] ([facility]) [address] [facility] [place], [address], 01/10/2023 07:14:06 01/09/20 23 01/09/2023 LIPID PANEL HDL cholesterol 36 mg/dL >39 below low normal Not Available [facility] ([facility]) [address] [facility] [place], [address], 01/10/2023 07:14:06 01/09/20 23 01/09/2023 LIPID PANEL VLDL cholesterol shaunna 18 mg/dL 5-40 Not Available [facility] ([facility]) [address] [facility] [place], [address], 01/10/2023 07:14:06 01/09/20 23 01/09/2023 LIPID PANEL LDL chol calc ([facility]) 56 mg/dL 0-99 Not Available [facility] ([facility]) [address] [facility], [place], [address], 01/10/2023 07:14:06 01/09/20 23 01/09/2023 LIPID PANEL comment: 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 6 above high normal Predi abete s: 5.7 - 6.4 Diabe melissa: >6.4 Glyce oni contr ol for adult s with diabe melissa: <7.0 Not Available [facility] ([facility]) [address] [facility], [place], [address], 01/10/2023 07:14:07 01/09/20 23 01/10/2023 VITAM IN [...] Louie burnett [place]: The Natio nal [facility] Press . 2. Maribell johnson MF, Nilsa shah [place], Dago off-F errar i YEAGER, et al. Evalu ation , treat ment, and preve ntion of vitam in D defic iency : an Endoc rine Socie ty clini shaunna pract ice guide line. JCEM. 2010; 96(7) :1911 -30. Not Available [facility] ([facility]) [address] [facility], [place], [address], 01/10/2023 07:14:08 01/09/20 23 01/09/2023 MAGNE SIUM magnesium 1.6 mg/dL 1.6-2. 3 Not Available [facility] ([facility]) [address] [facility], [place], [address], 01/10/2023 07:14:08 01/09/20 23 01/08/2023 HbA1c (hemo globi n A1c), blood HbA1c 8.0 Not Available [address], [place], [address], 01/08/2023 14:14:16 04/10/20 23 04/10/2023 HbA1c (hemo globi n A1c), blood HbA1c 7.3 Not Available [facility] [address], [place], [address], 04/10/2023 08:34:17 12/08/19 23 12/06/2022 XR, sacru m + coccy x [facility] [address] [place] [address] Phone: Fax: Name: LIAM XIONG Exam Date: 023 : [birth year] Age 47 Gender : M Access ion: [id number] Physic rohit: Ronen Michelle ty: [facility] Brendon ty HSV: Outpat ient Exam: [...] you for referr ing BAN XIONGSON to [facility] Hospit [facility]. Legall y authen ticate d by TERRY LINCOLN 12-07 09:15: 03 CC'ed Logic: Orderi ng Provid er: HADLEY MONCADA E CC Provid er: HADLEY Mcgee Attend ing Provid er: HADLEY Mcgee Referr ing Provid er: HADLEY Mcgee Admitt ing Provid er: HADLEY Mcgee [id number] [facility] [address] [place], [address], 12/07/2022 11:54:18 12/08/19 23 12/06/2022 XR, sacru m + coccy x, 2 or more view No observ ation record ed. [facility] ([facility]) [address] [place], [address], 12/07/2022 11:58:00 02/29/20 23 02/28/2023 [facility] [address] [place] [address] Phone: Fax: Name: LIAM XIONG Exam Date: : [birth year] Age 48 Gender : M Access ion: [id number] Physic rohit: Irena Michelle Facili ty: [facility] Facili ty HSV: Outpat ient Exam: [...] Thank you for referr LIAM Brian to [facility]. Legall y authen ticate d by POPE SHAMA Sharpe 02-28 16:21: 01 CC'ed Logic: Orderi ng Provid er: HADLEY Mcgee CC Provid er: HADLEY Mcgee Attend ing Provid er: HADLEY Mcgee Referr ing Provid er: HADLEY Mcgee Admitt ing Provid er: HADLEY Mcgee [id number] [facility] [address] [facility], [place], [address], 03/01/2023 08:36:07 02/29/20 23 02/28/2023 US, abdom en, compl ete No observ ation record ed. [facility] [address] [facility], [place], [address], 03/07/2023 08:34:35 Result Notes Documentation Provider Name and Address Organization Details Recorded Time Xr, Sacrum + Coccyx : [facility] [address] [place] [address] Name: LIAM XIONG Exam Date: 12/06/2022 : 1975 Age 47 Gender: M Physician: Milagros Cannon Facility: [facility] Facility HSV: Outpatient Exam: SACRUM COCCYX [...] Thank you for referring DARSHAN LIAM to [facility]. Legally authenticated by MARIE LINCOLN 2022-12-07 09:15:03 CC'ed Logic: Ordering Provider: DAVIS LINARES CC Provider: DAVIS LINARES Attending Provider: DAVIS LINARES Referring Provider: DAVIS LINARES Admitting Provider: DAVIS Cannon APRN [address] [place], [address], [facility] & [place] 12/07/2022 11:54:18 Procedures Surgical History Date Name Laterality Status Provider Name and Address Organization Details Recorded Time 9 procedure on shoulder completed Doretha S[facility] & [place] 03/20/2023 14:16:42 Imaging Results None recorded. Procedure [...] Address Organization Details Last Updated DateTime 3 427464. 94 g 36.6 kg/m2 182.88 cm 97 [degF] 96 % 96 % 103 /min 142/80 mm[Hg] CLAIRE SOLIS [place] - [facility] - [place] & [place] 3 10:58:46 Date Recorded Body height Body mass index (BMI) Body weight Body temperature Oxygen saturation Oxygen saturation in Arterial blood by Pulse oximetry Heart rate Systolic And Diastolic Provider Name and Address Organization Details Last Updated DateTime 3 182.88 cm 36.5 kg/m2 016426. 35 g 96.8 [degF] 95 % 95 % 89 /min 134/84 mm[Hg] CLAIRE COOL [facility] & [place] 3 14:33:54 Date Recorded Body height Body mass index (BMI) Body weight Body temperature Oxygen saturation Oxygen saturation in Arterial blood by Pulse oximetry Heart rate Systolic And Diastolic Provider Name and Address Organization Details Last Updated DateTime 3 182.88 cm 33.9 kg/m2 072877. 09 g 98.1 [degF] 97 % 97 % 82 /min 120/80 mm[Hg] Aminta Harden CLEMENTINE COOL [facility] & [place] 3 13:57:12 Date Recorded Body height Body mass index (BMI) Body weight Body temperature Oxygen saturation Oxygen saturation in Arterial blood by Pulse oximetry Heart rate Systolic And Diastolic Provider Name and Address Organization Details Last Updated DateTime 3 182.88 cm 33.5 kg/m2 840683. 32 g 97.7 [degF] 97 % 97 % 85 /min 114/66 mm[Hg] CLAIRE COOL [facility] & [place] 3 11:13:56 Date Recorded Body height Body mass index (BMI) Body weight Body temperature Oxygen saturation Oxygen saturation in Arterial blood by Pulse oximetry Heart rate Systolic And Diastolic Provider Name and Address Organization Details Last Updated DateTime 3 182.88 cm 32.4 kg/m2 852861. 58 g 97.1 [degF] 97 % 97 % 90 /min 142/70 mm[Hg] CLAIRE COOL [facility] & [place] 3 08:19:13 Social History Question Answer Notes LastModified by Organizat ion Details LastModified Time Tobacco Smoking Status Current Every Day Smoker CLEMENTINE Combs [facility] & [place] 10/10/2022 10:53:09 Do You Have An Advance [...] 03/10/2021 completed CLEMENTINE Sanchez - [facility] - [place] & [place] 10/17/2022 12:28:36 COVID-19, mRNA, LNP-S, PF, 30 mcg/0.3 mL dose 03/31/2021 completed CLEMENTINE Sanchez - [facility] - [place] & [place] 10/17/2022 12:28:36 Past Encounters Encounter ID Performer Location Encounter Start Date Encounter Closed Date Diagnosis/Indication Diagnosis SNOMED-CT Code Diagnosis ICD10 Code Diagnosis Note [id number] Milagros Cordova in, [place] [facility] [address] [place] [address] 10/10/2022 10:49:33 10/10/2022 11:53:58 Type 2 diabetes mellitus 53660168 E11.65 Ozempic was still 800 after insurance. Will start with Metformin and reassess and if needed will add another medication if needed. Follow up in 1 month. Bring blood sugar log to clinic at that time. Hyperlipidemia 43100266 E78.5 Thyroid di sorder screening 696836457 Z13.29 Screening for malignant neoplasm of colon 412786529 Z12.11 Nicotine dependence 5629 4008 F17.200 Adult heal th examination 484278310 Z00.01 Counseled patient on annual eye exams and regular dental visits. Will call with lab results. Patient advised to follow up in 1 month. Diabetic p eripheral neuropathy 719951362 E11.40 Will start new diabetes medication . Will reassess. [id number] Milagros Cordova in[address] [place] [address] 11/08/2022 14:28:07 11/08/2022 14:54:36 Type 2 diabetes mellitus 60188578 E11.65 Keep a blood glucose log. RTC in 2 months. Will recheck hgbA1c, lipid panel, and CBC, CMP. Patient agrees with treatment plan. Continue the metformin as prescribed . Pain in coccyx 06016495 M53.3 Advised patient to take ibuprofen before riding. Use an additional cushion on his bike.Ruthy nt has cologuard at home. Advised to complete and send in to the lab. [id number] Milagros Cordova [address] [place] [address] 01/08/2023 13:52:38 01/08/2023 15:01:27 Type 2 diabetes mellitus 30711640 E11.65 Continue metformin as RX.Will check complete blood work today. Will call with results.A1 C was 13.1 and it is 8.0 today.Will consider adding Mounjaro after January 12 per new recommenda tions. Patient could not afford before.Fol low up in 3 months. Hyperlipidemia 91621106 E78.5 Patient is currently on rosuvastat in. Will call with lab results. [id number] Milagros Cordova in, [place] [facility] [address] [place] [address] [address] [place] [address] 02/05/2023 10:57:49 02/05/2023 11:31:17 Abdominal pain 17896328 R10.9 Tylenol/Ib uprofen PRN.Avoid any strenuous activity to worsen pain or condition. Was seen in ER December [address] Abd/Pelvis was unremarkab le.Will order U/S. Will call with ultrasound results. [id number] Milagros Cordova in, [place] [facility] [address] [facility] [address] [place] [address] 04/10/2023 08:14:43 04/10/2023 08:39:38 Type 2 diabetes mellitus 97073491 E11.65 A1C 7.3 on maximum continued Metformin [...] Zaman Member ID Guarantor Name 05/22/2023 1 [facility] [id number] Liam Xiong [id number] Liam Xiong Notes Date Note Type Note [...] neuropathy. Milagros Cannon APRN [address] , [place], [address], [facility] & [place] 10/12/2022 10:13:43 11/08/2022 text/html patient presents to [...] defecate. Milagros Cannon APRN [address], [place], [address], [facility] & [place] 11/08/2022 15:48:57 01/08/2023 text/html patient presents to clinic for follow up on diabetes.He states he is feeling better. He was seen in the ER for abdominal pain 2 weeks [address] He states [address] abdomen was negative. He is seeing the Chiropractor and it is helping with his back spasms. He denies any new symptoms. Milagros Cannon APRN [address], [place], [address], [facility] & [place] 01/08/2023 14:31:24 02/05/2023 text/html patient presents to [...] SOB. Milagros Cannon APRN [address], [place], [address], [place] - [facility] [place] [facility] [place] 02/05/2023 11:49:51 04/10/2023 text/html patient presents to clinic for 3 month follow up. He states he is a little stressed in this morning. He states his BP has been running good. He denies any headaches. Denies any chest pain. 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
--- OUTSIDE RECORDS SUMMARY | 2025-01-23 15:24 | XMS_ITS | Patient Health Record ---
Author Organization [facility] [place] Address [address] [place] [address] Support Name Relationship Address Phone N/A, N/A Emergency Contact [address] [place] [address] Unavailable RHIANNON SEXTON Guarantor Unknown [phone] Reason For Referral No Information Immunizations Vaccine [...] End Date [facility] [address] [address] [place] [address] [id number] RHIANNON SEXTON Self - patient is the insured
--- OUTSIDE RECORDS SUMMARY | 2025-01-23 15:24 | XMS_ITS | Patient Health Record ---
Author Organization [facility] Address [address] [place] [address] Care Team Providers Care Manufacturing Area Manager Name Role Phone None, None Primary Care Provider UnavailJose Das Unavailable [phone] Allergies No Known Allergies Reason For Referral [...] Problem Status W/U Status Risk Notes Problem 049672458 Obesity (BMI 30-39.9) (E66.9) Active confirmed Problem 28618671 Acute tonsillitis, unspecified etiology (J03.90) Active confirmed Problem 1238314864837 Acute otitis media with effusion of both ears (H65.193) Active confirmed Problem 90132065 Rapid pulse (R00.0) Active confirmed Vital Signs Temperature 98.7 degrees Fahrenheit 01/30/2024 Respiratory Rate 18 /min 01/30/2024 Blood pressure diastolic 78 mm Hg 01/30/2024 Height 72 in 01/30/2024 Blood pressure systolic 118 mm Hg 01/30/2024 Weight 245 lbs 01/30/2024 BMI 33.22 kg/m2 01/30/2024 Encounters Encounter Location Date Provider Diagnosis [address] [place] [address] 01/30/2024 Jose Katherin Acute otitis media with [...] Insured Coverage Start Date Coverage End Date [facility] [address] [address] [place] [phone] [id number] Liam Xiong Self - patient is the insured Medical (General) History Medical History History ICD Code Diabetes Surgical History Surgery Date(Month/Year) shoulder left Hospitalization History Reason Date(Month/Year) as above
== END 2025-01-23 23:59 | disposition home or self-care (01) ==
LOC: INF 15:20
PROVIDERS: PCP Internal Medicine; Visit Provider Surgery
DX: L05.01 Pilonidal cyst with abscess (principal)
CPT/HCPCS: G0463

== ENCOUNTER 2025-01-25 15:27 | Outpatient (RCR) | payer OTHER, SELFPAY | END 2025-01-25 15:34 | disposition home or self-care (01) | LOC: INF 15:27 | PROVIDERS: Visit Provider Surgery | DX: L05.01 Pilonidal cyst with abscess (principal) | CPT/HCPCS: G0463 ==

== ENCOUNTER 2025-01-26 14:55 | Outpatient (CLI) | payer OTHER, SELFPAY ==
--- OUTSIDE RECORDS SUMMARY | 2025-01-26 15:00 | XMS_ITS | Data Portability ---
Author Organization [facility] & TRAVON Horta ADMIN Address [address] [place] [id number] Care Team Providers Care Mathematics Professor Name Role Phone MILARGOS CANNON Primary Care Provider Assessment No assessment recorded. Plan of Treatment Reminders Order Date Submit Date Provider Last Modified By Organization Details Last Modified Time Details Appointments None recorded. Lab HbA1c (hemoglobin A1c), blood 2022 [email or web address], [place], [address], 3 08:51:25 HbA1c (hemoglobin A1c), blood 2022 023 [email or web address] 2 [facility], [address] [place] [address] [address], [place], [address], 3 14:16:57 CBC w/ auto diff 2022 023 HARL[facility], [address], [address], [place], [address], 3 07:14:04 CMP, serum or plasma 2022 023 EDUIN [facility], [address], [address], [place], [address], 3 07:14:05 magnesium, serum or plasma 2022 023 EDUIN [facility], [address], [address], [place], [address], 3 07:14:08 vitamin D, 25-hydroxy, total, serum 2022 023 EDUIN [facility], [address], [address], [place], [address], 3 07:14:08 lipid panel, serum 2022 023 EDUIN [facility], [address], [address], [place], [address], 3 07:14:06 glucose, fingerstick , blood 2022 023 [email or web address] 2 [facility], [address], [place], [address], 3 15:05:53 HbA1c (hemoglobin A1c), blood 2022 023 [email or web address] 2 [facility], [address], [place], [address], 3 11:53:47 CMP, serum or plasma 2022 023 EDUIN [facility], [address], [address], [place], [address], 3 11:12:21 CBC w/ auto diff 2022 023 EDUIN [facility], [address], [address], [place], [address], 3 11:12:19 magnesium, serum or plasma 2022 023 EDUIN [facility], [address], [address], [place], [address], 3 11:12:28 microalbumi n, urine 2022 023 [facility], [address], [place], [address], 3 12:57:57 urinalysis, dipstick 2022 023 [facility], [address], [place], [address], 3 12:01:03 thyroid panel, serum 2022 023 [facility], [address], [address], [place], [address], 3 11:12:23 vitamin D, 25-hydroxy, total, serum 2022 023 [facility], [address], [address], [place], [address], 3 11:12:27 vitamin B12 + folate, serum or blood 2022 023 [facility], [address], [address], [place], [address], 3 11:12:25 lipid panel, serum 2022 023 [facility], [address], [address], [place], [address], 3 11:12:22 Referral physical therapist referral - Coccyx pain. 2022 023 [email or web address] 3 [facility], [address], [place], [address], 3 11:43:02 Procedures colonoscopy screening (PROC) 2022 023 [email or web address] 5 Jose Grove MD, [address], [address], [place], [address], 3 12:38:14 Surgeries None recorded. Imaging US, abdomen, complete - possible umbilical hernia/righ t sided abdominal pain 2022 023 [facility] (Centralized Scheduling), [address], [place], [address], 3 16:35:11 XR, sacrum + coccyx, 2 or more view 2022 023 [facility] (Centralized Scheduling), [address], [place], [address], 3 09:30:08 Medication Orders Ozempic 0.25 mg or 0.5 mg (2 mg/1.5 mL) subcutaneou s pen injector 2022 023 [facility] #[id number], [address] [place] [address], [address], 3 08:47:06 Chantix Starting Month Box 0.5 mg (11)-1 mg (42) tablets in dose pack 2022 023 [email or web address] 2 [facility]/Pharmacy #2332, [address] [place] [address], [address], 3 11:14:37 metformin 1,000 mg tablet 2022 023 [email or web address] 2 [facility]/Pharmacy #2332, [address] [place], [address], 3 11:53:48 Ozempic 0.25 mg or 0.5 mg (2 mg/1.5 mL) subcutaneou s pen injector 2022 023 [facility]/Pharmacy #2332, [address] [place], [address], 11:14:44 rosuvastati n 10 mg tablet 2022 023 [facility]acy #2332, [address] [place], [address], 11:54:37 Patient TargetsNo targets recorded. Patient Instructions Encounter Date Encounter Id Patient Instructions Last Modified By Organization Details Last Modified Time 10/10/2022 [id number] smoking cessatio n counseling, greater than 3 minutes up to 10 minutes* Not available 10/17/2022 08:34:36 Patient needs to follow up in 1 month. Advised patient that I would call with lab results. Counseled patient on monitoring blood glucose at home. Bring log of blood sugars to next appt. Not available 10/10/2022 11:55:22 Reason for Referral Physical Therapist Referral for Pain in coccyx Coccyx pain. Referring Physician: Milagros Cannon, Infectious Disease, Encounter Date: 11/08/2022 Results Created Date Observation Date Name Description Value Unit Range Abnormal Flag Note LastModifiedBy Organization Detail LastModifiedTime 10/11/19 23 10/11/2022 ALBUM IN/CR EATIN INE RATIO ,URIN E creatinine, urine 312.5 mg/dL not estab. Not Available [facility] ([facility]) [address] [place], [address], 10/11/2022 09:14:45 10/11/19 23 10/11/2022 ALBUM IN/CR EATIN INE RATIO ,URIN E albumin, urine 133.8 ug/mL not estab. Not Available [facility] ([facility]) [address] [facility], [place], [address], 10/11/2022 09:14:45 10/11/19 23 10/11/2022 ALBUM IN/CR EATIN INE RATIO ,URIN E alb/creat ratio 43 mg/g_ creat 0-29 above high normal Ana M l: 0 - 29 Moder ately incre ased: 30 - 300 Sever savanah incre ased: >300 Not Available [facility] ([facility]) [address] [place], [address], 10/11/2022 09:14:45 10/11/19 23 10/11/2022 CBC WITH DIFFE RENTI AL/PL ATELE T WBC 8.3 x10e3 /uL 3.4-10 .8 Not Available [facility] ([facility]) [address] [place], [address], 10/11/2022 11:12:19 10/11/1910/11/2022 CBC WITH DIFFE RENTI AL/PL ATELE T RBC 5.38 x10e6 /uL 4.14-5 .80 Not Available [facility] ([facility]) [address] [place], [address], 10/11/2022 11:12:19 10/11/19 23 10/11/2022 CBC WITH DIFFE RENTI AL/PL ATELE T hemoglobin 17.4 g/dL 13.0-1 7.7 Not Available [facility] ([facility]) [address] [place], [address], 10/11/2022 11:12:19 10/11/1910/11/2022 CBC WITH DIFFE RENTI AL/PL ATELE T hematocrit 51.3 % 37.5-5 1.0 above high normal Not Available [facility] ([facility]) [address] [place], [address], 10/11/2022 11:12:19 10/11/1910/11/2022 CBC WITH DIFFE RENTI AL/PL ATELE T MCV 95 fL 79-97 Not Available [facility] ([facility]) [address] [place], [address], 10/11/2022 11:12:19 10/11/19 23 10/11/2022 CBC WITH DIFFE RENTI AL/PL ATELE T MCH 32.3 pg 26.6-3 3.0 Not Available [facility] ([facility]) [address] [facility], [place], [address], 10/11/2022 11:12:19 10/11/19 23 10/11/2022 CBC WITH DIFFE RENTI AL/PL ATELE T MCHC 33.9 g/dL 31.5-3 5.7 Not Available [facility] ([facility]) [address] [facility], [place], [address], 10/11/2022 11:12:19 10/11/19 23 10/11/2022 CBC WITH DIFFE RENTI AL/PL ATELE T RDW 11.7 % 11.6-1 5.4 Not Available [facility] ([facility]) [address] [facility], [place], [address], 10/11/2022 11:12:19 10/11/19 23 10/11/2022 CBC WITH DIFFE RENTI AL/PL ATELE T platelets 324 x10e3 /uL 150-45 0 Not Available [facility] ([facility]) [address] [facility], [place], [address], 10/11/2022 11:12:19 10/11/19 23 10/11/2022 CBC WITH DIFFE RENTI AL/PL ATELE T neutrophils 63 % not estab. Not Available [facility] ([facility]) [address] [facility], [place], [address], 10/11/2022 11:12:19 10/11/19 23 10/11/2022 CBC WITH DIFFE RENTI AL/PL ATELE T lymphs 26 % not estab. Not Available [facility] ([facility]) [address] [place], [address], 10/11/2022 11:12:19 10/11/19 23 10/11/2022 CBC WITH DIFFE RENTI AL/PL ATELE T monocytes 8 % not estab. Not Available [facility] ([facility]) [address] [place], [address], 10/11/2022 11:12:19 10/11/19 23 10/11/2022 CBC WITH DIFFE RENTI AL/PL ATELE T eos 1 % not estab. Not Available [facility] ([facility]) [address] [facility], [place], [address], 10/11/2022 11:12:19 10/11/19 23 10/11/2022 CBC WITH DIFFE RENTI AL/PL ATELE T basos 1 % not estab. Not Available [facility] ([facility]) [address] [facility], [place], [address], 10/11/2022 11:12:19 10/11/19 23 10/11/2022 CBC WITH DIFFE RENTI AL/PL ATELE T immature cells PREFORMING MACHINE OPERATOR Not Available [facility] ([facility]) [address] [place], [address], 10/11/2022 11:12:19 10/11/19 23 10/11/2022 CBC WITH DIFFE RENTI AL/PL ATELE T neutrophils (absolute) 5.3 x10e3 /uL 1.4-7. 0 Not Available [facility] ([facility]) [address] [place], [address], 10/11/2022 11:12:19 10/11/19 23 10/11/2022 CBC WITH DIFFE RENTI AL/PL ATELE T lymphs (absolute) 2.2 x10e3 /uL 0.7-3. 1 Not Available [facility] ([facility]) [address] [place], [address], 10/11/2022 11:12:19 10/11/19 23 10/11/2022 CBC WITH DIFFE RENTI AL/PL ATELE T monocytes(ab solute) 0.7 x10e3 /uL 0.1-0. 9 Not Available [facility] ([facility]) [address] [facility], [place], [address], 10/11/2022 11:12:19 10/11/19 23 10/11/2022 CBC WITH DIFFE RENTI AL/PL ATELE T eos (absolute) 0.1 x10e3 /uL 0.0-0. 4 Not Available [facility] ([facility]) [address] [facility], [place], [address], 10/11/2022 11:12:19 10/11/19 23 10/11/2022 CBC WITH DIFFE RENTI AL/PL ATELE T baso (absolute) 0.0 x10e3 /uL 0.0-0. 2 Not Available [facility] ([facility]) [address] [facility], [place], [address], 10/11/2022 11:12:19 10/11/19 23 10/11/2022 CBC WITH DIFFE RENTI AL/PL ATELE T immature granulocytes 1 % not estab. Not Available [facility] ([facility]) [address] [facility], [place], [address], 10/11/2022 11:12:19 10/11/19 23 10/11/2022 CBC WITH DIFFE RENTI AL/PL ATELE T immature grans (abs) 0.1 x10e3 /uL 0.0-0. 1 Not Available [facility] ([facility]) [address] [facility], [place], [address], 10/11/2022 11:12:19 10/11/19 23 10/11/2022 CBC WITH DIFFE RENTI AL/PL ATELE T NRBC PREFORMING MACHINE OPERATOR Not Available [facility] ([facility]) [address] [facility], [place], [address], 10/11/2022 11:12:19 10/11/19 23 10/11/2022 CBC WITH DIFFE RENTI AL/PL ATELE T hematology comments: PREFORMING MACHINE OPERATOR Not Available [facility] ([facility]) [address] [facility] [place], [address], 10/11/2022 11:12:19 10/11/19 23 10/11/2022 COMP. METAB OLIC PANEL (14) glucose 294 mg/dL 70-99 above high normal Not Available [facility] ([facility]) [address] [facility] [place], [address], 10/11/2022 11:12:21 10/11/19 23 10/11/2022 COMP. METAB OLIC PANEL (14) BUN 22 mg/dL 6-24 Not Available [facility] ([facility]) [address] [facility] [place], [address], 10/11/2022 11:12:21 10/11/19 23 10/11/2022 COMP. METAB OLIC PANEL (14) creatinine 0.84 mg/dL 0.76-1 .27 Not Available [facility] ([facility]) [address] [facility] [place], [address], 10/11/2022 11:12:21 10/11/19 23 10/11/2022 COMP. METAB OLIC PANEL (14) eGFR 110 mL/mi n/1.7 3 >59 Not Available [facility] ([facility]) [address] [facility] [place], [address], 10/11/2022 11:12:21 10/11/19 23 10/11/2022 COMP. METAB OLIC PANEL (14) BUN/creatini ne ratio 26 9-20 above high normal Not Available [facility] ([facility]) [address] [facility] [place], [address], 10/11/2022 11:12:21 10/11/19 23 10/11/2022 COMP. METAB OLIC PANEL (14) sodium 137 mmol/ L 134-14 4 Not Available [facility] ([facility]) [address] [facility] [place], [address], 10/11/2022 11:12:21 10/11/19 23 10/11/2022 COMP. METAB OLIC PANEL (14) potassium 5.0 mmol/ L 3.5-5. 2 Not Available [facility] ([facility]) [address] [facility], [place], [address], 10/11/2022 11:12:21 10/11/19 23 10/11/2022 COMP. METAB OLIC PANEL (14) chloride 97 mmol/ L 96-106 Not Available [facility] ([facility]) [address] [facility], [place], [address], 10/11/2022 11:12:21 10/11/19 23 10/11/2022 COMP. METAB OLIC PANEL (14) carbon dioxide, total 24 mmol/ L 20- Not Available [facility] ([facility]) [address] [facility] [place], [address], 10/11/2022 11:12:21 10/11/19 23 10/11/2022 COMP. METAB OLIC PANEL (14) calcium 10.1 mg/dL 8.7-10 .2 Not Available [facility] ([facility]) [address] [facility], [place], [address], 10/11/2022 11:12:21 10/11/19 23 10/11/2022 COMP. METAB OLIC PANEL (14) protein, total 7.5 g/dL 6.0-8. 5 Not Available [facility] ([facility]) [address] [facility], [address], 10/11/2022 11:12:21 10/11/19 23 10/11/2022 COMP. METAB OLIC PANEL (14) albumin 4.4 g/dL 4.0-5. 0 Not Available [facility] ([facility]) [address] [facility], [address], 10/11/2022 11:12:21 10/11/19 23 10/11/2022 COMP. METAB OLIC PANEL (14) globulin, total 3.1 g/dL 1.5-4. 5 Not Available [facility] ([facility]) [address] [facility] [place], [address], 10/11/2022 11:12:21 10/11/19 23 10/11/2022 COMP. METAB OLIC PANEL (14) A/G ratio 1.4 1.2-2. 2 Not Available [facility] ([facility]) [address] [facility], [place], [address], 10/11/2022 11:12:21 10/11/19 23 10/11/2022 COMP. METAB OLIC PANEL (14) bilirubin, total 0.5 mg/dL 0.0-1. 2 Not Available [facility] ([facility]) [address] [facility] [place], [address], 10/11/2022 11:12:21 10/11/19 23 10/11/2022 COMP. METAB OLIC PANEL (14) alkaline phosphatase 73 IU/L 44-121 Not Available [facility]) [address] [facility], [place], [address], 10/11/2022 11:12:21 10/11/19 23 10/11/2022 COMP. METAB OLIC PANEL (14) AST (SGOT) 33 IU/L 0-40 Not Available [facility] ([facility]) [address] [facility], [place], [address], 10/11/2022 11:12:21 10/11/19 23 10/11/2022 COMP. METAB OLIC PANEL (14) ALT (SGPT) 40 IU/L 0-44 Not Available [facility] ([facility]) [address] [facility] [place], [address], 10/11/2022 11:12:21 10/11/19 23 10/11/2022 LIPID PANEL cholesterol, total 270 mg/dL 100-19 9 above high normal Not Available [facility] ([facility]) [address] [facility] [place], [address], 10/11/2022 11:12:22 10/11/19 23 10/11/2022 LIPID PANEL triglyceride s 299 mg/dL 0-149 above high normal Not Available [facility] ([facility]) [address] [facility] [place], [address], 10/11/2022 11:12:22 10/11/19 23 10/11/2022 LIPID PANEL HDL cholesterol 32 mg/dL >39 below low normal Not Available [facility] ([facility]) [address] [facility] [place], [address], 10/11/2022 11:12:22 10/11/19 23 10/11/2022 LIPID PANEL VLDL cholesterol shaunna 58 mg/dL 5-40 above high normal Not Available [facility] ([facility]) [address] [place], [address], 10/11/2022 11:12:22 10/11/19 23 10/11/2022 LIPID PANEL LDL chol calc ([facility]) 180 mg/dL 0-99 above high normal Not Available [facility] ([facility]) [address] [facility] [place], [address], 10/11/2022 11:12:22 10/11/19 23 10/11/2022 LIPID PANEL comment: PREFORMING MACHINE OPERATOR Not Available [facility] ([facility]) [address] [place], [address], 10/11/2022 11:12:22 10/11/19 23 10/11/2022 THYRO ID PROFI LE II TSH 1.030 uIU/m L 0.450- 4.500 Not Available [facility] ([facility]) [address] [place], [address], 10/11/2022 11:12:23 10/11/19 23 10/11/2022 THYRO ID PROFI LE II thyroxine (T4) 10.8 ug/dL 4.5-12 .0 Not Available [facility] ([facility]) [address] [facility], [place], [address], 10/11/2022 11:12:23 10/11/19 23 10/11/2022 THYRO ID PROFI LE II T3 uptake 27 % 24-39 Not Available [facility] ([facility]) [address] [facility], [place], [address], 10/11/2022 11:12:23 10/11/19 23 10/11/2022 THYRO ID PROFI LE II free thyroxine index 2.9 1.2-4. 9 Not Available [facility] ([facility]) [address] [facility], [place], [address], 10/11/2022 11:12:23 10/11/19 23 10/11/2022 THYRO ID PROFI LE II triiodothyro nine (T3) 148 NG/dL 71-180 Not Available [facility] ([facility]) [address] [facility], [place], [address], 10/11/2022 11:12:23 10/11/19 23 10/11/2022 VITAM IN B12 AND FOLAT E vitamin B12 747 pg/mL 232-12 45 Not Available [facility] ([facility]) [address] [place], [address], 10/11/2022 11:12:24 10/11/1910/11/2022 VITAM IN B12 AND FOLAT E folate (folic acid), serum >20.0 NG/mL >3.0 A serum folat e linda ntrat ion of less than 3.1 ng/mL is consi dered to repre sent clini shaunna defic iency . Not Available [facility] ([facility]) [address] [facility], [place], [address], 10/11/2022 11:12:24 10/11/1910/11/2022 HEMOG LOBIN A1C hemoglobin A1C 12.9 % 4.8-5. 6 above high normal Predi abete s: 5.7 - 6.4 Diabe melissa: >6.4 Glyce oni contr ol for adult s with diabe melissa: <7.0 Not Available [facility] ([facility]) [address] [facility], [place], [address], 10/11/2022 11:12:26 10/11/19 23 10/11/2022 VITAM IN [...] um and D. Louie burnett [place]: [facility] . 2. Maribell johnson MF, Nilsa shah [place], Dago off-F errar i YEAGER, et al. Evalu ation , treat ment, and preve ntion of vitam in D defic iency : an Endoc rine Socie ty clini shaunna pract ice guide line. JCEM. 2010; 96(7) :1911 -30. Not Available [facility] ([facility]) [address] [facility], [place], [address], 10/11/2022 11:12:27 10/11/19 23 10/11/2022 MAGNE SIUM magnesium 1.5 mg/dL 1.6-2. 3 below low normal Not Available [facility] ([facility]) [address] [facility], [place], [address], 10/11/2022 11:12:28 10/11/19 23 10/10/2022 urina lysis , dipst ick Leukocytes (reference range) negati ve Not Available [facility] - [address], [place], [address], 10/10/2022 11:35:48 10/11/19 23 10/10/2022 urina lysis , dipst ick Nitrite (reference range:) negati ve Not Available [address], [place], [address], 10/10/2022 11:35:48 10/11/19 23 10/10/2022 urina lysis , dipst ick Urobilinogen (reference range) 0.2 Not Available [address], [place], [address], 10/10/2022 11:35:48 10/11/19 23 10/10/2022 urina lysis , dipst ick Protein (reference range) 100 Not Available [address], [place], [address], 10/10/2022 11:35:48 10/11/19 23 10/10/2022 urina lysis , dipst ick pH (reference range 5-8.5) 5.0 Not Available [address], [place], [address], 10/10/2022 11:35:48 10/11/19 23 10/10/2022 urina lysis , dipst ick Blood (reference range:) negati ve Not Available [address], [place], [address], 10/10/2022 11:35:48 10/11/19 23 10/10/2022 urina lysis , dipst ick Specific Mcrae (reference range) 1.030 Not Available [address], [place], [address], 10/10/2022 11:35:48 10/11/19 23 10/10/2022 urina lysis , dipst ick Ketone (reference range) modera te Not Available [address], [place], [address], 10/10/2022 11:35:48 10/11/19 23 10/10/2022 urina lysis , dipst ick Bilirubin (reference range) modera te Not Available [address], [place], [address], 10/10/2022 11:35:48 10/11/19 23 10/10/2022 urina lysis , dipst ick Glucose (reference range) 1000 Not Available [address], [place], [address], 10/10/2022 11:35:48 10/11/19 23 10/10/2022 urina lysis , dipst ick Color (reference range: yellow-brown ) Dark Yellow Not Available [address], [place], [address], 10/10/2022 11:35:48 10/11/19 23 10/10/2022 HbA1c (hemo globi n A1c), blood HbA1c 13.1 Not Available [address], [place], [address], 10/10/2022 11:16:31 11/09/19 23 11/08/2022 gluco se, finge rstic k, blood Blood Glucose: mg/dl 157 Not Available [facility] [address], [place], [address], 11/08/2022 14:40:07 01/09/20 23 01/09/2023 CBC WITH DIFFE RENTI AL/PL ATELE T WBC 8.0 x10e3 /uL 3.4-10 .8 Not Available [facility] ([facility]) [address] [facility], [place], [address], 01/10/2023 07:14:04 01/09/20 23 01/09/2023 CBC WITH DIFFE RENTI AL/PL ATELE T RBC 4.39 x10e6 /uL 4.14-5 .80 Not Available [facility] ([facility]) [address] [place], [address], 01/10/2023 07:14:04 01/09/20 23 01/09/2023 CBC WITH DIFFE RENTI AL/PL ATELE T hemoglobin 14.5 g/dL 13.0-1 7.7 Not Available [facility] ([facility]) [address] [place], [address], 01/10/2023 07:14:04 01/09/20 23 01/09/2023 CBC WITH DIFFE RENTI AL/PL ATELE T hematocrit 41.8 % 37.5-5 1.0 Not Available [facility] ([facility]) [address] [place], [address], 01/10/2023 07:14:04 01/09/20 23 01/09/2023 CBC WITH DIFFE RENTI AL/PL ATELE T MCV 95 fL 79-97 Not Available [facility] ([facility]) [address] [place], [address], 01/10/2023 07:14:04 01/09/20 23 01/09/2023 CBC WITH DIFFE RENTI AL/PL ATELE T MCH 33.0 pg 26.6-3 3.0 Not Available [facility] ([facility]) [address] [facility], [place], [address], 01/10/2023 07:14:04 01/09/20 23 01/09/2023 CBC WITH DIFFE RENTI AL/PL ATELE T MCHC 34.7 g/dL 31.5-3 5.7 Not Available [facility] ([facility]) [address] [facility], [place], [address], 01/10/2023 07:14:04 01/09/20 23 01/09/2023 CBC WITH DIFFE RENTI AL/PL ATELE T RDW 12.1 % 11.6-1 5.4 Not Available [facility] ([facility]) [address] [facility], [place], [address], 01/10/2023 07:14:04 01/09/20 23 01/09/2023 CBC WITH DIFFE RENTI AL/PL ATELE T platelets 273 x10e3 /uL 150-45 0 Not Available [facility] ([facility]) [address] [facility], [place], [address], 01/10/2023 07:14:04 01/09/20 23 01/09/2023 CBC WITH DIFFE RENTI AL/PL ATELE T neutrophils 63 % not estab. Not Available [facility] ([facility]) [address] [place], [address], 01/10/2023 07:14:04 01/09/20 23 01/09/2023 CBC WITH DIFFE RENTI AL/PL ATELE T lymphs 29 % not estab. Not Available [facility] ([facility]) [address] [place], [address], 01/10/2023 07:14:04 01/09/20 23 01/09/2023 CBC WITH DIFFE RENTI AL/PL ATELE T monocytes 7 % not estab. Not Available [facility] ([facility]) [address] [place], [address], 01/10/2023 07:14:04 01/09/20 23 01/09/2023 CBC WITH DIFFE RENTI AL/PL ATELE T eos 1 % not estab. Not Available [facility] ([facility]) [address] [facility], [place], [address], 01/10/2023 07:14:04 01/09/20 23 01/09/2023 CBC WITH DIFFE RENTI AL/PL ATELE T basos 0 % not estab. Not Available [facility] ([facility]) [address] [place], [address], 01/10/2023 07:14:04 01/09/20 23 01/09/2023 CBC WITH DIFFE RENTI AL/PL ATELE T immature cells [employer]FORMING [employer]ACHINE [employer] Not Available [facility] ([facility]) [address] [place], [address], 01/10/2023 07:14:04 01/09/20 23 01/09/2023 CBC WITH DIFFE RENTI AL/PL ATELE T neutrophils (absolute) 5.0 x10e3 /uL 1.4-7. 0 Not Available [facility] [facility] [address] [place], [address], 01/10/2023 07:14:04 01/09/20 23 01/09/2023 CBC WITH DIFFE RENTI AL/PL ATELE T lymphs (absolute) 2.3 x10e3 /uL 0.7-3. 1 Not Available [facility] ([facility]) [address] [place], [address], 01/10/2023 07:14:04 01/09/20 23 01/09/2023 CBC WITH DIFFE RENTI AL/PL ATELE T monocytes(ab solute) 0.6 x10e3 /uL 0.1-0. 9 Not Available [facility] ([facility]) [address] [place], [address], 01/10/2023 07:14:04 01/09/20 23 01/09/2023 CBC WITH DIFFE RENTI AL/PL ATELE T eos (absolute) 0.1 x10e3 /uL 0.0-0. 4 Not Available [facility] ([facility]) [address], [place], [address], 01/10/2023 07:14:04 01/09/20 23 01/09/2023 CBC WITH DIFFE RENTI AL/PL ATELE T baso (absolute) 0.0 x10e3 /uL 0.0-0. 2 Not Available [facility] ([facility]) [address], [place], [address], 01/10/2023 07:14:04 01/09/20 23 01/09/2023 CBC WITH DIFFE RENTI AL/PL ATELE T immature granulocytes 0 % not estab. Not Available [facility] ([facility]) [address], [place], [address], 01/10/2023 07:14:04 01/09/20 23 01/09/2023 CBC WITH DIFFE RENTI AL/PL ATELE T immature grans (abs) 0.0 x10e3 /uL 0.0-0. 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 METAB OLIC PANEL (14) glucose 111 mg/dL 70-99 above high normal Not Available [facility] ([facility]) [address] [place], [address], 01/10/2023 07:14:05 01/09/20 23 01/09/2023 COMP. METAB OLIC PANEL (14) BUN 16 mg/dL 6-24 Not Available [facility] ([facility]) [address] [place], [address], 01/10/2023 07:14:05 01/09/20 23 01/09/2023 COMP. METAB OLIC PANEL (14) creatinine 0.60 mg/dL 0.76-1 .27 below low normal Not Available [facility] ([facility]) [address] [place], [address], 01/10/2023 07:14:05 01/09/20 23 01/09/2023 COMP. METAB OLIC PANEL (14) eGFR 121 mL/mi n/1.7 3 >59 Not Available [facility] ([facility]) [address] [place], [address], 01/10/2023 07:14:05 01/09/20 23 01/09/2023 COMP. METAB OLIC PANEL (14) BUN/creatini ne ratio 27 9-20 above high normal Not Available [facility] ([facility]) [address] [place], [address], 01/10/2023 07:14:05 01/09/20 23 01/09/2023 COMP. METAB OLIC PANEL (14) sodium 140 mmol/ L 134-14 4 Not Available [facility] ([facility]) [address] [place], [address], 01/10/2023 07:14:05 01/09/20 23 01/09/2023 COMP. METAB OLIC PANEL (14) potassium 4.0 mmol/ L 3.5-5. 2 Not Available [facility] ([facility]) [address] [place], [address], 01/10/2023 07:14:05 01/09/20 23 01/09/2023 COMP. METAB OLIC PANEL (14) chloride 100 mmol/ L 96-106 Not Available [facility] ([facility]) [address] [place], [address], 01/10/2023 07:14:05 01/09/20 23 01/09/2023 COMP. METAB OLIC PANEL (14) carbon dioxide, total 23 mmol/ L 20-29 Not Available [facility] ([facility]) [address] [place], [address], 01/10/2023 07:14:05 01/09/20 23 01/09/2023 COMP. METAB OLIC PANEL (14) calcium 9.5 mg/dL 8.7-10 .2 Not Available [facility] ([facility]) [address] [place], [address], 01/10/2023 07:14:05 01/09/20 23 01/09/2023 COMP. METAB OLIC PANEL (14) protein, total 7.1 g/dL 6.0-8. 5 Not Available [facility] ([facility]) [address] [place], [address], 01/10/2023 07:14:05 01/09/20 23 01/09/2023 COMP. METAB [...] 4.6 3.6 - 4.6 Not Available [facility] ([facility]) [address] [place], [address], 01/10/2023 07:14:05 01/09/20 23 01/09/2023 COMP. METAB OLIC PANEL (14) globulin, total 2.6 g/dL 1.5-4. 5 Not Available [facility] ([facility]) [address] [place], [address], 01/10/2023 07:14:05 01/09/20 23 01/09/2023 COMP. METAB OLIC PANEL (14) A/G ratio 1.7 1.2-2. 2 Not Available [facility] ([facility]) [address] [place], [address], 01/10/2023 07:14:05 01/09/20 23 01/09/2023 COMP. METAB OLIC PANEL (14) bilirubin, total 0.4 mg/dL 0.0-1. 2 Not Available [facility] ([facility]) [address] [place], [address], 01/10/2023 07:14:05 01/09/20 23 01/09/2023 COMP. METAB OLIC PANEL (14) alkaline phosphatase 55 IU/L 44-121 Not Available [facility] ([facility]) [address] [place], [address], 01/10/2023 07:14:05 01/09/20 23 01/09/2023 COMP. METAB OLIC PANEL (14) AST (SGOT) 13 IU/L 0-40 Not Available [facility] ([facility]) [address] [place], [address], 01/10/2023 07:14:05 01/09/20 23 01/09/2023 COMP. METAB OLIC PANEL (14) ALT (SGPT) 14 IU/L 0-44 Not Available [facility] ([facility]) [address] [facility] [place], [address], 01/10/2023 07:14:05 01/09/20 23 01/09/2023 LIPID PANEL cholesterol, total 110 mg/dL 100-19 9 Not Available [facility] ([facility]) [address] [facility] [place], [address], 01/10/2023 07:14:06 01/09/20 23 01/09/2023 LIPID PANEL triglyceride s 93 mg/dL 0-149 Not Available [facility] ([facility]) [address] [facility] [place], [address], 01/10/2023 07:14:06 01/09/20 23 01/09/2023 LIPID PANEL HDL cholesterol 36 mg/dL >39 below low normal Not Available [facility] ([facility]) [address] [facility] [place], [address], 01/10/2023 07:14:06 01/09/20 23 01/09/2023 LIPID PANEL VLDL cholesterol shaunna 18 mg/dL 5-40 Not Available [facility] ([facility]) [address] [facility] [place], [address], 01/10/2023 07:14:06 01/09/20 23 01/09/2023 LIPID PANEL LDL chol calc ([facility]) 56 mg/dL 0-99 Not Available [facility] ([facility]) [address] [facility], [place], [address], 01/10/2023 07:14:06 01/09/20 23 01/09/2023 LIPID PANEL 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 6 above high normal Predi abete s: 5.7 - 6.4 Diabe melissa: >6.4 Glyce oni contr ol for adult s with diabe melissa: <7.0 Not Available [facility] ([facility]) [address] [facility], [place], [address], 01/10/2023 07:14:07 01/09/20 23 01/10/2023 VITAM IN [...] Louie burnett [place]: The [facility] Press . 2. Maribell johnson MF, Nilsa shah [place], Dago off-F errar i YEAGER, et al. Evalu ation , treat ment, and preve ntion of vitam in D defic iency : an Endoc rine Socie ty clini shaunna pract ice guide line. JCEM. 2010; 96(7) :1911 -30. Not Available [facility] ([facility]) [address] [facility], [place], [address], 01/10/2023 07:14:08 01/09/20 23 01/09/2023 MAGNE SIUM magnesium 1.6 mg/dL 1.6-2. 3 Not Available [facility] ([facility]) [address] [facility], [place], [address], 01/10/2023 07:14:08 01/09/20 23 01/08/2023 HbA1c (hemo globi n A1c), blood HbA1c 8.0 Not Available [address], [place], [address], 01/08/2023 14:14:16 04/10/20 23 04/10/2023 HbA1c (hemo globi n A1c), blood HbA1c 7.3 Not Available [facility] [address], [place], [address], 04/10/2023 08:34:17 12/08/19 23 12/06/2022 XR, sacru m + coccy x [facility] [address] [place] [address] Phone: Fax: Name: LIAM XIONG Exam Date: 023 : 977 Age 47 Gender : M Access ion: [id number] Physic rohit: Ronen Michelle ty: NORTON [...] you for referr ing BAN XIONGSON to [facility]. Legall y authen ticate d by TERRY LINCOLN 12-07 09:15: 03 CC'ed Logic: Orderi ng Provid er: HADLEY MONCADA E CC Provid er: HADLEY Mcgee Attend ing Provid er: HADLEY Mcgee Referr ing Provid er: HADLEY Mcgee Admitt ing Provid er: HADLEY Mcgee [email or web address] [facility] [address] [place], [address], 12/07/2022 11:54:18 12/08/19 23 12/06/2022 XR, sacru m + coccy x, 2 or more view No observ ation record ed. [facility] [address] [place], [address], 12/07/2022 11:58:00 02/29/20 23 02/28/2023 [facility] [address] [place] [address] Phone: Fax: Name: LIAM XIONG Exam Date: : 977 Age 48 Gender : M Access ion: [id number] Physic rohit: Irena Michelle Facili [...] you for referr LIAM Brian to [facility]. Legall y authen ticate d by POPE SHAMA Sharpe 02-28 16:21: 01 CC'ed Logic: Orderi ng Provid er: HADLEY Mcgee CC Provid er: HADLEY Mcgee Attend ing Provid er: HADLEY Mcgee Referr ing Provid er: HADLEY Mcgee Admitt ing Provid er: HADLEY Mcgee [email or web address] [facility] [address] [facility], [place], [address], 03/01/2023 08:36:07 02/29/20 23 02/28/2023 US, abdom en, compl ete No observ ation record ed. [facility] [address] [facility], [place], [address], 03/07/2023 08:34:35 Result Notes Documentation Provider Name and Address Organization Details Recorded Time Xr, Sacrum + Coccyx : [facility] [address] [place] [address] Name: LIAM XIONG Exam Date: 12/06/2022 : [...] you for referring DARSHAN LIAM to [facility]. Legally authenticated by MARIE LINCOLN 2022-12-07 09:15:03 CC'ed Logic: Ordering Provider: DAVIS LINARES CC Provider: DAVIS LINARES Attending Provider: DAVIS LINARES Referring Provider: DAVIS LINARES Admitting Provider: DAVIS Cannon APRN [address] [place], [address], [facility] [place] 12/07/2022 11:54:18 Procedures Surgical History Date Name Laterality Status Provider Name and Address Organization Details Recorded Time 9 procedure on shoulder completed Doretha Smython [facility] & [place] 03/20/2023 14:16:42 Imaging Results None [...] Address Organization Details Last Updated DateTime 3 522648. 94 g 36.6 kg/m2 182.88 cm 97 [degF] 96 % 96 % 103 /min 142/80 mm[Hg] CLAIRE SOLIS [place] - [facility] - [place] [facility] [place] 3 10:58:46 Date Recorded Body height Body mass index (BMI) Body weight Body temperature Oxygen saturation Oxygen saturation in Arterial blood by Pulse oximetry Heart rate Systolic And Diastolic Provider Name and Address Organization Details Last Updated DateTime 3 182.88 cm 36.5 kg/m2 241948. 35 g 96.8 [degF] 95 % 95 % 89 /min 134/84 mm[Hg] CLAIRE COOL [facility] & [place] 3 14:33:54 Date Recorded Body height Body mass index (BMI) Body weight Body temperature Oxygen saturation Oxygen saturation in Arterial blood by Pulse oximetry Heart rate Systolic And Diastolic Provider Name and Address Organization Details Last Updated DateTime 3 182.88 cm 33.9 kg/m2 359372. 09 g 98.1 [degF] 97 % 97 % 82 /min 120/80 mm[Hg] Aminta Harden CLEMENTINE COOL [facility] & [place] 3 13:57:12 Date Recorded Body height Body mass index (BMI) Body weight Body temperature Oxygen saturation Oxygen saturation in Arterial blood by Pulse oximetry Heart rate Systolic And Diastolic Provider Name and Address Organization Details Last Updated DateTime 3 182.88 cm 33.5 kg/m2 220515. 32 g 97.7 [degF] 97 % 97 % 85 /min 114/66 mm[Hg] CLAIRE COOL [facility] [place] 3 11:13:56 Date Recorded Body height Body mass index (BMI) Body weight Body temperature Oxygen saturation Oxygen saturation in Arterial blood by Pulse oximetry Heart rate Systolic And Diastolic Provider Name and Address Organization Details Last Updated DateTime 3 182.88 cm 32.4 kg/m2 537162. 58 g 97.1 [degF] 97 % 97 % 90 /min 142/70 mm[Hg] CLAIRE COOL [facility] [place] 3 08:19:13 Social History Question Answer Notes LastModified by Organizat ion Details LastModified Time Tobacco Smoking Status Current Every Day Smoker CLEMENTINE Combs [facility] & [place] 10/10/2022 10:53:09 Do You Have [...] 03/10/2021 completed CLEMENTINE Sanchez - [facility] - [place] [facility] [place] 10/17/2022 12:28:36 COVID-19, mRNA, LNP-S, PF, 30 mcg/0.3 mL dose 03/31/2021 completed CLEMENTINE Sanchez - [facility] - [place] [facility] [place] 10/17/2022 12:28:36 Past Encounters Encounter ID Performer Location Encounter Start Date Encounter Closed Date Diagnosis/Indication Diagnosis SNOMED-CT Code Diagnosis ICD10 Code Diagnosis Note [id number] Milagros Cordova in, [place] [facility] [address] [place] [address] 10/10/2022 10:49:33 10/10/2022 11:53:58 Type 2 diabetes mellitus 07186115 E11.65 Ozempic was still 800 after insurance. Will start with Metformin and reassess and if needed will add another medication if needed. Follow up in 1 month. Bring blood sugar log to clinic at that time. Hyperlipidemia 76443883 E78.5 Thyroid di sorder screening 370606557 Z13.29 Screening for malignant neoplasm of colon 021950354 Z12.11 Nicotine dependence 5629 4008 F17.200 Adult heal th examination 565803891 Z00.01 Counseled patient on annual eye exams and regular dental visits. Will call with lab results. Patient advised to follow up in 1 month. Diabetic p eripheral neuropathy 662172476 E11.40 Will start new diabetes medication . Will reassess. [id number] Milagros Cordova in[address] [place] [address] 11/08/2022 14:28:07 11/08/2022 14:54:36 Type 2 diabetes mellitus 23150089 E11.65 Keep a blood glucose log. RTC in 2 months. Will recheck hgbA1c, lipid panel, and CBC, CMP. Patient agrees with treatment plan. Continue the metformin as prescribed . Pain in coccyx 95555707 M53.3 Advised patient to take ibuprofen before riding. Use an additional cushion on his bike.Ruthy nt has cologuard at home. Advised to complete and send in to the lab. [id number] Milagros Cordova [address] [place] [address] 01/08/2023 13:52:38 01/08/2023 15:01:27 Type 2 diabetes mellitus 74623753 E11.65 Continue metformin as RX.Will check complete blood work today. Will call with results.A1 C was 13.1 and it is 8.0 today.Will consider adding Mounjaro after January 12 per new recommenda tions. Patient could not afford before.Fol low up in 3 months. Hyperlipidemia 44397848 E78.5 Patient is currently on rosuvastat in. Will call with lab results. [id number] Milagros Cordova in, [place] [facility] [address] [place] [address] [address] [place] [address] 02/05/2023 10:57:49 02/05/2023 11:31:17 Abdominal pain 66291653 R10.9 Tylenol/Ib uprofen PRN.Avoid any strenuous activity to worsen pain or condition. Was seen in ER December [address] Abd/Pelvis was unremarkab le.Will order U/S. Will call with ultrasound results. [id number] Milagros Cordova in, [place] [facility] [address] [facility] [address] [place] [address] 04/10/2023 08:14:43 04/10/2023 08:39:38 Type 2 diabetes mellitus 69425999 E11.65 A1C 7.3 on maximum continued Metformin [...] Zaman Member ID Guarantor Name 05/22/2023 1 [facility] [id number] Liam Xiong [id number] Liam Xiong Notes Date Note Type Note [...] neuropathy. Milagros Cannon APRN [address] , [place], [address], [facility] [place] 10/12/2022 10:13:43 11/08/2022 text/html patient [...] defecate. Milagros Cannon APRN [address], [place], [address], [facility] [place] 11/08/2022 15:48:57 01/08/2023 text/html patient presents to clinic for follow up on diabetes.He states he is feeling better. He was seen in the ER for abdominal pain 2 weeks [address] He states [address] abdomen was negative. He is seeing the Chiropractor and it is helping with his back spasms. He denies any new symptoms. Milagros Cannon APRN [address], [place], [address], [facility] [place] 01/08/2023 14:31:24 02/05/2023 text/html patient [...] SOB. Milagros Cannon APRN [address], [place], [address], [place] [facility] [place] [facility] [place] 02/05/2023 11:49:51 04/10/2023 text/html patient presents to clinic for 3 month follow up. He states he is a little stressed in this morning. He states his BP has been running good. He denies any headaches. Denies any chest pain. Milagros Cannon, PACKAGE WRAPPER [address], [place], [address], [place] [facility] [place] [facility] [place] 04/11/2023 08:59:32
--- OUTSIDE RECORDS SUMMARY | 2025-01-26 15:01 | XMS_ITS | Patient Health Record ---
Author Organization [facility] Address [address] [place] [address] Care Team Providers Care Seo Marketing Specialist Name Role Phone None, None Primary Care Provider UnavailJose Das Unavailable [phone] Allergies No Known Allergies Reason For Referral [...] Problem Status W/U Status Risk Notes Problem 781360888 Obesity (BMI 30-39.9) (E66.9) Active confirmed Problem 86142401 Acute tonsillitis, unspecified etiology (J03.90) Active confirmed Problem 3953724830151 Acute otitis media with effusion of both ears (H65.193) Active confirmed Problem 41973516 Rapid pulse (R00.0) Active confirmed Vital Signs Temperature 98.7 degrees Fahrenheit 01/30/2024 Respiratory Rate 18 /min 01/30/2024 Blood pressure diastolic 78 mm Hg 01/30/2024 Height 72 in 01/30/2024 Blood pressure systolic 118 mm Hg 01/30/2024 Weight 245 lbs 01/30/2024 BMI 33.22 kg/m2 01/30/2024 Encounters Encounter Location Date Provider Diagnosis [address] [place] [address] 01/30/2024 Jose Katherin Acute otitis media with [...] Insured Coverage Start Date Coverage End Date [facility] [address] [address] [place] [phone] [id number] Liam Xiong Self - patient is the insured Medical (General) History Medical History History ICD Code Diabetes Surgical History Surgery Date(Month/Year) shoulder left Hospitalization History Reason Date(Month/Year) as above
== END 2025-01-26 15:22 | disposition home or self-care (01) ==
LOC: INF 14:56
PROVIDERS: Visit Provider Surgery
DX: L05.01 Pilonidal cyst with abscess (principal)
CPT/HCPCS: G0463

== ENCOUNTER 2025-01-27 15:42 | Outpatient (RCR) | payer OTHER, SELFPAY | END 2025-01-27 15:48 | disposition home or self-care (01) | LOC: INF 15:42 | PROVIDERS: Visit Provider Surgery | DX: L05.01 Pilonidal cyst with abscess (principal) | CPT/HCPCS: G0463 ==

== ENCOUNTER 2025-01-28 15:25 | Outpatient (RCR) | payer OTHER, SELFPAY | END 2025-01-28 15:40 | disposition home or self-care (01) | LOC: INF 15:25 | PROVIDERS: Visit Provider Surgery | DX: L05.01 Pilonidal cyst with abscess (principal) | CPT/HCPCS: G0463 ==

== ENCOUNTER 2025-01-29 15:10 | Outpatient (RCR) | payer OTHER, SELFPAY | END 2025-01-29 15:16 | LOC: INF 15:10 | PROVIDERS: Visit Provider Surgery | DX: L05.01 Pilonidal cyst with abscess (principal) | CPT/HCPCS: G0463 ==

== ENCOUNTER 2025-01-31 15:59 | Outpatient (CLI) | payer OTHER, SELFPAY ==
--- OUTSIDE RECORDS SUMMARY | 2025-01-31 16:03 | XMS_ITS | Clinical Summary ---
Author Organization [facility] Address [address] [place] [address] Care Team Providers Care Decorating Equipment Setter Name Role Phone Rojas Romo MD Primary Care Provider [phone] Allergies No known active allergies Medications metFORMIN (GLUCOPHAGE) 500 MG tablet Take 500 mg by mouth 2 (Two) Times a Day With Meals. Active Social History Tobacco Use Types Packs/Day Years Used Date Smoking Tobacco: Every Day Cigarettes Smokeless Tobacco: Never Alcohol Use Standard Drinks/Week Comments No 0 (1 standard drink = 0.6 oz pur e alcohol) AUDIT-C Answer Date Recorded Frequency of Alcohol Consumption Never 10/09/2018 Average Number of Drinks Not on file 019 Frequency of Binge Drinking Not on file 09/13 Abuse Screen Answer Date Recorded Unsafe at Home or Work/School Not on file Feels Threatened by Someone? Not on file 06/2023 Does Anyone Keep You from Co ntacting Others or Doint Things Outside the Home? Not on file 04/25/2023 Physical Sign of Abuse Present Not on file 1 Housing Stability Answer Date Recorded Current Living Arrangements Not on file 04/14 Potentially Unsafe Housing Conditions Not on emilie e 04/25/2023 Family and Community Support Answer Dimas e Recorded Help with Day-to-Day Activities Not on file 04/25/2023 Lonely or Isolated Not on file 04/25/2023 Employment Answer Date Recorded Do you want help finding or keeping work or a giacomo b? Not on file 04/25/2023 Disabilities Answer Date Recorded Concentrating, Remembering, or Making Decisions Difficulty Not on file 04/25/2023 Doing Errands Independently Difficulty Not on fi le 04/25/2023 Education Answer Date Recorded Help with school or training? Not on file Preferred Language Not on file 04/25/2023 Sex and Gender Information Value Date Recorded Sex Assigned at Not on file Legal Sex Male 11:04 PM EDT Gender Identity Not on file Sexual Orientation Not on file Last Filed Vital Signs Vital Sign Reading Time Taken Comments Blood Pressure 145/81 10/09/2018 3:30 AM EDT Pulse 78 10/09/2018 3:30 AM EDT Temperature 37 C (98.6 F) 10/08/2018 11:04 PM EDT Respiratory Rate 18 10/08/2018 11:04 PM EDT Oxygen Saturation 91% 10/09/2018 3:30 AM EDT Inhaled Oxygen Concentration - - Weight 136 kg (300 lb) 10/08/2018 11:04 PM EDT Height 182.9 cm (6') 10/08/2018 11:04 PM EDT Body Mass Index 40.69 10/08/2018 11:04 PM EDT Plan of Treatment Health Maintenance Due Date Last Done Comments TDAP/TD VACCINES (1 - Tdap) 02/24/1996 ANNUAL PHYSICAL 10/10/2018 HEPATITIS C SCREENING 10/10/2018 COLOGUARD 2022 COLON CANCER SCREENING 5 YEA R SIGMOIDOSCOPY 2022 COLONOSCOPY 2022 COLORECTAL CANCER SCREENING 2022 CT COLONOGRAPHY 2022 FECAL OCCULT BLOOD TEST 2022 FIT Testing (1 year) 2022 COVID-19 Vaccine ( - 2023-2 5 season) 2024 INFLUENZA VACCINE 04/14/2025 Pneumococcal Vaccine 0-49 Aged Out No longer eligible based on patient's age to complete this topic Insurance [employer] Care Teams Decorating Equipment Setter Relationship Specialty Start Date End Date Rojas Romo MD [address] [place] [address] PCP - General Family Medicine 10/08/18
--- OUTSIDE RECORDS SUMMARY | 2025-01-31 16:03 | XMS_ITS | Data Portability ---
Author Organization [facility] TRAVON Horta ADMIN Address [address] [place] [id number] Care Team Providers Care Advertisement Distributor Name Role Phone MILAGROS CANNON Primary Care Provider Assessment No assessment recorded. Plan of Treatment Reminders Order Date Submit Date Provider Last Modified By Organization Details Last Modified Time Details Appointments None recorded. Lab HbA1c (hemoglobin A1c), blood 2022 [email or web address], [place], [address], 3 08:51:25 HbA1c (hemoglobin A1c), blood 2022 023 [email or web address] 2 [facility], [address] [place] [address] [address], [place], [address], 3 14:16:57 CBC w/ auto diff 2022 023 [facility], [address], [address], [place], [address], 3 07:14:04 CMP, serum or plasma 2022 023 [facility], [address], [address], [place], [address], 3 07:14:05 magnesium, serum or plasma 2022 023 [facility], [address], [address], [place], [address], 3 07:14:08 vitamin D, 25-hydroxy, total, serum 2022 023 [facility], [address], [address], [place], [address], 3 07:14:08 lipid panel, serum 2022 023 [facility], [address], [address], [place], [address], 3 07:14:06 glucose, fingerstick , blood 2022 023 [email or web address] 2 [facility], [address], [place], [address], 3 15:05:53 HbA1c (hemoglobin A1c), blood 2022 023 2 [facility], [address], [place], [address], 3 11:53:47 CMP, serum or plasma 2022 023 [facility], [address], [address], [place], [address], 3 11:12:21 CBC w/ auto diff 2022 023 [facility], [address], [address], [place], [address], 3 11:12:19 magnesium, serum or plasma 2022 023 [facility], [address], [address], [place], [address], 3 11:12:28 microalbumi n, urine 2022 023 [facility], [address], [place], [address], 3 12:57:57 urinalysis, dipstick 2022 023 [facility], [address], [place], [address], 3 12:01:03 thyroid panel, serum 2022 023 [facility], [address], [address], [place], [address], 3 11:12:23 vitamin D, 25-hydroxy, total, serum 2022 023 [facility], [address], [address], [place], [address], 3 11:12:27 vitamin B12 + folate, serum or blood 2022 023 [facility], [address], [address], [place], [address], 3 11:12:25 lipid panel, serum 2022 023 [facility], [address], [address], [place], [address], 3 11:12:22 Referral physical therapist referral - Coccyx pain. 2022 023 [email or web address] 3 [facility], [address], [place], [address], 3 11:43:02 Procedures colonoscopy screening (PROC) 2022 023 [email or web address] 5 Jose Grove MD, [address], [address], [place], [address], 3 12:38:14 Surgeries None recorded. Imaging US, abdomen, complete - possible umbilical hernia/righ t sided abdominal pain 2022 023 [facility] (Central[facility] Scheduling), [address], [place], [address], 3 16:35:11 XR, sacrum + coccyx, 2 or more view 2022 023 [facility] ([facility] Sched[facility]), [address], [place], [address], 3 09:30:08 Medication Orders Ozempic 0.25 mg or 0.5 mg (2 mg/1.5 mL) subcutaneou s pen injector 2022 023 [id number], [address] [place] [address], [address], 3 08:47:06 Chantix Starting Month Box 0.5 mg (11)-1 mg (42) tablets in dose pack 2022 023 [email or web address] 2 [facility]acy #2332, [address] [place] [address], [address], 3 11:14:37 metformin 1,000 mg tablet 2022 023 2 [facility], [address] [place], [address], 3 11:53:48 Ozempic 0.25 mg or 0.5 mg (2 mg/1.5 mL) subcutaneou s pen injector 2022 023 [facility], [address] [place], [address], 11:14:44 rosuvastati n 10 mg tablet 2022 023 [facility], [address] [place], [address], 11:54:37 Patient TargetsNo targets recorded. Patient Instructions Encounter Date Encounter Id Patient Instructions Last Modified By Organization Details Last Modified Time 10/10/2022 [id number] smoking cessatio n counseling, greater than 3 minutes up to 10 minutes* Not available 10/17/2022 08:34:36 Patient needs to follow up in 1 month. Advised patient that I would call with lab results. Counseled patient on monitoring blood glucose at home. Bring log of blood sugars to next appt. [email or web address] Not available 10/10/2022 11:55:22 Reason for Referral Physical Therapist Referral for Pain in coccyx Coccyx pain. Referring Physician: Milagros Cannon, Infectious Disease, Encounter Date: 11/08/2022 Results Created Date Observation Date Name Description Value Unit Range Abnormal Flag Note LastModifiedBy Organization Detail LastModifiedTime 10/11/19 23 10/11/2022 ALBUM IN/CR EATIN INE RATIO ,URIN E creatinine, urine 312.5 mg/dL not estab. Not Available [facility] ([facility]) [address] [place], [address], 10/11/2022 09:14:45 10/11/19 23 10/11/2022 ALBUM IN/CR EATIN INE RATIO ,URIN E albumin, urine 133.8 ug/mL not estab. Not Available [facility] ([facility]) [address], [place], [address], 10/11/2022 09:14:45 10/11/19 23 10/11/2022 ALBUM IN/CR EATIN INE RATIO ,URIN E alb/creat ratio 43 mg/g_ creat 0-29 above high normal Ana M l: 0 - 29 Moder ately incre ased: 30 - 300 Sever savanah incre ased: >300 Not Available [facility] ([facility]) [address] [place], [address], 10/11/2022 09:14:45 10/11/19 23 10/11/2022 CBC WITH DIFFE RENTI AL/PL ATELE T WBC 8.3 x10e3 /uL 3.4-10 .8 Not Available [facility] ([facility]) [address] [place], [address], 10/11/2022 11:12:19 10/11/1910/11/2022 CBC WITH DIFFE RENTI AL/PL ATELE T RBC 5.38 x10e6 /uL 4.14-5 .80 Not Available [facility] ([facility]) [address] [place], [address], 10/11/2022 11:12:19 10/11/19 23 10/11/2022 CBC WITH DIFFE RENTI AL/PL ATELE T hemoglobin 17.4 g/dL 13.0-1 7.7 Not Available [facility] ([facility]) [address] [place], [address], 10/11/2022 11:12:19 10/11/1910/11/2022 CBC WITH DIFFE RENTI AL/PL ATELE T hematocrit 51.3 % 37.5-5 1.0 above high normal Not Available [facility] ([facility]) [address] [place], [address], 10/11/2022 11:12:19 10/11/1910/11/2022 CBC WITH DIFFE RENTI AL/PL ATELE T MCV 95 fL 79-97 Not Available [facility] ([facility]) [address] [place], [address], 10/11/2022 11:12:19 10/11/19 23 10/11/2022 CBC WITH DIFFE RENTI AL/PL ATELE T MCH 32.3 pg 26.6-3 3.0 Not Available [facility] ([facility]) [address], [place], [address], 10/11/2022 11:12:19 10/11/19 23 10/11/2022 CBC WITH DIFFE RENTI AL/PL ATELE T MCHC 33.9 g/dL 31.5-3 5.7 Not Available [facility] ([facility]) [address], [place], [address], 10/11/2022 11:12:19 10/11/19 23 10/11/2022 CBC WITH DIFFE RENTI AL/PL ATELE T RDW 11.7 % 11.6-1 5.4 Not Available [facility] ([facility]) [address], [place], [address], 10/11/2022 11:12:19 10/11/19 23 10/11/2022 CBC WITH DIFFE RENTI AL/PL ATELE T platelets 324 x10e3 /uL 150-45 0 Not Available [facility] ([facility]) [address], [place], [address], 10/11/2022 11:12:19 10/11/19 23 10/11/2022 CBC WITH DIFFE RENTI AL/PL ATELE T neutrophils 63 % not estab. Not Available [facility] ([facility]) [address], [place], [address], 10/11/2022 11:12:19 10/11/19 23 10/11/2022 CBC WITH DIFFE RENTI AL/PL ATELE T lymphs 26 % not estab. Not Available [facility] ([facility]) [address] [place], [address], 10/11/2022 11:12:19 10/11/19 23 10/11/2022 CBC WITH DIFFE RENTI AL/PL ATELE T monocytes 8 % not estab. Not Available [facility] ([facility]) [address] [place], [address], 10/11/2022 11:12:19 10/11/19 23 10/11/2022 CBC WITH DIFFE RENTI AL/PL ATELE T eos 1 % not estab. Not Available [facility] ([facility]) [address], [place], [address], 10/11/2022 11:12:19 10/11/19 23 10/11/2022 CBC WITH DIFFE RENTI AL/PL ATELE T basos 1 % not estab. Not Available [facility] ([facility]) [address], [place], [address], 10/11/2022 11:12:19 10/11/19 23 10/11/2022 CBC WITH DIFFE RENTI AL/PL ATELE T immature cells WOOD BLOCK ARTIST Not Available [facility] ([facility]) [address] [place], [address], 10/11/2022 11:12:19 10/11/19 23 10/11/2022 CBC WITH DIFFE RENTI AL/PL ATELE T neutrophils (absolute) 5.3 x10e3 /uL 1.4-7. 0 Not Available [facility] ([facility]) [address] [place], [address], 10/11/2022 11:12:19 10/11/19 23 10/11/2022 CBC WITH DIFFE RENTI AL/PL ATELE T lymphs (absolute) 2.2 x10e3 /uL 0.7-3. 1 Not Available [facility] ([facility]) [address] [place], [address], 10/11/2022 11:12:19 10/11/19 23 10/11/2022 CBC WITH DIFFE RENTI AL/PL ATELE T monocytes(ab solute) 0.7 x10e3 /uL 0.1-0. 9 Not Available [facility] ([facility]) [address], [place], [address], 10/11/2022 11:12:19 10/11/19 23 10/11/2022 CBC WITH DIFFE RENTI AL/PL ATELE T eos (absolute) 0.1 x10e3 /uL 0.0-0. 4 Not Available [facility] ([facility]) [address], [place], [address], 10/11/2022 11:12:19 10/11/19 23 10/11/2022 CBC WITH DIFFE RENTI AL/PL ATELE T baso (absolute) 0.0 x10e3 /uL 0.0-0. 2 Not Available [facility] ([facility]) [address], [place], [address], 10/11/2022 11:12:19 10/11/19 23 10/11/2022 CBC WITH DIFFE RENTI AL/PL ATELE T immature granulocytes 1 % not estab. Not Available [facility] ([facility]) [address], [place], [address], 10/11/2022 11:12:19 10/11/19 23 10/11/2022 CBC WITH DIFFE RENTI AL/PL ATELE T immature grans (abs) 0.1 x10e3 /uL 0.0-0. 1 Not Available [facility] ([facility]) [address], [place], [address], 10/11/2022 11:12:19 10/11/19 23 10/11/2022 CBC WITH DIFFE RENTI AL/PL ATELE T NRBC WOOD BLOCK ARTIST Not Available [facility] ([facility]) [address], [place], [address], 10/11/2022 11:12:19 10/11/19 23 10/11/2022 CBC WITH DIFFE RENTI AL/PL ATELE T hematology comments: WOOD BLOCK ARTIST Not Available [facility] ([facility]) [address] [place], [address], 10/11/2022 11:12:19 10/11/19 23 10/11/2022 COMP. METAB OLIC PANEL (14) glucose 294 mg/dL 70-99 above high normal Not Available [facility] ([facility]) [address] [place], [address], 10/11/2022 11:12:21 10/11/19 23 10/11/2022 COMP. METAB OLIC PANEL (14) BUN 22 mg/dL 6-24 Not Available [facility] ([facility]) [address] [place], [address], 10/11/2022 11:12:21 10/11/19 23 10/11/2022 COMP. METAB OLIC PANEL (14) creatinine 0.84 mg/dL 0.76-1 .27 Not Available [facility] ([facility]) [address] [place], [address], 10/11/2022 11:12:21 10/11/19 23 10/11/2022 COMP. METAB OLIC PANEL (14) eGFR 110 mL/mi n/1.7 3 >59 Not Available [facility] ([facility]) [address] [place], [address], 10/11/2022 11:12:21 10/11/19 23 10/11/2022 COMP. METAB OLIC PANEL (14) BUN/creatini ne ratio 26 9-20 above high normal Not Available [facility] ([facility]) [address] [place], [address], 10/11/2022 11:12:21 10/11/19 23 10/11/2022 COMP. METAB OLIC PANEL (14) sodium 137 mmol/ L 134-14 4 Not Available [facility] ([facility]) [address] [place], [address], 10/11/2022 11:12:21 10/11/19 23 10/11/2022 COMP. METAB OLIC PANEL (14) potassium 5.0 mmol/ L 3.5-5. 2 Not Available [facility] ([facility]) [address], [place], [address], 10/11/2022 11:12:21 10/11/19 23 10/11/2022 COMP. METAB OLIC PANEL (14) chloride 97 mmol/ L 96-106 Not Available [facility] ([facility]) [address], [place], [address], 10/11/2022 11:12:21 10/11/19 23 10/11/2022 COMP. METAB OLIC PANEL (14) carbon dioxide, total 24 mmol/ L 20- Not Available [facility] ([facility]) [address] [place], [address], 10/11/2022 11:12:21 10/11/19 23 10/11/2022 COMP. METAB OLIC PANEL (14) calcium 10.1 mg/dL 8.7-10 .2 Not Available [facility] ([facility]) [address], [place], [address], 10/11/2022 11:12:21 10/11/19 23 10/11/2022 COMP. METAB OLIC PANEL (14) protein, total 7.5 g/dL 6.0-8. 5 Not Available [facility] ([facility]) [address] [place], [address], 10/11/2022 11:12:21 10/11/19 23 10/11/2022 COMP. METAB OLIC PANEL (14) albumin 4.4 g/dL 4.0-5. 0 Not Available [facility] ([facility]) [address] [place], [address], 10/11/2022 11:12:21 10/11/19 23 10/11/2022 COMP. METAB OLIC PANEL (14) globulin, total 3.1 g/dL 1.5-4. 5 Not Available [facility] ([facility]) [address] [place], [address], 10/11/2022 11:12:21 10/11/19 23 10/11/2022 COMP. METAB OLIC PANEL (14) A/G ratio 1.4 1.2-2. 2 Not Available [facility] ([facility]) [address], [place], [address], 10/11/2022 11:12:21 10/11/19 23 10/11/2022 COMP. METAB OLIC PANEL (14) bilirubin, total 0.5 mg/dL 0.0-1. 2 Not Available [facility] ([facility]) [address] [place], [address], 10/11/2022 11:12:21 10/11/19 23 10/11/2022 COMP. METAB OLIC PANEL (14) alkaline phosphatase 73 IU/L 44-121 Not Available [facility]) [address], [place], [address], 10/11/2022 11:12:21 10/11/19 23 10/11/2022 COMP. METAB OLIC PANEL (14) AST (SGOT) 33 IU/L 0-40 Not Available [facility] ([facility]) [address], [place], [address], 10/11/2022 11:12:21 10/11/19 23 10/11/2022 COMP. METAB OLIC PANEL (14) ALT (SGPT) 40 IU/L 0-44 Not Available [facility] ([facility]) [address] [place], [address], 10/11/2022 11:12:21 10/11/19 23 10/11/2022 LIPID PANEL cholesterol, total 270 mg/dL 100-19 9 above high normal Not Available [facility] ([facility]) [address] [place], [address], 10/11/2022 11:12:22 10/11/19 23 10/11/2022 LIPID PANEL triglyceride s 299 mg/dL 0-149 above high normal Not Available [facility] ([facility]) [address] [place], [address], 10/11/2022 11:12:22 10/11/19 23 10/11/2022 LIPID PANEL HDL cholesterol 32 mg/dL >39 below low normal Not Available [facility] ([facility]) [address] [place], [address], 10/11/2022 11:12:22 10/11/19 23 10/11/2022 LIPID PANEL VLDL cholesterol shaunna 58 mg/dL 5-40 above high normal Not Available [facility] ([facility]) [address] [place], [address], 10/11/2022 11:12:22 10/11/19 23 10/11/2022 LIPID PANEL LDL chol calc ([facility]) 180 mg/dL 0-99 above high normal Not Available [facility] ([facility]) [address] [place], [address], 10/11/2022 11:12:22 10/11/19 23 10/11/2022 LIPID PANEL comment: WOOD BLOCK ARTIST Not Available [facility] ([facility]) [address] [place], [address], 10/11/2022 11:12:22 10/11/19 23 10/11/2022 THYRO ID PROFI LE II TSH 1.030 uIU/m L 0.450- 4.500 Not Available [facility] ([facility]) [address] [place], [address], 10/11/2022 11:12:23 10/11/19 23 10/11/2022 THYRO ID PROFI LE II thyroxine (T4) 10.8 ug/dL 4.5-12 .0 Not Available [facility] ([facility]) [address], [place], [address], 10/11/2022 11:12:23 10/11/19 23 10/11/2022 THYRO ID PROFI LE II T3 uptake 27 % 24-39 Not Available [facility] ([facility]) [address], [place], [address], 10/11/2022 11:12:23 10/11/19 23 10/11/2022 THYRO ID PROFI LE II free thyroxine index 2.9 1.2-4. 9 Not Available [facility] ([facility]) [address], [place], [address], 10/11/2022 11:12:23 10/11/19 23 10/11/2022 THYRO ID PROFI LE II triiodothyro nine (T3) 148 NG/dL 71-180 Not Available [facility] ([facility]) [address], [place], [address], 10/11/2022 11:12:23 10/11/19 23 10/11/2022 VITAM IN B12 AND FOLAT E vitamin B12 747 pg/mL 232-12 45 Not Available [facility] ([facility]) [address] [place], [address], 10/11/2022 11:12:24 10/11/1910/11/2022 VITAM IN B12 AND FOLAT E folate (folic acid), serum >20.0 NG/mL >3.0 A serum folat e linda ntrat ion of less than 3.1 ng/mL is consi dered to repre sent clini shaunna defic iency . Not Available [facility] ([facility]) [address], [place], [address], 10/11/2022 11:12:24 10/11/1910/11/2022 HEMOG LOBIN A1C hemoglobin A1C 12.9 % 4.8-5. 6 above high normal Predi abete s: 5.7 - 6.4 Diabe melissa: >6.4 Glyce oni contr ol for adult s with diabe melissa: <7.0 Not Available [facility] ([facility]) [address], [place], [address], 10/11/2022 11:12:26 10/11/19 23 10/11/2022 VITAM IN [...] um and D. Louie burnett [place]: [facility] . 2. Maribell johnson MF, Nilsa shah NC, Dago off-F errar i YEAGER, et al. Evalu ation , treat ment, and preve ntion of vitam in D defic iency : an Endoc rine Socie ty clini shaunna pract ice guide line. JCEM. 2010; 96(7) :1911 -30. Not Available [facility] ([facility]) [address], [place], [address], 10/11/2022 11:12:27 10/11/19 23 10/11/2022 MAGNE SIUM magnesium 1.5 mg/dL 1.6-2. 3 below low normal Not Available [facility] ([facility]) [address], [place], [address], 10/11/2022 11:12:28 10/11/19 23 10/10/2022 urina lysis , dipst ick Leukocytes (reference range) negati ve Not Available [facility] - [address], [place], [address], 10/10/2022 11:35:48 10/11/19 23 10/10/2022 urina lysis , dipst ick Nitrite (reference range:) negati ve Not Available [address], [place], [address], 10/10/2022 11:35:48 10/11/19 23 10/10/2022 urina lysis , dipst ick Urobilinogen (reference range) 0.2 Not Available [address], [place], [address], 10/10/2022 11:35:48 10/11/19 23 10/10/2022 urina lysis , dipst ick Protein (reference range) 100 Not Available [address], [place], [address], 10/10/2022 11:35:48 10/11/19 23 10/10/2022 urina lysis , dipst ick pH (reference range 5-8.5) 5.0 Not Available [address], [place], [address], 10/10/2022 11:35:48 10/11/19 23 10/10/2022 urina lysis , dipst ick Blood (reference range:) negati ve Not Available [address], [place], [address], 10/10/2022 11:35:48 10/11/19 23 10/10/2022 urina lysis , dipst ick Specific Hawley (reference range) 1.030 Not Available [address], [place], [address], 10/10/2022 11:35:48 10/11/19 23 10/10/2022 urina lysis , dipst ick Ketone (reference range) modera te Not Available [address], [place], [address], 10/10/2022 11:35:48 10/11/19 23 10/10/2022 urina lysis , dipst ick Bilirubin (reference range) modera te Not Available [address], [place], [address], 10/10/2022 11:35:48 10/11/19 23 10/10/2022 urina lysis , dipst ick Glucose (reference range) 1000 Not Available [address], [place], [address], 10/10/2022 11:35:48 10/11/19 23 10/10/2022 urina lysis , dipst ick Color (reference range: yellow-brown ) Dark Yellow Not Available [address], [place], [address], 10/10/2022 11:35:48 10/11/19 23 10/10/2022 HbA1c (hemo globi n A1c), blood HbA1c 13.1 Not Available [address], [place], [address], 10/10/2022 11:16:31 11/09/19 23 11/08/2022 gluco se, finge rstic k, blood Blood Glucose: mg/dl 157 Not Available [facility] [address], [place], [address], 11/08/2022 14:40:07 01/09/20 23 01/09/2023 CBC WITH DIFFE RENTI AL/PL ATELE T WBC 8.0 x10e3 /uL 3.4-10 .8 Not Available [facility] ([facility]) [address], [place], [address], 01/10/2023 07:14:04 01/09/20 23 01/09/2023 CBC WITH DIFFE RENTI AL/PL ATELE T RBC 4.39 x10e6 /uL 4.14-5 .80 Not Available [facility] ([facility]) [address] [place], [address], 01/10/2023 07:14:04 01/09/20 23 01/09/2023 CBC WITH DIFFE RENTI AL/PL ATELE T hemoglobin 14.5 g/dL 13.0-1 7.7 Not Available [facility] ([facility]) [address] [place], [address], 01/10/2023 07:14:04 01/09/20 23 01/09/2023 CBC WITH DIFFE RENTI AL/PL ATELE T hematocrit 41.8 % 37.5-5 1.0 Not Available [facility] ([facility]) [address] [place], [address], 01/10/2023 07:14:04 01/09/20 23 01/09/2023 CBC WITH DIFFE RENTI AL/PL ATELE T MCV 95 fL 79-97 Not Available [facility] ([facility]) [address] [place], [address], 01/10/2023 07:14:04 01/09/20 23 01/09/2023 CBC WITH DIFFE RENTI AL/PL ATELE T MCH 33.0 pg 26.6-3 3.0 Not Available [facility] ([facility]) [address], [place], [address], 01/10/2023 07:14:04 01/09/20 23 01/09/2023 CBC WITH DIFFE RENTI AL/PL ATELE T MCHC 34.7 g/dL 31.5-3 5.7 Not Available [facility] ([facility]) [address], [place], [address], 01/10/2023 07:14:04 01/09/20 23 01/09/2023 CBC WITH DIFFE RENTI AL/PL ATELE T RDW 12.1 % 11.6-1 5.4 Not Available [facility] ([facility]) [address], [place], [address], 01/10/2023 07:14:04 01/09/20 23 01/09/2023 CBC WITH DIFFE RENTI AL/PL ATELE T platelets 273 x10e3 /uL 150-45 0 Not Available [facility] ([facility]) [address], [place], [address], 01/10/2023 07:14:04 01/09/20 23 01/09/2023 CBC WITH DIFFE RENTI AL/PL ATELE T neutrophils 63 % not estab. Not Available [facility] ([facility]) [address] [place], [address], 01/10/2023 07:14:04 01/09/20 23 01/09/2023 CBC WITH DIFFE RENTI AL/PL ATELE T lymphs 29 % not estab. Not Available [facility] ([facility]) [address] [place], [address], 01/10/2023 07:14:04 01/09/20 23 01/09/2023 CBC WITH DIFFE RENTI AL/PL ATELE T monocytes 7 % not estab. Not Available [facility] ([facility]) [address] [place], [address], 01/10/2023 07:14:04 01/09/20 23 01/09/2023 CBC WITH DIFFE RENTI AL/PL ATELE T eos 1 % not estab. Not Available [facility] ([facility]) [address], [place], [address], 01/10/2023 07:14:04 01/09/20 23 01/09/2023 CBC WITH DIFFE RENTI AL/PL ATELE T basos 0 % not estab. Not Available [facility] ([facility]) [address] [place], [address], 01/10/2023 07:14:04 01/09/20 23 01/09/2023 CBC WITH DIFFE RENTI AL/PL ATELE T immature cells [employer] Not Available [facility] ([facility]) [address] [place], [address], 01/10/2023 07:14:04 01/09/20 23 01/09/2023 CBC WITH DIFFE RENTI AL/PL ATELE T neutrophils (absolute) 5.0 x10e3 /uL 1.4-7. 0 Not Available [facility] ([facility]) [address] [place], [address], 01/10/2023 07:14:04 01/09/20 23 01/09/2023 CBC WITH DIFFE RENTI AL/PL ATELE T lymphs (absolute) 2.3 x10e3 /uL 0.7-3. 1 Not Available [facility] ([facility]) [address] [place], [address], 01/10/2023 07:14:04 01/09/20 23 01/09/2023 CBC WITH DIFFE RENTI AL/PL ATELE T monocytes(ab solute) 0.6 x10e3 /uL 0.1-0. 9 Not Available [facility] ([facility]) [address] [place], [address], 01/10/2023 07:14:04 01/09/20 23 01/09/2023 CBC WITH DIFFE RENTI AL/PL ATELE T eos (absolute) 0.1 x10e3 /uL 0.0-0. 4 Not Available [facility] ([facility]) [address], [place], [address], 01/10/2023 07:14:04 01/09/20 23 01/09/2023 CBC WITH DIFFE RENTI AL/PL ATELE T baso (absolute) 0.0 x10e3 /uL 0.0-0. 2 Not Available [facility] ([facility]) [address], [place], [address], 01/10/2023 07:14:04 01/09/20 23 01/09/2023 CBC WITH DIFFE RENTI AL/PL ATELE T immature granulocytes 0 % not estab. Not Available [facility] ([facility]) [address], [place], [address], 01/10/2023 07:14:04 01/09/20 23 01/09/2023 CBC WITH DIFFE RENTI AL/PL ATELE T immature grans (abs) 0.0 x10e3 /uL 0.0-0. 1 Not Available [facility] ([facility]) [address], [place], [address], 01/10/2023 07:14:04 01/09/2001/09/2023 CBC WITH DIFFE RENTI AL/PL ATELE T NRBC WOOD BLOCK ARTIST Not Available [facility] ([facility]) [address], [place], [address], 01/10/2023 07:14:04 01/09/2001/09/2023 CBC WITH DIFFE RENTI AL/PL ATELE T hematology comments: WOOD BLOCK ARTIST Not Available [facility] ([facility]) [address], [place], [address], 01/10/2023 07:14:04 01/09/20 23 01/09/2023 COMP. METAB OLIC PANEL (14) glucose 111 mg/dL 70-99 above high normal Not Available [facility] ([facility]) [address] [place], [address], 01/10/2023 07:14:05 01/09/20 23 01/09/2023 COMP. METAB OLIC PANEL (14) BUN 16 mg/dL 6-24 Not Available [facility] ([facility]) [address] [place], [address], 01/10/2023 07:14:05 01/09/20 23 01/09/2023 COMP. METAB OLIC PANEL (14) creatinine 0.60 mg/dL 0.76-1 .27 below low normal Not Available [facility] ([facility]) [address] [place], [address], 01/10/2023 07:14:05 01/09/20 23 01/09/2023 COMP. METAB OLIC PANEL (14) eGFR 121 mL/mi n/1.7 3 >59 Not Available [facility] ([facility]) [address] [place], [address], 01/10/2023 07:14:05 01/09/20 23 01/09/2023 COMP. METAB OLIC PANEL (14) BUN/creatini ne ratio 27 9-20 above high normal Not Available [facility] ([facility]) [address] [place], [address], 01/10/2023 07:14:05 01/09/20 23 01/09/2023 COMP. METAB OLIC PANEL (14) sodium 140 mmol/ L 134-14 4 Not Available [facility] ([facility]) [address] [place], [address], 01/10/2023 07:14:05 01/09/20 23 01/09/2023 COMP. METAB OLIC PANEL (14) potassium 4.0 mmol/ L 3.5-5. 2 Not Available [facility] ([facility]) [address] [place], [address], 01/10/2023 07:14:05 01/09/20 23 01/09/2023 COMP. METAB OLIC PANEL (14) chloride 100 mmol/ L 96-106 Not Available [facility] ([facility]) [address] [place], [address], 01/10/2023 07:14:05 01/09/20 23 01/09/2023 COMP. METAB OLIC PANEL (14) carbon dioxide, total 23 mmol/ L 20-29 Not Available [facility] ([facility]) [address] [place], [address], 01/10/2023 07:14:05 01/09/20 23 01/09/2023 COMP. METAB OLIC PANEL (14) calcium 9.5 mg/dL 8.7-10 .2 Not Available [facility] ([facility]) [address] [place], [address], 01/10/2023 07:14:05 01/09/20 23 01/09/2023 COMP. METAB OLIC PANEL (14) protein, total 7.1 g/dL 6.0-8. 5 Not Available [facility] ([facility]) [address] [place], [address], 01/10/2023 07:14:05 01/09/20 23 01/09/2023 COMP. METAB [...] 4.6 3.6 - 4.6 Not Available [facility] ([facility]) [address] [place], [address], 01/10/2023 07:14:05 01/09/20 23 01/09/2023 COMP. METAB OLIC PANEL (14) globulin, total 2.6 g/dL 1.5-4. 5 Not Available [facility] ([facility]) [address] [place], [address], 01/10/2023 07:14:05 01/09/20 23 01/09/2023 COMP. METAB OLIC PANEL (14) A/G ratio 1.7 1.2-2. 2 Not Available [facility] ([facility]) [address] [place], [address], 01/10/2023 07:14:05 01/09/20 23 01/09/2023 COMP. METAB OLIC PANEL (14) bilirubin, total 0.4 mg/dL 0.0-1. 2 Not Available [facility] ([facility]) [address] [place], [address], 01/10/2023 07:14:05 01/09/20 23 01/09/2023 COMP. METAB OLIC PANEL (14) alkaline phosphatase 55 IU/L 44-121 Not Available [facility] ([facility]) [address] [place], [address], 01/10/2023 07:14:05 01/09/20 23 01/09/2023 COMP. METAB OLIC PANEL (14) AST (SGOT) 13 IU/L 0-40 Not Available [facility] ([facility]) [address] [place], [address], 01/10/2023 07:14:05 01/09/20 23 01/09/2023 COMP. METAB OLIC PANEL (14) ALT (SGPT) 14 IU/L 0-44 Not Available [facility] ([facility]) [address] [place], [address], 01/10/2023 07:14:05 01/09/20 23 01/09/2023 LIPID PANEL cholesterol, total 110 mg/dL 100-19 9 Not Available [facility] ([facility]) [address] [place], [address], 01/10/2023 07:14:06 01/09/20 23 01/09/2023 LIPID PANEL triglyceride s 93 mg/dL 0-149 Not Available [facility] ([facility]) [address] [place], [address], 01/10/2023 07:14:06 01/09/20 23 01/09/2023 LIPID PANEL HDL cholesterol 36 mg/dL >39 below low normal Not Available [facility] ([facility]) [address] [place], [address], 01/10/2023 07:14:06 01/09/20 23 01/09/2023 LIPID PANEL VLDL cholesterol shaunna 18 mg/dL 5-40 Not Available [facility] ([facility]) [address] [place], [address], 01/10/2023 07:14:06 01/09/20 23 01/09/2023 LIPID PANEL LDL chol calc ([facility]) 56 mg/dL 0-99 Not Available [facility] ([facility]) [address], [place], [address], 01/10/2023 07:14:06 01/09/20 23 01/09/2023 LIPID PANEL comment: WOOD BLOCK ARTIST Not Available [facility] ([facility]) [address], [place], [address], 01/10/2023 07:14:06 01/09/20 23 01/09/2023 HEMOG LOBIN A1C hemoglobin A1C 7.9 % 4.8-5. 6 above high normal Predi abete s: 5.7 - 6.4 Diabe melissa: >6.4 Glyce oni contr ol for adult s with diabe melissa: <7.0 Not Available [facility] ([facility]) [address], [place], [address], 01/10/2023 07:14:07 01/09/20 23 01/10/2023 VITAM IN [...] Louie burnett [place]: [facility] . 2. Maribell johnson MF, Nilsa shah [place], Dago off-F errar i YEAGER, et al. Evalu ation , treat ment, and preve ntion of vitam in D defic iency : an Endoc rine Socie ty clini shaunna pract ice guide line. JCEM. 2010; 96(7) :1911 -30. Not Available [facility] ([facility]) [address], [place], [address], 01/10/2023 07:14:08 01/09/20 23 01/09/2023 MAGNE SIUM magnesium 1.6 mg/dL 1.6-2. 3 Not Available [facility] ([facility]) [address], [place], [address], 01/10/2023 07:14:08 01/09/20 23 01/08/2023 HbA1c (hemo globi n A1c), blood HbA1c 8.0 Not Available [address], [place], [address], 01/08/2023 14:14:16 04/10/20 23 04/10/2023 HbA1c (hemo globi n A1c), blood HbA1c 7.3 Not Available [facility] [address], [place], [address], 04/10/2023 08:34:17 12/08/19 23 12/06/2022 XR, sacru m + coccy x [facility] [address] [place] [address] Phone: Fax: Name: LIAM XIONG Exam Date: 023 : [birth year] Age 47 Gender : M Access ion: [id number] Physic rohit: Ronen Michelle ty: [facility] Brendon ty HSV: Outpat ient [...] ing BAN XIONGSON to [facility]. Legall y authen ticate d by TERRY LINCOLN 12-07 09:15: 03 CC'ed Logic: Orderi ng Provid er: HADLEY MONCADA E CC Provid er: HADLEY Mcgee Attend ing Provid er: HADLEY Mcgee Referr ing Provid er: HADLEY Mcgee Admitt ing Provid er: HADLEY Mcgee [id number] [facility] [address] [place], [address], 12/07/2022 11:54:18 12/08/19 23 12/06/2022 XR, sacru m + coccy x, 2 or more view No observ ation record ed. [facility] ([facility]) [address] [place], [address], 12/07/2022 11:58:00 02/29/20 23 02/28/2023 [facility] [address] [place] [address] Phone: Fax: Name: LIAM XIONG Exam Date: : [birth year] Age 48 Gender : M Access ion: [id number] Physic rohit: Irena Michelle Facili ty: [facility] Facili ty HSV: Outpat ient [...] Thank you for referr LIAM Brian to [facility]. Legall y authen ticate d by POPE SHAMA Sharpe 02-28 16:21: 01 CC'ed Logic: Orderi ng Provid er: HADLEY Mcgee CC Provid er: HADLEY Mcgee Attend ing Provid er: HADLEY Mcgee Referr ing Provid er: HADLEY Mcgee Admitt ing Provid er: HADLEY Mcgee [id number] [facility] [address] [facility], [place], [address], 03/01/2023 08:36:07 02/29/20 23 02/28/2023 US, abdom en, compl ete No observ ation record ed. [facility] [address] [facility], [place], [address], 03/07/2023 08:34:35 Result Notes Documentation Provider Name and Address Organization Details Recorded Time Xr, Sacrum + Coccyx : [facility] [address] [place] [address] Name: LIAM XIONG Exam Date: 12/06/2022 : 1975 Age 47 Gender: M Physician: Milagros Cannon Facility: [facility] Facility HSV: Outpatient Exam: SACRUM [...] Thank you for referring DARSHAN LIAM to [facility]. Legally authenticated by MARIE LINCOLN 2022-12-07 09:15:03 CC'ed Logic: Ordering Provider: DAVIS LINARES CC Provider: DAVIS LINARES Attending Provider: DAVIS LINARES Referring Provider: DAVIS LINARES Admitting Provider: DAVIS Cannon APRN [address] [place], [address], [facility] & [place] 12/07/2022 11:54:18 Procedures Surgical History Date Name Laterality Status Provider Name and Address Organization Details Recorded Time 9 procedure on shoulder completed Doretha Smython [facility] & [place] 03/20/2023 14:16:42 Imaging Results None recorded. Procedure [...] Address Organization Details Last Updated DateTime 3 961328. 94 g 36.6 kg/m2 182.88 cm 97 [degF] 96 % 96 % 103 /min 142/80 mm[Hg] CLAIRE SOLIS [place] - [facility] - [place] & [place] 3 10:58:46 Date Recorded Body height Body mass index (BMI) Body weight Body temperature Oxygen saturation Oxygen saturation in Arterial blood by Pulse oximetry Heart rate Systolic And Diastolic Provider Name and Address Organization Details Last Updated DateTime 3 182.88 cm 36.5 kg/m2 788131. 35 g 96.8 [degF] 95 % 95 % 89 /min 134/84 mm[Hg] CLAIRE COOL [facility] & [place] 3 14:33:54 Date Recorded Body height Body mass index (BMI) Body weight Body temperature Oxygen saturation Oxygen saturation in Arterial blood by Pulse oximetry Heart rate Systolic And Diastolic Provider Name and Address Organization Details Last Updated DateTime 3 182.88 cm 33.9 kg/m2 697047. 09 g 98.1 [degF] 97 % 97 % 82 /min 120/80 mm[Hg] Aminta Harden CLEMENTINE COOL [facility] & [place] 3 13:57:12 Date Recorded Body height Body mass index (BMI) Body weight Body temperature Oxygen saturation Oxygen saturation in Arterial blood by Pulse oximetry Heart rate Systolic And Diastolic Provider Name and Address Organization Details Last Updated DateTime 3 182.88 cm 33.5 kg/m2 664745. 32 g 97.7 [degF] 97 % 97 % 85 /min 114/66 mm[Hg] CLAIRE COOL [facility] & [place] 3 11:13:56 Date Recorded Body height Body mass index (BMI) Body weight Body temperature Oxygen saturation Oxygen saturation in Arterial blood by Pulse oximetry Heart rate Systolic And Diastolic Provider Name and Address Organization Details Last Updated DateTime 3 182.88 cm 32.4 kg/m2 017199. 58 g 97.1 [degF] 97 % 97 % 90 /min 142/70 mm[Hg] CLAIRE COOL [facility] & [place] 3 08:19:13 Social History Question Answer Notes LastModified by Organizat ion Details LastModified Time Tobacco Smoking Status Current Every Day Smoker CLEMENTINE Combs [facility] & [place] 10/10/2022 10:53:09 Do You Have An Advance [...] 03/10/2021 completed CLEMENTINE Sanchez - [facility]PRAQU[facility] - [place] & [place] 10/17/2022 12:28:36 COVID-19, mRNA, LNP-S, PF, 30 mcg/0.3 mL dose 03/31/2021 completed CLEMENTINE Sanchez - [facility] - [place] & [place] 10/17/2022 12:28:36 Past Encounters Encounter ID Performer Location Encounter Start Date Encounter Closed Date Diagnosis/Indication Diagnosis SNOMED-CT Code Diagnosis ICD10 Code Diagnosis Note [id number] Milagros Cordova in, [place] [facility] [address] [place] [address] 10/10/2022 10:49:33 10/10/2022 11:53:58 Type 2 diabetes mellitus 48680612 E11.65 Ozempic was still 800 after insurance. Will start with Metformin and reassess and if needed will add another medication if needed. Follow up in 1 month. Bring blood sugar log to clinic at that time. Hyperlipidemia 40935079 E78.5 Thyroid di sorder screening 707639536 Z13.29 Screening for malignant neoplasm of colon 571870419 Z12.11 Nicotine dependence 5629 4008 F17.200 Adult heal th examination 113031652 Z00.01 Counseled patient on annual eye exams and regular dental visits. Will call with lab results. Patient advised to follow up in 1 month. Diabetic p eripheral neuropathy 525264812 E11.40 Will start new diabetes medication . Will reassess. [id number] Milagros Cordova [address] [place] [address] 11/08/2022 14:28:07 11/08/2022 14:54:36 Type 2 diabetes mellitus 58769696 E11.65 Keep a blood glucose log. RTC in 2 months. Will recheck hgbA1c, lipid panel, and CBC, CMP. Patient agrees with treatment plan. Continue the metformin as prescribed . Pain in coccyx 15194879 M53.3 Advised patient to take ibuprofen before riding. Use an additional cushion on his bike.Ruthy nt has cologuard at home. Advised to complete and send in to the lab. [id number] Milagros Cordova [address] [place] [address] 01/08/2023 13:52:38 01/08/2023 15:01:27 Type 2 diabetes mellitus 88275023 E11.65 Continue metformin as RX.Will check complete blood work today. Will call with results.A1 C was 13.1 and it is 8.0 today.Will consider adding Mounjaro after January 12 per new recommenda tions. Patient could not afford before.Fol low up in 3 months. Hyperlipidemia 23399603 E78.5 Patient is currently on rosuvastat in. Will call with lab results. [id number] Milagros Cordova in, [place] [facility] [address] [place] [address] [address] [place] [address] 02/05/2023 10:57:49 02/05/2023 11:31:17 Abdominal pain 43349458 R10.9 Tylenol/Ib uprofen PRN.Avoid any strenuous activity to worsen pain or condition. Was seen in ER December [address] Abd/Pelvis was unremarkab le.Will order U/S. Will call with ultrasound results. [id number] Milagros Cordova in, [place] [facility] [address] [facility] [address] [place] [address] 04/10/2023 08:14:43 04/10/2023 08:39:38 Type 2 diabetes mellitus 97120225 E11.65 A1C 7.3 on maximum continued Metformin [...] Zaman Member ID Guarantor Name 05/22/2023 1 [facility] [id number] Liam Xiong [id number] Liam Xiong Notes Date Note Type Note [...] neuropathy. Milagros Cannon APRN [address] , [place], [address], [facility] & [place] 10/12/2022 10:13:43 11/08/2022 text/html patient presents to [...] defecate. Milagros Cannon APRN [address], [place], [address], [facility] & [place] 11/08/2022 15:48:57 01/08/2023 text/html patient presents to clinic for follow up on diabetes.He states he is feeling better. He was seen in the ER for abdominal pain 2 weeks [address] He states [address] abdomen was negative. He is seeing the Chiropractor and it is helping with his back spasms. He denies any new symptoms. Milagros Cannon APRN [address], [place], [address], [facility] & [place] 01/08/2023 14:31:24 02/05/2023 text/html patient presents to [...] SOB. Milagros Cannon APRN [address], [place], [address], [place] - [facility] - [place] [facility] [place] 02/05/2023 11:49:51 04/10/2023 text/html patient presents to clinic for 3 month follow up. He states he is a little stressed in this morning. He states his BP has been running good. He denies any headaches. Denies any chest pain. Milagros Cannon, REGULATORY ASSOCIATE [address], [place], [address], [place] [facility] [place] [facility] [place] 04/11/2023 08:59:32
--- OUTSIDE RECORDS SUMMARY | 2025-01-31 16:03 | XMS_ITS | Patient Health Record ---
Author Organization [facility] Address [address] [place] [address] Care Team Providers Care Fast Food Sales Assistant Name Role Phone None, None Primary Care Provider Unavailabl e Allergies No Known Allergies Reason For Referral [...] Problem Status W/U Status Risk Notes Problem 492439198 Obesity (BMI 30-39.9) (E66.9) Active confirmed Problem 43178469 Acute tonsillitis, unspecified etiology (J03.90) Active confirmed Problem 6384246839850 Acute otitis media with effusion of both ears (H65.193) Active confirmed Problem 78597704 Rapid pulse (R00.0) Active confirmed Plan Of Treatment No Information Insurance Providers Payer Name Payer Address Payer Phone Subscriber Number Group Number Insured Name Patient Relationship to Insured Coverage Start Date Coverage End Date [facility] [address] [address] [place] [address] [id number] Liam Xiong Self - patient is the insured Medical (General) History Medical History History ICD Code Diabetes Surgical History Surgery Date(Month/Year) shoulder left Hospitalization History Reason Date(Month/Year) as above
--- OUTSIDE RECORDS SUMMARY | 2025-01-31 16:03 | XMS_ITS | Patient Health Record ---
Author Organization [facility] Address [address] [place] [address] Support Name Relationship Address Phone N/A, N/A Emergency Contact [address] [place] [address] Unavailable RHIANNON SEXTON Guarantor Unknown [phone] Reason For Referral No Information Immunizations Vaccine [...] Insured Coverage Start Date Coverage End Date [facility] [address] [address] [place] [address] [id number] RHIANNON SEXTON Self - patient is the insured
== END 2025-01-31 16:30 | disposition home or self-care (01) ==
LOC: INF 16:01
PROVIDERS: Visit Provider Surgery
DX: L05.01 Pilonidal cyst with abscess (principal)
CPT/HCPCS: G0463

== ENCOUNTER 2025-02-01 08:15 | Outpatient (RCR) | payer OTHER, SELFPAY | END 2025-02-01 08:20 | disposition home or self-care (01) | LOC: INF 08:15 | PROVIDERS: Visit Provider Surgery | DX: L05.01 Pilonidal cyst with abscess (principal) | CPT/HCPCS: G0463 ==

== ENCOUNTER 2025-02-02 08:07 | Outpatient (RCR) | payer OTHER, SELFPAY | END 2025-02-02 08:20 | disposition home or self-care (01) | LOC: INF 08:07 | PROVIDERS: Visit Provider Surgery | DX: L05.01 Pilonidal cyst with abscess (principal) | CPT/HCPCS: G0463 ==

== ENCOUNTER 2025-02-03 08:09 | Outpatient (RCR) | payer OTHER, SELFPAY | END 2025-02-03 08:20 | disposition home or self-care (01) | LOC: INF 08:09 | PROVIDERS: Visit Provider Surgery | DX: L05.01 Pilonidal cyst with abscess (principal) | CPT/HCPCS: G0463 ==

== ENCOUNTER 2025-02-04 08:14 | Outpatient (RCR) | payer OTHER, SELFPAY | END 2025-02-04 08:30 | disposition home or self-care (01) | LOC: INF 08:14 | PROVIDERS: Visit Provider Surgery | DX: L05.01 Pilonidal cyst with abscess (principal) | CPT/HCPCS: G0463 ==

== ENCOUNTER 2025-02-05 08:15 | Outpatient (RCR) | payer OTHER, SELFPAY | END 2025-02-05 08:20 | LOC: INF 08:15 | PROVIDERS: Visit Provider Surgery | DX: L05.01 Pilonidal cyst with abscess (principal) | CPT/HCPCS: G0463 ==

== ENCOUNTER 2025-02-07 13:40 | Outpatient (CLI) | payer OTHER, SELFPAY ==
--- OUTSIDE RECORDS SUMMARY | 2025-02-07 13:44 | XMS_ITS | Clinical Summary ---
Author Organization [facility] Address [address] [place] [address] Care Team Providers Care Christmas Tree Contractor Name Role Phone Rojas Romo MD Primary Care Provider [phone] Allergies No known active allergies Medications metFORMIN [...] patient's age to complete this topic Insurance [facility] Care Teams Christmas Tree Contractor Relationship Specialty Start Date End Date Rojas Romo MD [address] [place] [address] PCP - General Family Medicine 10/08/18
--- OUTSIDE RECORDS SUMMARY | 2025-02-07 13:44 | XMS_ITS | Patient Health Record ---
Author Organization [facility] Address [address] [place] [address] Support Name Relationship Address Phone N/A, N/A Emergency Contact [address] [place] [address] Unavailable RHIANNON SEXTON Guarantor Unknown [phone] Reason For Referral No Information Immunizations Vaccine [...] Start Date Coverage End Date [facility] [address] [address] [place] [address] [phone] [id number] RHIANNON SEXTON Self - patient is the insured
--- OUTSIDE RECORDS SUMMARY | 2025-02-07 13:44 | XMS_ITS | Patient Health Record ---
Author Organization [facility] Address [address] [place] [address] Care Team Providers Care Lithograph Designer Name Role Phone None, None Primary Care [...] Problem Status W/U Status Risk Notes Problem 082382502 Obesity (BMI 30-39.9) (E66.9) Active confirmed Problem 88157926 Acute tonsillitis, unspecified etiology (J03.90) Active confirmed Problem 9852935270744 Acute otitis media with effusion of both ears (H65.193) Active confirmed Problem 33874072 Rapid pulse (R00.0) Active confirmed Plan Of Treatment No Information Insurance Providers Payer Name Payer Address Payer Phone Subscriber Number Group Number Insured Name Patient Relationship to Insured Coverage Start Date Coverage End Date [facility] [address] [address] [place] [phone] [id number] Liam Xiong Self - patient is the insured Medical (General) History Medical History History ICD Code Diabetes Surgical History Surgery Date(Month/Year) shoulder left Hospitalization History Reason Date(Month/Year) as above
--- OUTSIDE RECORDS SUMMARY | 2025-02-07 13:44 | XMS_ITS | Data Portability ---
Author Organization [facility] & TRAVON Horta ADMIN Address [address] [place] [id number] Care Team Providers Care Tax Auditor Name Role Phone MILAGROS CANNON Primary Care Provider Assessment No assessment recorded. Plan of Treatment Reminders Order Date Submit Date Provider Last Modified By Organization Details Last Modified Time Details Appointments None recorded. Lab HbA1c (hemoglobin A1c), blood 2022 [email or web address], [place], [address], 3 08:51:25 HbA1c (hemoglobin A1c), blood 2022 023 [email or web address] 2 [facility], [address] [place] [address] [address], [place], [address], 3 14:16:57 CBC w/ auto diff 2022 023 [place] [facility], [address], [address], [place], [address], 3 07:14:04 CMP, serum or plasma 2022 023 EDUIN [facility], [address], [address], [place], [address], 3 07:14:05 magnesium, serum or plasma 2022 023 [facility], [address], [address], [place], [address], 3 07:14:08 vitamin D, 25-hydroxy, total, serum 2022 023 [facility], [address], [address], [place], [address], 3 07:14:08 lipid panel, serum 2022 023 [facility], [address], [address], [place], [address], 3 07:14:06 glucose, fingerstick , blood 2022 023 [email or web address] 2 [facility], [address], [place], [address], 3 15:05:53 HbA1c (hemoglobin A1c), blood 2022 023 [email or web address] 2 [facility], [address], [place], [address], 3 11:53:47 CMP, serum or plasma 2022 023 [facility], [address], [address], [place], [address], 3 11:12:21 CBC w/ auto diff 2022 023 [facility], [address], [address], [place], [address], 3 11:12:19 magnesium, serum or plasma 2022 023 [facility], [address], [address], [place], [address], 3 11:12:28 microalbumi n, urine 2022 023 [facility] [place] [facility], [address], [place], [address], 3 12:57:57 urinalysis, dipstick 2022 023 [facility] [place] [facility], [address], [place], [address], 3 12:01:03 thyroid panel, serum 2022 023 [place] [facility], [address], [address], [place], [address], 3 11:12:23 vitamin D, 25-hydroxy, total, serum 2022 023 [place] [facility], [address], [address], [place], [address], 3 11:12:27 vitamin B12 + folate, serum or blood 2022 023 [place] [facility], [address], [address], [place], [address], 3 11:12:25 lipid panel, serum 2022 023 [facility], [address], [address], [place], [address], 3 11:12:22 Referral physical therapist referral - Coccyx pain. 2022 023 [email or web address] 3 [facility], [address], [place], [address], 3 11:43:02 Procedures colonoscopy screening (PROC) 2022 023 [email or web address] 5 Jose Grove MD, [address], [address], [place], [address], 3 12:38:14 Surgeries None recorded. Imaging US, abdomen, complete - possible umbilical hernia/righ t sided abdominal pain 2022 023 [facility] (Centralized Scheduling), [address], [place], [address], 3 16:35:11 XR, sacrum + coccyx, 2 or more view 2022 023 [facility] ([facility] Sched[facility]), [address], [place], [address], 3 09:30:08 Medication Orders Ozempic 0.25 mg or 0.5 mg (2 mg/1.5 mL) subcutaneou s pen injector 2022 023 [id number], [address] [place] [address], [address], 3 08:47:06 Chantix Starting Month Box 0.5 mg (11)-1 mg (42) tablets in dose pack 2022 023 [email or web address] 2 [facility]acy #2332, [address] [place] [address], [address], 3 11:14:37 metformin 1,000 mg tablet 2022 023 [email or web address] 2 [facility] #2332, [address] [place], [address], 3 11:53:48 Ozempic 0.25 mg or 0.5 mg (2 mg/1.5 mL) subcutaneou s pen injector 2022 023 [facility]2332, [address] [place], [address], 11:14:44 rosuvastati n 10 mg tablet 2022 023 [facility]2332, [address] [place], [address], 11:54:37 Patient TargetsNo targets recorded. Patient Instructions Encounter Date Encounter Id Patient Instructions Last Modified By Organization Details Last Modified Time 10/10/2022 [id number] smoking cessatio n counseling, greater than 3 minutes up to 10 minutes* Not available 10/17/2022 08:34:36 Patient needs to follow up in 1 month. Advised patient that I would call with lab results. Counseled patient on monitoring blood glucose at home. Bring log of blood sugars to next appt. [email or web address] Not available 10/10/2022 11:55:22 Reason for Referral Physical Therapist Referral for Pain in coccyx Coccyx pain. Referring Physician: Milagros Cannon, Infectious Disease, Encounter Date: 11/08/2022 Results Created Date Observation Date Name Description Value Unit Range Abnormal Flag Note LastModifiedBy Organization Detail LastModifiedTime 10/11/19 23 10/11/2022 ALBUM IN/CR EATIN INE RATIO ,URIN E creatinine, urine 312.5 mg/dL not estab. Not Available [facility] ([facility]) [address] [place], [address], 10/11/2022 09:14:45 10/11/19 23 10/11/2022 ALBUM IN/CR EATIN INE RATIO ,URIN E albumin, urine 133.8 ug/mL not estab. Not Available [facility] ([facility]) [address] [facility], [place], [address], 10/11/2022 09:14:45 10/11/19 23 10/11/2022 ALBUM IN/CR EATIN INE RATIO ,URIN E alb/creat ratio 43 mg/g_ creat 0-29 above high normal Ana M l: 0 - 29 Moder ately incre ased: 30 - 300 Sever savanah incre ased: >300 Not Available [facility] ([facility]) [address] [place], [address], 10/11/2022 09:14:45 10/11/19 23 10/11/2022 CBC WITH DIFFE RENTI AL/PL ATELE T WBC 8.3 x10e3 /uL 3.4-10 .8 Not Available [facility] ([facility]) [address] [place], [address], 10/11/2022 11:12:19 10/11/1910/11/2022 CBC WITH DIFFE RENTI AL/PL ATELE T RBC 5.38 x10e6 /uL 4.14-5 .80 Not Available [facility] ([facility]) [address] [place], [address], 10/11/2022 11:12:19 10/11/19 23 10/11/2022 CBC WITH DIFFE RENTI AL/PL ATELE T hemoglobin 17.4 g/dL 13.0-1 7.7 Not Available [facility] ([facility]) [address] [place], [address], 10/11/2022 11:12:19 10/11/1910/11/2022 CBC WITH DIFFE RENTI AL/PL ATELE T hematocrit 51.3 % 37.5-5 1.0 above high normal Not Available [facility] ([facility]) [address] [place], [address], 10/11/2022 11:12:19 10/11/1910/11/2022 CBC WITH DIFFE RENTI AL/PL ATELE T MCV 95 fL 79-97 Not Available [facility] ([facility]) [address] [place], [address], 10/11/2022 11:12:19 10/11/19 23 10/11/2022 CBC WITH DIFFE RENTI AL/PL ATELE T MCH 32.3 pg 26.6-3 3.0 Not Available [facility] ([facility]) [address] [facility], [place], [address], 10/11/2022 11:12:19 10/11/19 23 10/11/2022 CBC WITH DIFFE RENTI AL/PL ATELE T MCHC 33.9 g/dL 31.5-3 5.7 Not Available [facility] ([facility]) [address] [facility], [place], [address], 10/11/2022 11:12:19 10/11/19 23 10/11/2022 CBC WITH DIFFE RENTI AL/PL ATELE T RDW 11.7 % 11.6-1 5.4 Not Available [facility] ([facility]) [address] [facility], [place], [address], 10/11/2022 11:12:19 10/11/19 23 10/11/2022 CBC WITH DIFFE RENTI AL/PL ATELE T platelets 324 x10e3 /uL 150-45 0 Not Available [facility] ([facility]) [address] [facility], [place], [address], 10/11/2022 11:12:19 10/11/19 23 10/11/2022 CBC WITH DIFFE RENTI AL/PL ATELE T neutrophils 63 % not estab. Not Available [facility] ([facility]) [address] [facility], [place], [address], 10/11/2022 11:12:19 10/11/19 23 10/11/2022 CBC WITH DIFFE RENTI AL/PL ATELE T lymphs 26 % not estab. Not Available [facility] ([facility]) [address] [place], [address], 10/11/2022 11:12:19 10/11/19 23 10/11/2022 CBC WITH DIFFE RENTI AL/PL ATELE T monocytes 8 % not estab. Not Available [facility] ([facility]) [address] [place], [address], 10/11/2022 11:12:19 10/11/19 23 10/11/2022 CBC WITH DIFFE RENTI AL/PL ATELE T eos 1 % not estab. Not Available [facility] ([facility]) [address] [facility], [place], [address], 10/11/2022 11:12:19 10/11/19 23 10/11/2022 CBC WITH DIFFE RENTI AL/PL ATELE T basos 1 % not estab. Not Available [facility] ([facility]) [address] [facility], [place], [address], 10/11/2022 11:12:19 10/11/19 23 10/11/2022 CBC WITH DIFFE RENTI AL/PL ATELE T immature cells CORRECTIONS CASEWORKER Not Available [facility] ([facility]) [address] [place], [address], 10/11/2022 11:12:19 10/11/19 23 10/11/2022 CBC WITH DIFFE RENTI AL/PL ATELE T neutrophils (absolute) 5.3 x10e3 /uL 1.4-7. 0 Not Available [facility] ([facility]) [address] [place], [address], 10/11/2022 11:12:19 10/11/19 23 10/11/2022 CBC WITH DIFFE RENTI AL/PL ATELE T lymphs (absolute) 2.2 x10e3 /uL 0.7-3. 1 Not Available [facility] ([facility]) [address] [place], [address], 10/11/2022 11:12:19 10/11/19 23 10/11/2022 CBC WITH DIFFE RENTI AL/PL ATELE T monocytes(ab solute) 0.7 x10e3 /uL 0.1-0. 9 Not Available [facility] ([facility]) [address] [facility], [place], [address], 10/11/2022 11:12:19 10/11/19 23 10/11/2022 CBC WITH DIFFE RENTI AL/PL ATELE T eos (absolute) 0.1 x10e3 /uL 0.0-0. 4 Not Available [facility] ([facility]) [address] [facility], [place], [address], 10/11/2022 11:12:19 10/11/19 23 10/11/2022 CBC WITH DIFFE RENTI AL/PL ATELE T baso (absolute) 0.0 x10e3 /uL 0.0-0. 2 Not Available [facility] ([facility]) [address] [facility], [place], [address], 10/11/2022 11:12:19 10/11/19 23 10/11/2022 CBC WITH DIFFE RENTI AL/PL ATELE T immature granulocytes 1 % not estab. Not Available [facility] ([facility]) [address] [facility], [place], [address], 10/11/2022 11:12:19 10/11/19 23 10/11/2022 CBC WITH DIFFE RENTI AL/PL ATELE T immature grans (abs) 0.1 x10e3 /uL 0.0-0. 1 Not Available [facility] ([facility]) [address] [facility], [place], [address], 10/11/2022 11:12:19 10/11/19 23 10/11/2022 CBC WITH DIFFE RENTI AL/PL ATELE T NRBC CORRECTIONS CASEWORKER Not Available [facility] ([facility]) [address] [facility], [place], [address], 10/11/2022 11:12:19 10/11/19 23 10/11/2022 CBC WITH DIFFE RENTI AL/PL ATELE T hematology comments: CORRECTIONS CASEWORKER Not Available [facility] ([facility]) [address] [place], [address], 10/11/2022 11:12:19 10/11/19 23 10/11/2022 COMP. METAB OLIC PANEL (14) glucose 294 mg/dL 70-99 above high normal Not Available [facility] ([facility]) [address] [place], [address], 10/11/2022 11:12:21 10/11/19 23 10/11/2022 COMP. METAB OLIC PANEL (14) BUN 22 mg/dL 6-24 Not Available [facility] ([facility]) [address] [place], [address], 10/11/2022 11:12:21 10/11/19 23 10/11/2022 COMP. METAB OLIC PANEL (14) creatinine 0.84 mg/dL 0.76-1 .27 Not Available [facility] ([facility]) [address] [facility], [address], 10/11/2022 11:12:21 10/11/19 23 10/11/2022 COMP. METAB OLIC PANEL (14) eGFR 110 mL/mi n/1.7 3 >59 Not Available [facility] ([facility]) [address] [place], [address], 10/11/2022 11:12:21 10/11/19 23 10/11/2022 COMP. METAB OLIC PANEL (14) BUN/creatini ne ratio 26 9-20 above high normal Not Available [facility] ([facility]) [address] [place], [address], 10/11/2022 11:12:21 10/11/19 23 10/11/2022 COMP. METAB OLIC PANEL (14) sodium 137 mmol/ L 134-14 4 Not Available [facility] ([facility]) [address] [place], [address], 10/11/2022 11:12:21 10/11/19 23 10/11/2022 COMP. METAB OLIC PANEL (14) potassium 5.0 mmol/ L 3.5-5. 2 Not Available [facility] ([facility]) [address] [facility], [place], [address], 10/11/2022 11:12:21 10/11/19 23 10/11/2022 COMP. METAB OLIC PANEL (14) chloride 97 mmol/ L 96-106 Not Available [facility] ([facility]) [address] [facility], [place], [address], 10/11/2022 11:12:21 10/11/19 23 10/11/2022 COMP. METAB OLIC PANEL (14) carbon dioxide, total 24 mmol/ L 20- Not Available [facility] ([facility]) [address] [place], [address], 10/11/2022 11:12:21 10/11/19 23 10/11/2022 COMP. METAB OLIC PANEL (14) calcium 10.1 mg/dL 8.7-10 .2 Not Available [facility] ([facility]) [address] [facility], [place], [address], 10/11/2022 11:12:21 10/11/19 23 10/11/2022 COMP. METAB OLIC PANEL (14) protein, total 7.5 g/dL 6.0-8. 5 Not Available [facility] ([facility]) [address] [place], [address], 10/11/2022 11:12:21 10/11/19 23 10/11/2022 COMP. METAB OLIC PANEL (14) albumin 4.4 g/dL 4.0-5. 0 Not Available [facility] ([facility]) [address] [place], [address], 10/11/2022 11:12:21 10/11/19 23 10/11/2022 COMP. METAB OLIC PANEL (14) globulin, total 3.1 g/dL 1.5-4. 5 Not Available [facility] ([facility]) [address] [place], [address], 10/11/2022 11:12:21 10/11/19 23 10/11/2022 COMP. METAB OLIC PANEL (14) A/G ratio 1.4 1.2-2. 2 Not Available [facility] ([facility]) [address] [facility], [place], [address], 10/11/2022 11:12:21 10/11/19 23 10/11/2022 COMP. METAB OLIC PANEL (14) bilirubin, total 0.5 mg/dL 0.0-1. 2 Not Available [facility] ([facility]) [address] [place], [address], 10/11/2022 11:12:21 10/11/19 23 10/11/2022 COMP. METAB OLIC PANEL (14) alkaline phosphatase 73 IU/L 44-121 Not Available [facility] [address] [facility], [place], [address], 10/11/2022 11:12:21 10/11/19 23 10/11/2022 COMP. METAB OLIC PANEL (14) AST (SGOT) 33 IU/L 0-40 Not Available [facility] ([facility]) [address] [facility], [place], [address], 10/11/2022 11:12:21 10/11/19 23 10/11/2022 COMP. METAB OLIC PANEL (14) ALT (SGPT) 40 IU/L 0-44 Not Available [facility] ([facility]) [address] [place], [address], 10/11/2022 11:12:21 10/11/19 23 10/11/2022 LIPID PANEL cholesterol, total 270 mg/dL 100-19 9 above high normal Not Available [facility] ([facility]) [address] [place], [address], 10/11/2022 11:12:22 10/11/19 23 10/11/2022 LIPID PANEL triglyceride s 299 mg/dL 0-149 above high normal Not Available [facility] ([facility]) [address] [facility], [address], 10/11/2022 11:12:22 10/11/19 23 10/11/2022 LIPID PANEL HDL cholesterol 32 mg/dL >39 below low normal Not Available [facility] ([facility]) [address] [place], [address], 10/11/2022 11:12:22 10/11/19 23 10/11/2022 LIPID PANEL VLDL cholesterol shaunna 58 mg/dL 5-40 above high normal Not Available [facility] ([facility]) [address] [place], [address], 10/11/2022 11:12:22 10/11/19 23 10/11/2022 LIPID PANEL LDL chol calc ([facility]) 180 mg/dL 0-99 above high normal Not Available [facility] ([facility]) [address] [place], [address], 10/11/2022 11:12:22 10/11/19 23 10/11/2022 LIPID PANEL comment: CORRECTIONS CASEWORKER Not Available [facility] ([facility]) [address] [place], [address], 10/11/2022 11:12:22 10/11/19 23 10/11/2022 THYRO ID PROFI LE II TSH 1.030 uIU/m L 0.450- 4.500 Not Available [facility] ([facility]) [address] [place], [address], 10/11/2022 11:12:23 10/11/19 23 10/11/2022 THYRO ID PROFI LE II thyroxine (T4) 10.8 ug/dL 4.5-12 .0 Not Available [facility] ([facility]) [address] [facility], [place], [address], 10/11/2022 11:12:23 10/11/19 23 10/11/2022 THYRO ID PROFI LE II T3 uptake 27 % 24-39 Not Available [facility] ([facility]) [address] [facility], [place], [address], 10/11/2022 11:12:23 10/11/19 23 10/11/2022 THYRO ID PROFI LE II free thyroxine index 2.9 1.2-4. 9 Not Available [facility] ([facility]) [address] [facility], [place], [address], 10/11/2022 11:12:23 10/11/19 23 10/11/2022 THYRO ID PROFI LE II triiodothyro nine (T3) 148 NG/dL 71-180 Not Available [facility]) [address] [facility], [place], [address], 10/11/2022 11:12:23 10/11/19 23 10/11/2022 VITAM IN B12 AND FOLAT E vitamin B12 747 pg/mL 232-12 45 Not Available [facility] ([facility]) [address] [place], [address], 10/11/2022 11:12:24 10/11/1910/11/2022 VITAM IN B12 AND FOLAT E folate (folic acid), serum >20.0 NG/mL >3.0 A serum folat e linda ntrat ion of less than 3.1 ng/mL is consi dered to repre sent clini shaunna defic iency . Not Available [facility] ([facility]) [address] [facility], [place], [address], 10/11/2022 11:12:24 10/11/1910/11/2022 HEMOG LOBIN A1C hemoglobin A1C 12.9 % 4.8-5. 6 above high normal Predi abete s: 5.7 - 6.4 Diabe melissa: >6.4 Glyce oni contr ol for adult s with diabe melissa: <7.0 Not Available [facility] ([facility]) [address] [facility], [place], [address], 10/11/2022 11:12:26 10/11/19 23 10/11/2022 VITAM IN [...] um and D. Louie burnett [place]: [facility] . 2. Maribell johnson MF, Nilsa shah [place], Dago off-F errar i YEAGER, et al. Evalu ation , treat ment, and preve ntion of vitam in D defic iency : an Endoc rine Socie ty clini shaunna pract ice guide line. JCEM. 2010; 96(7) :1911 -30. Not Available [facility] ([facility]) [address] [facility], [place], [address], 10/11/2022 11:12:27 10/11/19 23 10/11/2022 MAGNE SIUM magnesium 1.5 mg/dL 1.6-2. 3 below low normal Not Available [facility] ([facility]) [address] [facility], [place], [address], 10/11/2022 11:12:28 10/11/19 23 10/10/2022 urina lysis , dipst ick Leukocytes (reference range) negati ve Not Available [facility] - [address], [place], [address], 10/10/2022 11:35:48 10/11/19 23 10/10/2022 urina lysis , dipst ick Nitrite (reference range:) negati ve Not Available [address], [place], [address], 10/10/2022 11:35:48 10/11/19 23 10/10/2022 urina lysis , dipst ick Urobilinogen (reference range) 0.2 Not Available [address], [place], [address], 10/10/2022 11:35:48 10/11/19 23 10/10/2022 urina lysis , dipst ick Protein (reference range) 100 Not Available [address], [place], [address], 10/10/2022 11:35:48 10/11/19 23 10/10/2022 urina lysis , dipst ick pH (reference range 5-8.5) 5.0 Not Available [address], [place], [address], 10/10/2022 11:35:48 10/11/19 23 10/10/2022 urina lysis , dipst ick Blood (reference range:) negati ve Not Available [address], [place], [address], 10/10/2022 11:35:48 10/11/19 23 10/10/2022 urina lysis , dipst ick Specific Rye (reference range) 1.030 Not Available [address], [place], [address], 10/10/2022 11:35:48 10/11/19 23 10/10/2022 urina lysis , dipst ick Ketone (reference range) modera te Not Available [address], [place], [address], 10/10/2022 11:35:48 10/11/19 23 10/10/2022 urina lysis , dipst ick Bilirubin (reference range) modera te Not Available [address], [place], [address], 10/10/2022 11:35:48 10/11/19 23 10/10/2022 urina lysis , dipst ick Glucose (reference range) 1000 Not Available [address], [place], [address], 10/10/2022 11:35:48 10/11/19 23 10/10/2022 urina lysis , dipst ick Color (reference range: yellow-brown ) Dark Yellow Not Available [address], [place], [address], 10/10/2022 11:35:48 10/11/19 23 10/10/2022 HbA1c (hemo globi n A1c), blood HbA1c 13.1 Not Available [address], [place], [address], 10/10/2022 11:16:31 11/09/19 23 11/08/2022 gluco se, finge rstic k, blood Blood Glucose: mg/dl 157 Not Available [facility] [address], [place], [address], 11/08/2022 14:40:07 01/09/20 23 01/09/2023 CBC WITH DIFFE RENTI AL/PL ATELE T WBC 8.0 x10e3 /uL 3.4-10 .8 Not Available [facility] ([facility]) [address] [facility], [place], [address], 01/10/2023 07:14:04 01/09/20 23 01/09/2023 CBC WITH DIFFE RENTI AL/PL ATELE T RBC 4.39 x10e6 /uL 4.14-5 .80 Not Available [facility] ([facility]) [address] [place], [address], 01/10/2023 07:14:04 01/09/20 23 01/09/2023 CBC WITH DIFFE RENTI AL/PL ATELE T hemoglobin 14.5 g/dL 13.0-1 7.7 Not Available [facility] ([facility]) [address] [place], [address], 01/10/2023 07:14:04 01/09/20 23 01/09/2023 CBC WITH DIFFE RENTI AL/PL ATELE T hematocrit 41.8 % 37.5-5 1.0 Not Available [facility] ([facility]) [address] [place], [address], 01/10/2023 07:14:04 01/09/20 23 01/09/2023 CBC WITH DIFFE RENTI AL/PL ATELE T MCV 95 fL 79-97 Not Available [facility] ([facility]) [address] [place], [address], 01/10/2023 07:14:04 01/09/20 23 01/09/2023 CBC WITH DIFFE RENTI AL/PL ATELE T MCH 33.0 pg 26.6-3 3.0 Not Available [facility] ([facility]) [address] [facility], [place], [address], 01/10/2023 07:14:04 01/09/20 23 01/09/2023 CBC WITH DIFFE RENTI AL/PL ATELE T MCHC 34.7 g/dL 31.5-3 5.7 Not Available [facility] ([facility]) [address] [facility], [place], [address], 01/10/2023 07:14:04 01/09/20 23 01/09/2023 CBC WITH DIFFE RENTI AL/PL ATELE T RDW 12.1 % 11.6-1 5.4 Not Available [facility] ([facility]) [address] [facility], [place], [address], 01/10/2023 07:14:04 01/09/20 23 01/09/2023 CBC WITH DIFFE RENTI AL/PL ATELE T platelets 273 x10e3 /uL 150-45 0 Not Available [facility] ([facility]) [address] [facility], [place], [address], 01/10/2023 07:14:04 01/09/20 23 01/09/2023 CBC WITH DIFFE RENTI AL/PL ATELE T neutrophils 63 % not estab. Not Available [facility] ([facility] [address] [place], [address], 01/10/2023 07:14:04 01/09/20 23 01/09/2023 CBC WITH DIFFE RENTI AL/PL ATELE T lymphs 29 % not estab. Not Available [facility] ([facility]) [address] [place], [address], 01/10/2023 07:14:04 01/09/20 23 01/09/2023 CBC WITH DIFFE RENTI AL/PL ATELE T monocytes 7 % not estab. Not Available [facility] ([facility]) [address] [place], [address], 01/10/2023 07:14:04 01/09/20 23 01/09/2023 CBC WITH DIFFE RENTI AL/PL ATELE T eos 1 % not estab. Not Available [facility] ([facility]) [address] [facility], [place], [address], 01/10/2023 07:14:04 01/09/20 23 01/09/2023 CBC WITH DIFFE RENTI AL/PL ATELE T basos 0 % not estab. Not Available [facility] ([facility]) [address] [place], [address], 01/10/2023 07:14:04 01/09/20 23 01/09/2023 CBC WITH DIFFE RENTI AL/PL ATELE T immature cells CORRECTIONS CASE[employer]ER Not Available [facility] ([facility]) [address] [place], [address], 01/10/2023 07:14:04 01/09/20 23 01/09/2023 CBC WITH DIFFE RENTI AL/PL ATELE T neutrophils (absolute) 5.0 x10e3 /uL 1.4-7. 0 Not Available [facility] ([facility]) [address] [place], [address], 01/10/2023 07:14:04 01/09/20 23 01/09/2023 CBC WITH DIFFE RENTI AL/PL ATELE T lymphs (absolute) 2.3 x10e3 /uL 0.7-3. 1 Not Available [facility] ([facility]) [address] [place], [address], 01/10/2023 07:14:04 01/09/20 23 01/09/2023 CBC WITH DIFFE RENTI AL/PL ATELE T monocytes(ab solute) 0.6 x10e3 /uL 0.1-0. 9 Not Available [facility] ([facility]) [address] [place], [address], 01/10/2023 07:14:04 01/09/20 23 01/09/2023 CBC WITH DIFFE RENTI AL/PL ATELE T eos (absolute) 0.1 x10e3 /uL 0.0-0. 4 Not Available [facility] ([facility]) [address], [place], [address], 01/10/2023 07:14:04 01/09/20 23 01/09/2023 CBC WITH DIFFE RENTI AL/PL ATELE T baso (absolute) 0.0 x10e3 /uL 0.0-0. 2 Not Available [facility] ([facility]) [address], [place], [address], 01/10/2023 07:14:04 01/09/20 23 01/09/2023 CBC WITH DIFFE RENTI AL/PL ATELE T immature granulocytes 0 % not estab. Not Available [facility] ([facility]) [address], [place], [address], 01/10/2023 07:14:04 01/09/20 23 01/09/2023 CBC WITH DIFFE RENTI AL/PL ATELE T immature grans (abs) 0.0 x10e3 /uL 0.0-0. 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 METAB OLIC PANEL (14) glucose 111 mg/dL 70-99 above high normal Not Available [facility] ([facility]) [address] [place], [address], 01/10/2023 07:14:05 01/09/20 23 01/09/2023 COMP. METAB OLIC PANEL (14) BUN 16 mg/dL 6-24 Not Available [facility] ([facility]) [address] [place], [address], 01/10/2023 07:14:05 01/09/20 23 01/09/2023 COMP. METAB OLIC PANEL (14) creatinine 0.60 mg/dL 0.76-1 .27 below low normal Not Available [facility] ([facility]) [address] [place], [address], 01/10/2023 07:14:05 01/09/20 23 01/09/2023 COMP. METAB OLIC PANEL (14) eGFR 121 mL/mi n/1.7 3 >59 Not Available [facility] ([facility]) [address] [place], [address], 01/10/2023 07:14:05 01/09/20 23 01/09/2023 COMP. METAB OLIC PANEL (14) BUN/creatini ne ratio 27 9-20 above high normal Not Available [facility] ([facility]) [address] [place], [address], 01/10/2023 07:14:05 01/09/20 23 01/09/2023 COMP. METAB OLIC PANEL (14) sodium 140 mmol/ L 134-14 4 Not Available [facility] ([facility]) [address] [place], [address], 01/10/2023 07:14:05 01/09/20 23 01/09/2023 COMP. METAB OLIC PANEL (14) potassium 4.0 mmol/ L 3.5-5. 2 Not Available [facility] ([facility]) [address] [place], [address], 01/10/2023 07:14:05 01/09/20 23 01/09/2023 COMP. METAB OLIC PANEL (14) chloride 100 mmol/ L 96-106 Not Available [facility] ([facility]) [address] [place], [address], 01/10/2023 07:14:05 01/09/20 23 01/09/2023 COMP. METAB OLIC PANEL (14) carbon dioxide, total 23 mmol/ L 20-29 Not Available [facility] ([facility]) [address] [place], [address], 01/10/2023 07:14:05 01/09/20 23 01/09/2023 COMP. METAB OLIC PANEL (14) calcium 9.5 mg/dL 8.7-10 .2 Not Available [facility] ([facility]) [address] [place], [address], 01/10/2023 07:14:05 01/09/20 23 01/09/2023 COMP. METAB OLIC PANEL (14) protein, total 7.1 g/dL 6.0-8. 5 Not Available [facility] ([facility]) [address] [place], [address], 01/10/2023 07:14:05 01/09/20 23 01/09/2023 COMP. METAB [...] 4.6 3.6 - 4.6 Not Available [facility] ([facility]) [address] [place], [address], 01/10/2023 07:14:05 01/09/20 23 01/09/2023 COMP. METAB OLIC PANEL (14) globulin, total 2.6 g/dL 1.5-4. 5 Not Available [facility] ([facility]) [address] [place], [address], 01/10/2023 07:14:05 01/09/20 23 01/09/2023 COMP. METAB OLIC PANEL (14) A/G ratio 1.7 1.2-2. 2 Not Available [facility] ([facility]) [address] [place], [address], 01/10/2023 07:14:05 01/09/20 23 01/09/2023 COMP. METAB OLIC PANEL (14) bilirubin, total 0.4 mg/dL 0.0-1. 2 Not Available [facility] ([facility]) [address] [place], [address], 01/10/2023 07:14:05 01/09/20 23 01/09/2023 COMP. METAB OLIC PANEL (14) alkaline phosphatase 55 IU/L 44-121 Not Available [facility]) [address] [place], [address], 01/10/2023 07:14:05 01/09/20 23 01/09/2023 COMP. METAB OLIC PANEL (14) AST (SGOT) 13 IU/L 0-40 Not Available [facility] ([facility]) [address] [place], [address], 01/10/2023 07:14:05 01/09/20 23 01/09/2023 COMP. METAB OLIC PANEL (14) ALT (SGPT) 14 IU/L 0-44 Not Available [facility] ([facility]) [address] [place], [address], 01/10/2023 07:14:05 01/09/20 23 01/09/2023 LIPID PANEL cholesterol, total 110 mg/dL 100-19 9 Not Available [facility] ([facility]) [address] [place], [address], 01/10/2023 07:14:06 01/09/20 23 01/09/2023 LIPID PANEL triglyceride s 93 mg/dL 0-149 Not Available [facility] ([facility]) [address] [place], [address], 01/10/2023 07:14:06 01/09/20 23 01/09/2023 LIPID PANEL HDL cholesterol 36 mg/dL >39 below low normal Not Available [facility] ([facility]) [address] [place], [address], 01/10/2023 07:14:06 01/09/20 23 01/09/2023 LIPID PANEL VLDL cholesterol shaunna 18 mg/dL 5-40 Not Available [facility] ([facility]) [address] [place], [address], 01/10/2023 07:14:06 01/09/20 23 01/09/2023 LIPID PANEL LDL chol calc ([facility]) 56 mg/dL 0-99 Not Available [facility]) [address], [place], [address], 01/10/2023 07:14:06 01/09/20 23 01/09/2023 LIPID PANEL 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 6 above high normal Predi abete s: 5.7 - 6.4 Diabe melissa: >6.4 Glyce oni contr ol for adult s with diabe melissa: <7.0 Not Available [facility] ([facility]) [address], [place], [address], 01/10/2023 07:14:07 01/09/20 23 01/10/2023 VITAM IN [...] Louie burnett [place]: [facility] Press . 2. Maribell johnson MF, Nilsa shah [place], Dago off-F errar i YEAGER, et al. Evalu ation , treat ment, and preve ntion of vitam in D defic iency : an Endoc rine Socie ty clini shaunna pract ice guide line. JCEM. 2010; 96(7) :1911 -30. Not Available [facility] ([facility]) [address], [place], [address], 01/10/2023 07:14:08 01/09/20 23 01/09/2023 MAGNE SIUM magnesium 1.6 mg/dL 1.6-2. 3 Not Available [facility] ([facility]) [address], [place], [address], 01/10/2023 07:14:08 01/09/20 23 01/08/2023 HbA1c (hemo globi n A1c), blood HbA1c 8.0 Not Available [address], [place], [address], 01/08/2023 14:14:16 04/10/20 23 04/10/2023 HbA1c (hemo globi n A1c), blood HbA1c 7.3 Not Available [facility] [address], [place], [address], 04/10/2023 08:34:17 12/08/19 23 12/06/2022 XR, sacru m + coccy x [facility] [address] [place] [address] Phone: Fax: Name: LIAM XIONG Exam Date: 023 : [birth year] Age 47 Gender : M Access ion: [id number] Physic rohit: Ronen Michelle ty: [facility] Brendon ty HSV: Outpat ient Exam: [...] you for referr ing BAN XIONGSON to [facility]. Legall y authen ticate d by TERRY LINCOLN 12-07 09:15: 03 CC'ed Logic: Orderi ng Provid er: HADLEY MONCADA E CC Provid er: HADLEY Mcgee Attend ing Provid er: HADLEY Mcgee Referr ing Provid er: HADLEY Mcgee Admitt ing Provid er: HADLEY Mcgee [id number] [facility] [address] [place], [address], 12/07/2022 11:54:18 12/08/19 23 12/06/2022 XR, sacru m + coccy x, 2 or more view No observ ation record ed. [facility] ([facility]) [address] [place], [address], 12/07/2022 11:58:00 02/29/20 23 02/28/2023 [facility] [address] [place] [address] Phone: Fax: Name: LIAM XIONG Exam Date: : [birth year] Age 48 Gender : M Access ion: [id number] Physic rohit: Irena Michelle Facili ty: [facility] Facili ty HSV: Outpat ient Exam: [...] Thank you for referr LIAM Brian to [facility]. Legall y authen ticate d by POPE SHAMA Sharpe 02-28 16:21: 01 CC'ed Logic: Orderi ng Provid er: HADLEY Mcgee CC Provid er: HADLEY Mcgee Attend ing Provid er: HADLEY Mcgee Referr ing Provid er: HADLEY Mcgee Admitt ing Provid er: HADLEY Mcgee [id number] [facility] [address], [place], [address], 03/01/2023 08:36:07 02/29/20 23 02/28/2023 US, abdom en, compl ete No observ ation record ed. [facility] ([facility] [address], [place], [address], 03/07/2023 08:34:35 Result Notes Documentation Provider Name and Address Organization Details Recorded Time Xr, Sacrum + Coccyx : [facility] [address] [place] [address] Name: LIAM XIONG Exam Date: 12/06/2022 : 1975 Age 47 Gender: M Physician: Milagros Cannon Facility: [facility] Facility HSV: Outpatient Exam: SACRUM COCCYX [...] Thank you for referring DARSHAN LIAM to [facility]. Legally authenticated by MARIE LINCOLN 2022-12-07 09:15:03 CC'ed Logic: Ordering Provider: DAVIS LINARES CC Provider: DAVIS LINARES Attending Provider: DAVIS LINARES Referring Provider: DAVIS LINARES Admitting Provider: DAVIS Cannon APRN [address] [place], [address], [facility] [place] 12/07/2022 11:54:18 Procedures Surgical History Date Name Laterality Status Provider Name and Address Organization Details Recorded Time 9 procedure on shoulder completed Doretha Smython [facility] [place] 03/20/2023 14:16:42 Imaging Results None recorded. Procedure [...] Address Organization Details Last Updated DateTime 3 116473. 94 g 36.6 kg/m2 182.88 cm 97 [degF] 96 % 96 % 103 /min 142/80 mm[Hg] CLAIRE SOLIS [place] - [facility] - [place] 3 10:58:46 Date Recorded Body height Body mass index (BMI) Body weight Body temperature Oxygen saturation Oxygen saturation in Arterial blood by Pulse oximetry Heart rate Systolic And Diastolic Provider Name and Address Organization Details Last Updated DateTime 3 182.88 cm 36.5 kg/m2 540076. 35 g 96.8 [degF] 95 % 95 % 89 /min 134/84 mm[Hg] CLAIRE COOL [facility] [place] 3 14:33:54 Date Recorded Body height Body mass index (BMI) Body weight Body temperature Oxygen saturation Oxygen saturation in Arterial blood by Pulse oximetry Heart rate Systolic And Diastolic Provider Name and Address Organization Details Last Updated DateTime 3 182.88 cm 33.9 kg/m2 711961. 09 g 98.1 [degF] 97 % 97 % 82 /min 120/80 mm[Hg] Aminta Harden CLEMENTINE COOL [facility] [place] 3 13:57:12 Date Recorded Body height Body mass index (BMI) Body weight Body temperature Oxygen saturation Oxygen saturation in Arterial blood by Pulse oximetry Heart rate Systolic And Diastolic Provider Name and Address Organization Details Last Updated DateTime 3 182.88 cm 33.5 kg/m2 216156. 32 g 97.7 [degF] 97 % 97 % 85 /min 114/66 mm[Hg] CLAIRE COOL [facility] [place] 3 11:13:56 Date Recorded Body height Body mass index (BMI) Body weight Body temperature Oxygen saturation Oxygen saturation in Arterial blood by Pulse oximetry Heart rate Systolic And Diastolic Provider Name and Address Organization Details Last Updated DateTime 3 182.88 cm 32.4 kg/m2 856843. 58 g 97.1 [degF] 97 % 97 % 90 /min 142/70 mm[Hg] CLAIRE COOL [facility] [place] 3 08:19:13 Social History Question Answer Notes LastModified by Organizat ion Details LastModified Time Tobacco Smoking Status Current Every Day Smoker CLEMENTINE Combs [facility] [place] 10/10/2022 10:53:09 Do You Have An Advance [...] 03/10/2021 completed CLEMENTINE Sanchez - [facility] - [place] 10/17/2022 12:28:36 COVID-19, mRNA, LNP-S, PF, 30 mcg/0.3 mL dose 03/31/2021 completed CLEMENTINE Sanchez - [facility] - [place] 10/17/2022 12:28:36 Past Encounters Encounter ID Performer Location Encounter Start Date Encounter Closed Date Diagnosis/Indication Diagnosis SNOMED-CT Code Diagnosis ICD10 Code Diagnosis Note [id number] Milagros Cordova in, [place] [facility] [address] [place] [address] 10/10/2022 10:49:33 10/10/2022 11:53:58 Type 2 diabetes mellitus 71625112 E11.65 Ozempic was still 800 after insurance. Will start with Metformin and reassess and if needed will add another medication if needed. Follow up in 1 month. Bring blood sugar log to clinic at that time. Hyperlipidemia 23890089 E78.5 Thyroid di sorder screening 886082279 Z13.29 Screening for malignant neoplasm of colon 558560812 Z12.11 Nicotine dependence 5629 4008 F17.200 Adult heal th examination 963001887 Z00.01 Counseled patient on annual eye exams and regular dental visits. Will call with lab results. Patient advised to follow up in 1 month. Diabetic p eripheral neuropathy 908836647 E11.40 Will start new diabetes medication . Will reassess. [id number] Milagros Cordova in[address] [place] [address] 11/08/2022 14:28:07 11/08/2022 14:54:36 Type 2 diabetes mellitus 07955502 E11.65 Keep a blood glucose log. RTC in 2 months. Will recheck hgbA1c, lipid panel, and CBC, CMP. Patient agrees with treatment plan. Continue the metformin as prescribed . Pain in coccyx 03117323 M53.3 Advised patient to take ibuprofen before riding. Use an additional cushion on his bike.Ruthy nt has cologuard at home. Advised to complete and send in to the lab. [id number] Milagros Cordova [address] [place] [address] 01/08/2023 13:52:38 01/08/2023 15:01:27 Type 2 diabetes mellitus 04314697 E11.65 Continue metformin as RX.Will check complete blood work today. Will call with results.A1 C was 13.1 and it is 8.0 today.Will consider adding Mounjaro after January 12 per new recommenda tions. Patient could not afford before.Fol low up in 3 months. Hyperlipidemia 89830950 E78.5 Patient is currently on rosuvastat in. Will call with lab results. [id number] Milagros Cordova in, GAIL [facility] [address] [place] [address] [address] [place] [address] 02/05/2023 10:57:49 02/05/2023 11:31:17 Abdominal pain 78972717 R10.9 Tylenol/Ib uprofen PRN.Avoid any strenuous activity to worsen pain or condition. Was seen in ER December [address] Abd/Pelvis was unremarkab le.Will order U/S. Will call with ultrasound results. [id number] Milagros Cordova in, GAIL [facility] [address] [facility] [address] [place] [address] 04/10/2023 08:14:43 04/10/2023 08:39:38 Type 2 diabetes mellitus 32731746 E11.65 A1C 7.3 on maximum continued Metformin [...] Zaman Member ID Guarantor Name 05/22/2023 1 [facility] [id number] Liam Xiong [id number] Liam Xiong Notes Date Note Type Note [...] neuropathy. Milagros Cannon APRN [address], [place], [address], [facility] [place] 10/12/2022 10:13:43 11/08/2022 text/html ROS as noted in the HPI patient presents to clinic for follow up. [...] defecate. Milagros Cannon APRN [address], [place], [address], [facility] [place] 11/08/2022 15:48:57 01/08/2023 text/html ROS as noted in the HPI patient presents to clinic for follow up on diabetes.He states he is feeling better. He was seen in the ER for abdominal pain 2 weeks [address] He states [address] abdomen was negative. He is seeing the Chiropractor and it is helping with his back spasms. He denies any new symptoms. Milagros Cannon APRN [address], [place], [address], [facility] [place] 01/08/2023 14:31:24 02/05/2023 text/html ROS as noted in the HPI patient presents to clinic for right sided [...] any chest pain or SOB. Milagros Cannon GAIL [address], [place], [address], [facility] [place] 02/05/2023 11:49:51 04/10/2023 text/html ROS as noted in the HPI patient presents to clinic for 3 month follow up. He states he is a little stressed in this morning. He states his BP has been running good. He denies any headaches. Denies any chest pain. Milagros Cannon, GAIL [address], [place], [address], [facility] [place] 04/11/2023 08:59:32
== END 2025-02-07 23:59 | disposition home or self-care (01) ==
LOC: INF 13:42
PROVIDERS: PCP Internal Medicine; Visit Provider Surgery
DX: L05.01 Pilonidal cyst with abscess (principal)
CPT/HCPCS: G0463

== ENCOUNTER → 2025-02-08 08:11 | Outpatient (RCR) | payer OTHER, SELFPAY | LOC: INF 08:11 | PROVIDERS: Visit Provider Surgery | DX: L05.01 Pilonidal cyst with abscess (principal) | CPT/HCPCS: G0463 ==

== ENCOUNTER 2025-02-11 08:13 | Outpatient (RCR) | payer OTHER, SELFPAY | END 2025-02-11 08:15 | LOC: INF 08:13 | PROVIDERS: Visit Provider Surgery | DX: L05.01 Pilonidal cyst with abscess (principal) | CPT/HCPCS: G0463 ==